=== PATIENT | female | born 1955 | race Caucasian/White ===

== ENCOUNTER 2022-01-23 09:04 | Inpatient (IN) | payer MEDICARE, SELFPAY ==
[2022-01-23] VITALS (8 sets, daily range): BP systolic 148–191; BP diastolic 88–130; PULSE 101–111; RESP 16–20; TEMP 36.7–36.8; O2SAT 92–98; BMI 38.0; BMI 38.1
--- NOTE | 2022-01-23 11:16 | W.ED.GENADLT ---
HPI - General Adult General: Chief complaint: General Medical Stated complaint: Dr. Trivedi sent for SOB Time Seen by Provider: 01/23/22 09:31 History of Present Illness: Ms Ann is a 66-year-old lady without significant past medical history presents to the emergency department due to abnormal lab results and respiratory symptoms. She reports 6 months ago having onset of gradual respiratory symptoms including nonproductive cough and lump sensation in throat. Since that time symptoms have persisted and occur daily. Course has been worsening. Intensity is moderate to severe. She experiences breathlessness with exertion. Denies new environmental exposures or known precipitating factors. Apparently she saw primary care and had laboratory studies done which demonstrated elevated D-dimer. No other specific changes in health, exacerbating, or alleviating factors identified. Onset (ago): month(s) Severity: moderate Relieving factors: none Exacerbating factors: other (exertion) Associated symptoms: Reports cough, dyspnea, malaise and short of breath Review of Systems General: Reports: 10 or more systems reviewed and unremarkable except in HPI and below Const: Reports: malaise Resp: Reports: dyspnea PFSH ED PFSH: Medical History (Updated 01/23/22 @ 14:07 by Piyush Lantigua MD) No significant past medical history Surgical History (Updated 01/23/22 @ 11:24 by Piyush Lantigua MD) History of appendectomy History of cholecystectomy History of hysterectomy Social History (Updated 01/23/22 @ 11:24 by Piyush Lantigua MD) Smoking and tobacco status: never smoked Physical Exam Const: COMMON NORMALS: alert GENERAL APPEARANCE: cooperative and well developed HENMT: COMMON NORMALS: normocephalic and atraumatic HEAD & SCALP: normocephalic and atraumatic Eye: COMMON NORMALS: conjunctivae normal CONJUNCTIVA: Yes conjunctivae normal SCLERA: sclerae normal Neck/C-Spine: COMMON NORMALS: supple GENERAL: Yes trachea midline Resp: EFFORT & INSPECTION: Yes able to speak in complete sentences AUSCULTATION: diminished lung sounds on the right in the lower lung jesus and on the left throughout and bronchial breath sounds OTHER: Frequent coughing Cardio: COMMON NORMALS: regular rhythm RATE: tachycardic RHYTHM: regular rhythm GI: COMMON NORMALS: Soft to palpation PALPATION: Yes Soft to palpation and No Tenderness to palpation present (GI) Extremity: GENERAL: Yes normal exam except as noted and No edema Neuro: COMMON NORMALS: moves all extremities SENSORIUM/ORIENTATION: Yes alert and No Orientation impaired Psych: COMMON NORMALS: mental status grossly normal and Normal thought process present THOUGHT PROCESS: Normal thought process present Course Vital Signs: Vital signs: Vital Signs Temperature 97.5 F L 01/25/22 11:50 Pulse Rate 113 H 01/25/22 11:50 Respiratory Rate 18 01/25/22 11:50 Blood Pressure 119/76 01/25/22 11:50 Pulse Oximetry 95 01/25/22 11:50 Oxygen Delivery Me thod 01/25/22 11:50 MDM - General Adult Medical Decision Making 66-year-old lady presenting with persistent cough and progressively worsening dyspnea. Initial exam notable for mild visible dyspnea at rest and tachycardia with significantly decreased lung sounds. Patient not currently requiring oxygen. Twelve-lead EKG demonstrating sinus tachycardia with nonspecific ST segment abnormalities. No STEMI. Laboratory studies notable for minimal leukocytosis. Electrolytes without significant abnormality. BNP normal and delta troponin at 2 hours negative. Given reported outside elevated D-dimer and progressive symptoms I believe that advanced imaging is appropriate. CT imaging notable for large left pleural effusion essentially collapsing the anterior lung and vasculature with some evidence of mediastinal shift. There are scattered nodules throughout the right lung and questionable liver lesions. I discussed results of ED evaluation with the patient including possibility of cancer. Given severity of progressive symptoms as well as imaging findings I do believe that inpatient management is appropriate. The results of ED evaluation were discussed with the patient including plan for admission due to requirement for level of care not available if discharged to prevent significant worsening/deterioration. Patient agreeable with plan. Discussed with hospitalist service Dr. Buckner who is agreeable to admit the patient. Medical Records I reviewed the patient's medical records. Lab Data I reviewed the patient's lab results. : 01/25/22 02:40 01/25/22 02:40 Radiology Impressions Chest CTA 01/23/22 11:22 IMPRESSION: 1. Large LEFT pleural effusion resulting in compressive atelectasis of the lungs centrally with slight shift of the midline structures to the RIGHT. 2. Numerous subcentimeter RIGHT pulmonary nodules. Differential includes metastatic disease, septic embolic disease and fungal disease. 3. Numerous low-attenuation lesions in the liver suspicious for metastatic disease. 4. No central pulmonary embolism. Neck CT 01/23/22 11:22 IMPRESSION: 1. Central, symmetric narrowing of the airway at the level of the vocal cords. This is probably due to a Valsalva maneuver during the examination. Direct visualization should be performed for further evaluation to exclude neoplasm. 2. No adenopathy. 3. Multiple small subcentimeter nodules at the RIGHT apex and a large LEFT pleural effusion. Abdomen/Pelvis CT 01/23/22 15:50 IMPRESSION: 1. Scattered low-density lesions in the liver have the appearance of cysts, measuring up to 2.2 cm in the right hepatic lobe. 2. Left-sided parapelvic renal cysts. 3. Diverticulosis without diverticulitis. 4. Mid abdominal mesenteric edema may reflect a chronic inflammatory process such as sclerosing mesenteritis. 5. Large left pleural effusion. 6. Coronary artery atherosclerotic calcifications. COMMENTS: Consistent with the [employer]'s Incidental Findings Committee white paper (J Am Sandy Radiol 2018): Any incidental renal lesion less than 1 cm or classified as too small to characterize, or any incidental cystic renal lesion characterized as simple-appearing, is likely benign. No follow-up imaging is recommended for these lesions per consensus recommendations based on imaging criteria. Chest Ultrasound 01/24/22 12:00 IMPRESSION: Large LEFT thoracentesis. Chest X-Ray 01/25/22 05:00 IMPRESSION: 1. Large left-sided pleural effusion with only a small portion of the left upper lobe ventilated. No significant change. Laboratory Results WBC 10.6 10^3/uL (4.0-10.0) H 01/23/22 11:30 RBC 4.63 10^6/uL (4.1-5.3) 01/23/22 11:30 Hgb 13.6 g/dL (11.5-15.3) 01/23/22 11:30 Hct 42.4 % (37.0-47.0) 01/23/22 11:30 MCV 91.6 fl (81-99) 01/23/22 11:30 MCH 29.4 pg (28.0-34.0) 01/23/22 11:30 MCHC 32.1 g/dL (30.0-36.0) 01/23/22 11:30 RDW 13.8 % (12.1-15.1) 01/23/22 11:30 Plt Count 308 10^3/cmm (130-400) 01/23/22 11:30 MPV 10.9 fL (7.4-10.4) H 01/23/22 11:30 Neut % (Auto) 74.7 % 01/23/22 11:30 Lymph % (Auto) 19.0 % 01/23/22 11:30 [place] % (Auto) 4.5 % 01/23/22 11:30 Eos % (Auto) 0.8 % 01/23/22 11:30 Baso % (Auto) 0.5 % 01/23/22 11:30 Neut # (Auto) 7.91 10^3/uL (1.8-7.7) H 01/23/22 11:30 Lymph # (Auto) 2.0 10^3/uL (0.8-4.8) 01/23/22 11:30 [place] # (Auto) 0.5 10^3/uL (0.2-0.9) 01/23/22 11:30 Eos # (Auto) 0.1 10^3/uL (0.0-0.8) 01/23/22 11:30 Baso # (Auto) 0.1 10^3/uL (0.0-0.1) 01/23/22 11:30 Nucleated RBC % (auto) 0 % 01/23/22 11:30 Nucleated RBCs # 0.0 /100WBC 01/23/22 11:30 Sodium 141 mmol/L (136-145) 01/23/22 11:30 Potassium 4.3 mmol/L (3.5-5.1) 01/23/22 11:30 Chloride 105 mmol/L (98-107) 01/23/22 11:30 Carbon Dioxide 26 mmol/L (22-29) 01/23/22 11:30 Anion Gap 14.3 (5-19) 01/23/22 11:30 BUN 15 mg/dL (8-23) 01/23/22 11:30 Creatinine 0.8 mg/dL (0.5-0.9) 01/23/22 11:30 GFR Calculation 71.3 mL/min (90-130) L 01/23/22 11:30 Glucose 102 mg/dL (65-115) 01/23/22 11:30 Calculated Osmolality 293 mOsm/kg (285-295) 01/23/22 11:30 Calcium 9.7 mg/dL (8.5-10.5) 01/23/22 11:30 Troponin T Baseline 13 ng/L (0-10) H 01/23/22 11:30 Troponin T 120 Minute 12.48 ng/L (0-10) H 01/23/22 13:30 Delta Troponin T -0.52 ABS# (0-10) L 01/23/22 13:30 NT-Pro-B Natriuret Pep 87 pg/mL (0-125) 01/23/22 11:30 Discharge Plan Discharge Patient Disposition: Admitted As Inpatient Admit Provider: Rigo Buckner Clinical Impression: Shortness of breath, Pleural effusion Condition: Stable Coding Level of Care Code ED Critical Care Registered Nurse for Chg Fwd Exam Comprehensive
--- NOTE | 2022-01-23 11:22 | CT_ITS ---
WS: [id number] CT NECK WITH CONTRAST HISTORY: cough for 6 months, lump sensation TECHNIQUE: Contiguous 5 mm axial images are performed through the neck with intravenous contrast. Sag ittal and coronal reformats are also submitted. All CT scans at [facility] use at least one o f these dose optimization techniques: automated exposure control; mA and/or kV adjustment per patient size (includes targeted exams where dose is matched to clinical indication); or iterative reconstruc tion. CONTRAST: CONTRAST: Omnipaque 350; 75 mL IV. DLP: 287.92 mGy.cm COMPARISON: None available. Nasopharynx and oropharynx are negative. Narrowing of the airway at the level of the vocal cords. Thi s could be due to a Valsalva maneuver. The very symmetric narrowing. Torus tubarius and fossa of Rosenmuller and parapharyngeal fat are normal. No significant lymphadenopathy is identified. Thyroid gland and salivary glands are normally enhancing with no masses. Degenerative disc disease and spondylosis at C4-5, C5-6 and C6-7. Visualized portions of the skull base demonstrate no abnormalities. Orbits and globes are within norm al limits. No soft tissue masses. Visualized paranasal sinuses and mastoid air cells are normal. Large LEFT pleural effusion is noted at the LEFT lung apex. On the localizer there is extensive opaci fication throughout the LEFT thorax. Small, subcentimeter pulmonary nodules are noted at the RIGHT ap ex. These were described on the recent chest CT. CT/CT neck w con* [id number] IMPRESSION: 1. Central, symmetric narrowing of the airway at the level of the vocal cords. This is probably due to a Valsalva maneuver during the examination. Direct vis ualization should be performed for further evaluation to exclude neoplasm. 2. No adenopathy. 3. Multiple small subcentimeter nodules at the RIGHT apex and a large LEFT ple ural effusion.
--- NOTE | 2022-01-23 11:22 | CT_ITS ---
WS: [id number] CT CHEST ANGIOGRAPHY WITH REFORMATS HISTORY: cough, elevated ddimer TECHNIQUE: Contiguous axial images are obtained through the chest during arterial injection of intrav enous contrast. Images are reconstructed to evaluate the pulmonary arteries. MIP imaging also reviewe d. All CT scans at [facility] use at least one of these dose optimization techniques: automat ed exposure control; mA and/or kV adjustment per patient size (includes targeted exams where dose is matched to clinical indication); or iterative reconstruction. CONTRAST: Omnipaque 350; 65 mL IV. DLP: 474.11 mGy.cm COMPARISON: None available. Very large LEFT pleural effusion with compressive atelectasis of the lung centrally. LEFT pleural spa ce is completely filled with fluid. Fluid is of low attenuation and probably simple fluid. Good distention of the pulmonary artery. Central pulmonary artery is well-opacified. Abrupt terminati on of the distal LEFT main pulmonary artery. The RIGHT pulmonary artery is better opacified. There is significant motion and breathing artifact. No definite pulmonary emboli are identified centrally. Th e heart is being displaced to the RIGHT by the effusion. No RIGHT heart strain. No pericardial effusi on. Innumerable tiny pulmonary nodules are noted throughout the RIGHT lung. Largest nodule measures 7 mm in the RIGHT lower lobe. Abrupt termination of the LEFT distal main bronchus. Centrally obstructing m ass is not excluded. No definite mediastinal or hilar lymph nodes are identified. There are a few lym ph nodes which are less than a centimeter. Visualized thyroid is negative. Multiple scattered low-attenuation lesions in the liver. The largest measures 2.8 x 2.0 cm with sligh tly irregular borders in the RIGHT lobe. Liver appears enlarged. No adrenal mass. Thoracic spondylitic changes. T4 and T5 hemangiomas. CT/CT angio chest PE protcl [id number] IMPRESSION: 1. Large LEFT pleural effusion resulting in compressive atelectasis of the nigel gs centrally with slight shift of the midline structures to the RIGHT. 2. Numerous subcentimeter RIGHT pulmonary nodules. Differential includes metas tatic disease, septic embolic disease and fungal disease. 3. Numerous low-attenuation lesions in the liver suspicious for metastatic dis ease. 4. No central pulmonary embolism.
--- NOTE | 2022-01-23 11:26 | ECG_ITS ---
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 Measurements Intervals [place] Rate: 110 P: 42 [place]: 136 QRS: 11 QRSD: 82 T: 27 QT: 307 QTc: 415 Interpretive Statements SINUS TACHYCARDIA LOW QRS VOLTAGE IN PRECORDIAL LEADS [QRS DEFLECTION < 1.0 mV IN CHEST LEADS] POSSIBLE ANTERIOR MYOCARDIAL INFARCTION , PROBABLY OLD [30 ms Q WAVE IN V3/V4, OR R < 0.2 mV IN V4] ABNORMAL RHYTHM ECG No previous ECG available for comparison Electronically Signed On 01-24-2022 7:06:05 CDT by Ben Becker M.D. [id number]
[2022-01-23 11:39] LABS: Basophils # 0.1 10^3/uL (0.0-0.1); Basophils % 0.5 %; Eosinophils # 0.1 10^3/uL (0.0-0.8); Eosinophils % 0.8 %; Hematocrit 42.4 % (37.0-47.0); Hemoglobin 13.6 g/dL (11.5-15.3); Mean Corpuscular HGB Conc 32.1 g/dL (30.0-36.0); Mean Corpuscular Hemoglobin 29.4 pg (28.0-34.0); Mean Corpuscular Volume 91.6 fl (81-99); Mean Platelet Volume 10.9 fL (7.4-10.4); Monocytes # 0.5 10^3/uL (0.2-0.9); Monocytes % 4.5 %; Neutrophils # 7.91 10^3/uL (1.8-7.7); Neutrophils % 74.7 %; Nucleated Red Blood Cells % 0 %; Platelet Count 308 10^3/cmm (130-400); Red Blood Count 4.63 10^6/uL (4.1-5.3); Red Cell Distribution Width 13.8 % (12.1-15.1); White Blood Count 10.6 10^3/uL (4.0-10.0)
[2022-01-23] MEDS: benzonatate 100 mg Capsule PO (12:01)
[2022-01-23 12:18] LABS: Anion Gap 14.3 (5-19); Blood Urea Nitrogen 15 mg/dL (8-23); Calcium 9.7 mg/dL (8.5-10.5); Carbon Dioxide 26 mmol/L (22-29); Chloride 105 mmol/L (98-107); Glomerular Filtration Rate 71.3 mL/min (90-130); Glucose 102 mg/dL (65-115); NT Pro B Type Natriuretic Pept 87 pg/mL (0-125); Osmolality Calculated 293 mOsm/kg (285-295); Potassium 4.3 mmol/L (3.5-5.1); Sodium 141 mmol/L (136-145)
[2022-01-23 12:19] LABS: Troponin(5th) Baseline 13 ng/L (0-10)
[2022-01-23] MEDS: iohexol 350 mg/mL 100 mL Btl IV ×2 (13:08→13:09)
[2022-01-23 14:02] LABS: Troponin 5 2HR 12.48 ng/L (0-10)
[2022-01-23 14:03] LABS: Troponin 5 2HR Delta -0.52 ABS# (0-10)
--- NOTE | 2022-01-23 15:21 | P.HP_ITS ---
Providers/Chief Complaint Admitting Physician: Rigo Buckner MD Primary Care Provider: Ramana Trivedi MD Chief Complaint: Dr. Trivedi sent for SOB History of Present Illness Magy Ann is a 66 year old female with no significant past medical history came in with chief complaint of worsening shortness of breath predominantly with exertion, patient symptoms started around 6 months back, with nonproductive cough, occasional diaphoresis, and shortness of breath, she also reports uninte ntional loss of 30 pounds weight in 6 months duration, she denied any chest pain, PND, orthopnea, Fever, joint pain joint swelling oral ulcers, rash, sick contact, has denied smoking drug use alcohol use. Has significant family history of malignancy. Upon arrival in the ER she was worked up for above-mentioned complaint: Pertinent imaging studies: CT angio chest PE:?Large LEFT pleural effusion resulting in compressive atelectasis of the lungs centrally with slight shift of the midline structures to the RIGHT.Numerous subcentimeter RIGHT pulmonary nodules. Differential incl udes metastatic disease, septic embolic disease and fungal disease.Numerous low- attenuation lesions in the liver suspicious for metastatic disease. No central pulmonary embolism. CT neck w con: Central, symmetric narrowing of the airway at the level of the vocal cords. This is probably due to a Valsalva maneuver during the examination. Direct visualization should be performed for further evaluation to exclude neoplasm. Pertinent labs: WBC 10.6, H&H: 13/42 , plt : 308 , serum sodium 141, serum potassium 4.3, BUN and serum creatinine 15 and 0.8 Troponin trend:13-12 , proBNP 87 Review of Systems General: Reports: 10 or more systems reviewed and unremarkable except in HPI and below Const: Reports: diaphoresis; Denies: fever(s), chills, body aches or change in appetite Card: Reports: dyspnea on exertion; Denies: palpitations, edema, swelling of feet/ankles or leg pain with exertion Resp: Reports: dyspnea and non-productive cough; Denies: productive cough, wheezing or pain on inspiration GI: Denies: abdominal pain, nausea, vomiting, diarrhea or constipation : Denies: flank pain Musc: Denies: back pain, extremity pain or extremity swelling Neuro: Denies: headache(s), difficulty walking or confusion Medications/Allergies Home Medications Medication Instructions Recorded Confirmed Last Taken Type doxycycline hyclate 100 mg capsule 100 mg PO BID 01/23/22 01/23/22 Unknown History naproxen 250 mg tablet 250 mg PO BID PRN Pain 01/23/22 01/23/22 Unknown History omeprazole 20 mg capsule,delayed 20 mg PO DAILY 01/23/22 01/23/22 Unknown History release Allergies Allergy/AdvReac Type Severity Reaction Status Date / Time buspirone [From BuSpar] Allergy ALGY-Anaphy Verified 01/23/22 12:56 laxis clarithromycin [From Biaxin] Allergy ALGY-Anaphy Verified 01/23/22 12:56 laxis codeine Allergy ADR-Vomitin Verified 01/23/22 12:56 g Macrolide Antibiotics Allergy ADR-Vomitin Verified 01/23/22 12:56 g methylprednisolone Allergy ALGY-Anaphy Verified 01/23/22 12:56 [From Depo-Medrol] laxis Nitrate Analogues Allergy Unknown Verified 01/23/22 12:56 norepinephrine Allergy ALGY-Anaphy Verified 01/23/22 12:56 laxis Penicillins Allergy ALGY-Anaphy Verified 01/23/22 12:56 laxis Quinolones Allergy Unknown Verified 01/23/22 12:56 Sulfa (Sulfonamide Allergy ALGY-Anaphy Verified 01/23/22 12:56 Antibiotics) laxis venlafaxine [From Effexor] Allergy ALGY-Anaphy Verified 01/23/22 12:56 laxis PFSH Acute PFSH: Medical History (Updated 01/23/22 @ 14:07 by Piyush Lantigua MD) No significant past medical history Surgical History (Updated 01/23/22 @ 11:24 by Piyush Lantigua MD) History of appendectomy History of cholecystectomy History of hysterectomy Social History (Updated 01/23/22 @ 11:24 by Piyush Lantigua MD) Smoking and tobacco status: never smoked Vitals/I&O/Wt Last Vital Signs Temp 98.2 F 01/23/22 09:26 Pulse 107 H 01/23/22 13:40 Resp 16 01/23/22 13:40 BP 151/101 01/23/22 13:40 Pulse Ox 92 01/23/22 13:40 O2 Del Method 01/23/22 13:40 Weight last 48 hrs Weight 97.522 kg Physical Exam Const: COMMON NORMALS: patient oriented x3 Resp: COMMON NORMALS: clear to auscultation bilaterally AUSCULTATION: clear to auscultation bilaterally OTHER: Absent lung sounds in left lung field Cardio: COMMON NORMALS: regular rate, regular rhythm, S1 normal heart sound present, S2 normal heart sound present, No gallops present (Cardio), No murmurs present (Cardio), No rub (Cardio) and Peripheral pulses 2+ throughout RATE: regular rate RHYTHM: regular rhythm HEART SOUNDS: S1 normal heart sound present and S2 normal heart sound present PERIPHERAL PULSES: Peripheral pulses 2+ throughout GI: COMMON NORMALS: Normal to inspection, nondistended, normoactive bowel sounds present, Soft to palpation, non-tender, No hepatosplenomegaly present and no masses AUSCULTATION: Yes normoactive bowel sounds PALPATION: Yes Soft to palpation and Yes No hepatosplenomegaly present RECTAL EXAM: deferred Extremity: COMMON NORMALS: no clubbing, cyanosis or edema and no pedal edema Neuro: COMMON NORMALS: patient oriented x3 Data : 01/23/22 11:30 01/23/22 11:30 A&P Assessment and plan (1) Shortness of breath: (2) Pleural effusion: Plan 66 year old female with no significant past medical history came in with chief complaint of worsening shortness of breath predominantly with exertion, patient symptoms started around 6 months back, with nonproductive cough, occasional diaphoresis, and shortness of breath, she also reports unintentional loss of 30 pounds weight in 6 months duration, she denied any chest pain, PND, orthopnea, Fever, joint pain joint swelling oral ulcers, rash, sick contact, has denied smoking drug use alcohol use. Patient has denied any recent travel. Has significant family history of malignancy. Assessment: Symptomatic significant left pleural effusion: Possible malignant pleural effusion: Rule out other causes Numerous subcentimeter RIGHT pulmonary nodules. Numerous low-attenuation lesions in the liver suspicious for metastatic disease. Plan: Follow-up PT/INR Follow ESR CRP Rheumatoid factor, anti CCP Urine histoplasma antigen ANSLEY profile rheumatology QuantiFERON gold DuoNebs Gene Heredia Patient will need left-sided thoracentesis. We will plan for tomorrow morning. CODE STATUS: Full code DVT prophylaxis: On Lovenox Attestations Medical Necessity Statement*: Patient is to be in hospital for management of symptomatic left pleural effusion. Anticipated length of stay greater than 2 midnights. 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
--- NOTE | 2022-01-23 15:50 | CTR_ITS ---
PROCEDURE INFORMATION: Exam: CT Abdomen And Pelvis With Contrast Exam date and time: 01/23/2022 7:54 PM Age: 66 years old Clinical indication: Other: Lesions on liver noted in chest scan today; Additional info: R/O malignancy TECHNIQUE: Imaging protocol: Computed tomography of the abdomen and pelvis with contrast. Radiation optimization: All CT scans at this facility use at least one of these dose optimization techniques: automated exposure control; mA and/or kV adjustment per patient size (includes targeted exams where dose is matched to clinical indication); or iterative reconstruction. Contrast material: OMNIPAQUE 350; Contrast volume: 75 ml; Contrast route: INTRAVENOUS (IV); Other contrast: Oral, 750ml; COMPARISON: CT angio chest PE protcl [id number] 01/23/2022 12:56 PM RADIATION DOSE METRICS: Total DLP (mGy-cm): 1028.61 FINDINGS: Pleural spaces: Large left pleural effusion. Heart: Coronary artery atherosclerotic calcifications. Liver: Scattered low-density lesions in the liver have the appearance of cysts, measuring up to 2.2 cm in the right hepatic lobe. Gallbladder and bile ducts: Normal. No calcified stones. No ductal dilation. Pancreas: Normal. No ductal dilation. Spleen: Normal. No splenomegaly. Adrenal glands: Normal. No mass. Kidneys and ureters: Left-sided parapelvic renal cysts. Stomach and bowel: Diverticulosis without diverticulitis. Appendix: No evidence of appendicitis. Intraperitoneal space: Mid abdominal mesenteric edema may reflect a chronic inflammatory process such as sclerosing mesenteritis. Vasculature: Unremarkable. No abdominal aortic aneurysm. Lymph nodes: Unremarkable. No enlarged lymph nodes. Urinary bladder: Unremarkable as visualized. Reproductive: Unremarkable as visualized. Bones/joints: Unremarkable. No acute fracture. Soft tissues: Unremarkable. CT/CT abdomen pelvis w con* [id number] IMPRESSION: 1. Scattered low-density lesions in the liver have the appearance of cysts, measuring up to 2.2 cm in the right hepatic lobe. 2. Left-sided parapelvic renal cysts. 3. Diverticulosis without diverticulitis. 4. Mid abdominal mesenteric edema may reflect a chronic inflammatory process such as sclerosing mesenteritis. 5. Large left pleural effusion. 6. Coronary artery atherosclerotic calcifications. COMMENTS: Consistent with the [place] [employer]'s Incidental Findings Committee white paper (J Am Sandy Radiol 2018): Any incidental renal lesion less than 1 cm or classified as too small to characterize, or any incidental cystic renal lesion characterized as simple-appearing, is likely benign. No follow-up imaging is recommended for these lesions per consensus recommendations based on imaging criteria.
[2022-01-23] MEDS: enoxaparin 40 mg/0.4 mL Syringe SUBCUT (16:13)
[2022-01-23] MEDS: amlodipine 5 mg Tablet 10 MG PO (16:13)
--- NOTE | 2022-01-23 17:34 | ECG_ITS ---
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 Measurements Intervals [place] Rate: 99 P: 39 ID: [id number] QRS: 13 QRSD: 91 T: 29 QT: 339 QTc: 436 Interpretive Statements SINUS RHYTHM LOW QRS VOLTAGE IN PRECORDIAL LEADS [QRS DEFLECTION < 1.0 mV IN CHEST LEADS] Compared to ECG 01/23/2022 11:26:40 Sinus tachycardia no longer present Myocardial infarct finding no longer present Electronically Signed On 01-24-2022 7:13:21 CDT by Ben Becker M.D. [id number]
[2022-01-23] MEDS: sodium chloride 0.9% 1,000 ML 75 ML IV (18:11)
[2022-01-23] MEDS: benzonatate 100 mg Capsule 200 MG PO (18:11)
[2022-01-23 18:36] LABS: Troponin 5 6HR 14.17 ng/L (0-10)
[2022-01-23 18:37] LABS: Troponin 5 6HR Delta 1.17 ng/L (0-12)
[2022-01-23] MEDS: iohexol 350 mg/mL 100 mL Btl PO (19:27)
[2022-01-24] VITALS (15 sets, daily range): BP systolic 93–157; BP diastolic 62–101; PULSE 76–109; RESP 16–20; TEMP 36.6–37.1; O2SAT 92–98
[2022-01-24] MEDS: sodium chloride 0.9% 1,000 ML 75 ML IV (05:14)
[2022-01-24 05:15] LABS: Basophils % 0.5 %; Eosinophils # 0.2 10^3/uL (0.0-0.8); Eosinophils % 2.1 %; Hematocrit 37.7 % (37.0-47.0); Hemoglobin 11.6 g/dL (11.5-15.3); Lymphocytes # 2.1 10^3/uL (0.8-4.8); Lymphocytes % 24.2 %; Mean Corpuscular HGB Conc 30.8 g/dL (30.0-36.0); Mean Corpuscular Volume 91.1 fl (81-99); Monocytes # 0.5 10^3/uL (0.2-0.9); Monocytes % 6.3 %; Neutrophils # 5.74 10^3/uL (1.8-7.7); Neutrophils % 66.6 %; Nucleated Red Blood Cells % 0 %; Platelet Count 231 10^3/cmm (130-400); Red Blood Count 4.14 10^6/uL (4.1-5.3); White Blood Count 8.6 10^3/uL (4.0-10.0)
[2022-01-24 05:16] LABS: Erythrocyte Sedimentation Rate 26 mm/hr (0-15)
[2022-01-24 05:52] LABS: NT Pro B Type Natriuretic Pept 126 pg/mL (0-125); Procalcitonin 0.02 ng/mL (0-0.5); Thyroid Stimulating Hormone 2.55 uIU/mL (0.27-4.20)
[2022-01-24 06:05] LABS: Alanine Aminotransferase 21 U/L (0-33); Albumin Level 3.5 g/dL (3.5-5.2); Alkaline Phosphatase 80 U/L (35-105); Anion Gap 13.8 (5-19); Aspartate Amino Transferase 17 U/L (0-32); Blood Urea Nitrogen 11 mg/dL (8-23); C Reactive Protein 14.6 mg/L (0.0-4.9); Calcium 8.9 mg/dL (8.5-10.5); Carbon Dioxide 26 mmol/L (22-29); Chloride 100 mmol/L (98-107); Glomerular Filtration Rate 71.3 mL/min (90-130); Glucose 96 mg/dL (65-115); Osmolality Calculated 281 mOsm/kg (285-295); Potassium 3.8 mmol/L (3.5-5.1); Sodium 136 mmol/L (136-145); Total Bilirubin 0.6 mg/dL (0.15-1.2); Total Protein 6.5 g/dL (6.6-8.7)
[2022-01-24] MEDS: ipratropium-albuterol 3 mL Neb INHALATION (08:40)
[2022-01-24] MEDS: pantoprazole DR 40 mg Tablet PO (08:47)
[2022-01-24] MEDS: benzonatate 100 mg Capsule 200 MG PO ×3 (08:47→20:43)
[2022-01-24] MEDS: amlodipine 10 mg Tablet PO (09:28)
--- NOTE | 2022-01-24 10:20 | PC.CHAP ---
Pastoral Care Encounter/Spiritual Assessment Type of Contact [] Declined environmental air specialist visit [] Patient/Family/Request visit [] Outpatient visit [] Follow-up visit [] Physician referral [] Code/Alert [x] Routine visit [] Staff referral [] Actively dying [] Patient sleeping [] Family support [] [] Out of room [] Palliative care [] [x] Receiving care in room [] Pre-surgical visit [] Trauma [] Long length of stay [] ICU visit [] Other: Relational/Emotional Strength [] Patient feels connected with others/family/visitors/staff [x] Distress [] Loneliness/isolation [] Abandonment Spirituality of Patient [x] Person of [place] [] Attends Faith of their [place] [x] Believes in Prayer [] Reads Bible or Judaism materials [] There are Spiritual issues to be addressed Senior Licensing Manager Interventions [x] Prayer [x] Active listening [x] Non-anxious presence [x] Spiritual/emotional support [] Crisis/trauma care [x] Spiritual counseling [] Bereavement support [] Provided bereavement packet [] Provided Bible/devotional materials [] Provided toy/stuffed animal, coloring book to patient or family member [] Provided Communion [] Anointing/[place] [] Salvation [x] Completed spiritual assessment [] Other: Impact on Illness or Injury [] Angry [x] Fearful [] Anxious [] Often cries [] Exhaustion [] Unable to work [] Unable to attend methodist [] Unable to walk/stand [] Unable to read [] Unable to drive [] Unable to eat/drink [] Unable to sleep [] Unable to be with family [] Patient intubated [] Other: Summary daniel had tests waiting on doctors report has other healthy problems negative at this time will go home at some point Time spent with patient 10 mins
--- NOTE | 2022-01-24 11:41 | P.PN_ITS ---
Subjective Subjective: Patient was seen and examined this morning, continues to have significant nonproductive cough. S/p left-sided thoracentesis. Medications: Medication Review Details: Generic Name Dose Route Start Last Admin Trade Name Freq PRN Reason Stop Dose Admin Albuterol/Ipratrop ium 3 ml 01/23/22 15:18 01/24/22 08:40 Ipratropium-Albu terol 3 Ml Neb INHALATION 3 ml Q4H PRN Administration SHORTNESS OF IRLANDA TH Amlodipine Besylat e 10 mg 01/24/22 09:00 01/24/22 09:28 Amlodipine 10 Mg Tablet PO 10 mg DAILY CY Administration Benzonatate 200 mg 01/23/22 18:00 01/24/22 08:47 Benzonatate 100 Mg Capsule PO 200 mg TID CY Administration Enoxaparin Sodium 40 mg 01/23/22 15:15 01/23/22 16:13 Enoxaparin 40 Mg /0.4 Ml Syringe SUBCUT 40 mg Q24H CY Administration Pantoprazole Sodiu m 40 mg 01/24/22 09:00 01/24/22 08:[address] 40 Mg Tablet PO 40 mg DAILY CY Administration Vitals/I&O/Wt Last Vital Signs Temp 97.8 F 01/24/22 11:10 Pulse 106 H 01/24/22 11:10 Resp 18 01/24/22 11:10 BP 149/88 01/24/22 11:10 Pulse Ox 96 01/24/22 11:10 O2 Del Method 01/24/22 11:10 01/23/22 01/24/22 01/24/22 22:59 06:59 14:59 Intake Total 480 / 480 828.75 / 1308.75 240 / 240 Balance 480 / 480 828.75 / 1308.75 240 / 240 Weight last 48 hrs Weight 97.692 kg Weight 97.522 kg Physical Exam Const: COMMON NORMALS: patient oriented x3 Resp: COMMON NORMALS: clear to auscultation bilaterally AUSCULTATION: clear to auscultation bilaterally OTHER: Absent lung sounds in left lung field Cardio: COMMON NORMALS: regular rate, regular rhythm, S1 normal heart sound present, S2 normal heart sound present, No gallops present (Cardio), No murmurs present (Cardio), No rub (Cardio) and Peripheral pulses 2+ throughout RATE: regular rate RHYTHM: regular rhythm HEART SOUNDS: S1 normal heart sound present and S2 normal heart sound present PERIPHERAL PULSES: Peripheral pulses 2+ throughout GI: COMMON NORMALS: Normal to inspection, nondistended, normoactive bowel sounds present, Soft to palpation, non-tender, No hepatosplenomegaly present and no masses AUSCULTATION: Yes normoactive bowel sounds PALPATION: Yes Soft to palpation and Yes No hepatosplenomegaly present RECTAL EXAM: deferred Extremity: COMMON NORMALS: no clubbing, cyanosis or edema and no pedal edema Neuro: COMMON NORMALS: patient oriented x3 Data : 01/24/22 04:37 01/24/22 04:37 A&P Assessment and plan (1) Shortness of breath: (2) Pleural effusion: Plan 66 year old female with no significant past medical history came in with chief complaint of worsening shortness of breath predominantly with exertion, patient symptoms started around 6 months back, with nonproductive cough, occasional diaphoresis, and shortness of breath, she also reports unintentional loss of 30 pounds weight in 6 months duration, she denied any chest pain, PND, orthopnea, Fever, joint pain joint swelling oral ulcers, rash, sick contact, has denied smoking drug use alcohol use. Patient has denied any recent travel. Has significant family history of malignancy. Assessment: Symptomatic significant left pleural effusion: Possible malignant pleural effusion: Rule out other causes Numerous subcentimeter RIGHT pulmonary nodules. Numerous low-attenuation lesions in the liver suspicious for metastatic disease. Plan: CT angio chest PE:?Large LEFT pleural effusion resulting in compressive atelectasis of the lungs centrally with slight shift of the midline structures to the RIGHT.Numerous subcentimeter RIGHT pulmonary nodules. Differential includes metastatic disease, septic embolic disease and fungal disease.Numerous low-attenuation lesions in the liver suspicious for metastatic disease. No central pulmonary embolism. CT neck w con:?Central, symmetric narrowing of the airway at the level of the vocal cords. This is probably due to a Valsalva maneuver during the examination. Direct visualization should be performed for further evaluation to exclude neoplasm. CT abdomen and pelvis: Scattered low-density lesions in the liver have the appearance of cysts, measuring up to 2.2 cm in the right hepatic lobe. Left- sided parapelvic renal cysts. S/p left-sided thoracentesis: With removal of 1300 cc straw-colored fluid. Chest x-ray post thoracentesis: ?No pneumothorax?: Persistent large LEFT pleural effusion remains. Follow pleural fluid analysis: ESR : 26 , CRP : 14 , R/F: 10 , TSH : Urine histoplasma antigen ANSLEY profile rheumatology QuantiFERON gold DuoNejose manuel Gene Heredia Patient will need left-sided thoracentesis. We will plan for tomorrow morning. CODE STATUS: Full code DVT prophylaxis: On Lovenox Attestations Medical Necessity Statement*: Patient is still in hospital for management of large symptomatic left-sided pleural effusion. Time Spent in Patient Care: Greater than 35 minutes (>than 50% of time spent in counselling and/or direct pt care on unit) . 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
--- NOTE | 2022-01-24 12:00 | US_ITS ---
WS: [id number] Ultrasound chest. HISTORY: Evaluate pleural effusion. There is a large LEFT pleural effusion. Fluid is 3.2 cm deep from the skin surface. Thorax is marked for Dr. Buckner to perform a thoracentesis. US/ chest [id number] IMPRESSION: Large LEFT thoracentesis.
[2022-01-24] MEDS: lidocaine 1% INJ 20 mL MDV (mL) 10 ML SUBCUT (12:12)
--- NOTE | 2022-01-24 12:36 | XR_ITS ---
WS: [id number] PORTABLE CHEST HISTORY: thoracentesis completed COMPARISON: CT 01/23/2022 Slightly better aeration of the LEFT upper lobe as compared to the prior CT. There is continued very large LEFT pleural effusion. Small amount of aerated lung towards the apex and centrally. No pneumoth orax. Cardiac size: Normal. Mediastinum/Aorta: Normal mediastinum. No osseous abnormality seen. XR/XR chest 1V portable [id number] IMPRESSION: 1. No pneumothorax status post thoracentesis. 2. Large LEFT pleural effusion remains.
--- NOTE | 2022-01-24 12:37 | PC.NURSE ---
thoracentesis performed at bedside. time out performed. 1300mL clear yellow fluid drained. chest xray ordered. vital signs recorded. Dr. berg at bedside to perform procedure and monitor patient after procedure. tolerated well w some shortness of breath, remained room air throughout procedure and after. Sample sent to lab.
[2022-01-24] MEDS: morphine 4 mg/mL SDV 1 mL 0.5 MG IVP ×2 (12:49→21:38)
[2022-01-24 13:30] LABS: Lactate Dehydrogenase 214 U/L (135-214)
[2022-01-24 13:39] LABS: Cyto Order Verification Order Verified
--- NOTE | 2022-01-24 14:27 | PM.ACPR ---
Procedure/Consent Procedure Narrative: Procedure: Ultrasound guided left-sided thoracentesis Indication: Left pleural effusion Consent: Signed and placed in chart Anesthesia: 10 cc 1% lidocaine without epinephrine Consent for Procedure: Consent obtained from patient Description: Chest X ray reviewed and large left pleural effusion was localized using ultrasound guidance and the appropriate site was marked accordingly. A time out was performed. My hands were washed? immediately prior to the procedure. I wore a surgical cap, mask with? protective eyewear, sterile gown and sterile gloves throughout the? procedure. The patient was placed in appropriate position, area of interest was sterilized with chlorhexidine skin prep and draped in a sterile manner. 1% lidocaine was used to anesthesize the skin, subcutaneous tissue, superior aspect of the rib periosteum and parietal? pleura. A finder needle was then introduced over the superior aspect of? the rib to locate the pleural fluid; 5 cc pfsxo-anexmzo-unesbud fluid was aspirated. A 10-blade scalpel was used to dolly the? skin at the insertion site. The Sbjw-b-Xuwxjnea needle was then? introduced through the skin incision into the pleural space using? negative aspiration pressure and the red colormetric indicator to confirm? appropriate positioning of the needle. The thoracentesis catheter was? then threaded without difficulty.1300 CC straw colored fluid was removed and then patient started complaining of pleuritic pain, stopped further drainage.? Ultrasound examination at that point showed still there is some residual fluid but as patient complained of pleuritic chest pain, the catheter was then removed. No immediate? complications were noted during the procedure. The fluid will be sent for? studies.? Estimated blood loss is 5 - 10 CC. ? Ultrasound guidance used: Yes Complications: None; the fact that patient complained of pleuritic pain-I suspect trapped lung physiology PCXR: A post-procedure chest? x-ray did not show pneumothorax.
[2022-01-24 14:31] LABS: Pleural Fluid Albumin 2.8 g/dL; Pleural Fluid Cholesterol 80 mg/dL
[2022-01-24 14:32] LABS: LDH Pleural Fluid 245 U/L; Pleural Fluid Triglycerides 26 mg/dL; Total Protein Pleural Fluid 4.6 g/dL
--- NOTE | 2022-01-24 15:48 | USCV_ITS ---
Magy Ann Age: 66 Gender: F : 1955 Exam Date: 01/24/2022 15:48 Ordering Phys: Rigo Buckner MD Technologist: Ty Huynh [place] [facility] [place] Indication: Sob, plueral effusion BP: 159 / 91 HR: 100 Rhythm: Sinus Technical Quality: Adequate MEASUREMENTS (Male / Female) Normal Values 2D ECHO LV Diastolic Diameter PLAX 3.8 cm 4.2 - 5.9 / 3.9 - 5.3 cm LV Systolic Diameter PLAX 2.3 cm IVS Diastolic Thickness 1.0 cm 0.6 - 1.0 / 0.6 - 0.9 cm IVS Systolic Thickness 1.4 cm LVPW Diastolic Thickness 1.2 cm 0.6 - 1.0 / 0.6 - 0.9 cm LVPW Systolic Thickness 1.4 cm LVOT Diameter 2.1 cm LV Ejection Fraction 2D Teich 69.8 % LV Ejection Fraction MOD 2C 74.9 % LV Ejection Fraction 2C AL 74.9 % LA Diameter 3.8 cm Aorta at Sinotubular Diameter 2.2 cm M-MODE Aortic Annulus Diameter 3.1 cm LA Ao Ratio MM 1.2 MV E Point Septal Separation 0.7 cm DOPPLER AV Peak Velocity 135.0 cm/s LVOT Peak Velocity 104.0 cm/s AV Area Cont Eq vti 2.4 cm squared AV Area Cont Eq pk 2.6 cm squared MV Area PHT 5.0 cm squared Mitral E to A Ratio 0.8 MV E' Velocity 50.0 cm/s Mitral E to MV E' Ratio 13.8 Mitral E to LV E' Lateral Ratio 12.0 Mitral E to LV E' Septal Ratio 16.4 TR Peak Velocity 118.0 cm/s TR Peak Gradient 5.6 mmHg RV Acceleration Time 0.1 s FINDINGS Left Ventricle Normal left ventricular size, systolic function and wall thickness, with no regional wall motion abnormalities. Left ventricular ejection fraction is estimated at 70 %. Grade I diastolic dysfunction (abnormal relaxation filling pattern), normal to mildly elevated filling pressures. Right Ventricle Normal right ventricular size and systolic function. Right ventricular systolic pressure 8 mmHg. Right Atrium Normal right atrial size. Left Atrium Normal left atrial size. Mitral Valve Structurally normal mitral valve. No mitral valve stenosis. No mitral valve regurgitation. Aortic Valve Aortic valve not well visualized. No aortic valve stenosis. No aortic valve regurgitation. Tricuspid Valve Structurally normal tricuspid valve. Pulmonic Valve Pulmonic valve not well visualized. Pericardium No pericardial effusion. Left pleural effusion. Aorta Normal size aortic root and proximal ascending aorta. IVC Normal IVC dimension with >50% respiratory change of the inferior vena cava. CONCLUSIONS 1. Normal left ventricular size, systolic function and wall thickness, with no regional wall motion abnormalities. Left ventricular ejection fraction is estimated at 70 %. Grade I diastolic dysfunction (abnormal relaxation filling pattern), normal to mildly elevated filling pressures. 2. Left pleural effusion. 3. No prior similar studies to compare. Ashleigh Mandel MD (Electronically Signed) Final Date: 24 January 2022 21:23 S
[2022-01-24] MEDS: guaiFENesin 100 mg/5 mL UDC 10 mL 200 MG PO (21:38)
[2022-01-25 03:08] LABS: Basophils % 0.3 %; Eosinophils # 0.1 10^3/uL (0.0-0.8); Eosinophils % 1.3 %; Hematocrit 37.6 % (37.0-47.0); Lymphocytes # 1.9 10^3/uL (0.8-4.8); Lymphocytes % 20.8 %; Mean Corpuscular HGB Conc 31.9 g/dL (30.0-36.0); Mean Corpuscular Hemoglobin 28.8 pg (28.0-34.0); Mean Corpuscular Volume 90.4 fl (81-99); Monocytes # 0.7 10^3/uL (0.2-0.9); Monocytes % 7.3 %; Neutrophils # 6.35 10^3/uL (1.8-7.7); Neutrophils % 70.1 %; Nucleated Red Blood Cells % 0 %; Platelet Count 238 10^3/cmm (130-400); Red Blood Count 4.16 10^6/uL (4.1-5.3); Red Cell Distribution Width 13.7 % (12.1-15.1); White Blood Count 9.1 10^3/uL (4.0-10.0)
[2022-01-25 03:25] LABS: Alanine Aminotransferase 17 U/L (0-33); Albumin Level 3.2 g/dL (3.5-5.2); Alkaline Phosphatase 74 U/L (35-105); Anion Gap 11.7 (5-19); Aspartate Amino Transferase 15 U/L (0-32); Blood Urea Nitrogen 10 mg/dL (8-23); Calcium 8.7 mg/dL (8.5-10.5); Carbon Dioxide 26 mmol/L (22-29); Chloride 103 mmol/L (98-107); Globulin 2.9 g/dL (1.3-4.6); Glomerular Filtration Rate 71.3 mL/min (90-130); Glucose 108 mg/dL (65-115); Osmolality Calculated 284 mOsm/kg (285-295); Potassium 3.7 mmol/L (3.5-5.1); Sodium 137 mmol/L (136-145); Total Bilirubin 0.7 mg/dL (0.15-1.2); Total Protein 6.1 g/dL (6.6-8.7)
[2022-01-25 04:00] VITALS: BP 111/70; PULSE 97; RESP 16; TEMP 37; O2SAT 96
[2022-01-25] MEDS: guaiFENesin 100 mg/5 mL UDC 10 mL 200 MG PO ×5 (04:51→20:23)
[2022-01-25] MEDS: benzonatate 100 mg Capsule 200 MG PO ×5 (04:51→20:23)
--- NOTE | 2022-01-25 05:00 | XR_ITS ---
WS: [id number] Exam: XR chest 1V portable [id number] Date/Time of Exam: 01/25/2022 5:03 AM Reason For Exam: LT SIDED PLEURAL EFFUSION Comparison 01/24/2022. Large left-sided pleural effusion unchanged. Right lung is clear with some vascular redistribution. N o pneumothorax. The heart is probably not enlarged but the left heart border is obscured. Bony struct ures are intact. XR/XR chest 1V portable [id number] IMPRESSION: 1. Large left-sided pleural effusion with only a small portion of the left uppe r lobe ventilated. No significant change.
[2022-01-25 07:09] VITALS: BP 123/62; PULSE 87; RESP 16; TEMP 37.1; O2SAT 95
[2022-01-25 07:30] VITALS: PULSE 99; RESP 16; O2SAT 95
[2022-01-25] MEDS: pantoprazole DR 40 mg Tablet PO (08:55)
[2022-01-25] MEDS: amlodipine 10 mg Tablet PO (08:55)
[2022-01-25 11:50] VITALS: BP 119/76; PULSE 113; RESP 18; TEMP 36.4; O2SAT 95
--- NOTE | 2022-01-25 12:14 | P.PN_ITS ---
Subjective Subjective: Patient was seen and examined this morning, shortness of breath has improved, though she still has significant coughing, pain at the thoracentesis site has resolved. A.m. chest x-ray done today: Shows persistent left pleural effusion, CTA chest: Suggestive of possible loculated pleural effusion. Possibility of trapped lung cannot be conclusively ruled out. Current plan is to do a repeat bedside ultrasound: To look for possibility of repeat thoracentesis. Medications: Medication Review Details: Generic Name Dose Route Start Last Admin Trade Name Freq PRN Reason Stop Dose Admin Albuterol/Ipratrop ium 3 ml 01/23/22 15:18 01/24/22 08:40 Ipratropium-Albu terol 3 Ml Neb INHALATION 3 ml Q4H PRN Administration SHORTNESS OF IRLANDA TH Amlodipine Besylat e 10 mg 01/24/22 09:00 01/25/22 08:55 Amlodipine 10 Mg Tablet PO 10 mg DAILY CY Administration Benzonatate 200 mg 01/24/22 20:30 01/25/22 08:55 Benzonatate 100 Mg Capsule PO 200 mg Q4H CY Administration Enoxaparin Sodium 40 mg 01/23/22 15:15 01/24/22 13:18 Enoxaparin 40 Mg /0.4 Ml Syringe SUBCUT Not Given Q24H CY Guaifenesin 200 mg 01/24/22 21:00 01/25/22 08:54 Guaifenesin 100 Mg/5 Ml Udc 10 Ml PO 200 mg Q4H CY Administration Pantoprazole Sodiu m 40 mg 01/24/22 09:00 01/25/22 08:[address] 40 Mg Tablet PO 40 mg DAILY CY Administration Vitals/I&O/Wt Last Vital Signs Temp 97.5 F L 01/25/22 11:50 Pulse 113 H 01/25/22 11:50 Resp 18 01/25/22 11:50 BP 119/76 01/25/22 11:50 Pulse Ox 95 01/25/22 11:50 O2 Del Method 01/25/22 11:50 01/24/22 01/25/22 01/25/22 22:59 06:59 14:59 Intake Total 1740 / 2220 120 / 120 Balance 1740 / 2220 120 / 120 Weight last 48 hrs Weight 97.692 kg Physical Exam Const: COMMON NORMALS: patient oriented x3 Resp: COMMON NORMALS: clear to auscultation bilaterally AUSCULTATION: clear to auscultation bilaterally OTHER: Diminished air entry in left lung field Cardio: COMMON NORMALS: regular rate, regular rhythm, S1 normal heart sound present, S2 normal heart sound present, No gallops present (Cardio), No murmurs present (Cardio), No rub (Cardio) and Peripheral pulses 2+ throughout RATE: regular rate RHYTHM: regular rhythm HEART SOUNDS: S1 normal heart sound present and S2 normal heart sound present PERIPHERAL PULSES: Peripheral pulses 2+ throughout GI: COMMON NORMALS: Normal to inspection, nondistended, normoactive bowel sounds present, Soft to palpation, non-tender, No hepatosplenomegaly present and no masses AUSCULTATION: Yes normoactive bowel sounds PALPATION: Yes Soft to palpation and Yes No hepatosplenomegaly present RECTAL EXAM: deferred Extremity: COMMON NORMALS: no clubbing, cyanosis or edema and no pedal edema Neuro: COMMON NORMALS: patient oriented x3 Data : 01/25/22 02:40 01/25/22 02:40 Micro: Microbiology 01/24/22 12:43 Gram Stain - Final Paracentesis Fluid A&P Assessment and plan (1) Shortness of breath: (2) Pleural effusion: Plan 66 year old female with no significant past medical history came in with chief complaint of worsening shortness of breath predominantly with exertion, patient symptoms started around 6 months back, with nonproductive cough, occasional diaphoresis, and shortness of breath, she also reports unintentional loss of 30 pounds weight in 6 months duration, she denied any chest pain, PND, orthopnea, Fever, joint pain joint swelling oral ulcers, rash, sick contact, has denied smoking drug use alcohol use. Patient has denied any recent travel. Has significant family history of malignancy. Assessment: Symptomatic significant left pleural effusion: Possible malignant pleural effusion: Rule out other causes Numerous subcentimeter RIGHT pulmonary nodules. Numerous low-attenuation lesions in the liver suspicious for metastatic disease. Plan: CT angio chest PE:?Large LEFT pleural effusion resulting in compressive atelectasis of the lungs centrally with slight shift of the midline structures to the RIGHT.Numerous subcentimeter RIGHT pulmonary nodules. Differential includes metastatic disease, septic embolic disease and fungal disease.Numerous low-attenuation lesions in the liver suspicious for metastatic disease. No central pulmonary embolism. CT neck w con:?Central, symmetric narrowing of the airway at the level of the vocal cords. This is probably due to a Valsalva maneuver during the examination. Direct visualization should be performed for further evaluation to exclude neoplasm. CT abdomen and pelvis: Scattered low-density lesions in the liver have the appearance of cysts, measuring up to 2.2 cm in the right hepatic lobe. Left- sided parapelvic renal cysts. 2D echo: Normal left ventricular size, systolic function and wall ?thickness, with no regional wall motion abnormalities. Left ?ventricular ejection fraction is estimated at 70 %. Grade I diastolic dysfunction (abnormal relaxation filling pattern), ?normal to mildly elevated filling pressures. S/p left-sided thoracentesis: With removal of 1300 cc straw-colored fluid. Chest x-ray post thoracentesis: ?No pneumothorax?: Persistent large LEFT pleural effusion remains. Follow pleural fluid analysis: Exudative pleural effusion Pleural fluid cytology pending Pleural fluid gram stain moderate white cells no organisms seen: Culture pending ESR : 26 , CRP : 14 , R/F: 10 , TSH : 2.55 Urine histoplasma antigen ANSLEY profile rheumatology QuantiFERON gold DuoNebs Tessalon Perlpadmaja Pulmonary on board: CODE STATUS: Full code DVT prophylaxis: On Lovenox Attestations Medical Necessity Statement*: Needs to be in hospital for management of symptomatic left-sided pleural effusion. Time Spent in Patient Care: Greater than 35 minutes (>than 50% of time spent in counselling and/or direct pt care on unit) . Coding Level of Care Code Acute Project Surveyor for Chg Laineyd Diagnoses Shortness of breath R06.02 Pleural effusion J90
[2022-01-25 12:57] LABS: CENTROMERE B ANTIBODY <1.0 NEG AI (<1.0 NEG); JO-1 ANTIBODY <1.0 NEG AI (<1.0 NEG); RNP ANTIBODY <1.0 NEG AI (<1.0 NEG); SCL-70 ANTIBODY <1.0 NEG AI (<1.0 NEG); SJOGREN'S ANTIBODY (SS-A) >8.0 POS AI (<1.0 NEG); SM ANTIBODY <1.0 NEG AI (<1.0 NEG); SS-B <1.0 NEG AI (<1.0 NEG)
[2022-01-25 13:28] LABS: COMPLEMENT COMPONENT C3C 185 mg/dL (83-193); COMPLEMENT COMPONENT C4C 35 mg/dL (15-57)
[2022-01-25 14:18] LABS: Cyclic Citrullinated Peptide <16 UNITS
--- NOTE | 2022-01-25 14:40 | P.CONIM_ITS ---
Providers/Reason For Consult Consulting Physician/Specialty*: Brayden Zaldivar MD/ Pulmonary Critical Care Reason for Consult*: Left pleural effusion Requesting Physician: Rigo Buckner MD Attending Physician: Rigo Buckner MD Primary Care Provider: Ramana Trivedi MD History of Present Illness History of Present Illness Magy Ann is a 66 year old female with no significant past medical history admitted to hospital on 01/23/2022 with she is complaint of exertional shortness of breath for the last 6 months, gradual in onset and progressively worsening. She reported a primary office D-dimer was elevated and so she was referred to emergency room. She had a CT chest 01/23/2022 did not show any central PE but showed large left pleural effusion resulting in compressive atelectasis of the lung centrally with slight shift to the right. Abrupt termination of left distal main bronchus. Centrally obstructing mass is not excluded. Numerous subcentimeter right pulmonary nodules differential includes metastatic disease, septic emboli disease. Largest nodule measures 7 mm in the right lower lobe. Numerous low- attenuation lesions in the liver suspicious of metastatic disease. She underwent thoracentesis yesterday 01/24/2022 and was drained for 1300 cc straw-colored fluid and the procedure has been stopped as patient was compl aining of pleuritic chest pain and became hypotensive. The fluid was exudative and currently cytology is pending. Pulmonary consult requested for possible trapped lung with residual left pleural effusion. I saw patient at bedside today, she is sitting comfortably and saturating well on room air. She is having dry cough on and off. Reported the symptoms has been ongoing for the last 6 months. 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 She lost unintentionally 15 to 20 pounds over last 6 months but denied any loss of appetite or unusual fatigue. She denied any fever or chills or hemoptysis. She denied any smoking history. I have showed her CT chest and showed her compressed left lung, liver lesions and informed that I will attempt another session of thoracentesis with manual suction as much possible and will repeat CT chest. she agreed for the procedure. Review of Systems General: Reports: 10 or more systems reviewed and unremarkable except in HPI and below Medications/Allergies Home Medications Medication Instructions Recorded Confirmed Last Taken Type doxycycline hyclate 100 mg capsule 100 mg PO BID 01/23/22 01/23/22 Unknown History naproxen 250 mg tablet 250 mg PO BID PRN Pain 01/23/22 01/23/22 Unknown History omeprazole 20 mg capsule,delayed 20 mg PO DAILY 01/23/22 01/23/22 Unknown History release Allergies Allergy/AdvReac Type Severity Reaction Status Date / Time buspirone [From BuSpar] Allergy ALGY-Anaphy Verified 01/23/22 12:56 laxis clarithromycin [From Biaxin] Allergy ALGY-Anaphy Verified 01/23/22 12:56 laxis codeine Allergy ADR-Vomitin Verified 01/23/22 12:56 g Macrolide Antibiotics Allergy ADR-Vomitin Verified 01/23/22 12:56 g methylprednisolone Allergy ALGY-Anaphy Verified 01/23/22 12:56 [From Depo-Medrol] laxis Nitrate Analogues Allergy Unknown Verified 01/23/22 12:56 norepinephrine Allergy ALGY-Anaphy Verified 01/23/22 12:56 laxis Penicillins Allergy ALGY-Anaphy Verified 01/23/22 12:56 laxis Quinolones Allergy Unknown Verified 01/23/22 12:56 Sulfa (Sulfonamide Allergy ALGY-Anaphy Verified 01/23/22 12:56 Antibiotics) laxis venlafaxine [From Effexor] Allergy ALGY-Anaphy Verified 01/23/22 12:56 laxis Current Medications Generic Name Dose Route Start Last Admin Trade Name Freq PRN Reason Stop Dose Admin Albuterol/Ipratropium 3 ml 01/23/22 15:18 01/24/22 08:40 Ipratropium-Albuterol 3 Ml Neb INHALATION 3 ml Q4H PRN Administration SHORTNESS OF BREATH Amlodipine Besylate 10 mg 01/24/22 09:00 01/25/22 08:55 Amlodipine 10 Mg Tablet PO 10 mg DAILY CY Administration Benzonatate 200 mg 01/24/22 20:30 01/25/22 12:53 Benzonatate 100 Mg Capsule PO 200 mg Q4H CY Administration Enoxaparin Sodium 40 mg 01/23/22 15:15 01/24/22 13:18 Enoxaparin 40 Mg/0.4 Ml Syringe SUBCUT Not Given Q24H CY Guaifenesin 200 mg 01/24/22 21:00 01/25/22 12:53 Guaifenesin 100 Mg/5 Ml Udc 10 Ml PO 200 mg Q4H CY Administration Pantoprazole Sodium 40 mg 01/24/22 09:00 01/25/22 08:[address] 40 Mg Tablet PO 40 mg DAILY CY Administration PFSH Acute PFSH: Medical History No significant past medical history Surgical History History of appendectomy History of cholecystectomy History of hysterectomy Social History Smoking and tobacco status: never smoked Vitals/I&O/Wt Last Vital Signs Temp 97.5 F L 01/25/22 11:50 Pulse 113 H 01/25/22 11:50 Resp 18 01/25/22 11:50 BP 119/76 01/25/22 11:50 Pulse Ox 95 01/25/22 11:50 O2 Del Method 01/25/22 11:50 01/24/22 01/25/22 01/25/22 22:59 06:59 14:59 Intake Total 1740 / 2220 360 / 360 Balance 1740 / 2220 360 / 360 Weight last 48 hrs Weight 215 lb 6 oz Physical Exam Narrative: General: alert, NAD HEENT: conj clear, EOMI, PERRL, mmm, Neck: supple, no meningismus Heme: no cervical LAP Pulmonary: Reduced left lung breath sounds Cardiovascular: rrr, nl s1s2, no mrg Abdomen: soft, nt, nd, no r/g, bs+ Extremities: pulses +, no edema, no c/c : no CVA tenderness Skin: intact, no rash MSK: no back or neck pain Neurologic: grossly intact Data : 01/25/22 02:40 01/25/22 02:40 Other Labs: Radiology Impressions Chest CTA 01/23/22 11:22 IMPRESSION: 1. Large LEFT pleural effusion resulting in compressive atelectasis of the lungs centrally with slight shift of the midline structures to the RIGHT. 2. Numerous subcentimeter RIGHT pulmonary nodules. Differential includes metastatic disease, septic embolic disease and fungal disease. 3. Numerous low-attenuation lesions in the liver suspicious for metastatic disease. 4. No central pulmonary embolism. Neck CT 01/23/22 11:22 IMPRESSION: 1. Central, symmetric narrowing of the airway at the level of the vocal cords. This is probably due to a Valsalva maneuver during the examination. Direct visualization should be performed for further evaluation to exclude neoplasm. 2. No adenopathy. 3. Multiple small subcentimeter nodules at the RIGHT apex and a large LEFT pleural effusion. Abdomen/Pelvis CT 01/23/22 15:50 IMPRESSION: 1. Scattered low-density lesions in the liver have the appearance of cysts, measuring up to 2.2 cm in the right hepatic lobe. 2. Left-sided parapelvic renal cysts. 3. Diverticulosis without diverticulitis. 4. Mid abdominal mesenteric edema may reflect a chronic inflammatory process such as sclerosing mesenteritis. 5. Large left pleural effusion. 6. Coronary artery atherosclerotic calcifications. COMMENTS: Consistent with the [employer]'s Incidental Findings Committee white paper (J Am Sandy Radiol 2018): Any incidental renal lesion less than 1 cm or classified as too small to characterize, or any incidental cystic renal lesion characterized as simple-appearing, is likely benign. No follow-up imaging is recommended for these lesions per consensus recommendations based on imaging criteria. Chest Ultrasound 01/24/22 12:00 IMPRESSION: Large LEFT thoracentesis. Chest X-Ray 01/25/22 05:00 IMPRESSION: 1. Large left-sided pleural effusion with only a small portion of the left upper lobe ventilated. No significant change. Laboratory Results WBC 9.1 10^3/uL (4.0-10.0) 01/25/22 02:40 RBC 4.16 10^6/uL (4.1-5.3) 01/25/22 02:40 Hgb 12.0 g/dL (11.5-15.3) 01/25/22 02:40 Hct 37.6 % (37.0-47.0) 01/25/22 02:40 MCV 90.4 fl (81-99) 01/25/22 02:40 MCH 28.8 pg (28.0-34.0) 01/25/22 02:40 MCHC 31.9 g/dL (30.0-36.0) 01/25/22 02:40 RDW 13.7 % (12.1-15.1) 01/25/22 02:40 Plt Count 238 10^3/cmm (130-400) 01/25/22 02:40 MPV 11.0 fL (7.4-10.4) H 01/25/22 02:40 Neut % (Auto) 70.1 % 01/25/22 02:40 Lymph % (Auto) 20.8 % 01/25/22 02:40 Cowley % (Auto) 7.3 % 01/25/22 02:40 Eos % (Auto) 1.3 % 01/25/22 02:40 Baso % (Auto) 0.3 % 01/25/22 02:40 Neut # (Auto) 6.35 10^3/uL (1.8-7.7) 01/25/22 02:40 Lymph # (Auto) 1.9 10^3/uL (0.8-4.8) 01/25/22 02:40 Cowley # (Auto) 0.7 10^3/uL (0.2-0.9) 01/25/22 02:40 Eos # (Auto) 0.1 10^3/uL (0.0-0.8) 01/25/22 02:40 Baso # (Auto) 0.0 10^3/uL (0.0-0.1) 01/25/22 02:40 Nucleated RBC % (auto) 0 % 01/25/22 02:40 Nucleated RBCs # 0.0 /100WBC 01/25/22 02:40 ESR 26 mm/hr (0-15) H 01/24/22 04:37 PT 14.50 SECONDS (12.1-14.9) 01/24/22 04:37 INR 1.10 (0.8-1.2) 01/24/22 04:37 Sodium 137 mmol/L (136-145) 01/25/22 02:40 Potassium 3.7 mmol/L (3.5-5.1) 01/25/22 02:40 Chloride 103 mmol/L (98-107) 01/25/22 02:40 Carbon Dioxide 26 mmol/L (22-29) 01/25/22 02:40 Anion Gap 11.7 (5-19) 01/25/22 02:40 BUN 10 mg/dL (8-23) 01/25/22 02:40 Creatinine 0.8 mg/dL (0.5-0.9) 01/25/22 02:40 GFR Calculation 71.3 mL/min (90-130) L 01/25/22 02:40 Glucose 108 mg/dL (65-115) 01/25/22 02:40 Calculated Osmolality 284 mOsm/kg (285-295) L 01/25/22 02:40 Calcium 8.7 mg/dL (8.5-10.5) 01/25/22 02:40 Total Bilirubin 0.7 mg/dL (0.15-1.2) 01/25/22 02:40 AST 15 U/L (0-32) 01/25/22 02:40 ALT 17 U/L (0-33) 01/25/22 02:40 Alkaline Phosphatase 74 U/L (35-105) 01/25/22 02:40 Lactate Dehydrogenase 214 U/L (135-214) 01/24/22 04:37 Troponin T Baseline 13 ng/L (0-10) H 01/23/22 11:30 Troponin T 120 Minute 12.48 ng/L (0-10) H 01/23/22 13:30 Delta Troponin T -0.52 ABS# (0-10) L 01/23/22 13:30 Troponin T Hi Sens 6Hr 14.17 ng/L (0-10) H 01/23/22 17:39 Troponin T Hi Sens 6Hr Delta 1.17 ng/L (0-12) 01/23/22 17:39 C-Reactive Protein 14.6 mg/L (0.0-4.9) H 01/24/22 04:37 NT-Pro-B Natriuret Pep 126 pg/mL (0-125) H 01/24/22 04:37 Total Protein 6.1 g/dL (6.6-8.7) L 01/25/22 02:40 Albumin 3.2 g/dL (3.5-5.2) L 01/25/22 02:40 Globulin 2.9 g/dL (1.3-4.6) 01/25/22 02:40 Procalcitonin 0.02 ng/mL (0-0.5) 01/24/22 04:37 TSH 2.55 uIU/mL (0.27-4.20) 01/24/22 04:37 Pleural pH 8.00 (6.5-7.5) H 01/24/22 12:43 Pleural Total Protein 4.6 g/dL 01/24/22 12:43 Pleural Albumin 2.8 g/dL 01/24/22 12:43 Pleural LDH 245 U/L 01/24/22 12:43 Pleural Glucose 81.0 mg/dL 01/24/22 12:43 Pleural Cholesterol 80 mg/dL 01/24/22 12:43 Pleural Triglycerides 26 mg/dL 01/24/22 12:43 Rheumatoid Factor 10.0 IU/mL (0-14) 01/24/22 04:37 Cycl Citrul Peptide IgG <16 UNITS 01/24/22 04:37 JEANIE-1 Antibody <1.0 neg AI (<1.0 NEG) 01/24/22 04:37 SS-A Antibody >8.0 pos AI (<1.0 NEG) A 01/24/22 04:37 SS-B Antibody <1.0 neg AI (<1.0 NEG) 01/24/22 04:37 Sm (Roberts) Antibody <1.0 neg AI (<1.0 NEG) 01/24/22 04:37 PAPER REWINDER OPERATOR Antibody <1.0 neg AI (<1.0 NEG) 01/24/22 04:37 Scl-70 Antibody <1.0 neg AI (<1.0 NEG) 01/24/22 04:37 Centromere B Antibody <1.0 neg AI (<1.0 NEG) 01/24/22 04:37 Complement C3c 185 mg/dL (83-193) 01/24/22 04:37 Complement C4c 35 mg/dL (15-57) 01/24/22 04:37 Micro: Microbiology 01/24/22 12:43 Gram Stain - Final Paracentesis Fluid A&P Assessment and plan (1) Pleural effusion: (2) Shortness of breath: (3) Pulmonary nodules: Plan #Large left pleural effusion-can be due to malignancy/trapped lung due to atelectasis #Post thoracentesis CT chest concerning for metastatic malignancy - small cell ca vs mesothelioma vs sarcoma - cytology pending -01/24/2022 s/p thoracentesis 1300 cc straw-colored fluid, total protein 4.6, LDH 245 but procedure terminated as pt complained of pleurtic pain and became tachycardic -Echo 01/24/2022: Reported normal systolic function with LVEF 70% grade 1 diastolic dysfunction. -I checked with bedside ultrasound today again and there is evidence of significant left residual pleural effusion -today 01/25/22 I repeated thoracentesis today was performed and yielded 650 cc straw colored fluid and procedure terminated as pt started to complain pain. I did not send for any cultures or cytology or analysis as they were sent from [facility] and results are still pending. - Post thoracentesis CT Chest showed Residual loculated left pleural fluid collection.? Possible malignant effusion. Multiple lobulated left lung lesions consistent with multiple areas of rounded atelectasis versus extensive pleural and/or parenchymal metastasis; versus infectious process versus other inflammatory process. Multiple noncalcified pulmonary nodules in the right lung measuring up to 8 mm in diameter consistent with pulmonary metastasis versus noncalcified granulomatous disease. Stable calcified bilateral hilar nodes and/or mediastinal nodes and/or lung granulomas consistent with old granulomatous disease. These CT chest findings are definitely concerning for metastatic malignancy - small cell vs mesothelial vs sarcoma being my primary concerns. Patient tolerated procedure well and currently saturating 94-97% on room air; HR 100 bpm and normotensive. While waiting for pleural fluid cytology - I recommended pt to stay atleast one overnight, we will schedule PET/CT as outpt and I will follow up in 7-10 days to discuss cytology as well as PET/CT results. If cytology is negative for malignancy, depending on PET/CT active lesions - I will plan for IR guided hepatic lesions biopsies or bronchoscopic guided left lung biopsies which ever is easily accessible . recommendations conveyed to hospitalist taking care of the patient. ? Consult Attestations Medical Necessity Statement: Defer to hospitalist Time Spent in Patient Care: Greater than 35 minutes (>than 50% of time spent in counselling and/or direct pt care on unit) . Coding Level of Care Code New Pt Acute Nutrition Educator for Chg Fwd Patient Type New History Comprehensive Exam Comprehensive Medical Decision Making Moderate Complexity Diagnoses Pleural effusion J90 Shortness of breath R06.02 Pulmonary nodules R91.8 Time Spent (min) 60
[2022-01-25 14:54] LABS: THYROID PEROXIDASE ANTIBODIES 133 IU/mL (<9)
[2022-01-25 15:23] LABS: COMPLEMENT, TOTAL (CH50) >60 U/mL (31-60)
[2022-01-25 16:00] VITALS: BP 149/81; PULSE 105; RESP 16; TEMP 36.3; O2SAT 94
[2022-01-25] MEDS: lidocaine 1% INJ 20 mL MDV (mL) 10 ML INTRADERMA (16:15)
--- NOTE | 2022-01-25 17:02 | CTR_ITS ---
PROCEDURE INFORMATION: Exam: CT Chest Without Contrast; Diagnostic Exam date and time: 01/25/2022 5:09 PM Age: 66 years old Clinical indication: Shortness of breath; Additional info: Post thoracentesis TECHNIQUE: Imaging protocol: Diagnostic computed tomography of the chest without contrast. Radiation optimization: All CT scans at this facility use at least one of these dose optimization techniques: automated exposure control; mA and/or kV adjustment per patient size (includes targeted exams where dose is matched to clinical indication); or iterative reconstruction. COMPARISON: CT angio chest PE protcl [id number] 01/23/2022 12:56 PM RADIATION DOSE METRICS: Total DLP (mGy-cm): 511.88 FINDINGS: Lungs: Status post thoracentesis with interval re-expansion of portions of the left lung. Multiple noncalcified pulmonary nodules in the right lung measuring up to 8 mm in diameter consistent with pulmonary metastasis versus noncalcified granulomatous disease. Pleural spaces: Moderate residual loculated left pleural fluid collection. Multiple lobulated left lung lesions consistent with multiple areas of rounded atelectasis versus extensive pleural and/or parenchymal metastasis versus infectious process other inflammatory process. Heart: Unremarkable. No cardiomegaly. No pericardial effusion. Lymph nodes: Stable calcified bilateral hilar nodes and/or mediastinal nodes and/or lung granulomas consistent with old granulomatous disease. Vasculature: Unremarkable. No aortic aneurysm. Bones/joints: Severe thoracic spondylosis. Soft tissues: Unremarkable. CT/CT chest [facility] [id number] IMPRESSION: 1. Status post thoracentesis with interval re-expansion of portions of the left lung. 2. Moderate residual loculated left pleural fluid collection. Possible malignant effusion. 3. Multiple lobulated left lung lesions consistent with multiple areas of rounded atelectasis versus extensive pleural and/or parenchymal metastasis versus infectious process versus other inflammatory process. 4. Multiple noncalcified pulmonary nodules in the right lung measuring up to 8 mm in diameter consistent with pulmonary metastasis versus noncalcified granulomatous disease. 5. Stable calcified bilateral hilar nodes and/or mediastinal nodes and/or lung granulomas consistent with old granulomatous disease.
--- NOTE | 2022-01-25 18:21 | P.PCN_ITS ---
Procedure/Consent Time out: Time Out Performed: Yes Consent: Consent for Procedure: Consent obtained from patient Procedure Narrative: Pulmonary & Critical Care Medicine Procedure - Ultrasound guided Left side Thoracentesis Procedure: Ultrasound guided Left side Thoracentesis Indication: Left Pleural effusion Learning And Development Associate(s): Brayden Ridleyr [facility] Consent: Signed and placed in chart Anesthesia: 10 cc 1% lidocaine without epinephrine Description: Chest imaging reviewed showed left Pleural effusion, which was localized using ultrasound guidance and the appropriate site was marked accordingly. A time out was performed. My hands were washed immediately prior to the procedure. I wore a surgical cap, mask with protective eyewear, sterile gown and sterile gloves throughout the procedure. The patient was placed in appropriate position, area of interest was sterilized with chlorhexidine skin prep and draped in a sterile manner. 1% lidocaine was used to anesthesize the skin, subcutaneous tissue, superior aspect of the rib periosteum and parietal pleura. A finder needle was then introduced over the superior aspect of the rib to locate the pleural fluid; 5 cc straw colored fluid was aspirated. A 10-blade scalpel was used to dolly the skin at the insertion site. The Mugo-w-Cnortwss needle was then introduced through the skin incision into the pleural space using negative aspiration pressure and the red colormetric indicator to confirm appropriate positioning of the needle. The thoracentesis catheter was then threaded without difficulty 650.CC straw colored fluid was removed and pt start ed to complain of pleuritic pain, possible trapped lung. The catheter was then removed. No immediate complications were noted during the procedure. Estimated blood loss is 5 - 10 CC. Ultrasound guidance used:Yes EBL: 5-10 cc Complications:Pleuritic pain while pulling fluid - suggestive of trapped lung PCXR: A post-procedure CT Chest did not show pneumothorax but showed residual pleural effusion with pleural masses. Acute Procedures Epistaxis Control: Time out performed: Yes
[2022-01-25 20:00] VITALS: BP 125/73; PULSE 100; PULSE 98; RESP 14; RESP 22; TEMP 36.9; O2SAT 98; O2SAT 99
[2022-01-26] VITALS: BP 125/72; PULSE 98; RESP 17; TEMP 37.1; O2SAT 96
[2022-01-26] MEDS: guaiFENesin 100 mg/5 mL UDC 10 mL 200 MG PO ×2 (01:15→08:29)
[2022-01-26] MEDS: benzonatate 100 mg Capsule 200 MG PO ×2 (01:15→08:29)
[2022-01-26] MEDS: acetaminophen 325 mg Tablet 650 MG PO (01:15)
--- NOTE | 2022-01-26 01:27 | XRR_ITS ---
PROCEDURE INFORMATION: Exam: XR Chest Exam date and time: 01/26/2022 1:42 AM Age: 66 years old Clinical indication: Pain; Chest pressure; Additional info: Chest pain TECHNIQUE: Imaging protocol: Radiologic exam of the chest. Views: 1 view. COMPARISON: CT chest con [id number] 01/25/2022 5:09 PM FINDINGS: Lungs: Stable large left basilar atelectasis and/or infiltrate and/or effusion. Pleural spaces: Unremarkable. No pleural effusion. No pneumothorax. Heart/Mediastinum: Unremarkable. No cardiomegaly. Bones/joints: Unremarkable. Other findings: Patient rotation to the left. XR/XR chest 1V portable [id number] IMPRESSION: Stable large left basilar atelectasis and/or infiltrate and/or effusion.
[2022-01-26] MEDS: HYDROmorphone 1 mg/mL INJ 1 mL 0.5 MG IVP (01:40)
--- NOTE | 2022-01-26 01:43 | ECG_ITS ---
[facility] Test Date: 2022-01-26 Pat Name: Magy Ann Department: Room: 251 Gender: Female Bag Loader: : 1955 Requested By: Héctor Wolf Order Number: [id number] Reading MD: Measurements Intervals [place] Rate: 100 P: 251 MS: 167 QRS: -76 QRSD: 90 T: 269 QT: 324 QTc: 419 Interpretive Statements ECTOPIC ATRIAL TACHYCARDIA LEFT ANTERIOR FASCICULAR BLOCK [QRS AXIS <= -45, QR IN I, RS IN II] ABNORMAL QRS-T ANGLE [QRS-T AXIS DIFFERENCE > 60] INTERPRETATION BASED ON A DEFAULT AGE OF 40 YEARS No previous ECG available for comparison [id number]
[2022-01-26 02:35] LABS: Troponin(5th) Baseline 12 ng/L (0-10)
--- NOTE | 2022-01-26 03:38 | ECG_ITS ---
[facility] Test Date: 2022-01-26 Pat Name: Magy Ann Department: Room: 251 Gender: Female Stockroom Associate: : 1955 Requested By: Héctor Wolf Order Number: [id number] Deysi MD: Ashleigh Mandel M.D. Measurements Intervals [place] Rate: 87 P: 49 SD: 171 QRS: 1 QRSD: 94 T: 42 QT: 368 QTc: 445 Interpretive Statements SINUS RHYTHM POSSIBLE ANTERIOR MYOCARDIAL INFARCTION , PROBABLY OLD [30 ms Q WAVE IN V3/V4, OR R < 0.2 mV IN V4] Compared to ECG 01/26/2022 01:43:37 Myocardial infarct finding now present Left anterior fascicular block no longer present Electronically Signed On 01-26-2022 7:47:35 CDT by Ashleigh Mandel M.D. [email or web address] ([email or web address] va [email or web address] [email or web address] [id number]
[2022-01-26 04:00] VITALS: BP 113/64; PULSE 87; RESP 17; TEMP 36.5; O2SAT 92
[2022-01-26 04:25] LABS: Basophils % 0.4 %; Eosinophils # 0.1 10^3/uL (0.0-0.8); Hematocrit 38.4 % (37.0-47.0); Hemoglobin 12.2 g/dL (11.5-15.3); Lymphocytes # 1.7 10^3/uL (0.8-4.8); Lymphocytes % 17.1 %; Mean Corpuscular HGB Conc 31.8 g/dL (30.0-36.0); Mean Corpuscular Hemoglobin 28.4 pg (28.0-34.0); Mean Corpuscular Volume 89.5 fl (81-99); Mean Platelet Volume 10.9 fL (7.4-10.4); Monocytes # 0.6 10^3/uL (0.2-0.9); Monocytes % 6.2 %; Neutrophils # 7.43 10^3/uL (1.8-7.7); Neutrophils % 74.9 %; Nucleated Red Blood Cells % 0 %; Platelet Count 261 10^3/cmm (130-400); Red Blood Count 4.29 10^6/uL (4.1-5.3); Red Cell Distribution Width 13.4 % (12.1-15.1); White Blood Count 9.9 10^3/uL (4.0-10.0)
[2022-01-26 04:45] LABS: Troponin 5 2HR 12.94 ng/L (0-10)
--- NOTE | 2022-01-26 04:49 | PC.NURSE ---
Pt complained of intense pain in full chest and flank as well as pressure at neck. Stated i feel like my head is about to pop off . Rated pain at a 10. Stated she felt short of breath though was oxygenating well at 96%. BP 152/81 HR 105. Lung sounds left mid to base absent. Phys called and orders obtained. Including chest xray, EKG, Dilaudid, for pain and troponin series. After about an hour patient stated that her pain was better and subsequently she was able to fall asleep.
[2022-01-26 04:52] LABS: Alanine Aminotransferase 17 U/L (0-33); Albumin Level 3.4 g/dL (3.5-5.2); Alkaline Phosphatase 73 U/L (35-105); Anion Gap 14.3 (5-19); Aspartate Amino Transferase 14 U/L (0-32); Blood Urea Nitrogen 14 mg/dL (8-23); Calcium 8.7 mg/dL (8.5-10.5); Carbon Dioxide 24 mmol/L (22-29); Chloride 103 mmol/L (98-107); Globulin 2.5 g/dL (1.3-4.6); Glomerular Filtration Rate 71.3 mL/min (90-130); Glucose 122 mg/dL (65-115); Osmolality Calculated 286 mOsm/kg (285-295); Potassium 4.3 mmol/L (3.5-5.1); Sodium 137 mmol/L (136-145); Total Bilirubin 0.7 mg/dL (0.15-1.2); Total Protein 5.9 g/dL (6.6-8.7)
[2022-01-26 04:56] LABS: Troponin 5 2HR Delta 0.94 ABS# (0-10)
[2022-01-26 07:50] VITALS: PULSE 81; RESP 18; O2SAT 94
[2022-01-26 08:00] VITALS: BP 150/91; PULSE 84; RESP 15; TEMP 37; O2SAT 95
[2022-01-26 08:29] LABS: Troponin 5 6HR 10.23 ng/L (0-10)
[2022-01-26] MEDS: pantoprazole DR 40 mg Tablet PO (08:29)
[2022-01-26] MEDS: amlodipine 10 mg Tablet PO (08:29)
[2022-01-26 08:49] LABS: Troponin 5 6HR Delta -1.77 ng/L (0-12)
[2022-01-26 10:11] VITALS: BP 150/91; PULSE 84; RESP 15; TEMP 37; O2SAT 95
--- NOTE | 2022-01-26 10:11 | PC.NURSE ---
Discharge Note Patient discharged to home via private vehicle accompanied by . Discharge instructions reviewed with patient and/or marketing representative. Mobile pharmacy medications and/or prescriptions provided. Belongings/home medications returned.
--- NOTE | 2022-01-26 11:08 | PM.DCS ---
Discharge Providers Date of Admission: 01/23/22 14:36 Date of Discharge: January 26, 2022 Attending Provider at Admission: Rigo Buckner MD Attending Provider at Discharge: Rigo Buckner MD Primary Care Provider: Ramana Trivedi MD Diagnoses at Discharge Discharge Diagnosis (1) Pleural effusion: Status: Acute (2) Shortness of breath: Status: Acute (3) Pulmonary nodules: Status: Acute Reason for Visit Reason for Visit: Dr. Trivedi sent for SOB Hospital Course Hospital Course Magy Ann is a 66 year old female with no significant past medical history came in with chief complaint of worsening shortness of breath predominantly with exertion, patient symptoms started around 6 months back, with nonproductive cough, occasional diaphoresis, and shortness of breath, she also reports unintentional loss of 30 pounds weight in 6 months duration, she denied any chest pain, PND, orthopnea, Fever, joint pain joint swelling oral ulcers, rash, sick contact, has denied smoking drug use alcohol use. Has significant family history of malignancy, denies any recent travel to endemic area of cocci, histo, low clinical risk for PTB. She was admitted for the management of: Shortness of breath secondary to significant left-sided pleural effusion: Possible malignant pleural effusion. CT angio chest PE:?Large LEFT pleural effusion resulting in compressive atelectasis of the lungs centrally with slight shift of the midline structures to the RIGHT.Numerous subcentimeter RIGHT pulmonary nodules. Differential includes metastatic disease, septic embolic disease and fungal disease.Numerous low-attenuation lesions in the liver suspicious for metastatic disease. No central pulmonary embolism. CT neck w con:?Central, symmetric narrowing of the airway at the level of the vocal cords. This is probably due to a Valsalva maneuver during the examination. Direct visualization should be performed for further evaluation to exclude neoplasm. CT abdomen and pelvis: Scattered low-density lesions in the liver have the appearance of cysts, measuring up to 2.2 cm in the right hepatic lobe. Left-sided parapelvic renal cysts. 2D echo:?Normal left ventricular size, systolic function and wall ?thickness, with no regional wall motion abnormalities. Left ?ventricular ejection fraction is estimated at 70 %. Grade I diastolic dysfunction (abnormal relaxation filling pattern), ?normal to mildly elevated filling pressures. Repeat CT chest without contrast after draining the effusion: Moderate residual loculated left pleural fluid collection.? Possible malignant effusion. Multiple lobulated left lung lesions consistent with multiple areas of rounded atelectasis versus extensive pleural and/or parenchymal metastasis versus infectious process versus other inflammatory process. Multiple noncalcified pulmonary nodules in the right lung measuring up to 8 mm in diameter consistent with pulmonary metastasis versus noncalcified granulomatous disease. Stable calcified bilateral hilar nodes and/or mediastinal nodes and/or lung granulomas consistent with old granulomatous disease. S/p: S/p left-sided thoracentesis times :2 : With removal of 1900 cc straw-colored fluid. Pleural fluid analysis is consistent with exudative pleural effusion: Pending cytology: Pleural fluid gram stain moderate white cells no organisms seen: Culture pending. Pleural fluid ADA pending: ESR : 26 , CRP : 14 , R/F: 10? , TSH : 2.55 Urine histoplasma antigen: ANSLEY profile rheumatology: SSA antibody>8 ,TPO antibody> 133 , CH50>60 QuantiFERON gold: Negative. Given her overall presentation: CA lung cannot be completely ruled out at this point in time. Pulmonary was on board patient will follow up with Dr. Zaldivar as outpatient: For possible PET/CT: IR guided hepatic lesions biopsies or bronchoscopic guided left lung biopsies which ever is easily accessible . If pleural fluid cytology is negative. Patient has continued to complain of pleuritic chest pain, she is being discharged on p.o. Dilaudid, along with antitussives for cough , no antibiotics were initiated during the hospital stay. Overall patient has responded well to above medical management, and is being discharged in stable condition to home. Physical Exam Const: COMMON NORMALS: patient oriented x3 Resp: COMMON NORMALS: clear to auscultation bilaterally AUSCULTATION: clear to auscultation bilaterally OTHER: Diminished air entry in left lung field Cardio: COMMON NORMALS: regular rate, regular rhythm, S1 normal heart sound present, S2 normal heart sound present, No gallops present (Cardio), No murmurs present (Cardio), No rub (Cardio) and Peripheral pulses 2+ throughout RATE: regular rate RHYTHM: regular rhythm HEART SOUNDS: S1 normal heart sound present and S2 normal heart sound present PERIPHERAL PULSES: Peripheral pulses 2+ throughout GI: COMMON NORMALS: Normal to inspection, nondistended, normoactive bowel sounds present, Soft to palpation, non-tender, No hepatosplenomegaly present and no masses AUSCULTATION: Yes normoactive bowel sounds PALPATION: Yes Soft to palpation and Yes No hepatosplenomegaly present RECTAL EXAM: deferred Extremity: COMMON NORMALS: no clubbing, cyanosis or edema and no pedal edema Neuro: COMMON NORMALS: patient oriented x3 Discharge Data Studies Completed and Pending Completed Studies During Hospitalization Category Date Time Status CT abdomen pelvis w con* [id number] Routine Cat Scan 01/23/22 15:[address] chest wo con [id number] Routine Cat Scan 01/25/22 17:[address] neck w con* [id number] Stat Cat Scan 01/23/22 11:22 Completed CTA chest [CT angio chest PE protcl [id number]] Stat Cat Scan 01/23/22 11:22 Completed CXRP [XR chest 1V portable [id number]] Routine Exams 01/26/22 01:27 Completed XR chest 1V portable [id number] Routine Exams 01/24/22 12:36 Completed XR chest 1V portable [id number] Routine Exams 01/25/22 05:00 Completed CV. echo complete* [id number] Routine Ultrasound 01/24/22 15:48 Completed [place] chest [id number] Routine Ultrasound 01/24/22 12:00 Completed Pending at discharge Category Date Time Status ANSLEY Profile Rheumatology AM LABS Lab 01/24/22 04:37 Results Body Fluid Culture & GS Routine Lab 01/24/22 12:43 Results Coccidioides AB Immunodiffusio Routine Lab 01/24/22 04:37 Received Histoplasma Quantitative AG Routine Lab 01/23/22 15:39 Ordered Pleural Fld Adenosine Deami Routine Lab 01/24/22 12:43 Received [id number] Plus Routine Lab 01/24/22 09:23 Received Cytology [PTH] Routine Pth 01/24/22 12:59 Received Radiology Impressions Chest CTA 01/23/22 11:22 IMPRESSION: 1. Large LEFT pleural effusion resulting in compressive atelectasis of the lungs centrally with slight shift of the midline structures to the RIGHT. 2. Numerous subcentimeter RIGHT pulmonary nodules. Differential includes metastatic disease, septic embolic disease and fungal disease. 3. Numerous low-attenuation lesions in the liver suspicious for metastatic disease. 4. No central pulmonary embolism. Neck CT 01/23/22 11:22 IMPRESSION: 1. Central, symmetric narrowing of the airway at the level of the vocal cords. This is probably due to a Valsalva maneuver during the examination. Direct visualization should be performed for further evaluation to exclude neoplasm. 2. No adenopathy. 3. Multiple small subcentimeter nodules at the RIGHT apex and a large LEFT pleural effusion. Abdomen/Pelvis CT 01/23/22 15:50 IMPRESSION: 1. Scattered low-density lesions in the liver have the appearance of cysts, measuring up to 2.2 cm in the right hepatic lobe. 2. Left-sided parapelvic renal cysts. 3. Diverticulosis without diverticulitis. 4. Mid abdominal mesenteric edema may reflect a chronic inflammatory process such as sclerosing mesenteritis. 5. Large left pleural effusion. 6. Coronary artery atherosclerotic calcifications. COMMENTS: Consistent with the [employer]'s Incidental Findings Committee white paper (J Am Sandy Radiol 2018): Any incidental renal lesion less than 1 cm or classified as too small to characterize, or any incidental cystic renal lesion characterized as simple-appearing, is likely benign. No follow-up imaging is recommended for these lesions per consensus recommendations based on imaging criteria. Chest Ultrasound 01/24/22 12:00 IMPRESSION: Large LEFT thoracentesis. Chest CT 01/25/22 17:02 IMPRESSION: 1. Status post thoracentesis with interval re-expansion of portions of the left lung. 2. Moderate residual loculated left pleural fluid collection. Possible malignant effusion. 3. Multiple lobulated left lung lesions consistent with multiple areas of rounded atelectasis versus extensive pleural and/or parenchymal metastasis versus infectious process versus other inflammatory process. 4. Multiple noncalcified pulmonary nodules in the right lung measuring up to 8 mm in diameter consistent with pulmonary metastasis versus noncalcified granulomatous disease. 5. Stable calcified bilateral hilar nodes and/or mediastinal nodes and/or lung granulomas consistent with old granulomatous disease. ADDENDUM: 01/25/22 943 Impression: 6. Multiple hepatic cysts at least one of which measures larger than 1.0 cm in size. Other low-attenuation lesions in the liver are too small to characterize. One or more accessory splenules. Calcified splenic granulomas. ADDENDUM: 01/25/22 563 Impression: 7. Follow-up of multiple noncalcified right pulmonary nodules and multiple left pulmonary masses according to the oncology/infectious disease protocol. Chest X-Ray 01/26/22 01:27 IMPRESSION: Stable large left basilar atelectasis and/or infiltrate and/or effusion. Laboratory Results WBC 9.9 10^3/uL (4.0-10.0) 10/29/22 04:15 RBC 4.29 10^6/uL (4.1-5.3) 01/26/22 04:15 Hgb 12.2 g/dL (11.5-15.3) 01/26/22 04:15 Hct 38.4 % (37.0-47.0) 01/26/22 04:15 MCV 89.5 fl (81-99) 01/26/22 04:15 MCH 28.4 pg (28.0-34.0) 01/26/22 04:15 MCHC 31.8 g/dL (30.0-36.0) 01/26/22 04:15 RDW 13.4 % (12.1-15.1) 01/26/22 04:15 Plt Count 261 10^3/cmm (130-400) 01/26/22 04:15 MPV 10.9 fL (7.4-10.4) H 01/26/22 04:15 Neut % (Auto) 74.9 % 01/26/22 04:15 Lymph % (Auto) 17.1 % 01/26/22 04:15 [place] % (Auto) 6.2 % 01/26/22 04:15 Eos % (Auto) 1.0 % 01/26/22 04:15 Baso % (Auto) 0.4 % 01/26/22 04:15 Neut # (Auto) 7.43 10^3/uL (1.8-7.7) 01/26/22 04:15 Lymph # (Auto) 1.7 10^3/uL (0.8-4.8) 01/26/22 04:15 [place] # (Auto) 0.6 10^3/uL (0.2-0.9) 01/26/22 04:15 Eos # (Auto) 0.1 10^3/uL (0.0-0.8) 01/26/22 04:15 Baso # (Auto) 0.0 10^3/uL (0.0-0.1) 01/26/22 04:15 Nucleated RBC % (auto) 0 % 01/26/22 04:15 Nucleated RBCs # 0.0 /100WBC 01/26/22 04:15 ESR 26 mm/hr (0-15) H 01/24/22 04:37 PT 14.50 SECONDS (12.1-14.9) 01/24/22 04:37 INR 1.10 (0.8-1.2) 01/24/22 04:37 Sodium 137 mmol/L (136-145) 01/26/22 04:15 Potassium 4.3 mmol/L (3.5-5.1) 01/26/22 04:15 Chloride 103 mmol/L (98-107) 01/26/22 04:15 Carbon Dioxide 24 mmol/L (22-29) 01/26/22 04:15 Anion Gap 14.3 (5-19) 01/26/22 04:15 BUN 14 mg/dL (8-23) 01/26/22 04:15 Creatinine 0.8 mg/dL (0.5-0.9) 01/26/22 04:15 GFR Calculation 71.3 mL/min (90-130) L 01/26/22 04:15 Glucose 122 mg/dL (65-115) H 01/26/22 04:15 Calculated Osmolality 286 mOsm/kg (285-295) 01/26/22 04:15 Calcium 8.7 mg/dL (8.5-10.5) 01/26/22 04:15 Total Bilirubin 0.7 mg/dL (0.15-1.2) 01/26/22 04:15 AST 14 U/L (0-32) 01/26/22 04:15 ALT 17 U/L (0-33) 01/26/22 04:15 Alkaline Phosphatase 73 U/L (35-105) 01/26/22 04:15 Lactate Dehydrogenase 214 U/L (135-214) 01/24/22 04:37 Troponin T Baseline 12 ng/L (0-10) H 01/26/22 02:00 Troponin T 120 Minute 12.94 ng/L (0-10) H 01/26/22 04:15 Delta Troponin T 0.94 ABS# (0-10) 01/26/22 04:15 Troponin T Hi Sens 6Hr 10.23 ng/L (0-10) H 01/26/22 08:00 Troponin T Hi Sens 6Hr Delta -1.77 ng/L (0-12) L 01/26/22 08:00 C-Reactive Protein 14.6 mg/L (0.0-4.9) H 01/24/22 04:37 NT-Pro-B Natriuret Pep 126 pg/mL (0-125) H 01/24/22 04:37 Total Protein 5.9 g/dL (6.6-8.7) L 01/26/22 04:15 Albumin 3.4 g/dL (3.5-5.2) L 01/26/22 04:15 Globulin 2.5 g/dL (1.3-4.6) 01/26/22 04:15 Procalcitonin 0.02 ng/mL (0-0.5) 01/24/22 04:37 TSH 2.55 uIU/mL (0.27-4.20) 01/24/22 04:37 Pleural pH 8.00 (6.5-7.5) H 01/24/22 12:43 Pleural Total Protein 4.6 g/dL 01/24/22 12:43 Pleural Albumin 2.8 g/dL 01/24/22 12:43 Pleural LDH 245 U/L 01/24/22 12:43 Pleural Glucose 81.0 mg/dL 01/24/22 12:43 Pleural Cholesterol 80 mg/dL 01/24/22 12:43 Pleural Triglycerides 26 mg/dL 01/24/22 12:43 Rheumatoid Factor 10.0 IU/mL (0-14) 01/24/22 04:37 Cycl Citrul Peptide IgG <16 UNITS 01/24/22 04:37 JEANIE-1 Antibody <1.0 neg AI (<1.0 NEG) 01/24/22 04:37 SS-A Antibody >8.0 pos AI (<1.0 NEG) A 01/24/22 04:37 SS-B Antibody <1.0 neg AI (<1.0 NEG) 01/24/22 04:37 Sm (Roberts) Antibody <1.0 neg AI (<1.0 NEG) 01/24/22 04:37 SQL REPORT ANALYST Antibody <1.0 neg AI (<1.0 NEG) 01/24/22 04:37 Scl-70 Antibody <1.0 neg AI (<1.0 NEG) 01/24/22 04:37 Centromere B Antibody <1.0 neg AI (<1.0 NEG) 01/24/22 04:37 Thyroid Peroxidase Ab 133 IU/mL (<9) H 01/24/22 04:37 Complement C3c 185 mg/dL (83-193) 01/24/22 04:37 Complement C4c 35 mg/dL (15-57) 01/24/22 04:37 CH50 Classical Pathway >60 U/mL (31-60) H 01/24/22 04:37 Vitals Last Vital Signs Temp 98.6 F 01/26/22 10:11 Pulse 84 01/26/22 10:11 Resp 15 01/26/22 10:11 BP 150/91 01/26/22 10:11 Pulse Ox 95 01/26/22 10:11 O2 Del Method 01/26/22 08:00 Discharge Plan Discharge Patient Disposition: Home Condition: Stable Prescriptions: New amlodipine 10 mg Tablet 10 mg PO DAILY 30 Days Qty: 30 3RF benzonatate 100 mg Capsule 200 mg PO Q4H 30 Days Qty: 360 0RF guaifenesin 100 mg/5 mL Liquid 200 mg PO Q4H 30 Days Qty: 1800 0RF acetaminophen 325 mg Tablet 650 mg PO Q6H PRN (Reason: Mild/Mod Pain Or Temp >/= 101) 30 Days Qty: 30 0RF hydromorphone 2 mg tablet 2 mg PO Q8H PRN (Reason: pain) Qty: 14 0RF Continued naproxen 250 mg Tablet 250 mg PO BID PRN (Reason: Pain) omeprazole 20 mg Capsule,Delayed Release(Dr/Ec) 20 mg PO DAILY Discontinued doxycycline hyclate 100 mg capsule 100 mg PO BID Discharge Orders: Discharge Order (Routine); Ordered 01/26/22 Ordered By: Rigo Buckner Referrals: Brayden Zaldivar MD [Physician] - 1 week (Please call Dr. Zaldivar's office Friday morning to schedule a hospital follow up appointment within 1 week. ) Ramnaa Trivedi MD [Primary Care Provider] - (Please call Friday morning to schedule a hospital follow up appointment within 1 week. ) Patient Instructions: Benzonatate (By mouth), Hydromorphone (By mouth), Amlodipine (By mouth), Guaifenesin/Phenylephrine (By mouth), Pleural Effusion (GEN), Opioid Safety Discharge Attestations Time Spent in Discharge Care*: less than 30 min Quality Metrics Clinical Quality Measures [ No reported AMI, CVA or VTE this stay] Coding Level of Care Code Acute Chg FW DC note Diagnoses Pleural effusion J90 Shortness of breath R06.02 Pulmonary nodules R91.8
[2022-01-26 11:12] LABS: Quantiferon Mitogen 5.72 IU/mL; Quantiferon Nil 0.01 IU/mL; Quantiferon TB Gold NEGATIVE (NEGATIVE)
[2022-01-28 11:07] LABS: ANA PATTERN Cytoplasmic; ANA SCREEN, IFA POSITIVE (NEGATIVE); ANA TITER 1:40 titer
[2022-01-29 15:18] LABS: DNA AB (DS) CRITHIDIA,IFA NEGATIVE (NEGATIVE)
[2022-01-29 18:33] LABS: Pleural Fld Adenosine Deami 10.5 U/L (<9.2)
[2022-02-02 17:43] LABS: Coccidioides IgG Antibody NEGATIVE; Coccidioides IgM Antibody NEGATIVE
== END 2022-01-26 10:12 | disposition home or self-care (01) | DRG 187 ==
LOC: ER 14:07 → MEDSURG 14:37
PROVIDERS: Internal Medicine; Admitting Provider Internal Medicine; Emergency Provider Emergency Medicine; PCP Internal Medicine Pulmonary Disease; Visit Provider Internal Medicine
DX: J90 Pleural effusion, not elsewhere classified (principal); J98.11 Atelectasis; K76.9 Liver disease, unspecified; R91.8 Other nonspecific abnormal finding of lung field; Z80.9 Family history of malignant neoplasm, unspecified
CPT/HCPCS: 36415; 70491; 71045; 71250; 71275; 74177; 76604; 80048; 80053; 82042; 82465; 82945; 83615; 83880; 83986; 84145; 84157; 84311; 84443; 84478; 84484; 85025; 85610; 85651; 86140; 86160; 86162; 86200; 86235; 86255; 86376; 86431; 86480; 86635; 87070; 87075; 87205; 88108; 93005; 93306; 94640; 96372; 99285; J1170; J1650; J2270; J7030; Q9967

== ENCOUNTER → 2022-01-31 12:45 | Outpatient (BNVA) | payer MEDICARE, SELFPAY | PROVIDERS: PCP Internal Medicine Pulmonary Disease; Visit Provider Internal Medicine Pulmonary Disease | DX: R06.02 Shortness of breath (principal); R91.8 Other nonspecific abnormal finding of lung field; J90 Pleural effusion, not elsewhere classified; R76.8 Other specified abnormal immunological findings in serum | CPT/HCPCS: 99204 ==

== ENCOUNTER → 2022-04-05 11:51 | Outpatient (BNVA) | payer MEDICARE, SELFPAY | PROVIDERS: PCP Internal Medicine Pulmonary Disease; Visit Provider Internal Medicine Pulmonary Disease | DX: J90 Pleural effusion, not elsewhere classified (principal); R91.8 Other nonspecific abnormal finding of lung field; R06.02 Shortness of breath; R76.8 Other specified abnormal immunological findings in serum; I10 Essential (primary) hypertension; Z97.8 Presence of other specified devices | CPT/HCPCS: 71046; 99214 ==

== ENCOUNTER 2022-05-13 09:28 | Oncology outpatient (recurring) (ONCR) | payer MEDICARE, SELFPAY ==
[2022-05-13 10:23] LABS: Basophils % 0.5 %; Eosinophils # 0.1 10^3/uL (0.0-0.8); Eosinophils % 1.7 %; Hematocrit 42.1 % (37.0-47.0); Hemoglobin 13.5 g/dL (11.5-15.3); Lymphocytes # 1.9 10^3/uL (0.8-4.8); Lymphocytes % 23.2 %; Mean Corpuscular HGB Conc 32.1 g/dL (30.0-36.0); Mean Corpuscular Hemoglobin 28.5 pg (28.0-34.0); Mean Platelet Volume 9.8 fL (7.4-10.4); Monocytes # 0.5 10^3/uL (0.2-0.9); Monocytes % 6.2 %; Neutrophils # 5.64 10^3/uL (1.8-7.7); Neutrophils % 68.2 %; Nucleated Red Blood Cells % 0 %; Platelet Count 339 10^3/cmm (130-400); Red Blood Count 4.73 10^6/uL (4.1-5.3); Red Cell Distribution Width 14.9 % (12.1-15.1); White Blood Count 8.3 10^3/uL (4.0-10.0)
[2022-05-13 10:35] LABS: INR 0.99 (0.8-1.2)
[2022-05-13 10:51] LABS: CA 125 45.1 U/mL (0-35)
[2022-05-15 03:25] LABS: CA 27.29 44 U/mL (<38)
== END 2022-05-28 23:59 | disposition home or self-care (01) ==
PROVIDERS: PCP Family Medicine; Visit Provider Internal Medicine Hematology & Oncology
DX: C79.9 Secondary malignant neoplasm of unspecified site (principal); Z79.01 Long term (current) use of anticoagulants
CPT/HCPCS: 82378; 85025; 85610; 85730; 86300; 86301; 86304; 99204; 99214

== ENCOUNTER → 2022-06-04 07:42 | Outpatient (BNVA) | payer MEDICARE, SELFPAY | PROVIDERS: PCP Family Medicine; Visit Provider Surgery | DX: C79.9 Secondary malignant neoplasm of unspecified site (principal); K92.1 Melena; R10.13 Epigastric pain | CPT/HCPCS: 99203 ==

== ENCOUNTER 2022-06-05 08:40 | Day surgery (SDC) | payer MEDICARE, SELFPAY ==
[2022-06-04 12:13] VITALS: BMI 34.2
[2022-06-05 09:28] VITALS: BP 130/58; PULSE 112; RESP 20; TEMP 36.3; O2SAT 99
[2022-06-05] MEDS: sodium chloride 0.9% 1,000 ML 30 ML IV (09:32)
--- NOTE | 2022-06-05 09:44 | ANES.PREANE2 ---
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 Was told she quit breathing and it was a reaction to the anesthesia. She states that they did do chest compressions on her, but that didn't require any ICU stay afterwards and was completely stable afterwards She states she hasn't had any further problems and has had propofol and versed multiple times before and done well. Last intake: Intake Last Liquid Date 06/04/22 Last Liquid Time 22:00 Last Solid Date 06/03/22 Last Solid Time 19:00 Social No alcohol and No tobacco Exam alert, oriented x 3, clear to auscultation bilaterally and regular rate & rhythm coarse breath sounds Airway Mallampati: Class II Dentition: other (multiple missing and chipped) Pulmonary pleural effusion (L) drained CV/HEM Hypertension GI Gastroesophageal Reflux Disease adenocarcinoma Anesthetic Plan ASA status: 4 Anesthesia: MAC Risk of > 500 ml blood loss (7ml/kg in children): No Medications/Allergies Home Medications Medication Instructions Recorded Confirmed Last Taken Type omeprazole 20 mg capsule,delayed 20 mg PO DAILY 01/23/22 06/04/22 06/04/22 History release acetaminophen 500 mg tablet 500 mg PO Q6H PRN Pain 04/05/22 06/04/22 06/03/22 History amlodipine 10 mg tablet 10 mg PO DAILY 30 days #30 tabs 04/08/22 06/04/22 06/05/22 07:00 Rx diphenhydramine HCl 25 mg capsule 25 mg PO .hs PRN Sleep 05/08/22 06/04/22 06/01/22 History (Benadryl) sennosides 8.6 mg capsule (senna) 8.6 mg PO BID PRN constipation 05/08/22 06/04/22 06/04/22 History trazodone 50 mg tablet 12.5 mg PO DAILY PRN Sleep 06/04/22 06/04/22 06/03/22 History Allergies Allergy/AdvReac Type Severity Reaction Status Date / Time buspirone [From BuSpar] Allergy ALGY-Anaphy Verified 06/04/22 12:08 laxis clarithromycin [From Biaxin] Allergy ALGY-Anaphy Verified 06/04/22 12:08 laxis codeine Allergy ADR-Vomitin Verified 06/04/22 12:08 g Macrolide Antibiotics Allergy ADR-Vomitin Verified 06/04/22 12:08 g methylprednisolone Allergy ALGY-Anaphy Verified 06/04/22 12:08 [From Depo-Medrol] laxis Nitrate Analogues Allergy Unknown Verified 06/04/22 12:08 norepinephrine Allergy ALGY-Anaphy Verified 06/04/22 12:08 laxis Penicillins Allergy ALGY-Anaphy Verified 06/04/22 12:08 laxis Quinolones Allergy Unknown Verified 06/04/22 12:08 Sulfa (Sulfonamide Allergy ALGY-Anaphy Verified 06/04/22 12:08 Antibiotics) laxis venlafaxine [From Effexor] Allergy ALGY-Anaphy Verified 06/04/22 12:08 laxis Current Medications Generic Name Dose Route Start Last Admin Trade Name Freq PRN Reason Stop Dose Admin Sodium Chloride 1,000 mls @ 30 mls/hr 06/05/22 09:00 06/05/22 09:32 Sodium Chloride 0.9% IV 06/06/22 08:59 30 mls/hr .Q24H CY Administration PFSH Anesthesia Medical History No significant past medical history Pleural effusion Pulmonary nodules Shortness of breath Surgical History History of appendectomy History of cholecystectomy History of esophagogastroduodenoscopy (EGD) History of hysterectomy Hx of bladder repair surgery bladder Sling Hx of colonoscopy Family History Father Bleeding disorder Cancer Diabetes Hypertension Mother Cancer Diabetes Hypertension Thyroid disease Denies family history of Chronic kidney disease (CKD) Stroke Social History Smoking and tobacco status: never smoked Data Anesthesia Cardiac Studies: Echocardiogram 01/24/22
--- NOTE | 2022-06-05 11:16 | W.PM.OPSUD ---
Surgery/Procedure H&P Update DATE OF PROCEDURE: June 05, 2022 DATE H&P PERFORMED: 06/04/22 H&P UPDATE INFORMATION: I have reviewed H&P completed within last 30 days, I have examined patient prior to procedure and No changes to prior documentation PLANNED PROCEDURE: Operation Date: 06/05/22 10:30 Proposed Procedures p 46953 EGD 21898 Colonoscopy C79.9,Z12.11(Not Applicable) - DO katerina Ayoub Colonoscopy(Not Applicable) - Nicholas Rao DO
[2022-06-05 11:48] VITALS: BP 108/73; PULSE 93; RESP 16; TEMP 36.9; O2SAT 98
[2022-06-05 12:00] VITALS: BP 115/84; PULSE 96; RESP 16; O2SAT 97
--- NOTE | 2022-06-05 14:30 | ANE.PACU2 ---
Inpatient post-anesthesia follow up: Airway intact: Yes Vital signs: Temperature 98.5 F Pulse Rate 96 Respiratory Rate 16 Blood Pressure 115/84 Pulse Oximetry 97 Oxygen Delivery Me thod Room Air Oxygen Flow Rate 3 Fraction of Inspir ed Oxygen Hydration adequate: Yes Nausea and vomiting: No Pain level: 1 Mental status: Baseline
== END 2022-06-05 12:23 | disposition home or self-care (01) ==
PROVIDERS: PCP Family Medicine; Visit Provider Surgery
PROC: 0DJ08ZZ Inspection of Upper Intestinal Tract, Via Natural or Artificial Opening Endoscopic (ICD-10-PCS; CPT 43235; principal; 2022-06-05 10:30)
PROC: 0DJD8ZZ Inspection of Lower Intestinal Tract, Via Natural or Artificial Opening Endoscopic (ICD-10-PCS; CPT 45378; 2022-06-05 10:30)
DX: D12.5 Benign neoplasm of sigmoid colon (principal); K57.30 Diverticulosis of large intestine without perforation or abscess without bleeding; R10.13 Epigastric pain; K21.9 Gastro-esophageal reflux disease without esophagitis; C79.51 Secondary malignant neoplasm of bone; C78.2 Secondary malignant neoplasm of pleura; I10 Essential (primary) hypertension; Z88.0 Allergy status to penicillin; Z88.2 Allergy status to sulfonamides
CPT/HCPCS: 43235; 45385; 88305; J2704; J7030

== ENCOUNTER 2022-06-20 12:17 | Oncology outpatient (recurring) (ONCR) | payer MEDICARE, SELFPAY ==
[2022-06-20 13:27] LABS: Basophils % 0.5 %; Eosinophils # 0.1 10^3/uL (0.0-0.8); Eosinophils % 1.4 %; Hematocrit 39.8 % (37.0-47.0); Lymphocytes # 2.1 10^3/uL (0.8-4.8); Lymphocytes % 24.4 %; Mean Corpuscular HGB Conc 32.7 g/dL (30.0-36.0); Mean Corpuscular Hemoglobin 28.7 pg (28.0-34.0); Mean Corpuscular Volume 87.9 fl (81-99); Mean Platelet Volume 10.2 fL (7.4-10.4); Monocytes # 0.5 10^3/uL (0.2-0.9); Monocytes % 5.5 %; Neutrophils # 5.96 10^3/uL (1.8-7.7); Neutrophils % 67.9 %; Nucleated Red Blood Cells % 0 %; Platelet Count 337 10^3/cmm (130-400); Red Blood Count 4.53 10^6/uL (4.1-5.3); Red Cell Distribution Width 14.3 % (12.1-15.1); White Blood Count 8.8 10^3/uL (4.0-10.0)
[2022-06-20 13:44] LABS: Alanine Aminotransferase 10 U/L (0-33); Albumin Level 3.8 g/dL (3.5-5.2); Alkaline Phosphatase 93 U/L (35-105); Anion Gap 16.5 (5-19); Aspartate Amino Transferase 17 U/L (0-32); Blood Urea Nitrogen 14 mg/dL (8-23); Calcium 9.1 mg/dL (8.5-10.5); Carbon Dioxide 25 mmol/L (22-29); Chloride 106 mmol/L (98-107); Globulin 3.6 g/dL (1.3-4.6); Glucose 111 mg/dL (65-115); Osmolality Calculated 297 mOsm/kg (285-295); Potassium 4.5 mmol/L (3.5-5.1); Sodium 143 mmol/L (136-145); Total Bilirubin 0.4 mg/dL (0.15-1.2); Total Protein 7.4 g/dL (6.6-8.7)
== END 2022-06-28 23:59 | disposition home or self-care (01) ==
PROVIDERS: PCP Family Medicine; Visit Provider Internal Medicine Hematology & Oncology
DX: C80.1 Malignant (primary) neoplasm, unspecified (principal); C79.51 Secondary malignant neoplasm of bone; C78.02 Secondary malignant neoplasm of left lung; K76.89 Other specified diseases of liver; K63.5 Polyp of colon; C79.89 Secondary malignant neoplasm of other specified sites; R97.1 Elevated cancer antigen 125 [CA 125]; J90 Pleural effusion, not elsewhere classified; Z79.899 Other long term (current) drug therapy; C79.9 Secondary malignant neoplasm of unspecified site; Z79.01 Long term (current) use of anticoagulants
CPT/HCPCS: 36415; 80053; 85025; 99214

== ENCOUNTER → 2022-06-25 10:15 | Outpatient (BNVA) | payer MEDICARE, SELFPAY | PROVIDERS: PCP Family Medicine; Visit Provider Surgery | DX: C79.9 Secondary malignant neoplasm of unspecified site (principal) | CPT/HCPCS: 99203 ==

== ENCOUNTER → 2022-06-26 11:34 | Outpatient (BNVA) | payer MEDICARE, SELFPAY | PROVIDERS: PCP Family Medicine; Visit Provider Family Medicine | DX: R30.0 Dysuria (principal); R31.9 Hematuria, unspecified | CPT/HCPCS: 81000; 87077; 87086; 87184 ==

== ENCOUNTER 2022-07-01 11:48 | Day surgery (SDC) | payer MEDICARE, SELFPAY ==
[2022-06-28 09:50] VITALS: BMI 36.2
[2022-07-01] VITALS (7 sets, daily range): BP systolic 112–135; BP diastolic 51–85; PULSE 100–113; RESP 16–18; TEMP 36.6–37.2; O2SAT 97–100
--- NOTE | 2022-07-01 11:51 | XRR_ITS ---
PROCEDURE INFORMATION: Exam: XR Chest Exam date and time: 07/01/2022 1:47 PM Age: 67 years old Clinical indication: Device placement; Other: Postop mediport placement; Prior surgery; Surgery date: Post-operative (0-2 days) TECHNIQUE: Imaging protocol: Radiologic exam of the chest. Views: 1 view. COMPARISON: CR XR chest 2V* [id number] 04/05/2022 11:58 AM FINDINGS: Lungs: There is multifocal consolidation in the left lung. Pleural spaces: There is increasing opacification of the left hemithorax. No pneumothorax. Heart/Mediastinum: Unremarkable. No cardiomegaly. Bones/joints: Unremarkable. There is a right subclavian catheter whose tip is in the superior vena cava. XR/XR chest 1V portable [id number] IMPRESSION: There is a right subclavian catheter whose tip is in the superior vena cava. There is increasing opacification of the left hemithorax when compared with 04/05/2022.
--- NOTE | 2022-07-01 11:51 | SC_ITS ---
WS: [id number] C-arm [place] for CVA [id number] REASON FOR EXAM: Mediport insertion FINDINGS: Right chemotherapy infusion port with right subclavian catheter with tip (not well seen) at the junct ion of the right subclavian vein and superior vena cava. No pneumothorax identified. SC/C-arm FL for CVA [id number] IMPRESSION: Chemotherapy port and catheter placement as above. The tip of the catheter is not well seen and a follow-up standard radiographs i s recommended as clinically warranted.
--- NOTE | 2022-07-01 12:10 | ANES.PREANE2 ---
Pre-Anesthetic Assessment Height/Weight: Height 1.55 m Weight 87.09 kg Temp Pulse Resp BP Pulse Ox O2 Del Method 98.3 F 108 H 16 135/85 99 07/01/22 11:59 07/01/22 11:59 07/01/22 11:59 07/01/22 11:59 07/01/22 11:59 07/01/22 11:59 Preop Diagnosis: Metastatic adenocarcinoma Operation Date: 07/01/22 13:50 Proposed Procedures p [id number] port placement C79.9(Not Applicable) - Nicholas Rao, Familial anesthetic complications: States her heart stopped twice in the 90s, once from a hysterectomy and once from a gallbladder surgery. Was told she quit breathing and it was a reaction to the anesthesia. She states that they did do chest compressions on her, but that didn't require any ICU stay afterwards and was completely stable afterwards She states she hasn't had any further problems and has had propofol and versed multiple times before and done well. Last intake: Intake Last Liquid Date 07/01/22 Last Liquid Time 08:00 Last Solid Date 06/30/22 Last Solid Time 20:00 Social No alcohol and No tobacco Exam alert, oriented x 3, clear to auscultation bilaterally and regular rate & rhythm L side diminished Airway Mallampati: Class II Dentition: chipped Pulmonary l pleural effusion that was drained CV/HEM Hypertension GI Gastroesophageal Reflux Disease Anesthetic Plan ASA status: 3 Anesthesia: MAC Risk of > 500 ml blood loss (7ml/kg in children): No Medications/Allergies Home Medications Medication Instructions Recorded Confirmed Last Taken Type omeprazole 20 mg capsule,delayed 20 mg PO DAILY 01/23/22 07/01/22 06/30/22 History release acetaminophen 500 mg tablet 500 mg PO Q6H PRN Pain 04/05/22 07/01/22 06/30/22 History amlodipine 10 mg tablet 10 mg PO DAILY 30 days #30 tabs 04/08/22 07/01/22 07/01/22 Rx sennosides 8.6 mg capsule (senna) 8.6 mg PO BID PRN constipation 05/08/22 06/28/22 06/27/22 History alprazolam 0.5 mg tablet (Xanax) 0.5 mg PO BID PRN anxiety or 06/18/22 06/28/22 06/27/22 Rx insomnia 7 days #14 tabs nitrofurantoin 100 mg PO Q12H 7 days #14 caps 06/29/22 07/01/22 Unknown Rx monohydrate/macrocrystals 100 mg capsule (Macrobid) Allergies Allergy/AdvReac Type Severity Reaction Status Date / Time buspirone [From BuSpar] Allergy ALGY-Anaphy Verified 07/01/22 11:55 laxis clarithromycin [From Biaxin] Allergy ALGY-Anaphy Verified 07/01/22 11:55 laxis codeine Allergy ADR-Vomitin Verified 07/01/22 11:55 g Macrolide Antibiotics Allergy ADR-Vomitin Verified 07/01/22 11:55 g methylprednisolone Allergy ALGY-Anaphy Verified 07/01/22 11:55 [From Depo-Medrol] laxis Nitrate Analogues Allergy Unknown Verified 07/01/22 11:55 norepinephrine Allergy ALGY-Anaphy Verified 07/01/22 11:55 laxis Penicillins Allergy ALGY-Anaphy Verified 07/01/22 11:55 laxis Quinolones Allergy Unknown Verified 07/01/22 11:55 Sulfa (Sulfonamide Allergy ALGY-Anaphy Verified 07/01/22 11:55 Antibiotics) laxis venlafaxine [From Effexor] Allergy ALGY-Anaphy Verified 07/01/22 11:55 laxis PFSH Anesthesia Medical History No significant past medical history Pleural effusion Pulmonary nodules Shortness of breath Surgical History (Updated 07/01/22 @ 07:05 by Nicholas Rao DO) History of appendectomy History of cholecystectomy History of esophagogastroduodenoscopy (EGD) History of foot surgery History of hysterectomy Hx of bladder repair surgery bladder Sling Hx of colonoscopy Family History Father Bleeding disorder Cancer Diabetes Hypertension Mother Cancer Diabetes Hypertension Thyroid disease Denies family history of Chronic kidney disease (CKD) Stroke Social History Smoking and tobacco status: never smoked Alcohol intake: never Data Anesthesia Cardiac Studies: Echocardiogram 01/24/22
[2022-07-01] MEDS: sodium chloride 0.9% 1,000 ML 30 ML IV (12:18)
[2022-07-01] MEDS: vancomycin 1,000 MG in sodium chloride 0.9% 250 ML 250 MG IV (12:35)
--- NOTE | 2022-07-01 13:29 | W.PM.OPSUD ---
Surgery/Procedure H&P Update DATE OF PROCEDURE: July 01, 2022 DATE H&P PERFORMED: 06/25/22 H&P UPDATE INFORMATION: I have reviewed H&P completed within last 30 days, I have examined patient prior to procedure and No changes to prior documentation PREOP DIAGNOSIS: Metastatic adenocarcinoma PLANNED PROCEDURE: Operation Date: 07/01/22 13:50 Proposed Procedures p [id number] port placement C79.9(Not Applicable) - Nicholas Rao DO
[2022-07-01] MEDS: lidocaine-epi 2% 20 mL INJ 10 ML INJECTION (14:14)
--- NOTE | 2022-07-01 14:26 | PM.OP ---
Operative Report Date of procedure: July 01, 2022 Pre-op diagnosis: Preop Diagnosis Metastatic adenocarcinoma Post-op diagnosis: same Procedure done: Mediport insertion Implants: PowerPort Specimens removed/disposition: None Surgeon: Dr. Nicholas Rao DO Anesthesia: MAC Estimated blood loss (mL): 5 Complications: None apparent Brief History: This very pleasant 67-year-old female who was diagnosed with metastatic adenocarcinoma to the left lung. Mediport insertion was requested for chemotherapy access. The risk and benefits were explained and documented. Procedure: The patient was taken to the operating room and placed supine on the operating room table. All bony prominences were padded. She was given IV sedation and monitored throughout the case by the anesthesia personnel. SCDs were placed and turned on. The arms were tucked to the side. Patient received Ancef 2 g preoperatively IV. The bilateral chest wall was prepped and draped in usual sterile fashion using chlorhexidine base prep. Sterile drapes were applied. We did procedure pause prior to beginning. An 18 gauge needle was placed in the right subclavian vein. Dark, nonpulsatile blood was aspirated. A guidewire was placed through the needle centrally toward the atrial/vena caval junction. Fluoroscopy visualized good placement. The needle was removed and the guidewire was clipped to the drape with a hemostat. Further local anesthetic was infiltrated in the soft tissues of the right chest wall and a #15 blade was used to make a horizontal skin incision. A subcutaneous Mediport pocket was created using Bovie cautery, dissecting down through the skin and subcutaneous tissues. Meticulous hemostasis was achieved. The Mediport was sutured in position using 3-0 vicryl suture x2 stitches. A #15 blade was used to make a small skin dolly around the guidewire insertion area. The Mediport tubing was tunneled through the subcutaneous tissues up to the needle insertion location. A dilator with a peel-away sheath was placed over the guidewire and placed centrally. After measuring the Mediport tubing was cut to length so that the tip would end at the atrial/vena caval junction. The inner cannula and the guidewire were removed, leaving the dilator sheath in place. The Mediport was flushed. The tip of the catheter was inserted through the peel-away sheath and the peel-away sheath removed in the standard fashion. The Mediport was accessed with a straight Lazaro needle and dark, nonpulsatile blood was aspirated and flushed using heparinized saline to hep-lock the Mediport. Final fluoroscopy visualization showed no kink in the catheter and the tip of the Mediport tubing near the atrial/vena caval junction. Both skin incisions were thoroughly irrigated and suctioned dry. Meticulous hemostasis noted. The dermis was approximated with 3-0 Vicryl in an interrupted fashion. Skin was closed with Dermabond. Patient was awakened from anesthesia and transferred via her cart to the recovery room in stable condition. All needle, sponge, and instrument counts were correct per the operating personnel x2 counts.
[2022-07-01] MEDS: heparin, porcine 1,000 unit/mL INJ 10 mL 10000 UNIT XX (14:29)
--- NOTE | 2022-07-01 15:01 | ANE.PACU2 ---
Inpatient post-anesthesia follow up: Airway intact: Yes Vital signs: Temperature 97.8 F Pulse Rate 100 Respiratory Rate 17 Blood Pressure 118/80 Pulse Oximetry 97 Oxygen Delivery Me thod Room Air Oxygen Flow Rate Fraction of Inspir ed Oxygen Hydration adequate: Yes Nausea and vomiting: No Pain level: 1 Mental status: Baseline
== END 2022-07-01 15:35 | disposition home or self-care (01) ==
PROVIDERS: PCP Family Medicine; Visit Provider Surgery
PROC: (CPT 36561; principal; 2022-07-01 13:40)
DX: C79.9 Secondary malignant neoplasm of unspecified site (principal); I10 Essential (primary) hypertension; K21.9 Gastro-esophageal reflux disease without esophagitis
CPT/HCPCS: 36561; 71045; 76000; 77001; A4216; C1788; J1644; J2704; J3010; J3370; J7030; J7050

== ENCOUNTER → 2022-07-02 07:44 | Outpatient (BNVA) | payer MEDICARE, SELFPAY | PROVIDERS: PCP Family Medicine; Visit Provider Nurse Practitioner Family | DX: C34.82 Malignant neoplasm of overlapping sites of left bronchus and lung (principal) | CPT/HCPCS: 99214 ==

== ENCOUNTER → 2022-07-16 12:37 | Outpatient (BNVA) | payer MEDICARE, SELFPAY | PROVIDERS: PCP Family Medicine; Visit Provider Surgery | DX: Z48.89 Encounter for other specified surgical aftercare (principal); Z95.828 Presence of other vascular implants and grafts | CPT/HCPCS: 99213 ==

== ENCOUNTER 2022-07-25 09:30 | Oncology outpatient (recurring) (ONCR) | payer MEDICARE, SELFPAY ==
[2022-07-02 08:15] VITALS: BMI 36.8
[2022-07-02 08:33] LABS: Basophils # 0.1 10^3/uL (0.0-0.1); Basophils % 0.5 %; Eosinophils # 0.1 10^3/uL (0.0-0.8); Hematocrit 37.1 % (37.0-47.0); Hemoglobin 11.8 g/dL (11.5-15.3); Lymphocytes % 21.4 %; Mean Corpuscular HGB Conc 31.8 g/dL (30.0-36.0); Mean Corpuscular Hemoglobin 27.7 pg (28.0-34.0); Mean Corpuscular Volume 87.1 fl (81-99); Mean Platelet Volume 9.7 fL (7.4-10.4); Monocytes # 0.6 10^3/uL (0.2-0.9); Monocytes % 6.1 %; Neutrophils # 6.43 10^3/uL (1.8-7.7); Neutrophils % 70.7 %; Nucleated Red Blood Cells % 0 %; Platelet Count 353 10^3/cmm (130-400); Red Blood Count 4.26 10^6/uL (4.1-5.3); Red Cell Distribution Width 14.3 % (12.1-15.1); White Blood Count 9.1 10^3/uL (4.0-10.0)
[2022-07-02 09:05] LABS: Alanine Aminotransferase 9 U/L (0-33); Albumin Level 3.6 g/dL (3.5-5.2); Alkaline Phosphatase 89 U/L (35-105); Anion Gap 13.8 (5-19); Aspartate Amino Transferase 11 U/L (0-32); Blood Urea Nitrogen 13 mg/dL (8-23); Calcium 8.6 mg/dL (8.5-10.5); Carbon Dioxide 24 mmol/L (22-29); Chloride 107 mmol/L (98-107); Creatinine Clr Calc Pharmacy 67.1188; Globulin 3.3 g/dL (1.3-4.6); Glomerular Filtration Rate 99.1 mL/min (90-130); Glucose 102 mg/dL (65-115); Osmolality Calculated 292 mOsm/kg (285-295); Potassium 3.8 mmol/L (3.5-5.1); Sodium 141 mmol/L (136-145); Total Bilirubin 0.4 mg/dL (0.15-1.2); Total Protein 6.9 g/dL (6.6-8.7)
[2022-07-15 09:00] VITALS: BP 147/84; PULSE 113; RESP 18; TEMP 36.8; O2SAT 95
[2022-07-15 09:13] LABS: Basophils % 0.4 %; Eosinophils # 0.1 10^3/uL (0.0-0.8); Eosinophils % 1.3 %; Hematocrit 38.2 % (37.0-47.0); Hemoglobin 12.1 g/dL (11.5-15.3); Mean Corpuscular HGB Conc 31.7 g/dL (30.0-36.0); Mean Corpuscular Hemoglobin 27.8 pg (28.0-34.0); Mean Corpuscular Volume 87.6 fl (81-99); Mean Platelet Volume 10.4 fL (7.4-10.4); Monocytes # 0.7 10^3/uL (0.2-0.9); Monocytes % 6.7 %; Neutrophils % 71.3 %; Nucleated Red Blood Cells % 0 %; Platelet Count 325 10^3/cmm (130-400); Red Blood Count 4.36 10^6/uL (4.1-5.3); Red Cell Distribution Width 14.3 % (12.1-15.1); White Blood Count 10.1 10^3/uL (4.0-10.0)
[2022-07-15 09:30] LABS: Alanine Aminotransferase < 5 U/L (0-33); Albumin Level 3.6 g/dL (3.5-5.2); Alkaline Phosphatase 82 U/L (35-105); Anion Gap 15.1 (5-19); Aspartate Amino Transferase 16 U/L (0-32); Blood Urea Nitrogen 16 mg/dL (8-23); Calcium 8.8 mg/dL (8.5-10.5); Carbon Dioxide 24 mmol/L (22-29); Chloride 100 mmol/L (98-107); Creatinine Clr Calc Pharmacy 67.1188; Globulin 3.4 g/dL (1.3-4.6); Glucose 107 mg/dL (65-115); Osmolality Calculated 282 mOsm/kg (285-295); Potassium 4.1 mmol/L (3.5-5.1); Sodium 135 mmol/L (136-145); Total Bilirubin 0.3 mg/dL (0.15-1.2)
[2022-07-15 09:37] LABS: Glucose Urine UA Norm (Normal); Protein Urine Neg (Negative); Urine Appearance Clear (CLEAR); Urine Color Yellow (Yellow); pH Urine 7 (5-7)
[2022-07-15 09:38] LABS: Add Urine Culture? Yes; Add Urine Microscopic? YES; Bacteria Urine 2+ /hpf; Bilirubin Urine Neg (Negative); Blood Urine 3+ (Negative); Ketones Urine Negative (Negative); Leukocyte Esterase Urine 1+ (Negative); Nitrate Urine Positive (Negative); RBC Urine 0-4 /hpf (0-2); Squamous Epithelial Cell Urine 0-4 /hpf (0-5); Urobilinogen Urine Norm (Negative); WBC Urine 15-25 /hpf (0-5)
--- NOTE | 2022-07-15 11:33 | PC.NURSE ---
Patient will not receive treatment today due to UTI. Provider sent prescription for antibiotics to the pharmacy and patient is scheduled to come back on to recheck urine and labs and possible treatment.
[2022-07-18 09:00] VITALS: BP 100/71; PULSE 111; RESP 18; TEMP 36.8; O2SAT 96
[2022-07-18 09:19] LABS: Basophils % 0.4 %; Eosinophils # 0.1 10^3/uL (0.0-0.8); Eosinophils % 1.4 %; Hematocrit 38.6 % (37.0-47.0); Hemoglobin 12.3 g/dL (11.5-15.3); Lymphocytes # 1.6 10^3/uL (0.8-4.8); Lymphocytes % 17.5 %; Mean Corpuscular HGB Conc 31.9 g/dL (30.0-36.0); Mean Corpuscular Hemoglobin 27.6 pg (28.0-34.0); Mean Corpuscular Volume 86.7 fl (81-99); Mean Platelet Volume 9.9 fL (7.4-10.4); Monocytes # 0.6 10^3/uL (0.2-0.9); Monocytes % 6.3 %; Neutrophils # 6.92 10^3/uL (1.8-7.7); Neutrophils % 74.2 %; Nucleated Red Blood Cells % 0 %; Platelet Count 333 10^3/cmm (130-400); Red Blood Count 4.45 10^6/uL (4.1-5.3); Red Cell Distribution Width 14.2 % (12.1-15.1); White Blood Count 9.3 10^3/uL (4.0-10.0)
[2022-07-18 09:27] LABS: Urine Appearance Clear (CLEAR); Urine Color Light yellow (Yellow)
[2022-07-18 09:28] LABS: Add Urine Microscopic? YES; Bilirubin Urine Neg (Negative); Blood Urine 3+ (Negative); Glucose Urine UA Norm (Normal); Ketones Urine Negative (Negative); Leukocyte Esterase Urine Negative (Negative); Nitrate Urine Negative (Negative); Protein Urine Neg (Negative); Urobilinogen Urine Neg (Negative); pH Urine 5 (5-7)
[2022-07-18 09:30] LABS: Add Urine Culture? No; RBC Urine 0-4 /hpf (0-2); Squamous Epithelial Cell Urine 0-4 /hpf (0-5); WBC Urine 0-4 /hpf (0-5)
[2022-07-18 09:40] LABS: Alanine Aminotransferase 9 U/L (0-33); Albumin Level 3.6 g/dL (3.5-5.2); Alkaline Phosphatase 89 U/L (35-105); Aspartate Amino Transferase 15 U/L (0-32); Blood Urea Nitrogen 15 mg/dL (8-23); Calcium 8.6 mg/dL (8.5-10.5); Carbon Dioxide 24 mmol/L (22-29); Chloride 103 mmol/L (98-107); Creatinine Clr Calc Pharmacy 67.1188; Globulin 3.5 g/dL (1.3-4.6); Glucose 103 mg/dL (65-115); Osmolality Calculated 287 mOsm/kg (285-295); Sodium 138 mmol/L (136-145); Total Bilirubin 0.2 mg/dL (0.15-1.2); Total Protein 7.1 g/dL (6.6-8.7)
[2022-07-18] MEDS: sodium chloride 0.9% 250 ML 75 ML IV (10:28)
[2022-07-18] MEDS: famotidine 20 mg/2 mL INJ IVP (10:28)
[2022-07-18] MEDS: palonosetron 0.25 mg/5 mL SDV IVP (10:29)
[2022-07-18] MEDS: paclitaxel protein-bound 230 MG in empty flexible container 1 EACH 92 MG IV (11:08)
[2022-07-18] MEDS: gemcitabine 1,900 MG in sodium chloride 0.9% (100 ml) 100 ML 200 MG IV (12:10)
[2022-07-18 13:00] VITALS: BP 119/71; PULSE 88; RESP 18; TEMP 37.4; O2SAT 96
[2022-07-25 09:10] LABS: Basophils % 0.3 %; Eosinophils # 0.2 10^3/uL (0.0-0.8); Eosinophils % 3.4 %; Hematocrit 36.4 % (37.0-47.0); Hemoglobin 11.6 g/dL (11.5-15.3); Lymphocytes # 1.7 10^3/uL (0.8-4.8); Lymphocytes % 26.9 %; Mean Corpuscular HGB Conc 31.9 g/dL (30.0-36.0); Mean Corpuscular Hemoglobin 27.6 pg (28.0-34.0); Mean Corpuscular Volume 86.5 fl (81-99); Mean Platelet Volume 9.7 fL (7.4-10.4); Monocytes # 0.4 10^3/uL (0.2-0.9); Monocytes % 5.7 %; Neutrophils # 3.87 10^3/uL (1.8-7.7); Neutrophils % 63.2 %; Nucleated Red Blood Cells % 0 %; Platelet Count 255 10^3/cmm (130-400); Red Blood Count 4.21 10^6/uL (4.1-5.3); White Blood Count 6.1 10^3/uL (4.0-10.0)
[2022-07-25 09:13] VITALS: BP 141/83; PULSE 101; RESP 18; TEMP 37.1; O2SAT 97
[2022-07-25 09:31] LABS: Alanine Aminotransferase 34 U/L (0-33); Albumin Level 3.7 g/dL (3.5-5.2); Alkaline Phosphatase 79 U/L (35-105); Anion Gap 12.3 (5-19); Aspartate Amino Transferase 22 U/L (0-32); Blood Urea Nitrogen 13 mg/dL (8-23); Calcium 8.6 mg/dL (8.5-10.5); Carbon Dioxide 26 mmol/L (22-29); Chloride 107 mmol/L (98-107); Globulin 3.1 g/dL (1.3-4.6); Glomerular Filtration Rate 99.1 mL/min (90-130); Glucose 121 mg/dL (65-115); Osmolality Calculated 293 mOsm/kg (285-295); Potassium 4.3 mmol/L (3.5-5.1); Sodium 141 mmol/L (136-145); Total Bilirubin 0.2 mg/dL (0.15-1.2); Total Protein 6.8 g/dL (6.6-8.7)
[2022-07-25] MEDS: palonosetron 0.25 mg/5 mL SDV IVP (12:11)
[2022-07-25] MEDS: famotidine 20 mg/2 mL INJ IVP (12:12)
[2022-07-25] MEDS: sodium chloride 0.9% 500 ML 75 ML IV (12:12)
[2022-07-25] MEDS: paclitaxel protein-bound 230 MG in empty flexible container 1 EACH 92 MG IV (12:52)
[2022-07-25] MEDS: gemcitabine 1,900 MG in sodium chloride 0.9% (100 ml) 100 ML 200 MG IV (13:44)
[2022-07-25 15:00] VITALS: BP 114/74; PULSE 89; RESP 18; TEMP 37.3; O2SAT 98
== END 2022-07-25 23:59 | disposition home or self-care (01) ==
PROVIDERS: Internal Medicine Medical Oncology; Nurse Practitioner Family; PCP Family Medicine; Visit Provider Internal Medicine Hematology & Oncology
DX: Z51.11 Encounter for antineoplastic chemotherapy; C79.9 Secondary malignant neoplasm of unspecified site; Z79.01 Long term (current) use of anticoagulants; C79.51 Secondary malignant neoplasm of bone; J90 Pleural effusion, not elsewhere classified; C80.1 Malignant (primary) neoplasm, unspecified; R82.71 Bacteriuria; C34.82 Malignant neoplasm of overlapping sites of left bronchus and lung; C79.89 Secondary malignant neoplasm of other specified sites; R11.0 Nausea; Z79.2 Long term (current) use of antibiotics; Z79.899 Other long term (current) drug therapy; R53.0 Neoplastic (malignant) related fatigue; Z79.52 Long term (current) use of systemic steroids; Z95.828 Presence of other vascular implants and grafts
CPT/HCPCS: 36415; 80053; 81001; 85025; 87077; 87086; 87186; 96361; 96367; 96375; 96413; 96417; 99214; J1100; J2469; J3490; J7040; J7050; J9201; J9264

== ENCOUNTER 2022-08-02 10:17 | Inpatient (IN) | payer MEDICARE, SELFPAY ==
[2022-08-01 12:40] VITALS: BMI 33.6
[2022-08-02] VITALS (13 sets, daily range): BP systolic 110–185; BP diastolic 69–91; PULSE 82–119; RESP 16–18; TEMP 36.1–36.8; O2SAT 96–100
--- NOTE | 2022-08-02 | XR_ITS ---
WS: [id number] XR chest 1V portable [id number] REASON FOR EXAM: sob FINDINGS: Chemotherapy infusion port in place over the right chest with transvenous right subclavian catheter i nto the superior vena cava. Shift of the mediastinal structures to the left. No change from 07/01/2022. Confluent opacification of the lower left hemithorax. Multiple varying sized masses in the aerated po rtion of left lung. No significant change compared to 07/01/2022. Multiple small nodules throughout the right lung. No significant change compared to 07/01/2022. No new findings. XR/XR chest 1V [id number] IMPRESSION: Stable abnormal chest with multiple smaller metastatic nodules in the right nigel g and larger metastatic lesions in the left lung with significant left lung vol ume loss and mediastinal shift.
--- NOTE | 2022-08-02 08:54 | P.MISC_ITS ---
Miscellaneous Note Purpose of Documentation: Ms. Magy Ann, is a 67-year-old female with history of recurrent left pleural effusion, initially thought to have pneumonia but further imaging including CT scan of the chest done January 25, 2022 showed large left pleural effusion with compressive atelectasis and also some lesions in the liver and some pleural nodules, subsequently underwent CT PET scan on February 02, 2022 which showed significant uptake in the left pleura and a lytic lesion in the posterior left fifth rib, subsequently underwent thoracentesis twice and it was nondiagnostic, eventually she was referred to cardiothoracic surgery at [facility] in [place]. On 02/17/2022 left thoracoscopy with pleural biopsy.showed organizing pleural fibrosis and chronic pleuritis, no features diagnostic for malignancy.Left lower lobe lung biopsy shows benign bronchial wall and elevated lung tissue, no si gnificant inflammation or granuloma, no evidence of malignancy.? Subsequently CT-guided biopsy of left posterior rib was planned which was done on April 12, 2022 and biopsy confirmed metastatic adenocarcinoma with mucinous features and immunohistochemistry shows the tumor cells are positive for keratin 7, CDX2 (weak, patchy) while negative for keratin 20, SATB2, PAX8, ER 0%, GA TA 3, Napsin A and TTF-1.? This histology and immunohistochemistry profile is compatible with upper GI or pancreatobiliary origin.? However other sites of lesion are not excluded. patient underwent repeat left lung biopsy on May 22, 2022 which confirmed invasive adenocarcinoma with mucinous features and tumor cells were positive for CK7 and CDX2 while negative for TTF-1 and pathologist made a comment regarding these findings can be compatible with lung primary mucinous adenocarcinoma but clinical presentation of multiple lung nodules raise the possibility of metastatic carcinoma from other anatomic sites such as upper GI tract or hepatobiliary system.? [employer] GPSi testing confirmed 84% possibility of pancreas adenocarcinoma being primary whereas cholangiocarcinoma around 8% gastroesophageal 5% and lung adenocarcinoma only 3% and molecular studies were negative for K-nicole, BRAF, MSI/MMR, proficient, NTRK, RET and tumor mutational burden was low at 5. As molecular testing confirmed probability of metastatic pancreatic cancer is more than 80%, patient was offered palliative therapy with Abraxane/gemcitabine For recurrent pleural effusion Pleurx catheter was placed and on March 01, 2022 and since then patient has drains about 500 cc on a weekly basis at home. She has a friend who is a nurse and she helps with dressing. She came for her oncology follow-up visit with Dr. Alvarez yesterday 08/01/[address] Alvarez has noticed erythema around the site and has informed me to check her. I have scheduled her to come to GI lab today morning for pleural fluid drainage. We were able to get about 100 cc pleural fluid which was serosanguineous. I have sent pleural fluid for analysis-which showed 75,000 WBC, 42 % neutrophils, 43 % lymphocytes, LDH 4000 328, total protein 2.9. On examination-appears there is a tender, erythematous swelling close to the left Pleurx insertion site. I have consulted general surgery on-call to evaluate for incision and drainage and possible Pleurx catheter removal. As the abscess is too close to the indwelling catheter-I have requested hospitalist to evaluate for direct hospital admission for IV antibiotic therapy. Patient has allergies to several antibiotics including penicillins as well as sulfa drugs. Preferred medications will be IV vancomycin or oral linezolid to cover for MRSA.
--- NOTE | 2022-08-02 09:16 | PC.NURSE ---
Dr. Zaldivar came to observe the site. Erythema, drainage, and swelling noted around the site. Dr. Zaldivar consulted general surgery and hospitalist. Plan is to admit patient for IV antibiotics. Waiting for hospital room.
[2022-08-02 09:21] LABS: Body Fluid WBC 75446 /uL
--- NOTE | 2022-08-02 09:41 | PM.HP ---
Providers/Chief Complaint Admitting Physician: Rodríguez Durand MD Primary Care Provider: Jennie Ramos MD Chief Complaint: Drain History of Present Illness Magy Ann is a 67 year old female who presents today with progressive cellulitis of the chest wall around a previously-placed drainage catheter for left chest wall empyema. She is admitted today for incision and drainage of the chest wall Review of Systems General: Reports: 10 or more systems reviewed and unremarkable except in HPI and below Const: Reports: fever(s) Eyes: Denies: change in vision or blurry vision ENMT: Denies: throat pain or hoarseness Card: Denies: irregular heart rhythm, lightheadedness or syncope Resp: Reports: dyspnea and pain on inspiration (consistent with pleuritic irrritation in the left anterior chest) GI: Denies: abdominal pain, vomiting or hematemesis : Denies: flank pain or dysuria Musc: Denies: neck pain or back pain Neuro: Reports: headache(s) Medications/Allergies Home Medications Medication Instructions Recorded Confirmed Last Taken Type omeprazole 20 mg capsule,delayed 20 mg PO DAILY 01/23/22 08/02/22 08/02/22 History release acetaminophen 500 mg tablet 500 mg PO Q6H PRN Pain 04/05/22 08/02/22 06/30/22 History amlodipine 10 mg tablet 10 mg PO DAILY 30 days #30 tabs 04/08/22 08/02/22 08/02/22 Rx alprazolam 0.5 mg tablet (Xanax) 0.5 mg PO BID PRN anxiety or 06/18/22 08/02/22 06/27/22 Rx insomnia 7 days #14 tabs lidocaine-prilocaine 2.5 %-2.5 % 1 applic topical .COMPLEX #30 grams 07/02/22 08/02/22 08/01/22 Rx topical cream lorazepam 1 mg tablet 0.5 - 1 mg PO Q6H PRN Severe 07/02/22 08/02/22 Unknown Rx Nausea #30 tabs prochlorperazine maleate 10 mg 10 mg PO Q6H PRN Mild Nausea #30 07/02/22 08/02/22 Unknown Rx tablet (Compazine) tabs linezolid 600 mg tablet 600 mg PO BID 14 days #28 tabs 08/02/22 Unknown Rx Allergies Allergy/AdvReac Type Severity Reaction Status Date / Time buspirone [From BuSpar] Allergy ALGY-Anaphy Verified 08/02/22 07:50 laxis clarithromycin [From Biaxin] Allergy ALGY-Anaphy Verified 08/02/22 07:50 laxis codeine Allergy ADR-Vomitin Verified 08/02/22 07:50 g Macrolide Antibiotics Allergy ADR-Vomitin Verified 08/02/22 07:50 g Nitrate Analogues Allergy Unknown Verified 08/02/22 07:50 Penicillins Allergy ALGY-Anaphy Verified 08/02/22 07:50 laxis Quinolones Allergy Unknown Verified 08/02/22 07:50 Sulfa (Sulfonamide Allergy ALGY-Anaphy Verified 08/02/22 07:50 Antibiotics) laxis venlafaxine [From Effexor] Allergy ALGY-Anaphy Verified 08/02/22 07:50 laxis zofran Allergy ALGY-Rash Uncoded 08/02/22 07:50 PFSH Acute PFSH: Medical History No significant past medical history Pleural effusion Port-A-Cath in place Pulmonary nodules Shortness of breath Surgical History History of appendectomy History of cholecystectomy History of esophagogastroduodenoscopy (EGD) History of foot surgery History of hysterectomy Hx of bladder repair surgery bladder Sling Hx of colonoscopy Family History Father Bleeding disorder Cancer Diabetes Hypertension Mother Cancer Diabetes Hypertension Thyroid disease Denies family history of Chronic kidney disease (CKD) Stroke Social History Smoking and tobacco status: never smoked Alcohol intake: never Vitals/I&O/Wt 08/01/22 08/02/22 08/02/22 22:59 06:59 14:59 Output Total 100 / 100 Balance -100 / -100 Weight last 48 hrs Weight 190 lb Physical Exam Narrative: WDWN female in NAD Const: COMMON NORMALS: patient oriented x3 HENMT: COMMON NORMALS: normocephalic and oropharynx normal Eye: COMMON NORMALS: Equal, round and reactive pupils present, EOMs intact bilaterally and no scleral icterus Neck/C-Spine: COMMON NORMALS: supple Lymph: LYMPHATIC: no lymphadenopathy noted Chest: OTHER: Cellulitis surrounding drain tube in left chest at anterior axillary line, about fifth rib. Resp: COMMON NORMALS: normal respiratory effort OTHER: Breath sounds diminished on left. No subcutaneous emphysema noted Cardio: COMMON NORMALS: regular rate and regular rhythm GI: COMMON NORMALS: Soft to palpation and non-tender : COMMON NORMALS: Yes no CVA tenderness Extremity: COMMON NORMALS: full ROM Neuro: COMMON NORMALS: patient oriented x3, CN's II-XII intact bilaterally, no focal motor deficits and no sensory deficits noted Psych: COMMON NORMALS: mental status grossly normal, cooperative, normal affect and speech normal A&P Assessment and plan (1) Abscess after procedure: Cellulitis and abscess around pleural catheter Plan: incision and drainage of abscess, left chest wall (2) Pleural effusion: Plan Left chest wall abscess Plan: incision and drainage of left chest wall Attestations Medical Necessity Statement*: Uncontrolled infection of left chest wall. Coding Level of Care Code Acute Code for Chg Fwd Diagnoses Abscess after procedure T81.49XA Pleural effusion J90
--- NOTE | 2022-08-02 09:55 | PM.HP ---
Providers/Chief Complaint Primary Care Provider: Jennie Ramos MD Chief Complaint: Drain History of Present Illness Magy Ann is a 67 year old female Medications/Allergies Home Medications Medication Instructions Recorded Confirmed Last Taken Type omeprazole 20 mg capsule,delayed 20 mg PO DAILY 01/23/22 08/02/22 08/02/22 History release acetaminophen 500 mg tablet 500 mg PO Q6H PRN Pain 04/05/22 08/02/22 06/30/22 History amlodipine 10 mg tablet 10 mg PO DAILY 30 days #30 tabs 04/08/22 08/02/22 08/02/22 Rx alprazolam 0.5 mg tablet (Xanax) 0.5 mg PO BID PRN anxiety or 06/18/22 08/02/22 06/27/22 Rx insomnia 7 days #14 tabs lidocaine-prilocaine 2.5 %-2.5 % 1 applic topical .COMPLEX #30 grams 07/02/22 08/02/22 08/01/22 Rx topical cream lorazepam 1 mg tablet 0.5 - 1 mg PO Q6H PRN Severe 07/02/22 08/02/22 Unknown Rx Nausea #30 tabs prochlorperazine maleate 10 mg 10 mg PO Q6H PRN Mild Nausea #30 07/02/22 08/02/22 Unknown Rx tablet (Compazine) tabs linezolid 600 mg tablet 600 mg PO BID 14 days #28 tabs 08/02/22 Unknown Rx Allergies Allergy/AdvReac Type Severity Reaction Status Date / Time buspirone [From BuSpar] Allergy ALGY-Anaphy Verified 08/02/22 07:50 laxis clarithromycin [From Biaxin] Allergy ALGY-Anaphy Verified 08/02/22 07:50 laxis codeine Allergy ADR-Vomitin Verified 08/02/22 07:50 g Macrolide Antibiotics Allergy ADR-Vomitin Verified 08/02/22 07:50 g Nitrate Analogues Allergy Unknown Verified 08/02/22 07:50 Penicillins Allergy ALGY-Anaphy Verified 08/02/22 07:50 laxis Quinolones Allergy Unknown Verified 08/02/22 07:50 Sulfa (Sulfonamide Allergy ALGY-Anaphy Verified 08/02/22 07:50 Antibiotics) laxis venlafaxine [From Effexor] Allergy ALGY-Anaphy Verified 08/02/22 07:50 laxis zofran Allergy ALGY-Rash Uncoded 08/02/22 07:50 PFSH Acute PFSH: Medical History No significant past medical history Pleural effusion Port-A-Cath in place Pulmonary nodules Shortness of breath Surgical History History of appendectomy History of cholecystectomy History of esophagogastroduodenoscopy (EGD) History of foot surgery History of hysterectomy Hx of bladder repair surgery bladder Sling Hx of colonoscopy Family History Father Bleeding disorder Cancer Diabetes Hypertension Mother Cancer Diabetes Hypertension Thyroid disease Denies family history of Chronic kidney disease (CKD) Stroke Social History Smoking and tobacco status: never smoked Alcohol intake: never Vitals/I&O/Wt 08/01/22 08/02/22 08/02/22 22:59 06:59 14:59 Output Total 100 / 100 Balance -100 / -100 Weight last 48 hrs Weight 190 lb Attestations Medical Necessity Statement*: Uncontrolled infection of left chest wall Coding Level of Care Code Acute Code for Chg Fwd Diagnoses
[2022-08-02 10:20] LABS: Glucose Body Fluid < 2.0 mg/dL; LDH Body Fluid 4328 U/L; Total Protein Pleural Fluid 2.9 g/dL
--- NOTE | 2022-08-02 10:21 | ANES.PREANE2 ---
Pre-Anesthetic Assessment Height/Weight: Height 1.6 m Weight 86.183 kg Preop Diagnosis: Left chest wall abscess Operation Date: 08/02/22 08:00 Proposed Procedures p PleurX Drain Maintenance [place] Drain Maintenance(Not Applicable) - Brayden Zaldivar MD Operation Date: 08/02/22 10:30 Proposed Procedures p Incision And Drainage left chest wall abscess(Left) - Rodríguez Durand MD Familial anesthetic complications: States her heart stopped twice in the 90s, once from a hysterectomy and once from a gallbladder surgery. Was told she quit breathing and it was a reaction to the anesthesia. She states that they did do chest compressions on her, but that didn't require any ICU stay afterwards and was completely stable afterwards She states she hasn't had any further problems and has had propofol and versed multiple times before and done well. Was Beta Eduard taken within 24 hours: N/A Was Clonidine taken within 24 hours: N/A Last intake: 3 saltine crackers at 0630 Social No alcohol and No tobacco Exam alert, oriented x 3, clear to auscultation bilaterally and regular rate & rhythm Airway Mallampati: Class II Dentition: chipped CV/HEM Hypertension GI Gastroesophageal Reflux Disease Anesthetic Plan ASA status: 3 Anesthesia: Choice Risk of > 500 ml blood loss (7ml/kg in children): No Medications/Allergies Home Medications Medication Instructions Recorded Confirmed Last Taken Type omeprazole 20 mg capsule,delayed 20 mg PO DAILY 01/23/22 08/02/22 08/02/22 History release acetaminophen 500 mg tablet 500 mg PO Q6H PRN Pain 04/05/22 08/02/22 06/30/22 History amlodipine 10 mg tablet 10 mg PO DAILY 30 days #30 tabs 04/08/22 08/02/22 08/02/22 Rx alprazolam 0.5 mg tablet (Xanax) 0.5 mg PO BID PRN anxiety or 06/18/22 08/02/22 06/27/22 Rx insomnia 7 days #14 tabs lidocaine-prilocaine 2.5 %-2.5 % 1 applic topical .COMPLEX #30 grams 07/02/22 08/02/22 08/01/22 Rx topical cream lorazepam 1 mg tablet 0.5 - 1 mg PO Q6H PRN Severe 07/02/22 08/02/22 Unknown Rx Nausea #30 tabs prochlorperazine maleate 10 mg 10 mg PO Q6H PRN Mild Nausea #30 07/02/22 08/02/22 Unknown Rx tablet (Compazine) tabs linezolid 600 mg tablet 600 mg PO BID 14 days #28 tabs 08/02/22 Unknown Rx Allergies Allergy/AdvReac Type Severity Reaction Status Date / Time buspirone [From BuSpar] Allergy ALGY-Anaphy Verified 08/02/22 07:50 laxis clarithromycin [From Biaxin] Allergy ALGY-Anaphy Verified 08/02/22 07:50 laxis codeine Allergy ADR-Vomitin Verified 08/02/22 07:50 g Macrolide Antibiotics Allergy ADR-Vomitin Verified 08/02/22 07:50 g Nitrate Analogues Allergy Unknown Verified 08/02/22 07:50 Penicillins Allergy ALGY-Anaphy Verified 08/02/22 07:50 laxis Quinolones Allergy Unknown Verified 08/02/22 07:50 Sulfa (Sulfonamide Allergy ALGY-Anaphy Verified 08/02/22 07:50 Antibiotics) laxis venlafaxine [From Effexor] Allergy ALGY-Anaphy Verified 08/02/22 07:50 laxis zofran Allergy ALGY-Rash Uncoded 08/02/22 07:50 PFSH Anesthesia Medical History No significant past medical history Pleural effusion Port-A-Cath in place Pulmonary nodules Shortness of breath Surgical History History of appendectomy History of cholecystectomy History of esophagogastroduodenoscopy (EGD) History of foot surgery History of hysterectomy Hx of bladder repair surgery bladder Sling Hx of colonoscopy Family History Father Bleeding disorder Cancer Diabetes Hypertension Mother Cancer Diabetes Hypertension Thyroid disease Denies family history of Chronic kidney disease (CKD) Stroke Social History Smoking and tobacco status: never smoked Alcohol intake: never Data Anesthesia Cardiac Studies: Echocardiogram 01/24/22
[2022-08-02] MEDS: vancomycin 1,000 MG in sodium chloride 0.9% 250 ML 250 MG IV ×2 (10:37→22:21)
[2022-08-02] MEDS: enoxaparin 30 mg/0.3 mL Syringe SUBCUT (10:40)
[2022-08-02] MEDS: sodium chloride 0.9% 1,000 ML 30 ML IV (10:40)
[2022-08-02 11:33] LABS: Apprearance, Body Fluid TURBID; Color, Body Fluid AMBER
[2022-08-02 11:34] LABS: Fluid Laterality LEFT PLEURAL
[2022-08-02] MEDS: doxycycline 100 MG in sodium chloride 0.9% (plus) 100 ML IV (12:27)
--- NOTE | 2022-08-02 13:01 | P.OP_ITS ---
Brief Operative Note Date of procedure: 08/02/22 Pre-op diagnosis: Left chest wall abscess Post-op diagnosis: same Procedure Done: Incision and drainage left chest wall Surgeon: Rodríguez Durand Estimated blood loss (mL): 25 Complications: None Post-op Plan: Admit, resume diet, reassess in a.m. Condition: stable Coding Level of Care Code Acute Code for [facility]
--- NOTE | 2022-08-02 13:03 | PM.OP ---
Operative Report Date of procedure: August 02, 2022 Pre-op diagnosis: Preop Diagnosis Left chest wall abscess Post-op diagnosis: same Post-op findings: Left chest wall inflammation down to costal interface Procedure done: Incision and drainage of left chest wall abscess Specimens removed/disposition: Pleurex tube explanted and sent for C & S Surgeon: Rodríguez Durand Anesthesia: General Estimated blood loss (mL): 25 IV fluids (mL): 260 Complications: None Findings: Inflammation of chest wall down to costal interface Brief History: 67 y.o. 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 Taken to surgery for incision and drainage with explant of pleurex for C & S. Procedure: Assessed prior to induction of anesthesia and felt to be optimized for urgent surgical intervention. Three-phase WHO checklist used for time-out purposes. Prepped and draped in usual fashion in supine position, with left chest elevated modestly. Under satisfactory general anesthesia, incision was initiated on the rostral edge of the pleurex catheter and carried across a total length of 7 cm. Dissection followed the catheter through subcutaneous tissues and muscle layers to the costal wall. Drain could be identified passing over the costal surface of about the sixth rib. No effort was made to chacorta the drain into the pleural cavity. At this point, the drain was free of deep tissues, and could be explanted without incident. There was no change in respirations, and no bubbling or fluid outpouring from the space. Therefore we felt that there was no communication with the lung, and little to no communication with any pleural space (consistent with inflammatory pleurodesis of several months). Hemostasis was verified in the wound base. The pleurex cathether was removed intact, and at the back table the external portion of the catheter was severed from the internal portion, and the internal portion was then sent for culture and sensitivity. A woundVac was then trimmed to appropriate dimensions and inserted into the chest wall and secured with the adhesive film. Appropriate wound retraction was verified with scant drainage noted. Sponge and needle counts were correct x 2, and patient was sent to PACU in stable condition.
--- NOTE | 2022-08-02 13:19 | ANE.PACU2 ---
Inpatient post-anesthesia follow up: Airway intact: Yes Vital signs: Temperature 97 F Pulse Rate 110 Respiratory Rate 16 Blood Pressure 156/84 Pulse Oximetry 99 Oxygen Delivery Me thod Oxygen Flow Rate 6 Fraction of Inspir ed Oxygen Hydration adequate: Yes Nausea and vomiting: No Pain level: 1 Mental status: Baseline
--- NOTE | 2022-08-02 13:39 | PM.HP ---
Providers/Chief Complaint Admitting Physician: María Molina MD Primary Care Provider: Jennie Ramos MD Chief Complaint: Drain History of Present Illness Magy Ann is a 67 year old female with history of recurrent left pleural effusion as well as metastatic adenocarcinoma who was noted to have some erythema around her chest tube, Pleurx catheter site yesterday on August 01. Pulmonary saw her in GI clinic today, drained about 100 cc of pleural fluid which was serosanguineous. On their evaluation it was apparent the patient had a chest wall abscess. Surgery was called and she was taken to surgery for incision and drainage.Reports gradually increasing pain in the left chest. She has noted some drainage. She reports temperature at home as high as 100.4. No vomiting or diarrhea. Shortness of breath is present, but has been stable recently. Most recent chemotherapy was given on July 25, with Abraxane and gemcitabine. Review of Systems General: Reports: 10 or more systems reviewed and unremarkable except in HPI and below Card: Reports: chest pain (Left side along chest tube) Resp: Reports: dyspnea (Reports this is chronic) GI: Denies: abdominal pain, nausea, vomiting, hematochezia or melena Medications/Allergies Home Medications Medication Instructions Recorded Confirmed Last Taken Type omeprazole 20 mg capsule,delayed 20 mg PO DAILY 01/23/22 08/02/22 08/02/22 History release acetaminophen 500 mg tablet 500 mg PO Q6H PRN Pain 04/05/22 08/02/22 06/30/22 History amlodipine 10 mg tablet 10 mg PO DAILY 30 days #30 tabs 04/08/22 08/02/22 08/02/22 Rx alprazolam 0.5 mg tablet (Xanax) 0.5 mg PO BID PRN anxiety or 06/18/22 08/02/22 06/27/22 Rx insomnia 7 days #14 tabs lidocaine-prilocaine 2.5 %-2.5 % 1 applic topical .COMPLEX #30 grams 07/02/22 08/02/22 08/01/22 Rx topical cream lorazepam 1 mg tablet 0.5 - 1 mg PO Q6H PRN Severe 07/02/22 08/02/22 Unknown Rx Nausea #30 tabs prochlorperazine maleate 10 mg 10 mg PO Q6H PRN Mild Nausea #30 07/02/22 08/02/22 Unknown Rx tablet (Compazine) tabs linezolid 600 mg tablet 600 mg PO BID 14 days #28 tabs 08/02/22 Unknown Rx Allergies Allergy/AdvReac Type Severity Reaction Status Date / Time buspirone [From BuSpar] Allergy ALGY-Anaphy Verified 08/02/22 07:50 laxis clarithromycin [From Biaxin] Allergy ALGY-Anaphy Verified 08/02/22 07:50 laxis codeine Allergy ADR-Vomitin Verified 08/02/22 07:50 g Macrolide Antibiotics Allergy ADR-Vomitin Verified 08/02/22 07:50 g Nitrate Analogues Allergy Unknown Verified 08/02/22 07:50 Penicillins Allergy ALGY-Anaphy Verified 08/02/22 07:50 laxis Quinolones Allergy Unknown Verified 08/02/22 07:50 Sulfa (Sulfonamide Allergy ALGY-Anaphy Verified 08/02/22 07:50 Antibiotics) laxis venlafaxine [From Effexor] Allergy ALGY-Anaphy Verified 08/02/22 07:50 laxis zofran Allergy ALGY-Rash Uncoded 08/02/22 07:50 PFSH Acute PFSH: Medical History (Updated 08/02/22 @ 14:09 by Marcus Molina MD) Depression due to physical illness GERD (gastroesophageal reflux disease) Metastatic adenocarcinoma No significant past medical history Pleural effusion Port-A-Cath in place Pulmonary nodules Shortness of breath Surgical History History of appendectomy History of cholecystectomy History of esophagogastroduodenoscopy (EGD) History of foot surgery History of hysterectomy Hx of bladder repair surgery bladder Sling Hx of colonoscopy Family History Father Bleeding disorder Cancer Diabetes Hypertension Mother Cancer Diabetes Hypertension Thyroid disease Denies family history of Chronic kidney disease (CKD) Stroke Social History Smoking and tobacco status: never smoked Alcohol intake: never Physical Exam Narrative: No exam is white female, reporting some chest pain with movement, in no distress currently HEENT: Atraumatic and normocephalic. Oropharynx clear. Neck is supple no lymphadenopathy thyromegaly Cardiovascular regular rate and rhythm without murmur Lungs diminished breath sounds bilaterally but no wheezes or crackles. Left chest wall demonstrated erythema, increased tenderness to palpation when I evaluated her prior to surgery Abdomen is soft nontender positive bowel sounds. No obvious organomegaly exams deferred Extremities no cyanosis clubbing or edema, cap refill brisk Skin see findings above Neuro no obvious focal deficits Data Other Labs: Pleural fluid analysis from today reviewed. Laboratory from yesterday reviewed. Sodium 131, creatinine 0.9, albumin 3.2. CBC demonstrated a white count of 7.2, hemoglobin 11.1, platelet count of 141. Tray which I visualize demonstrates stable chest, multiple nodules, multiple lesions left lung with significant volume loss and shift cannot rule out effusion. Cardiogram in December 2021 demonstrated preserved EF, 1/4 diastolic dysfunction A&P Assessment and plan (1) Cellulitis: Patient with evidence of left chest wall cellulitis and abscess Vancomycin. Dosing per pharmacy. Close follow-up of levels and renal function. CBC and BMP in the morning. Obtain blood cultures Pleural fluid has already been obtained for culture as well as sample from surgery Patient underwent I&D today in the surgical suite prior to admission, and removal of Pleurx catheter Observation initially. Possible discharge tomorrow on oral linezolid (2) Abscess after procedure: Today she underwent I&D of her abscess and removal of Pleurx catheter (3) Metastatic adenocarcinoma: She is currently undergoing chemotherapy, with last treatment July 25. Plan Other medical problems as outlined in past medical history Full code currently Initiate heparin subcutaneous for DVT prophylaxis Attestations Medical Necessity Statement*: Will need less than 2 midnight stay for evaluation and treatment of left chest wall abscess and cellulitis Diagnoses Cellulitis L03.90 Abscess after procedure T81.49XA Metastatic adenocarcinoma C79.9 Time Spent (min) 42
[2022-08-02 15:30] LABS: Basophils # 0.1 10^3/uL (0.0-0.1); Basophils % 1.3 %; Eosinophils % 0.3 %; Hematocrit 32.5 % (37.0-47.0); Hemoglobin 10.7 g/dL (11.5-15.3); Lymphocytes # 0.4 10^3/uL (0.8-4.8); Lymphocytes % 6.3 %; Mean Corpuscular HGB Conc 32.9 g/dL (30.0-36.0); Mean Corpuscular Hemoglobin 28.5 pg (28.0-34.0); Mean Corpuscular Volume 86.4 fl (81-99); Mean Platelet Volume 9.9 fL (7.4-10.4); Monocytes # 0.4 10^3/uL (0.2-0.9); Monocytes % 5.8 %; Neutrophils # 5.49 10^3/uL (1.8-7.7); Neutrophils % 85.8 %; Nucleated Red Blood Cells % 0 %; Platelet Count 126 10^3/cmm (130-400); Red Blood Count 3.76 10^6/uL (4.1-5.3); Red Cell Distribution Width 14.2 % (12.1-15.1); White Blood Count 6.4 10^3/uL (4.0-10.0)
[2022-08-02 16:01] LABS: Alanine Aminotransferase 56 U/L (0-33); Albumin Level 3.1 g/dL (3.5-5.2); Alkaline Phosphatase 95 U/L (35-105); Anion Gap 17.1 (5-19); Aspartate Amino Transferase 43 U/L (0-32); Blood Urea Nitrogen 15 mg/dL (8-23); Calcium 8.6 mg/dL (8.5-10.5); Carbon Dioxide 22 mmol/L (22-29); Chloride 100 mmol/L (98-107); Globulin 3.2 g/dL (1.3-4.6); Glomerular Filtration Rate 71.1 mL/min (90-130); Glucose 125 mg/dL (65-115); Osmolality Calculated 282 mOsm/kg (285-295); Potassium 4.1 mmol/L (3.5-5.1); Sodium 135 mmol/L (136-145); Total Bilirubin 0.6 mg/dL (0.15-1.2); Total Protein 6.3 g/dL (6.6-8.7)
[2022-08-02] MEDS: acetaminophen 325 mg Tablet 650 MG PO (22:28)
[2022-08-03 03:10] VITALS: BP 137/71; PULSE 102; RESP 18; TEMP 36.7; O2SAT 98
[2022-08-03] MEDS: enoxaparin 30 mg/0.3 mL Syringe SUBCUT (06:26)
[2022-08-03 08:00] VITALS: BP 127/75; PULSE 94; RESP 16; TEMP 36.5; O2SAT 97
[2022-08-03] MEDS: pantoprazole DR 40 mg Tablet PO (09:28)
[2022-08-03] MEDS: amlodipine 10 mg Tablet PO (09:28)
[2022-08-03] MEDS: vancomycin 1,000 MG in sodium chloride 0.9% 250 ML 250 MG IV ×2 (09:29→21:55)
[2022-08-03 11:53] VITALS: BP 111/69; PULSE 99; RESP 16; TEMP 36.6; O2SAT 96
[2022-08-03 11:54] LABS: Basophils # 0.1 10^3/uL (0.0-0.1); Basophils % 0.6 %; Hematocrit 31.8 % (37.0-47.0); Lymphocytes # 1.1 10^3/uL (0.8-4.8); Lymphocytes % 13.2 %; Mean Corpuscular HGB Conc 31.4 g/dL (30.0-36.0); Mean Corpuscular Hemoglobin 27.3 pg (28.0-34.0); Mean Corpuscular Volume 86.9 fl (81-99); Mean Platelet Volume 10.2 fL (7.4-10.4); Monocytes # 0.9 10^3/uL (0.2-0.9); Monocytes % 11.1 %; Neutrophils # 6.23 10^3/uL (1.8-7.7); Neutrophils % 74.1 %; Nucleated Red Blood Cells % 0 %; Platelet Count 182 10^3/cmm (130-400); Red Blood Count 3.66 10^6/uL (4.1-5.3); Red Cell Distribution Width 13.9 % (12.1-15.1); White Blood Count 8.4 10^3/uL (4.0-10.0)
[2022-08-03 12:16] LABS: Alanine Aminotransferase 61 U/L (0-33); Albumin Level 2.8 g/dL (3.5-5.2); Alkaline Phosphatase 89 U/L (35-105); Aspartate Amino Transferase 37 U/L (0-32); Blood Urea Nitrogen 16 mg/dL (8-23); Calcium 8.3 mg/dL (8.5-10.5); Carbon Dioxide 20 mmol/L (22-29); Chloride 105 mmol/L (98-107); Globulin 3.2 g/dL (1.3-4.6); Glucose 118 mg/dL (65-115); Osmolality Calculated 282 mOsm/kg (285-295); Sodium 135 mmol/L (136-145); Total Bilirubin 0.2 mg/dL (0.15-1.2)
--- NOTE | 2022-08-03 13:51 | PM.PN ---
Subjective Subjective: Seen at bedside today Pt is POD#1 I&D for abscess at PleurX catheter site. States she is feeling overall improved. Wound vac is in place; however we are unable to set her up with a home system. pt concerned that w/o chest tube she will retain more fluid and require thoracenesis. wound therapy with wound vac. Pain at site. denies SOB, chest pain, palpitations. Vitals/I&O/Wt Last Vital Signs Temp 97.8 F 08/03/22 11:53 Pulse 99 08/03/22 11:53 Resp 16 08/03/22 11:53 BP 111/69 08/03/22 11:53 Pulse Ox 96 08/03/22 11:53 O2 Del Method Room Air 08/03/22 03:10 O2 Flow Rate 6 08/02/22 13:15 08/02/22 08/03/22 08/03/22 22:59 06:59 14:59 Intake Total 840 / 1190 250 / 1440 250 / 250 Balance 840 / 1080 250 / 1330 250 / 250 Physical Exam Narrative: Pt sitting in bed, wound vac in place (40ml of sangenous fluid) HEENT: Atraumatic and normocephalic. Oropharynx clear. Neck is supple no lymphadenopathy thyromegaly Cardiovascular RRR, normal S1 and S2, no M/R/G. no edema. Lungs diminished breath sounds bilaterally but no wheezes or crackles. Left chest wall with wound vac in place with some surrounding erythema and ttp. no purulent drainage. Abdomen is soft nontender positive bowel sounds. No obvious organomegaly Extremities no cyanosis clubbing or edema, cap refill brisk Skin see findings above Neuro no obvious focal deficits Data 08/03/22 11:35 08/03/22 11:35 Micro: Microbiology 08/02/22 14:44 Blood Culture - Preliminary Blood 08/02/22 15:00 Blood Culture - Preliminary Blood SPECIMEN COLLECTED 08/02/22 08:36 Gram Stain - Final Pleural Fluid A&P Assessment and plan (1) Abscess after procedure: POD #1: abscess I&D with removal of Pleurx cath placement of wound vac by Dr. Richards continued on Vanc IV f/u with Dr. Zaldivar next week discharge pending wound vac machine, wound care, and scheduled appointment with Dr. Zaldivar. may be a friday discharge. (2) Cellulitis: Patient with evidence of left chest wall cellulitis and abscess POD #1 Vanc. Pending Bcx, wound Cx, fluid Cx from surgery at time of discharge, transition to PO linezolid pending Cx findings (3) Metastatic adenocarcinoma: She is currently undergoing chemotherapy, with last treatment July 25. Plan Other medical problems as outlined in past medical history Full code currently Initiate heparin subcutaneous for DVT prophylaxis Attestations Medical Necessity Statement*: wound care management Coding Level of Care Code 08570 Diagnoses Abscess after procedure T81.49XA Cellulitis L03.90 Metastatic adenocarcinoma C79.9
--- NOTE | 2022-08-03 16:22 | P.PN_ITS ---
Subjective Subjective: I'm still pretty sore. How will they take care of this vacuum drain? Vitals/I&O/Wt Last Vital Signs Temp 97.8 F 08/03/22 11:53 Pulse 99 08/03/22 11:53 Resp 16 08/03/22 11:53 BP 111/69 08/03/22 11:53 Pulse Ox 96 08/03/22 11:53 O2 Del Method Room Air 08/03/22 03:10 O2 Flow Rate 6 08/02/22 13:15 08/03/22 08/03/22 08/03/22 06:59 14:59 22:59 Intake Total 250 / 1440 450 / 450 Balance 250 / 1330 450 / 450 Physical Exam GI: OTHER: Left chest woundVac in place. Cellulitis may be a bit less since surgery. Data 08/04/22 05:05 08/04/22 05:05 Micro: Microbiology 08/02/22 15:00 Blood Culture - Preliminary Blood NEGATIVE TO DATE 08/02/22 14:44 Blood Culture - Preliminary Blood 08/02/22 08:36 Gram Stain - Final Pleural Fluid A&P Assessment and plan (1) Abscess: (2) Abscess after procedure: (3) Cellulitis: Plan Cellulitis on left chest wall may be a little better. Discussed with case management. Patient will not have access to home health woundVac until 08/05. Attestations Medical Necessity Statement*: Left chest cellulitis consistent with drained abscess. Will require 2 midnights more to resolve her infection. Coding Level of Care Code Acute Code for [facility] Diagnoses Abscess L02.91 Abscess after procedure T81.49XA Cellulitis L03.90
[2022-08-03 19:53] VITALS: BP 125/74; PULSE 100; RESP 18; TEMP 36.4; O2SAT 97
[2022-08-03 21:41] LABS: Vancomycin Trough 13.8 ug/mL (10-15)
--- NOTE | 2022-08-03 21:47 | PC.NURSE ---
Pharmacy notified of Vanc trough dose of 13.8 as they are dosing the medication. Con't same vanc dose.
[2022-08-03 23:33] VITALS: BP 88/58; PULSE 82; RESP 17; TEMP 36.4; O2SAT 97
--- NOTE | 2022-08-04 00:58 | PC.PHAR ---
Pharmacokinetic dosing service Date: 08/04/22 Time: 57 Patient: aMgy Ann Floor: 278-2 Weight: 86.183 Kilograms Vancomycin single level analysis: Current dose being given: 1000 mg Current dosing interval: q 12 hrs Current infusion time (hrs): 1 Single level Trough Data: Trough level obtained: 13.8 mcg/ml Timing of trough - # of hrs before next dose: 1 Hrs Desired peak: 40 mcg/ml Desired trough: 18 mcg/ml Diagnosis: Relevant medical/social history: Cultures and sensitivities: Other labs: Estimated PK Parameters: New rate constant (brett): 0.060 hr-1 Half-life: 11.55 Hours Vd from levels: 77.56 Liters (0.7 L/kg) CLvanco=?? 4.654 L/hr Estimated New Dose and Interval Recommended dose: 1841.1 mg Recommended interval: 14.3 Hrs Patient response: Patient is responding to treatment [yes/no] wbc decreasing, S/SX reduced [yes/no] Renal function is stable/unstable Recommendations: Give Vancomycin 1250 mg q 12 hrs. Infuse over 1 hrs Expected Cpeak: 30.5 mcg/mL Expected Ctrough: 15.8 mcg/mL AUC 0-24 /SUNDAR Data: SUNDAR 0.5 mcg/mL:?? AUC/SUNDAR:? 1074.3 SUNDAR 1.0 mcg/mL:?? AUC/SUNDAR:? 537.2 Recommended labs and intervals: Measure Bun and Scr 3 times/week. Renal dosing of other antibiotics (review renal dosing of other medications and list guidelines here): Thank you for the consult, will continue to follow. Signature:Abril Reynoso [facility]
[2022-08-04 03:48] VITALS: BP 95/55; PULSE 84; RESP 16; TEMP 36.6; O2SAT 98
[2022-08-04 05:32] LABS: Basophils % 0.5 %; Eosinophils % 0.3 %; Hematocrit 27.6 % (37.0-47.0); Hemoglobin 8.8 g/dL (11.5-15.3); Lymphocytes # 1.7 10^3/uL (0.8-4.8); Lymphocytes % 26.3 %; Mean Corpuscular HGB Conc 31.9 g/dL (30.0-36.0); Mean Corpuscular Hemoglobin 27.3 pg (28.0-34.0); Mean Corpuscular Volume 85.7 fl (81-99); Mean Platelet Volume 9.9 fL (7.4-10.4); Monocytes # 0.9 10^3/uL (0.2-0.9); Monocytes % 13.4 %; Neutrophils # 3.69 10^3/uL (1.8-7.7); Neutrophils % 57.9 %; Nucleated Red Blood Cells % 0 %; Platelet Count 206 10^3/cmm (130-400); Red Blood Count 3.22 10^6/uL (4.1-5.3); Red Cell Distribution Width 14.2 % (12.1-15.1); White Blood Count 6.4 10^3/uL (4.0-10.0)
[2022-08-04 05:47] LABS: Alanine Aminotransferase 59 U/L (0-33); Albumin Level 2.6 g/dL (3.5-5.2); Alkaline Phosphatase 74 U/L (35-105); Anion Gap 11.7 (5-19); Aspartate Amino Transferase 33 U/L (0-32); Blood Urea Nitrogen 16 mg/dL (8-23); Calcium 8.3 mg/dL (8.5-10.5); Carbon Dioxide 23 mmol/L (22-29); Chloride 105 mmol/L (98-107); Globulin 2.6 g/dL (1.3-4.6); Glomerular Filtration Rate 62.1 mL/min (90-130); Glucose 98 mg/dL (65-115); Osmolality Calculated 283 mOsm/kg (285-295); Potassium 3.7 mmol/L (3.5-5.1); Sodium 136 mmol/L (136-145); Total Bilirubin 0.2 mg/dL (0.15-1.2); Total Protein 5.2 g/dL (6.6-8.7)
[2022-08-04] MEDS: enoxaparin 30 mg/0.3 mL Syringe SUBCUT (06:00)
[2022-08-04 08:00] VITALS: BP 104/65; PULSE 91; RESP 16; TEMP 36.4; O2SAT 97
[2022-08-04] MEDS: vancomycin 1,250 MG/250 ML PIGGYBACK 250 MG IV ×2 (09:09→21:37)
[2022-08-04] MEDS: pantoprazole DR 40 mg Tablet PO (09:09)
[2022-08-04] MEDS: amlodipine 10 mg Tablet PO (09:09)
--- NOTE | 2022-08-04 10:08 | PM.PN ---
Subjective Subjective: I'm doing fine now Vitals/I&O/Wt Last Vital Signs Temp 97.6 F 08/04/22 08:00 Pulse 91 08/04/22 08:00 Resp 16 08/04/22 08:00 BP 104/65 08/04/22 08:00 Pulse Ox 97 08/04/22 08:00 O2 Del Method Room Air 08/03/22 03:10 O2 Flow Rate 6 08/02/22 13:15 08/03/22 08/04/22 08/04/22 22:59 06:59 14:59 Intake Total 730 / 1180 250 / 1430 380 / 380 Balance 730 / 1180 250 / 1430 380 / 380 Physical Exam Chest: OTHER: Cellulitis resolving nicely now. Data 08/04/22 05:05 08/04/22 05:05 Micro: Microbiology 08/02/22 08:36 Gram Stain - Final Pleural Fluid Anaerobic Culture - Preliminary Body Fluid Culture - Preliminary 08/02/22 12:42 Catheter Tip Culture - Preliminary Other Source Coag positive Staphylococcus 08/02/22 15:00 Blood Culture - Preliminary Blood NEGATIVE TO DATE 08/02/22 14:44 Blood Culture - Preliminary Blood A&P Assessment and plan (1) Abscess after procedure: Plan Cellulitis of left chest wall, with abscess. Now in resolution, but cannot detach from hospital woundVac until tomorrow. Anticipate dismissal to home tomorrow. Attestations Medical Necessity Statement*: Cellulitis of left chest wall. Plan to dismiss in a.m. tomorrow, to home with home health. Coding Level of Care Code Acute Code for Chg Fwd Diagnoses Abscess after procedure T81.49XA
[2022-08-04 12:00] VITALS: BP 117/66; PULSE 108; RESP 18; TEMP 36.6; O2SAT 98
--- NOTE | 2022-08-04 13:20 | PM.PN ---
Subjective Subjective: Patient is endorsing feeling better Patient was, very anxious regarding reaccumulation of pleural effusion, I will repeat x-ray today We will asked Dr. 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 Continue vancomycin for now Vitals/I&O/Wt Last Vital Signs Temp 98 F 08/04/22 12:00 Pulse 108 H 08/04/22 12:00 Resp 18 08/04/22 12:00 BP 117/66 08/04/22 12:00 Pulse Ox 98 08/04/22 12:00 O2 Del Method Room Air 08/03/22 03:10 O2 Flow Rate 6 08/02/22 13:15 08/03/22 08/04/22 08/04/22 22:59 06:59 14:59 Intake Total 730 / 1180 250 / 1430 380 / 380 Balance 730 / 1180 250 / 1430 380 / 380 Physical Exam Narrative: Patient awake and alert Currently on room air GCS 15 Pleasant and cooperative Abdomen soft S1, S2 Nonfocal neuro Data 08/04/22 05:05 08/04/22 05:05 Micro: Microbiology 08/02/22 14:44 Blood Culture - Preliminary Blood Staphylococcus sp coag neg 08/02/22 08:36 Gram Stain - Final Pleural Fluid Anaerobic Culture - Preliminary Body Fluid Culture - Preliminary Coag positive Staphylococcus 08/02/22 12:42 Catheter Tip Culture - Preliminary Other Source Coag positive Staphylococcus 08/02/22 15:00 Blood Culture - Preliminary Blood NEGATIVE TO DATE A&P Assessment and plan (1) Abscess: (2) Cellulitis: (3) Metastatic adenocarcinoma: (4) Abscess after procedure: (5) Port-A-Cath in place: (6) Pleural effusion: (7) HTN (hypertension): Qualifiers: Hypertension type: primary hypertension Qualified Code(s): I10 - Essential (primary) hypertension Plan MRSA from Pleurx catheter tip Currently vancomycin Plan to discharge on p.o. linezolid at discharge Wound VAC in place Continue IV vancomycin, Vanco trough around 13 Recurrent pleural effusion we will ask Dr. Zaldivar to schedule timing for another chest tube placement versus pleurodesis Recent thoracentesis revealed exudative pleural effusion Blood culture showing contamination afebrile hemodynamic stable Cellulitis of chest wall: Improving Hold DVT prophylaxis Repeat chest x-ray Attestations Medical Necessity Statement*: Discharge tomorrow Diagnoses Abscess L02.91 Cellulitis L03.90 Metastatic adenocarcinoma C79.9 Abscess after procedure T81.49XA Port-A-Cath in place Z95.828 Pleural effusion J90 HTN (hypertension) I10 Hypertension type: primary hypertension
--- NOTE | 2022-08-04 13:32 | XRR_ITS ---
PROCEDURE INFORMATION: Exam: XR Chest Exam date and time: 08/04/2022 2:03 PM Age: 67 years old Clinical indication: Pain; Chest pressure and on breathing; Additional info: Pleural effusion chest pain TECHNIQUE: Imaging protocol: Radiologic exam of the chest. Views: 1 view. COMPARISON: CR XR chest 1V [id number] 08/02/2022 12:38 PM FINDINGS: Tubes, catheters and devices: Central venous access catheter or port is seen on the right as noted with prior exam. Lungs: Confluent opacification in the lower left lung and nodular type opacification partially aerated mid to upper left lung, as noted with prior exam. Volume loss in the left with mediastinal shift to the left, as noted with prior exam. Small nodular appearance right lung as noted with prior exam. Unable to evaluate cardiac size due to opacity lower left lung. Pleural spaces: Component of effusion on the left. No effusion on the right. No pneumothorax. Heart/Mediastinum: See Lungs finding. Bones/joints: Visualized osseous structures show no acute abnormality. Other findings: No significant change from exam 2 days ago. XR/XR chest 1V portable [id number] IMPRESSION: No significant change in the appearance of the chest from 08/02/2022. Continued findings of pleural effusion on left with confluent opacification lower left lung as well as nodular type opacity within the partially aerated mid to upper left lung and small nodular appearance within the right lung. Continued findings of volume loss on the left.
[2022-08-04 16:00] VITALS: BP 111/71; PULSE 112; RESP 17; TEMP 36.8; O2SAT 99
[2022-08-04 20:00] VITALS: BP 113/70; PULSE 99; RESP 18; TEMP 36.9; O2SAT 98
[2022-08-05] VITALS (7 sets, daily range): BP systolic 101–121; BP diastolic 62–73; PULSE 88–109; RESP 16–18; TEMP 36.6–36.8; O2SAT 96–97
[2022-08-05] MEDS: enoxaparin 30 mg/0.3 mL Syringe SUBCUT (06:06)
[2022-08-05] MEDS: ondansetron 2 mg/ML SDV 2 mL 4 MG IVP (07:03)
--- NOTE | 2022-08-05 07:38 | P.DS_ITS ---
Discharge Providers Date of Admission: 08/03/22 18:35 Date of Discharge: August 05, 2022 Attending Provider at Admission: María Molina MD Attending Provider at Discharge: Pedro Tavarez MD Primary Care Provider: Jennie Ramos MD Diagnoses at Discharge Discharge Diagnosis (1) Abscess: Details from hospital stay: Left chest wall abscess Status: Acute (2) Cellulitis: Status: Acute (3) Metastatic adenocarcinoma: Status: Acute (4) Abscess after procedure: Status: Acute (5) Port-A-Cath in place: Status: Acute (6) Pleural effusion: Status: Acute (7) HTN (hypertension): Status: Acute Qualifiers: Hypertension type: primary hypertension Qualified Code(s): I10 - Essential (primary) hypertension Reason for Visit Reason for Visit: Drain Brief History: Surgical incision and drainage of left chest wall with woundVAC insertion Hospital Course Hospital Course Patient taken to OR for incision and drainage of left chest wall abscess with explant of pleural drain and application of woundVAC. Maintained on IV vancomycin with about 95% resolution of chest wall cellulitis. Physical Exam Chest: OTHER: Left chest wall woundVAC in place with minimal periwound cellulitis Discharge Data Studies Completed and Pending Completed Studies During Hospitalization Category Date Time Status XR chest 1V [id number] Routine Exams 08/02/22 Completed XR chest 1V portable [id number] Routine Exams 08/04/22 13:32 Completed Pending at discharge Category Date Time Status Anaerobic Culture Routine Lab 08/02/22 08:36 Results Blood Culture Routine Lab 08/02/22 15:00 Results Body Fluid Culture & GS Routine Lab 08/02/22 08:36 Results Catheter Tip Culture Routine Lab 08/02/22 12:42 Results Fungal Culture not HR/SK/BL Routine Lab 08/02/22 08:36 Received Mycobacteria, Culture w/Fluor Routine Lab 08/02/22 08:36 Results Vancomycin Trough Timed Lab 08/05/22 09:00 Ordered Radiology Impressions Chest X-Ray 08/04/22 13:32 IMPRESSION: No significant change in the appearance of the chest from 08/02/2022. Continued findings of pleural effusion on left with confluent opacification lower left lung as well as nodular type opacity within the partially aerated mid to upper left lung and small nodular appearance within the right lung. Continued findings of volume loss on the left. Laboratory Results WBC 6.4 10^3/uL (4.0-10.0) 08/04/22 05:05 RBC 3.22 10^6/uL (4.1-5.3) L 08/04/22 05:05 Hgb 8.8 g/dL (11.5-15.3) L 08/04/22 05:05 Hct 27.6 % (37.0-47.0) L 08/04/22 05:05 MCV 85.7 fl (81-99) 08/04/22 05:05 MCH 27.3 pg (28.0-34.0) L 08/04/22 05:05 MCHC 31.9 g/dL (30.0-36.0) 08/04/22 05:05 RDW 14.2 % (12.1-15.1) 08/04/22 05:05 Plt Count 206 10^3/cmm (130-400) 08/04/22 05:05 MPV 9.9 fL (7.4-10.4) 08/04/22 05:05 Neut % (Auto) 57.9 % 08/04/22 05:05 Lymph % (Auto) 26.3 % 08/04/22 05:05 Mckinley % (Auto) 13.4 % 08/04/22 05:05 Eos % (Auto) 0.3 % 08/04/22 05:05 Baso % (Auto) 0.5 % 08/04/22 05:05 Neut # (Auto) 3.69 10^3/uL (1.8-7.7) 08/04/22 05:05 Lymph # (Auto) 1.7 10^3/uL (0.8-4.8) 08/04/22 05:05 Mckinley # (Auto) 0.9 10^3/uL (0.2-0.9) 08/04/22 05:05 Eos # (Auto) 0.0 10^3/uL (0.0-0.8) 08/04/22 05:05 Baso # (Auto) 0.0 10^3/uL (0.0-0.1) 08/04/22 05:05 Nucleated RBC % (auto) 0 % 08/04/22 05:05 Nucleated RBCs # 0.0 /100WBC 08/04/22 05:05 Sodium 136 mmol/L (136-145) 08/04/22 05:05 Potassium 3.7 mmol/L (3.5-5.1) 08/04/22 05:05 Chloride 105 mmol/L (98-107) 08/04/22 05:05 Carbon Dioxide 23 mmol/L (22-29) 08/04/22 05:05 Anion Gap 11.7 (5-19) 08/04/22 05:05 BUN 16 mg/dL (8-23) 08/04/22 05:05 Creatinine 0.9 mg/dL (0.5-0.9) 08/04/22 05:05 GFR Calculation 62.1 mL/min (90-130) L 08/04/22 05:05 Glucose 98 mg/dL (65-115) 08/04/22 05:05 Calculated Osmolality 283 mOsm/kg (285-295) L 08/04/22 05:05 Calcium 8.3 mg/dL (8.5-10.5) L 08/04/22 05:05 Total Bilirubin 0.2 mg/dL (0.15-1.2) 08/04/22 05:05 AST 33 U/L (0-32) H 08/04/22 05:05 ALT 59 U/L (0-33) H 08/04/22 05:05 Alkaline Phosphatase 74 U/L (35-105) 08/04/22 05:05 Total Protein 5.2 g/dL (6.6-8.7) L 08/04/22 05:05 Albumin 2.6 g/dL (3.5-5.2) L 08/04/22 05:05 Globulin 2.6 g/dL (1.3-4.6) 08/04/22 05:05 Fluid Color Lauren 08/02/22 08:36 Fluid Appearance Turbid 08/02/22 08:36 Fluid pH 8.0 08/02/22 08:36 Fluid WBC 74316 /uL 08/02/22 08:36 Fluid RBC 99.000 10^3/uL 08/02/22 08:36 Fld Polynuclear WBCs # 42.966 08/02/22 08:36 Fld Polynuclear WBCs % 56.900 % 08/02/22 08:36 Fl Mononucl WBCs #(Auto) 32.480 08/02/22 08:36 Fl Mononuclear % Auto 43.100 % 08/02/22 08:36 Fld Crystal Laterality Left pleural 08/02/22 08:36 Fluid Glucose < 2.0 mg/dL 08/02/22 08:36 Fluid LDH 4328 U/L 08/02/22 08:36 Pleural Total Protein 2.9 g/dL 08/02/22 08:36 Vancomycin Trough 13.8 ug/mL (10-15) 08/03/22 21:15 Procedures Performed Incision and drainage of left chest wall abscess with explant of pleural drain and application of woundVAC Vitals Last Vital Signs Temp 97.9 F 08/05/22 04:00 Pulse 88 08/05/22 04:00 Resp 16 08/05/22 04:00 BP 105/63 08/05/22 04:00 Pulse Ox 96 08/05/22 04:00 O2 Del Method Room Air 08/03/22 03:10 O2 Flow Rate 6 08/02/22 13:15 Discharge Plan Discharge Patient Disposition: Home Health Service Condition: Stable Prescriptions: New linezolid 600 mg tablet 600 mg PO BID 14 Days Qty: 28 0RF Continued acetaminophen 500 mg tablet 500 mg PO Q6H PRN (Reason: Pain) Hold Instructions: Resume on 07/04/22. amlodipine 10 mg tablet 10 mg PO DAILY 30 Days Qty: 30 3RF alprazolam [Xanax] 0.5 mg tablet 0.5 mg PO BID PRN (Reason: anxiety or insomnia) 7 Days Qty: 14 0RF prochlorperazine maleate [Compazine] 10 mg tablet 10 mg PO Q6H PRN (Reason: Mild Nausea) Qty: 30 3RF lorazepam 1 mg tablet 0.5 - 1 mg PO Q6H PRN (Reason: Severe Nausea) Qty: 30 3RF lidocaine-prilocaine 2.5-2.5 % cream 1 applic topical .COMPLEX Qty: 30 0RF Rx Instructions: 1 applic topically Apply 30-45 min prior to port access; omeprazole 20 mg Capsule,Delayed Release(Dr/Ec) 20 mg PO DAILY Discharge Orders: Discharge Order (Routine); Ordered 08/05/22 Ordered By: Rodríguez Durand Referrals: Jennie Ramos MD [Primary Care Provider] - Discharge Diet: Advance as tolerated Discharge Activity: Resume usual activity Patient Instructions: Opioid Safety Discharge Attestations Time Spent in Discharge Care*: less than 30 min Quality Metrics Clinical Quality Measures [ No reported AMI, CVA or VTE this stay] Coding Level of Care Code Acute Code for Chg Fwd Diagnoses Abscess L02.91 Cellulitis L03.90 Metastatic adenocarcinoma C79.9 Abscess after procedure T81.49XA Port-A-Cath in place Z95.828 Pleural effusion J90 HTN (hypertension) I10 Hypertension type: primary hypertension
[2022-08-05] MEDS: amlodipine 10 mg Tablet PO (08:10)
[2022-08-05] MEDS: pantoprazole DR 40 mg Tablet PO (08:10)
--- NOTE | 2022-08-05 10:39 | PC.CHAP ---
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 [] Patient/Family/Request visit [] Outpatient visit [] Follow-up visit [] Physician referral [] Code/Alert [x] Routine visit [] Staff referral [] Actively dying [] Patient sleeping [] Family support [] [] Out of room [] Palliative care [] [x] Receiving care in room [] Pre-surgical visit [] Trauma [] Long length of stay [] ICU visit [] Other: Relational/Emotional Strength [] Patient feels connected with others/family/visitors/staff [] Distress [] Loneliness/isolation [] Abandonment Spirituality of Patient [] Person of [place] [] Attends Orthodox of their [place] [] Believes in Prayer [] Reads Bible or Roman Catholic materials [] There are Spiritual issues to be addressed 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 [x] Prayer [] Active listening [] Non-anxious presence [] Spiritual/emotional support [] Crisis/trauma care [] Spiritual counseling [] Bereavement support [] Provided bereavement packet [] Provided Bible/devotional materials [] Provided toy/stuffed animal, coloring book to patient or family member [] Provided Communion [] Anointing/[place] [] Salvation [] Completed spiritual assessment [] Other: Impact on Illness or Injury [] Angry [] Fearful [] Anxious [] Often cries [] Exhaustion [] Unable to work [] Unable to attend advent [] Unable to walk/stand [] Unable to read [] Unable to drive [] Unable to eat/drink [] Unable to sleep [] Unable to be with family [] Patient intubated [] Other: Summary Time spent with patient
[2022-08-05] MEDS: vancomycin 1,250 MG/250 ML PIGGYBACK 250 MG IV (10:42)
--- NOTE | 2022-08-05 10:51 | P.PN_ITS ---
Subjective Subjective: manager managing at home and that we are not able to arrange wound VAC device for today, I will ask Dr. Rao to reevaluate if we still need wound VAC because the output has been pretty minimal and cellulitis has improved significantly Patient is still complaining of mild shortness of breath however doing well on room air If she ends up staying 1 more day we will request thoracentesis before she leaves Spoke with Dr. Zaldivar who is plan to see her at the clinic on Friday, no plan for chest tube placement for today Vitals/I&O/Wt Last Vital Signs Temp 97.9 F 08/05/22 08:00 Pulse 94 08/05/22 08:00 Resp 16 08/05/22 08:00 BP 121/73 08/05/22 08:00 Pulse Ox 96 08/05/22 08:00 O2 Del Method Room Air 08/05/22 08:00 O2 Flow Rate 6 08/02/22 13:15 08/04/22 08/05/22 08/05/22 22:59 06:59 14:59 Intake Total 950 / 1580 240 / 240 Balance 950 / 1580 240 / 240 Physical Exam Narrative: Awake and alert Currently on room air Nonproductive cough Abdomen soft Euvolemic Wound VAC in place Chest wall cellulitis improved significantly S1, S2 Hemodynamic stable Data 08/04/22 05:05 08/04/22 05:05 Micro: Microbiology 08/02/22 08:36 Mycobacterial Smear - Preliminary Body Fluids - Pleura,Lt Lung 08/02/22 08:36 Gram Stain - Final Pleural Fluid Anaerobic Culture - Preliminary Body Fluid Culture - Preliminary Coag positive Staphylococcus 08/02/22 14:44 Blood Culture - Preliminary Blood Staphylococcus sp coag neg 08/02/22 12:42 Catheter Tip Culture - Preliminary Other Source Coag positive Staphylococcus A&P Assessment and plan (1) Abscess: (2) Cellulitis: (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 Degroot recommending not putting another chest tube while she is being treated Cellulitis of chest wall has significantly improved, I am asking Dr. Rao today to see if we can remove wound VAC otherwise she will have to stay 1 more day to get her wound VAC device at home with home health services She will get p.o. linezolid at discharge For now I will continue vancomycin Hold DVT prophylaxis, I may request thoracentesis for tomorrow Attestations Medical Necessity Statement*: Discharge tomorrow Diagnoses Abscess L02.91 Cellulitis L03.90 Depression due to physical illness F06.31 Metastatic adenocarcinoma C79.9 Abscess after procedure T81.49XA Port-A-Cath in place Z95.828 Shortness of breath R06.02 Pleural effusion J90 Pulmonary nodules R91.8 HTN (hypertension) I10 Hypertension type: primary hypertension
[2022-08-05] MEDS: ipratropium-albuterol 3 mL Neb INHALATION (11:39)
--- NOTE | 2022-08-05 12:29 | PC.NURSE ---
EDUCATION Patient educated on wet to dry dressing change. Due to area of wound patient not able to perform appropriate wound care, therefore patients was also educated. Both verbalized understanding. Spoke with Sania Wells, case management about getting the patient home health services to assist.
--- NOTE | 2022-08-05 12:39 | US_ITS ---
WS: [id number] ULTRASOUND-GUIDED THORACENTESIS, LEFT HISTORY: left Pleural effusion Procedure, risks, and complications were explained to the patient. With the patient in an upright pos ition, the skin over the LEFT posterior thorax was cleansed with ChloraPrep and anesthetized with 1% buffered lidocaine. A 5 [place] Yueh needle is inserted into the pleural fluid without complication. A pproximately 200 cc of dark brown pleural fluid is removed. During the initial drainage of fluid patient became diaphoretic and the procedure was terminated as t he patient briefly became unresponsive. Patient recovered quickly with no complications otherwise. Pollo barton's oxygen saturation was near normal. / thoracentesis [id number] IMPRESSION: 1. LEFT thoracentesis yielding 200 cc of fluid. Study terminated early as the patient became unresponsive. Patient had a vasovagal response. Patient did stat e this is not an unusual occurrence during this procedure. 2. Chest radiograph to follow to evaluate for pneumothorax.
--- NOTE | 2022-08-05 12:52 | P.DS_ITS ---
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 (4) Metastatic adenocarcinoma: Status: Acute (5) Abscess after procedure: Status: Acute (6) Port-A-Cath in place: Status: Acute (7) Shortness of breath: Status: Acute (8) Pleural effusion: Status: Acute (9) Pulmonary nodules: Status: Acute (10) HTN (hypertension): Status: Acute Qualifiers: Hypertension type: primary hypertension Qualified Code(s): I10 - Essential (primary) hypertension Reason for Visit Reason for Visit: Drain Hospital Course Hospital Course 67-year-old female with history of recurrent pleural effusion, she was referred to [place] for thorascopic evaluation, she was diagnosed with adenocarcinoma with mets, Pleurx catheter was inserted, her Pleurx catheter site started becoming erythematous with some drainage, when she was seen by Dr. Zaldivar patient was diagnosed with chest wall abscess, general surgery was called Patient taken to OR for incision and drainage of left chest wall abscess with explant of pleural drain and application of woundVAC. Maintained on IV vancomycin with about 95% resolution of chest wall cellulitis. Catheter tip showed coagulase positive staph most likely MRSA, blood culture showing contamination, patient did well on room air, she remained afebrile at the time of discharge she will receive 2 weeks of linezolid, before her discharge we will do ultrasound to see if she would benefit from another thora centesis, spoke with Dr. Zaldivar who will see her in the clinic on Friday at [place]. I have asked patient to touch base with her oncologist to see if her chemotherapy has to stay on hold for this week. Initially there was plan to send her home with home health services for her wound VAC management however there has been minimal drainage over the weekend and I asked Dr. Rao to come take a look at her wound VAC, he has removed the wound VAC, Physical Exam Narrative: Patient is doing well on room air Pleasant and cooperative Euvolemic Abdomen soft Wound VAC has been removed Discharge Data Studies Completed and Pending Completed Studies During Hospitalization Category Date Time Status XR chest 1V 99809 Routine Exams 08/02/22 Completed XR chest 1V portable [id number] Routine Exams 08/04/22 13:32 Completed Pending at discharge Category Date Time Status CT guided thoracentesis [CT guided procedure [id number]] Cat Scan 08/05/22 10:53 Ordered Routine Anaerobic Culture Routine Lab 08/02/22 08:36 Results Blood Culture Routine Lab 08/02/22 15:00 Results Body Fluid Culture & GS Routine Lab 08/02/22 08:36 Results Catheter Tip Culture Routine Lab 08/02/22 12:42 Results Fungal Culture not HR/SK/BL Routine Lab 08/02/22 08:36 Received Mycobacteria, Culture w/Fluor Routine Lab 08/02/22 08:36 Results US thoracentesis [id number] Routine Ultrasound 08/05/22 12:39 Ordered Radiology Impressions Chest X-Ray 08/04/22 13:32 IMPRESSION: No significant change in the appearance of the chest from 08/02/2022. Continued findings of pleural effusion on left with confluent opacification lower left lung as well as nodular type opacity within the partially aerated mid to upper left lung and small nodular appearance within the right lung. Continued findings of volume loss on the left. Laboratory Results WBC 6.4 10^3/uL (4.0-10.0) 08/04/22 05:05 RBC 3.22 10^6/uL (4.1-5.3) L 08/04/22 05:05 Hgb 8.8 g/dL (11.5-15.3) L 08/04/22 05:05 Hct 27.6 % (37.0-47.0) L 08/04/22 05:05 MCV 85.7 fl (81-99) 08/04/22 05:05 MCH 27.3 pg (28.0-34.0) L 08/04/22 05:05 MCHC 31.9 g/dL (30.0-36.0) 08/04/22 05:05 RDW 14.2 % (12.1-15.1) 08/04/22 05:05 Plt Count 206 10^3/cmm (130-400) 08/04/22 05:05 MPV 9.9 fL (7.4-10.4) 08/04/22 05:05 Neut % (Auto) 57.9 % 08/04/22 05:05 Lymph % (Auto) 26.3 % 08/04/22 05:05 Bledsoe % (Auto) 13.4 % 08/04/22 05:05 Eos % (Auto) 0.3 % 08/04/22 05:05 Baso % (Auto) 0.5 % 08/04/22 05:05 Neut # (Auto) 3.69 10^3/uL (1.8-7.7) 08/04/22 05:05 Lymph # (Auto) 1.7 10^3/uL (0.8-4.8) 08/04/22 05:05 Bledsoe # (Auto) 0.9 10^3/uL (0.2-0.9) 08/04/22 05:05 Eos # (Auto) 0.0 10^3/uL (0.0-0.8) 08/04/22 05:05 Baso # (Auto) 0.0 10^3/uL (0.0-0.1) 08/04/22 05:05 Nucleated RBC % (auto) 0 % 08/04/22 05:05 Nucleated RBCs # 0.0 /100WBC 08/04/22 05:05 Sodium 136 mmol/L (136-145) 08/04/22 05:05 Potassium 3.7 mmol/L (3.5-5.1) 08/04/22 05:05 Chloride 105 mmol/L (98-107) 08/04/22 05:05 Carbon Dioxide 23 mmol/L (22-29) 08/04/22 05:05 Anion Gap 11.7 (5-19) 08/04/22 05:05 BUN 16 mg/dL (8-23) 08/04/22 05:05 Creatinine 0.9 mg/dL (0.5-0.9) 08/04/22 05:05 GFR Calculation 62.1 mL/min (90-130) L 08/04/22 05:05 Glucose 98 mg/dL (65-115) 08/04/22 05:05 Calculated Osmolality 283 mOsm/kg (285-295) L 08/04/22 05:05 Calcium 8.3 mg/dL (8.5-10.5) L 08/04/22 05:05 Total Bilirubin 0.2 mg/dL (0.15-1.2) 08/04/22 05:05 AST 33 U/L (0-32) H 08/04/22 05:05 ALT 59 U/L (0-33) H 08/04/22 05:05 Alkaline Phosphatase 74 U/L (35-105) 08/04/22 05:05 Total Protein 5.2 g/dL (6.6-8.7) L 08/04/22 05:05 Albumin 2.6 g/dL (3.5-5.2) L 08/04/22 05:05 Globulin 2.6 g/dL (1.3-4.6) 08/04/22 05:05 Fluid Color Lauren 08/02/22 08:36 Fluid Appearance Turbid 08/02/22 08:36 Fluid pH 8.0 08/02/22 08:36 Fluid WBC 80511 /uL 08/02/22 08:36 Fluid RBC 99.000 10^3/uL 08/02/22 08:36 Fld Polynuclear WBCs # 42.966 08/02/22 08:36 Fld Polynuclear WBCs % 56.900 % 08/02/22 08:36 Fl Mononucl WBCs #(Auto) 32.480 08/02/22 08:36 Fl Mononuclear % Auto 43.100 % 08/02/22 08:36 Fld Crystal Laterality Left pleural 08/02/22 08:36 Fluid Glucose < 2.0 mg/dL 08/02/22 08:36 Fluid LDH 4328 U/L 08/02/22 08:36 Pleural Total Protein 2.9 g/dL 08/02/22 08:36 Vancomycin Trough 17.0 ug/mL (10-15) H 08/05/22 09:57 Vitals Last Vital Signs Temp 97.9 F 08/05/22 08:00 Pulse 97 08/05/22 11:47 Resp 18 08/05/22 11:39 BP 121/73 08/05/22 08:00 Pulse Ox 96 08/05/22 11:39 O2 Del Method Room Air 08/05/22 11:39 O2 Flow Rate 6 08/02/22 13:15 Discharge Plan Discharge Patient Disposition: Home Health Service Condition: Stable Prescriptions: New linezolid 600 mg tablet 600 mg PO BID 14 Days Qty: 28 0RF morphine 10 mg capsule,extend.release pellets 10 mg PO DAILY Qty: 10 0RF Senna-S 8.6-50 mg tablet 1 tab-cap PO DAILY Qty: 10 0RF albuterol sulfate 90 mcg/actuation HFA aerosol inhaler 2 inh inhalation Q8H PRN (Reason: shortness of breath or wheezing) Qty: 8.5 3RF Continued acetaminophen 500 mg tablet 500 mg PO Q6H PRN (Reason: Pain) Hold Instructions: Resume on 07/04/22. amlodipine 10 mg tablet 10 mg PO DAILY 30 Days Qty: 30 3RF alprazolam [Xanax] 0.5 mg tablet 0.5 mg PO BID PRN (Reason: anxiety or insomnia) 7 Days Qty: 14 0RF prochlorperazine maleate [Compazine] 10 mg tablet 10 mg PO Q6H PRN (Reason: Mild Nausea) Qty: 30 3RF lorazepam 1 mg tablet 0.5 - 1 mg PO Q6H PRN (Reason: Severe Nausea) Qty: 30 3RF lidocaine-prilocaine 2.5-2.5 % cream 1 applic topical .COMPLEX Qty: 30 0RF Rx Instructions: 1 applic topically Apply 30-45 min prior to port access; omeprazole 20 mg Capsule,Delayed Release(Dr/Ec) 20 mg PO DAILY Discharge Orders: Discharge Order (Routine); Ordered 08/05/22 Ordered By: Pedro Tavarez Referrals: Datar,Brayden Dykes MD [Physician] - 08/09/22 ([facility] on Friday) Jennie Ramos MD [Primary Care Provider] - 08/07/22 11:00 am () Discharge Diet: Advance as tolerated Discharge Activity: Resume usual activity Patient Instructions: Cellulitis, Linezolid (By mouth) (Zyvox), Acute Wound Care (GEN), Negative Pressure Wound Therapy (GEN), Opioid Safety Discharge Attestations Time Spent in Discharge Care*: greater than 30 min Quality Metrics Clinical Quality Measures [ No reported AMI, CVA or VTE this stay] Coding Level of Care Code Acute Code for [facility] Fwd Diagnoses Abscess L02.91 Cellulitis L03.90 Depression due to physical illness F06.31 Metastatic adenocarcinoma C79.9 Abscess after procedure T81.49XA Port-A-Cath in place Z95.828 Shortness of breath R06.02 Pleural effusion J90 Pulmonary nodules R91.8 HTN (hypertension) I10 Hypertension type: primary hypertension
--- NOTE | 2022-08-05 13:34 | XR_ITS ---
WS: [id number] PORTABLE CHEST HISTORY: Post LEFT thoracentesis. COMPARISON: 08/04/2022 There is continued diffuse opacification throughout the LEFT thorax. Combination of pleural fluid, at electatic lung and pleural thickening. There is volume loss in the LEFT thorax. No pneumothorax. No s ignificant change in the increased density. Small RIGHT pulmonary nodules. Cardiac size: Obscured by the consolidation LEFT thorax. Mediastinum/Aorta: Shifted to the LEFT due to volume loss. No osseous abnormality seen. XR/XR chest 1V portable [id number] IMPRESSION: 1. No pneumothorax status post LEFT thoracentesis. 2. Continued increased density throughout the LEFT thorax. Thoracentesis termi nated early as the patient became unresponsive during the vasovagal reaction.
== END 2022-08-05 16:00 | disposition home health service (06) | DRG 863 ==
LOC: MEDSURG 16:07
PROVIDERS: Family Medicine; Internal Medicine; Internal Medicine Pulmonary Disease; Surgery; Admitting Provider Family Medicine; PCP Family Medicine; Visit Provider Internal Medicine
PROC: 0WP830Z Removal of Drainage Device from Chest Wall, Percutaneous Approach (ICD-10-PCS; principal; 2022-08-02 10:30)
DX: T81.49XA Infection following a procedure, other surgical site, initial encounter (principal); L03.313 Cellulitis of chest wall; J90 Pleural effusion, not elsewhere classified; C25.9 Malignant neoplasm of pancreas, unspecified; C78.02 Secondary malignant neoplasm of left lung; C78.01 Secondary malignant neoplasm of right lung; C79.51 Secondary malignant neoplasm of bone; B95.62 Methicillin resistant Staphylococcus aureus infection as the cause of diseases classified elsewhere; Y81.8 Miscellaneous general- and plastic-surgery devices associated with adverse incidents, not elsewhere classified; T81.41XA Infection following a procedure, superficial incisional surgical site, initial encounter; Z95.828 Presence of other vascular implants and grafts; Z79.899 Other long term (current) drug therapy; F32.A Depression, unspecified; K21.9 Gastro-esophageal reflux disease without esophagitis
CPT/HCPCS: 32555; 36415; 71045; 80053; 80202; 80503; 82945; 83615; 83986; 84145; 84157; 85025; 87015; 87040; 87070; 87075; 87077; 87102; 87116; 87150; 87186; 87205; 87206; 87801; 89050; 94640; 96372; 99214; G0378; J0330; J1100; J1642; J1650; J2405; J2704; J3010; J3370; J3490; J7030; J7050

== ENCOUNTER 2022-08-02 10:17 | Inpatient (IN) | payer MEDICARE, SELFPAY ==
--- NOTE | 2022-08-02 | XR_ITS ---
WS: [id number] XR chest 1V portable [id number] REASON FOR EXAM: sob FINDINGS: Chemotherapy infusion port in place over the right chest with transvenous right subclavian catheter i nto the superior vena cava. Shift of the mediastinal structures to the left. No change from 07/01/2022. Confluent opacification of the lower left hemithorax. Multiple varying sized masses in the aerated po rtion of left lung. No significant change compared to 07/01/2022. Multiple small nodules throughout the right lung. No significant change compared to 07/01/2022. No new findings.
--- NOTE | 2022-08-02 13:39 | PM.HP ---
Providers/Chief Complaint Admitting Physician: María Molina MD Primary Care Provider: Jennie Ramos MD Chief Complaint: Abcess and celulitus History of Present Illness Magy Ann is a 67 year old female with history of recurrent left pleural effusion as well as metastatic adenocarcinoma who was noted to have some erythema around her chest tube, Pleurx catheter site yesterday on August 01. Pulmonary saw her in GI clinic today, drained about 100 cc of pleural fluid which was serosanguineous. On their evaluation it was apparent the patient had a chest wall abscess. Surgery was called and she was taken to surgery for incision and drainage.Reports gradually increasing pain in the left chest. She has noted some drainage. She reports temperature at home as high as 100.4. No vomiting or diarrhea. Shortness of breath is present, but has been stable recently. Most recent chemotherapy was given on July 25, with Abraxane and gemcitabine. Review of Systems General: Reports: 10 or more systems reviewed and unremarkable except in HPI and below Card: Reports: chest pain (Left side along chest tube) Resp: Reports: dyspnea (Reports this is chronic) GI: Denies: abdominal pain, nausea, vomiting, hematochezia or melena Medications/Allergies Home Medications Medication Instructions Recorded Confirmed Last Taken Type omeprazole 20 mg capsule,delayed 20 mg PO DAILY 01/23/22 08/02/22 08/02/22 History release acetaminophen 500 mg tablet 500 mg PO Q6H PRN Pain 04/05/22 08/02/22 06/30/22 History amlodipine 10 mg tablet 10 mg PO DAILY 30 days #30 tabs 04/08/22 08/02/22 08/02/22 Rx alprazolam 0.5 mg tablet (Xanax) 0.5 mg PO BID PRN anxiety or 06/18/22 08/02/22 06/27/22 Rx insomnia 7 days #14 tabs lidocaine-prilocaine 2.5 %-2.5 % 1 applic topical .COMPLEX #30 grams 07/02/22 08/02/22 08/01/22 Rx topical cream lorazepam 1 mg tablet 0.5 - 1 mg PO Q6H PRN Severe 07/02/22 08/02/22 Unknown Rx Nausea #30 tabs prochlorperazine maleate 10 mg 10 mg PO Q6H PRN Mild Nausea #30 07/02/22 08/02/22 Unknown Rx tablet (Compazine) tabs linezolid 600 mg tablet 600 mg PO BID 14 days #28 tabs 08/02/22 Unknown Rx Allergies Allergy/AdvReac Type Severity Reaction Status Date / Time buspirone [From BuSpar] Allergy ALGY-Anaphy Verified 08/02/22 07:50 laxis clarithromycin [From Biaxin] Allergy ALGY-Anaphy Verified 08/02/22 07:50 laxis codeine Allergy ADR-Vomitin Verified 08/02/22 07:50 g Macrolide Antibiotics Allergy ADR-Vomitin Verified 08/02/22 07:50 g Nitrate Analogues Allergy Unknown Verified 08/02/22 07:50 Penicillins Allergy ALGY-Anaphy Verified 08/02/22 07:50 laxis Quinolones Allergy Unknown Verified 08/02/22 07:50 Sulfa (Sulfonamide Allergy ALGY-Anaphy Verified 08/02/22 07:50 Antibiotics) laxis venlafaxine [From Effexor] Allergy ALGY-Anaphy Verified 08/02/22 07:50 laxis zofran Allergy ALGY-Rash Uncoded 08/02/22 07:50 PFSH Acute PFSH: Medical History (Updated 08/02/22 @ 14:09 by Marcus Molina MD) Depression due to physical illness GERD (gastroesophageal reflux disease) Metastatic adenocarcinoma No significant past medical history Pleural effusion Port-A-Cath in place Pulmonary nodules Shortness of breath Surgical History History of appendectomy History of cholecystectomy History of esophagogastroduodenoscopy (EGD) History of foot surgery History of hysterectomy Hx of bladder repair surgery bladder Sling Hx of colonoscopy Family History Father Bleeding disorder Cancer Diabetes Hypertension Mother Cancer Diabetes Hypertension Thyroid disease Denies family history of Chronic kidney disease (CKD) Stroke Social History Smoking and tobacco status: never smoked Alcohol intake: never Physical Exam Narrative: No exam is white female, reporting some chest pain with movement, in no distress currently HEENT: Atraumatic and normocephalic. Oropharynx clear. Neck is supple no lymphadenopathy thyromegaly Cardiovascular regular rate and rhythm without murmur Lungs diminished breath sounds bilaterally but no wheezes or crackles. Left chest wall demonstrated erythema, increased tenderness to palpation when I evaluated her prior to surgery Abdomen is soft nontender positive bowel sounds. No obvious organomegaly exams deferred Extremities no cyanosis clubbing or edema, cap refill brisk Skin see findings above Neuro no obvious focal deficits Data Other Labs: Pleural fluid analysis from today reviewed. Laboratory from yesterday reviewed. Sodium 131, creatinine 0.9, albumin 3.2. CBC demonstrated a white count of 7.2, hemoglobin 11.1, platelet count of 141. Tray which I visualize demonstrates stable chest, multiple nodules, multiple lesions left lung with significant volume loss and shift cannot rule out effusion. Cardiogram in December 2021 demonstrated preserved EF, 1/4 diastolic dysfunction A&P Assessment and plan (1) Cellulitis: Patient with evidence of left chest wall cellulitis and abscess Vancomycin. Dosing per pharmacy. Close follow-up of levels and renal function. CBC and BMP in the morning. Obtain blood cultures Pleural fluid has already been obtained for culture as well as sample from surgery Patient underwent I&D today in the surgical suite prior to admission, and removal of Pleurx catheter Observation initially. Possible discharge tomorrow on oral linezolid (2) Abscess after procedure: Today she underwent I&D of her abscess and removal of Pleurx catheter (3) Metastatic adenocarcinoma: She is currently undergoing chemotherapy, with last treatment July 25. Plan Other medical problems as outlined in past medical history Full code currently Initiate heparin subcutaneous for DVT prophylaxis Attestations Medical Necessity Statement*: Will need less than 2 midnight stay for evaluation and treatment of left chest wall abscess and cellulitis Diagnoses Cellulitis L03.90 Abscess after procedure T81.49XA Metastatic adenocarcinoma C79.9 Time Spent (min) 42
== END 2022-08-02 11:04 | disposition home or self-care (01) | DRG 863 ==
PROVIDERS: Admitting Provider Family Medicine; PCP Family Medicine; Visit Provider Family Medicine
DX: T81.49XA Infection following a procedure, other surgical site, initial encounter (principal); L03.313 Cellulitis of chest wall; Y81.8 Miscellaneous general- and plastic-surgery devices associated with adverse incidents, not elsewhere classified
CPT/HCPCS: 71045; J0330; J1100; J2405; J2704; J3010; J3490

== ENCOUNTER → 2022-08-09 11:35 | Outpatient (BNVA) | payer MEDICARE, SELFPAY | PROVIDERS: PCP Family Medicine; Visit Provider Internal Medicine Pulmonary Disease | DX: J90 Pleural effusion, not elsewhere classified (principal) | CPT/HCPCS: 71046 ==

== ENCOUNTER → 2022-08-13 10:21 | Day surgery (SDC) | payer MEDICARE, SELFPAY ==
[2022-08-12 14:02] VITALS: BMI 33.6
[2022-08-13 08:29] VITALS: BP 146/88; PULSE 116; RESP 18; TEMP 36.2; O2SAT 97
--- NOTE | 2022-08-13 09:26 | XRR_ITS ---
PROCEDURE INFORMATION: Exam: XR Chest Exam date and time: 08/13/2022 9:45 AM Age: 67 years old Clinical indication: Device placement; Other: Post thora TECHNIQUE: Imaging protocol: Radiologic exam of the chest. Views: 1 view. COMPARISON: CR XR chest 2V* [id number] 08/09/2022 11:46 AM FINDINGS: Tubes, catheters and devices: There is a right chest port with the line tip appropriately positioned in the lower SVC near the cavoatrial junction. Lungs: There is increased opacification of the left hemithorax. There is decreased leftward mediastinal shift since 08/09/2022. There is increased opacification of the left upper lung. There is persistent complete opacification of the left mid to lower lung. There is stable reticulonodular opacity throughout the right lung. Pleural spaces: No pneumothorax. Heart/Mediastinum: Cardiomediastinal contours are obscured. Bones/joints: Bones are unremarkable. XR/XR chest 1V portable [id number] IMPRESSION: 1. Decreased volume loss in the left hemithorax. Possible increased volume of pleural fluid. Consider hemothorax. Follow-up chest CT may be of value. 2. Increased opacification of the left upper lung may be due to increasing atelectasis. Infection is not excluded.
--- NOTE | 2022-08-13 09:34 | PM.OUTPTPROC ---
Outpatient Procedures Thoracentesis Consent signed and on chart: Yes Time Out Performed: Yes Procedure: diagnostic thoracentesis Location: Left Local anesthetic used: lidocaine 1% Bedside ultrasound used: yes, real-time guidance Preparation: sterile prep and drape Amount of fluid obtained (mL): 0 Post Procedure Exam: awake, alert, normal BP, normal HR and normal SpO2 Post-procedure chest x-ray ordered: Yes Estimated blood loss (mL): 2 Patient Tolerated Procedure: well Procedure Note: Pulmonary & Critical Care Medicine Procedure - Ultrasound guided Thoracentesis Procedure: CPT code 93922 thoracentesis, needle or catheter, aspiration of the pleural space; with imaging guidance Indication: Worsening left pleural effusion. C56.2 [employer] Supervisor(s): Brayden Zaldivar MD [facility] Clinical history: 67-year-old Ms. Bhatti with recently diagnosed metastatic pancreatic cancer with recurrent left pleural effusion. She had a Pleurx catheter placed 03/01/2022 and drained about 400 200 cc on a weekly basis at home. Recently it got infected and she had subcutaneous abscess-she underwent incision and drainage along with explantation of Pleurx catheter on 08/02/2022 at [facility]. Pleural fluid cultures and catheter tip culture grew MRSA. She was started on linezolid 600 Mg p.o. twice daily and currently taking it to complete 14 days. She had a follow-up visit with me in clinic on 08/09/2022-complained of pain and shortness of breath. Chest x-ray showed unchanged left pleural effusion. Today she is scheduled for ultrasound-guided thoracentesis. I have examined with ultrasound prior to procedure-there was a small to moderate loculated left pleural effusion. She is otherwise unchanged in her shortness of breath and she is saturating 97% on room air. She still has pleuritic chest pain on deep inspiration. After discussing the risks and benefits-I intended to do at least diagnostic thoracentesis from loculated effusion to send for repeat cultures. Technique: The study was performed in an ACR accredited facility. Medication reconciliation form reviewed and any changes related this procedure resolved. Report: The procedure for thoracentesis was explained to the patient including the risks, benefits and possible complications. The patient was given the opportunity to ask questions, wished to proceed, and signed the written informed consent form. Using ultrasound guidance, a safe route of access was identified into the left pleural space. The site was then prepped and draped using maximal sterile barrier technique. The 1% lidocaine was used for local anesthetic. With sonographic guidance, a diagnostic needle was placed into the loculated effusion but unable to aspirate any fluid. I have terminated the procedure. She tolerated procedure well. Postprocedure chest x-ray:?There is increased opacification of the left hemithorax. There is decreased leftward mediastinal shift since 08/09/2022. There is increased opacification of the left upper lung. There is persistent complete opacification of the left mid to lower lung. ICD-10 code-J90 pleural effusion, not elsewhere classified
== END ==
PROVIDERS: PCP Family Medicine; Visit Provider Internal Medicine Pulmonary Disease
DX: J91.8 Pleural effusion in other conditions classified elsewhere (principal)
CPT/HCPCS: 32555; 71045

== ENCOUNTER → 2022-08-20 07:59 | Outpatient (BNVA) | payer MEDICARE, SELFPAY | PROVIDERS: PCP Family Medicine; Visit Provider Family Medicine | DX: K92.1 Melena (principal) | CPT/HCPCS: 82270 ==

== ENCOUNTER 2022-08-21 08:30 | Oncology outpatient (recurring) (ONCR) | payer MEDICARE, SELFPAY ==
[2022-08-01 10:09] VITALS: BP 124/79; PULSE 128; RESP 18; TEMP 37; O2SAT 97
[2022-08-01 10:11] LABS: Basophils % 0.1 %; Eosinophils # 0.1 10^3/uL (0.0-0.8); Eosinophils % 1.7 %; Hematocrit 34.3 % (37.0-47.0); Hemoglobin 11.1 g/dL (11.5-15.3); Lymphocytes # 1.1 10^3/uL (0.8-4.8); Lymphocytes % 14.8 %; Mean Corpuscular HGB Conc 32.4 g/dL (30.0-36.0); Mean Corpuscular Hemoglobin 27.8 pg (28.0-34.0); Mean Platelet Volume 9.5 fL (7.4-10.4); Monocytes # 0.2 10^3/uL (0.2-0.9); Monocytes % 2.9 %; Neutrophils # 5.73 10^3/uL (1.8-7.7); Neutrophils % 79.4 %; Nucleated Red Blood Cells % 0 %; Platelet Count 141 10^3/cmm (130-400); Red Blood Count 3.99 10^6/uL (4.1-5.3); Red Cell Distribution Width 14.4 % (12.1-15.1); White Blood Count 7.2 10^3/uL (4.0-10.0)
[2022-08-01 10:29] LABS: Alanine Aminotransferase 50 U/L (0-33); Albumin Level 3.2 g/dL (3.5-5.2); Alkaline Phosphatase 83 U/L (35-105); Anion Gap 15.9 (5-19); Aspartate Amino Transferase 22 U/L (0-32); Blood Urea Nitrogen 14 mg/dL (8-23); Calcium 8.7 mg/dL (8.5-10.5); Carbon Dioxide 22 mmol/L (22-29); Chloride 97 mmol/L (98-107); Globulin 3.1 g/dL (1.3-4.6); Glomerular Filtration Rate 62.1 mL/min (90-130); Glucose 112 mg/dL (65-115); Osmolality Calculated 273 mOsm/kg (285-295); Potassium 3.9 mmol/L (3.5-5.1); Sodium 131 mmol/L (136-145); Total Protein 6.3 g/dL (6.6-8.7)
[2022-08-01 12:05] VITALS: BP 113/67; PULSE 109; RESP 18; TEMP 37.4; O2SAT 96
[2022-08-01 12:36] LABS: Procalcitonin 0.18 ng/mL (0-0.5)
[2022-08-21 08:20] VITALS: BP 144/84; BP 144/89; PULSE 112; RESP 18; TEMP 35.8; O2SAT 96; BMI 38.0
[2022-08-21 08:37] LABS: Basophils # 0.1 10^3/uL (0.0-0.1); Basophils % 0.7 %; Eosinophils # 0.1 10^3/uL (0.0-0.8); Eosinophils % 1.5 %; Hematocrit 28.2 % (37.0-47.0); Lymphocytes # 1.9 10^3/uL (0.8-4.8); Lymphocytes % 22.9 %; Mean Corpuscular HGB Conc 31.9 g/dL (30.0-36.0); Mean Corpuscular Volume 87.9 fl (81-99); Mean Platelet Volume 8.9 fL (7.4-10.4); Monocytes # 0.6 10^3/uL (0.2-0.9); Monocytes % 7.6 %; Neutrophils # 5.48 10^3/uL (1.8-7.7); Neutrophils % 67.1 %; Nucleated Red Blood Cells % 0 %; Platelet Count 272 10^3/cmm (130-400); Red Blood Count 3.21 10^6/uL (4.1-5.3); Red Cell Distribution Width 15.6 % (12.1-15.1); White Blood Count 8.2 10^3/uL (4.0-10.0)
[2022-08-21 08:40] VITALS: BMI 38.0
[2022-08-21 09:06] LABS: Alanine Aminotransferase 12 U/L (0-33); Albumin Level 3.4 g/dL (3.5-5.2); Alkaline Phosphatase 88 U/L (35-105); Aspartate Amino Transferase 11 U/L (0-32); Blood Urea Nitrogen 13 mg/dL (8-23); Calcium 8.5 mg/dL (8.5-10.5); Cancer Antigen 19 9 1.43 U/mL (0-35); Carbon Dioxide 25 mmol/L (22-29); Chloride 105 mmol/L (98-107); Globulin 2.9 g/dL (1.3-4.6); Glomerular Filtration Rate 99.1 mL/min (90-130); Glucose 103 mg/dL (65-115); Osmolality Calculated 290 mOsm/kg (285-295); Sodium 140 mmol/L (136-145); Total Bilirubin 0.4 mg/dL (0.15-1.2); Total Protein 6.3 g/dL (6.6-8.7)
[2022-08-21] MEDS: palonosetron 0.25 mg/5 mL SDV IVP (11:10)
[2022-08-21] MEDS: famotidine 20 mg/2 mL INJ IVP (11:11)
[2022-08-21] MEDS: sodium chloride 0.9% 250 ML 50 ML IV (11:11)
[2022-08-21] MEDS: paclitaxel protein-bound 230 MG in empty flexible container 1 EACH 92 MG IV (12:28)
[2022-08-21] MEDS: gemcitabine 1,900 MG in sodium chloride 0.9% (100 ml) 100 ML 200 MG IV (13:15)
[2022-08-21 14:40] VITALS: BP 142/80; PULSE 101; RESP 18; TEMP 36.3; O2SAT 96
== END 2022-08-28 23:59 | disposition home or self-care (01) ==
PROVIDERS: Internal Medicine Medical Oncology; PCP Family Medicine; Visit Provider Internal Medicine Hematology & Oncology
DX: Z51.11 Encounter for antineoplastic chemotherapy; C34.82 Malignant neoplasm of overlapping sites of left bronchus and lung; C79.51 Secondary malignant neoplasm of bone; C78.7 Secondary malignant neoplasm of liver and intrahepatic bile duct; C79.89 Secondary malignant neoplasm of other specified sites; Z79.52 Long term (current) use of systemic steroids; Z79.899 Other long term (current) drug therapy; Z95.828 Presence of other vascular implants and grafts
CPT/HCPCS: 36415; 80053; 84145; 85025; 86301; 96375; 96413; 96417; 99214; J1100; J1642; J2469; J3490; J7050; J9201; J9264

== ENCOUNTER 2022-08-21 14:52 | Outpatient (CLI) | payer MEDICARE, SELFPAY ==
--- NOTE | 2022-08-21 15:15 | USCV_ITS ---
Magy Ann Age: 67 Gender: F : 1955 Exam Date: 08/21/2022 15:23 Ordering Phys: Brayden Zaldivar MD Technologist: Rama Kelsey Exam Location: [facility] [place] Indication: RIGHT LEG PAIN AND SWELLING, PANCREATIC CA HISTORY: patient is on chemo for pancreatic CA. C/O pain and swellling of right calf. PROCEDURES: The venous duplex Doppler examination of both lower extremities was performed in the standard fashion. The following venous structures were evaluated: common femoral vein, profunda vein, proximal portion of the greater saphenous vein, superficial femoral vein, and the popliteal vein. FINDINGS: thrombus is seen in right popliteal vein with minimal compression. Color flow is seen howver vessel doesn't compress. the remainder of the RLE compresses normally with normal color and Doppler. NO DVT is seen in the LLE at this time. CONCLUSIONS Called Dr Hazel office with preliminary report. was advised to send patient to ER for treatment since Dr [place]aldivar [place] time. DVT RIGHT popliteal vein. Remainder RLE vessels patent No evidence of left lower extremity DVT. Ankit Koo MD (Electronically Signed) Final Date: 21 Aug 2022 17:09 S
== END 2022-08-21 14:53 | disposition home or self-care (01) ==
LOC: RAD 14:53
PROVIDERS: PCP Family Medicine; Visit Provider Internal Medicine Pulmonary Disease
DX: I82.431 Acute embolism and thrombosis of right popliteal vein (principal); R06.02 Shortness of breath; M79.604 Pain in right leg; M79.89 Other specified soft tissue disorders; C25.9 Malignant neoplasm of pancreas, unspecified; Z79.899 Other long term (current) drug therapy
CPT/HCPCS: 93970

== ENCOUNTER 2022-08-21 16:25 | Emergency (ER) | payer MEDICARE, SELFPAY ==
[2022-08-21 16:50] VITALS: BP 137/78; PULSE 115; RESP 16; TEMP 36.8; O2SAT 99; BMI 33.8
--- NOTE | 2022-08-21 18:07 | ED_ITS ---
HPI - Extremity Problem General: Chief complaint: Extremity Injury, Lower Stated complaint: DVT lower right leg sent by [facility] Time Seen by Provider: 08/21/22 17:56 Source: patient Mode of arrival: ambulatory Limitations: no limitations History of Present Illness: 67-year-old female who states that she has had right leg swelling tenderness over the last week states that she had an ultrasound done today told she had a DVT and told to come to the ER. She does have a popliteal DVT she denies any shortness of breath denies any chest pain denies any redness she denies any worsening proving factors. Associated symptoms: Deny chest pain, fever(s) or rash Review of Systems Const: Denies: fever(s) or chills Eyes: Denies: blurry vision ENMT: Denies: throat pain or dental pain Card: Denies: chest pain Resp: Denies: dyspnea GI: Denies: abdominal pain, nausea, vomiting or diarrhea Musc: Reports: extremity swelling; Denies: neck pain or back pain Skin/Breast: Denies: rash Neuro: Denies: headache(s) Edmundo/Lymph: Denies: easy bruising All/Imm: Denies: urticaria PFSH ED PFSH: Medical History Depression due to physical illness GERD (gastroesophageal reflux disease) Metastatic adenocarcinoma No significant past medical history Pleural effusion Port-A-Cath in place Pulmonary nodules Shortness of breath Surgical History History of appendectomy History of cholecystectomy History of esophagogastroduodenoscopy (EGD) History of foot surgery History of hysterectomy Hx of bladder repair surgery bladder Sling Hx of colonoscopy Family History Father Bleeding disorder Cancer Diabetes Hypertension Mother Cancer Diabetes Hypertension Thyroid disease Denies family history of Chronic kidney disease (CKD) Stroke Social History Smoking and tobacco status: never smoked Alcohol intake: never Physical Exam Const: COMMON NORMALS: no acute distress, patient oriented x3 and healthy appearing HENMT: COMMON NORMALS: normocephalic and atraumatic HEAD & SCALP: normocephalic and atraumatic Eye: COMMON NORMALS: conjunctivae normal CONJUNCTIVA: Yes conjunctivae normal Neck/C-Spine: COMMON NORMALS: supple Chest: COMMONS NORMALS: normal inspection of the chest Resp: COMMON NORMALS: normal respiratory effort, No retractions and clear to auscultation bilaterally AUSCULTATION: clear to auscultation bilaterally Cardio: COMMON NORMALS: regular rate and No murmurs present (Cardio) RATE: regular rate GI: INSPECTION: Yes normal to inspection Extremity: COMMON NORMALS: full ROM NARRATIVE EXTREMITY EXAM: Slight tenderness and swelling to right lower leg distal pulses sensation intact Neuro: COMMON NORMALS: patient oriented x3, moves all extremities and no focal motor deficits Psych: COMMON NORMALS: mental status grossly normal, Normal thought process present and cooperative THOUGHT PROCESS: Normal thought process present Skin: COMMON NORMALS: no rashes or lesions noted and no wounds GENERAL SKIN EXAM: no rashes or lesions noted Course Vital Signs: Vital signs: Vital Signs Temperature 98.3 F 08/21/22 16:50 Pulse Rate 115 H 08/21/22 16:50 Respiratory Rate 16 08/21/22 16:50 Blood Pressure 137/78 08/21/22 16:50 Pulse Oximetry 99 08/21/22 16:50 Oxygen Delivery Me thod Room Air 08/21/22 16:50 MDM - Extremity (Nontraumatic) Medical Decision Making Patient presents here with a DVT seen on ultrasound today. She has no no shortness of breath no signs of PE we will start her on Eliquis she is stable for discharge distal pulses on her extremity intact Medical Records I reviewed the patient's medical records. Lab Data I reviewed the patient's lab results. Discharge Plan Discharge Patient Disposition: Home Clinical Impression: DVT (deep venous thrombosis) Condition: Stable Prescriptions: New Eliquis 5 mg tablet 10 mg PO BID 7 Days Qty: 28 0RF Eliquis 5 mg tablet 5 mg PO BID Qty: 60 0RF Rx Instructions: start after loading dose No Action acetaminophen 500 mg tablet 500 mg PO Q6H PRN (Reason: Pain) Hold Instructions: Resume on 07/04/22. amlodipine 10 mg tablet 10 mg PO DAILY 30 Days Qty: 30 3RF hydrocodone-acetaminophen 5-325 mg tablet 1 tab PO BID PRN (Reason: pain) 7 Days Qty: 14 0RF alprazolam [Xanax] 0.5 mg tablet 0.5 mg PO BID PRN (Reason: anxiety or insomnia) 7 Days Qty: 14 0RF prochlorperazine maleate [Compazine] 10 mg tablet 10 mg PO Q6H PRN (Reason: Mild Nausea) Qty: 30 3RF lorazepam 1 mg tablet 0.5 - 1 mg PO Q6H PRN (Reason: Severe Nausea) Qty: 30 3RF clotrimazole-betamethasone 1-0.05 % cream 1 applic topical DAILY 28 Days Qty: 15 1RF Rx Instructions: apply to blisters on skin lidocaine-prilocaine 2.5-2.5 % cream 1 applic topical .COMPLEX Qty: 30 0RF Rx Instructions: 1 applic topically Apply 30-45 min prior to port access; omeprazole 20 mg Capsule,Delayed Release(Dr/Ec) 20 mg PO DAILY sennosides-docusate sodium [Senna-S] 8.6-50 mg tablet 1 tab-cap PO DAILY Qty: 10 0RF albuterol sulfate 90 mcg/actuation HFA aerosol inhaler 2 inh inhalation Q8H PRN (Reason: shortness of breath or wheezing) Qty: 8.5 3RF Discharge Orders: Discharge ED (Routine); Ordered 08/21/22 Ordered By: Andrea Lyons Referrals: Jennie Ramos MD [Primary Care Provider] - 1-3 days Discharge Diet: Advance as tolerated Discharge Activity: Resume usual activity Patient Instructions: Deep Vein Thrombosis (ED) Coding Level of Care Code ED [employer]ra[employer] 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
== END 2022-08-21 18:36 | disposition home or self-care (01) ==
PROVIDERS: Emergency Provider Emergency Medicine; PCP Family Medicine
DX: I82.431 Acute embolism and thrombosis of right popliteal vein (principal); Z85.9 Personal history of malignant neoplasm, unspecified
CPT/HCPCS: 93970; 99283

== ENCOUNTER 2022-09-16 17:14 | Emergency (ER) | payer MEDICARE, SELFPAY ==
[2022-09-16] VITALS (8 sets, daily range): BP systolic 122–156; BP diastolic 63–98; PULSE 70–122; RESP 14–17; TEMP 36.8; O2SAT 96–99; BMI 33.5
--- NOTE | 2022-09-16 17:55 | W.ED.WOUNDLC ---
HPI - Wound/Laceration General: Chief Complaint: Wound/Laceration Stated Complaint: Lump on left side Time Seen by Provider: 09/16/22 17:55 History of Present Illness: Ms. Ann is a 67-year-old lady with complex past medical history including current pancreatic cancer on chemotherapy presenting to the emergency department for evaluation of suspected abscess. She notes a small red bump on her left lateral chest just superior for a previous chronic wound without known specific provoking event 3 days ago. Since that time it is grown dramatically and becoming sore with some associated anterior numbness. Feels generally unwell however not specifically worse. Intensity is moderate. Course has persisted. No other specific changes in health, exacerbating, or alleviating factors identified. Location: chest Patient tetanus UTD: Yes Associated symptoms: Reports numbness and pain Review of Systems General: Reports: 10 or more systems reviewed and unremarkable except in HPI and below PFSH ED PFSH: Medical History Depression due to physical illness GERD (gastroesophageal reflux disease) Metastatic adenocarcinoma No significant past medical history Pleural effusion Port-A-Cath in place Pulmonary nodules Shortness of breath Surgical History History of appendectomy History of cholecystectomy History of esophagogastroduodenoscopy (EGD) History of foot surgery History of hysterectomy Hx of bladder repair surgery bladder Sling Hx of colonoscopy Family History Father Bleeding disorder Cancer Diabetes Hypertension Mother Cancer Diabetes Hypertension Thyroid disease Denies family history of Chronic kidney disease (CKD) Stroke Social History Smoking and tobacco status: never smoked Alcohol intake: never Physical Exam Const: COMMON NORMALS: alert GENERAL APPEARANCE: cooperative and well developed HENMT: COMMON NORMALS: normocephalic and atraumatic HEAD & SCALP: normocephalic and atraumatic Eye: COMMON NORMALS: conjunctivae normal CONJUNCTIVA: Yes conjunctivae normal SCLERA: sclerae normal Neck/C-Spine: COMMON NORMALS: supple GENERAL: Yes trachea midline Chest: OTHER: Left chest wall edema and erythema with induration and warmth consistent with cellulitic changes. Resp: COMMON NORMALS: normal respiratory effort EFFORT & INSPECTION: Yes able to speak in complete sentences AUSCULTATION: diminished lung sounds on the left Cardio: COMMON NORMALS: regular rhythm RATE: tachycardic RHYTHM: regular rhythm GI: COMMON NORMALS: Soft to palpation PALPATION: Yes Soft to palpation and No Tenderness to palpation present (GI) PERCUSSION: normal to percussion Extremity: GENERAL: Yes normal exam except as noted and No edema Neuro: COMMON NORMALS: moves all extremities SENSORIUM/ORIENTATION: Yes alert and No Orientation impaired Psych: COMMON NORMALS: mental status grossly normal and Normal thought process present THOUGHT PROCESS: Normal thought process present Course Vital Signs: Vital signs: Vital Signs Temperature 98.3 F 09/16/22 17:19 Pulse Rate 88 09/17/22 08:12 Respiratory Rate 14 09/17/22 06:37 Blood Pressure 126/65 09/17/22 08:12 Pulse Oximetry 94 09/17/22 08:12 Oxygen Delivery Me thod Room Air 09/17/22 08:12 MDM - Wound/Laceration Medical Decision Making 67-year-old lady with complex history including pancreatic cancer on palliative chemotherapy coagulation with Eliquis presented to the emergency department for concern over painful chest wall lesion that has rapidly spread over 3 days. Patient reports prior remote removal of infected Pleurx catheter however this area is superior to previous wound that appears to be nearly completely healed and has not had drainage. Patient is mildly ill-appearing though nontoxic. Laboratory studies notable for no leukocytosis, near recent baseline normocytic anemia, normal platelet count. Metabolic panel without significant derangement. Lactate is normal. Blood cultures obtained. Chest CT with numerous findings however most concerning patient has loculated moderate to large left pleural effusion possibly reflecting an empyema or metastatic disease associated with a left extrathoracic lower lateral chest wall 3.8 cm fluid collection which is likely an abscess with connection into the thorax empyema. We do not have cardiothoracic surgery on-call and I discussed the case with pulmonology who recommended transfer for cardiothoracic surgery intervention. Discussed with cardiothoracic surgery and subsequently hospitalist Dr. Hoover at [facility] who accepted the patient as a transfer for further assessment and intervention. Patient treated with vancomycin and cefepime. The results of ED evaluation were discussed with the patient including plan for transfer due to requirement for level of care not available if discharged to prevent significant worsening/deterioration. Patient agreeable with plan. Discussed with Dr. Lyons the overnight ED physician pending outside transfer. Medical Records I reviewed the patient's medical records. Lab Data I reviewed the patient's lab results. 09/16/22 18:29 09/16/22 18: Radiology Impressions Chest CT 09/16/22 19:04 IMPRESSION: 1. Loculated moderate to large left pleural effusion, possibly reflecting an empyema and/or possible metastatic disease. Associated with this in the left lower lateral chest wall is a 3.8 cm collection of fluid is seen in the subcutaneous fat with surrounding edema suggestive of extension of the effusion/empyema outside of the thorax into the subcutaneous soft tissues, reflecting a possible abscess. 2. Cardiomegaly. 3. Negative for coronary artery atherosclerotic calcifications. 4. Multiple hepatic cysts. 5. Several prominent upper abdominal mesenteric subcentimeter lymph nodes in the mesentery with a small amount of edema, may reflect a chronic inflammatory process such as sclerosing mesenteritis. 6. Main pulmonary artery is somewhat dilated, which can be a finding of chronic pulmonary hypertension. 7. Left lung diffuse airspace infiltrate. 8. Multifocal pulmonary nodules, some of which demonstrate a cavitary component measuring up to 8.2 mm, new compared to prior exam, may reflect diffuse metastatic disease and/or an infectious process. Laboratory Results WBC 7.2 10^3/uL (4.0-10.0) 09/16/22 18: RBC 2.95 10^6/uL (4.1-5.3) L 09/16/22 18: Hgb 8.3 g/dL (11.5-15.3) L 09/16/22 Hct 27.5 % (37.0-47.0) L 09/16/22 18: MCV 93.2 fl (81-99) 09/16/22 18: MCH 28.1 pg (28.0-34.0) 09/16/22 18: MCHC 30.2 g/dL (30.0-36.0) 09/16/22 18 RDW 21.3 % (12.1-15.1) H 09/16/22 Plt Count 381 10^3/cmm (130-400) 09/16/22 MPV 10.4 fL (7.4-10.4) 09/16/22 18: Neut % (Auto) 56.6 % 09/16/22 18: Lymph % (Auto) 25.2 % 09/16/22 18: Mcnairy % (Auto) 15.1 % 09/16/22 18: Eos % (Auto) 2.0 % 09/16/22 18: Baso % (Auto) 0.3 % 09/16/22 18: Neut # (Auto) 4.06 10^3/uL (1.8-7.7) 09/16/22 18: Lymph # (Auto) 1.8 10^3/uL (0.8-4.8) 09/16/22 18: Mcnairy # (Auto) 1.1 10^3/uL (0.2-0.9) H 09/16/22 18: Eos # (Auto) 0.1 10^3/uL (0.0-0.8) 09/16/22 18: Baso # (Auto) 0.0 10^3/uL (0.0-0.1) 09/16/22 18: Nucleated RBC % (auto) 0 % 09/16/22 18: Nucleated RBCs # 0.0 /100WBC 09/16/22 18: Sodium 137 mmol/L (136-145) 09/16/22 18: Potassium 3.9 mmol/L (3.5-5.1) 09/16/22 18: Chloride 102 mmol/L (98-107) 09/16/22 18: Carbon Dioxide 24 mmol/L (22-29) 09/16/22 18: Anion Gap 14.9 (5-19) 09/16/22 18: BUN 12 mg/dL (8-23) 09/16/22 18: Creatinine 0.8 mg/dL (0.5-0.9) 09/16/22 18: GFR Calculation 71.1 mL/min (90-130) L 09/16/22 18: Glucose 101 mg/dL (65-115) 09/16/22 18: Calculated Osmolality 284 mOsm/kg (285-295) L 09/16/22 18: Lactic Acid Cancelled 09/16/22 18:29 Lactic Acid (Sepsis) 0.9 mmol/L (0.5-2.2) 09/16/22 20:56 Lactate 1.5 mmol/L (0.5-2.2) 09/16/22 18:29 Calcium 8.6 mg/dL (8.5-10.5) 09/16/22 18:29 Total Bilirubin 0.4 mg/dL (0.15-1.2) 09/16/22 18:29 AST 18 U/L (0-32) 09/16/22 18:29 ALT 24 U/L (0-33) 09/16/22 18:29 Alkaline Phosphatase 86 U/L (35-105) 09/16/22 18:29 Total Protein 6.2 g/dL (6.6-8.7) L 09/16/22 18:29 Albumin 3.3 g/dL (3.5-5.2) L 09/16/22 18:29 Globulin 2.9 g/dL (1.3-4.6) 09/16/22 18:29 Critical Care Time Critical Care Time: Critical Care Time: Yes Total Critical Care Time: 35 Attestation: Due to a high probability of clinically significant, possibly life threatening deterioration, the patient required my highest level of attention and preparedness to intervene emergently and I personally spent this critical care time directly and personally managing the patient. This critical care time included obtaining a history; examining the patient; pulse oximetry; ordering and review of laboratory and imaging studies; arranging urgent treatment with development of a management plan; evaluation of patient's response to treatment; frequent reassessment; and, discussions with other providers as applicable. It was exclusive of separately billable procedures. Primary system involved is pulmonary and infectious disease. Discharge Plan Discharge Patient Disposition: Xfer Short-Term Hosp Clinical Impression: Cellulitis of chest wall, Abscess, Empyema Condition: Stable Referrals: Jennie Ramos MD [Primary Care Provider] - Coding Level of Care Code ED Otolaryngology Physician for Adolfo Olson
[2022-09-16 18:44] LABS: Basophils % 0.3 %; Eosinophils # 0.1 10^3/uL (0.0-0.8); Hematocrit 27.5 % (37.0-47.0); Hemoglobin 8.3 g/dL (11.5-15.3); Lymphocytes # 1.8 10^3/uL (0.8-4.8); Lymphocytes % 25.2 %; Mean Corpuscular HGB Conc 30.2 g/dL (30.0-36.0); Mean Corpuscular Hemoglobin 28.1 pg (28.0-34.0); Mean Corpuscular Volume 93.2 fl (81-99); Mean Platelet Volume 10.4 fL (7.4-10.4); Monocytes # 1.1 10^3/uL (0.2-0.9); Monocytes % 15.1 %; Neutrophils # 4.06 10^3/uL (1.8-7.7); Neutrophils % 56.6 %; Nucleated Red Blood Cells % 0 %; Platelet Count 381 10^3/cmm (130-400); Red Blood Count 2.95 10^6/uL (4.1-5.3); Red Cell Distribution Width 21.3 % (12.1-15.1); White Blood Count 7.2 10^3/uL (4.0-10.0)
--- NOTE | 2022-09-16 19:00 | PC.NURSE ---
Report from HYACINTH Esparza. Pt semi lucas in bed with no complaints. Fluid bolus complete. No further needs at this time.
[2022-09-16 19:02] LABS: Alanine Aminotransferase 24 U/L (0-33); Albumin Level 3.3 g/dL (3.5-5.2); Alkaline Phosphatase 86 U/L (35-105); Aspartate Amino Transferase 18 U/L (0-32); Blood Urea Nitrogen 12 mg/dL (8-23); Calcium 8.6 mg/dL (8.5-10.5); Carbon Dioxide 24 mmol/L (22-29); Chloride 102 mmol/L (98-107); Globulin 2.9 g/dL (1.3-4.6); Glomerular Filtration Rate 71.1 mL/min (90-130); Glucose 101 mg/dL (65-115); Osmolality Calculated 284 mOsm/kg (285-295); Sodium 137 mmol/L (136-145); Total Bilirubin 0.4 mg/dL (0.15-1.2); Total Protein 6.2 g/dL (6.6-8.7)
--- NOTE | 2022-09-16 19:04 | CTR_ITS ---
PROCEDURE INFORMATION: Exam: CT Chest With Contrast; Diagnostic Exam date and time: 09/16/2022 7:33 PM Age: 67 years old Clinical indication: Cough and shortness of breath; Cough with hemorrhage; Chest wall pain; Prior surgery; Surgery date: 1-6 months; Surgery type: Drain that was removed sometime in the past couple months? ; Additional info: L chest wall swelling, pain, redness, eval abscess TECHNIQUE: Imaging protocol: Diagnostic computed tomography of the chest with contrast. Radiation optimization: All CT scans at this facility use at least one of these dose optimization techniques: automated exposure control; mA and/or kV adjustment per patient size (includes targeted exams where dose is matched to clinical indication); or iterative reconstruction. Contrast material: OMNI 350; Contrast volume: 100 ml; Contrast route: INTRAVENOUS (IV); REPORTING DATA: Count of CT and Cardiac NM exams in prior 12 months: This patient has received 5 known CTs and 0 known cardiac nuclear medicine studies in the 12 months prior to the current study. COMPARISON: CT chest wo con [id number] 01/25/2022 5:09 PM RADIATION DOSE METRICS: Total DLP (mGy-cm): 605.77 FINDINGS: Lungs: Left lung diffuse airspace infiltrate. Multifocal pulmonary nodules, some of which demonstrate a cavitary component measuring up to 8.2 mm, new compared to prior exam, may reflect diffuse metastatic disease and/or an infectious process. Pleural spaces: Loculated moderate to large left pleural effusion, possibly reflecting an empyema and/or possible metastatic disease. Associated with this in the left lower lateral chest wall is a 3.8 cm collection of fluid is seen in the subcutaneous fat with surrounding edema suggestive of extension of the effusion/empyema outside of the thorax into the subcutaneous soft tissues, reflecting a possible abscess. Heart: Cardiomegaly. Coronary arteries: Negative for coronary artery atherosclerotic calcifications. Lymph nodes: Several prominent upper abdominal mesenteric subcentimeter lymph nodes in the mesentery with a small amount of edema, may reflect a chronic inflammatory process such as sclerosing mesenteritis. Vasculature: Main pulmonary artery is somewhat dilated, which can be a finding of chronic pulmonary hypertension. Liver: Multiple hepatic cysts. Bones/joints: Unremarkable. No acute fracture. Soft tissues: See Pleural spaces finding. CT/CT chest w con* [id number] IMPRESSION: 1. Loculated moderate to large left pleural effusion, possibly reflecting an empyema and/or possible metastatic disease. Associated with this in the left lower lateral chest wall is a 3.8 cm collection of fluid is seen in the subcutaneous fat with surrounding edema suggestive of extension of the effusion/empyema outside of the thorax into the subcutaneous soft tissues, reflecting a possible abscess. 2. Cardiomegaly. 3. Negative for coronary artery atherosclerotic calcifications. 4. Multiple hepatic cysts. 5. Several prominent upper abdominal mesenteric subcentimeter lymph nodes in the mesentery with a small amount of edema, may reflect a chronic inflammatory process such as sclerosing mesenteritis. 6. Main pulmonary artery is somewhat dilated, which can be a finding of chronic pulmonary hypertension. 7. Left lung diffuse airspace infiltrate. 8. Multifocal pulmonary nodules, some of which demonstrate a cavitary component measuring up to 8.2 mm, new compared to prior exam, may reflect diffuse metastatic disease and/or an infectious process.
[2022-09-16 19:05] LABS: Anion Gap 14.9 (5-19); Potassium 3.9 mmol/L (3.5-5.1)
--- NOTE | 2022-09-16 19:10 | PC.NURSE ---
Report from HYACINTH Esparza. Power port accessed secondary to need for more blood and CT of chest. Pt tolerated well. NO further needs.
[2022-09-16 19:55] LABS: Lactate (Lactic Acid level) 1.5 mmol/L (0.5-2.2)
[2022-09-16 20:49] LABS: Reflex Lactate Order REFLEX LACTIC ORDERD
[2022-09-16 21:18] LABS: Lactic Acid level (Lactate) 0.9 mmol/L (0.5-2.2)
[2022-09-16] MEDS: cefepime 2,000 MG in sodium chloride 0.9% (plus) 50 ML 100 MG IV (22:41)
[2022-09-16] MEDS: vancomycin 2,000 MG/400 ML PIGGYBACK 200 MG IV (23:04)
[2022-09-17] VITALS (8 sets, daily range): BP systolic 112–132; BP diastolic 65–71; PULSE 88–108; RESP 13–18; O2SAT 93–100
[2022-09-17] MEDS: morphine 4 mg/mL SDV 1 mL IVP (02:07)
[2022-09-17] MEDS: metoclopramide 5 mg/mL SDV 2 mL 10 MG IVP (02:07)
--- NOTE | 2022-09-17 02:29 | PC.NURSE ---
Pt assisted to restroom. Hospital bed provided and pt moved to room 7 for comfort.
--- NOTE | 2022-09-17 04:55 | PC.NURSE ---
Pt is sleeping at this time. Right side lying. VSS.
[2022-09-17] MEDS: cefepime 2,000 MG in sodium chloride 0.9% (plus) 50 ML 100 MG IV (06:34)
== END 2022-09-17 09:30 | disposition short-term general hospital (02) ==
PROVIDERS: Emergency Provider Emergency Medicine; PCP Family Medicine
DX: L03.313 Cellulitis of chest wall (principal); L02.213 Cutaneous abscess of chest wall; D64.9 Anemia, unspecified; J86.9 Pyothorax without fistula
CPT/HCPCS: 36415; 71260; 80053; 83605; 85025; 87040; 96365; 96366; 96367; 96375; 99285; J0692; J2270; J2765; J3372; Q9967

== ENCOUNTER 2022-09-26 09:30 | Oncology outpatient (recurring) (ONCR) | payer MEDICARE, SELFPAY ==
[2022-08-29 09:28] VITALS: BP 135/73; PULSE 107; RESP 18; TEMP 36.6; O2SAT 97
[2022-08-29 09:40] LABS: Basophils % 0.3 %; Eosinophils # 0.5 10^3/uL (0.0-0.8); Eosinophils % 4.3 %; Hematocrit 27.7 % (37.0-47.0); Hemoglobin 8.9 g/dL (11.5-15.3); Lymphocytes # 2.1 10^3/uL (0.8-4.8); Lymphocytes % 19.1 %; Mean Corpuscular HGB Conc 32.1 g/dL (30.0-36.0); Mean Corpuscular Hemoglobin 28.1 pg (28.0-34.0); Mean Corpuscular Volume 87.4 fl (81-99); Mean Platelet Volume 9.5 fL (7.4-10.4); Monocytes % 9.4 %; Neutrophils # 7.22 10^3/uL (1.8-7.7); Neutrophils % 66.1 %; Nucleated Red Blood Cells % 0 %; Platelet Count 255 10^3/cmm (130-400); Red Blood Count 3.17 10^6/uL (4.1-5.3); Red Cell Distribution Width 17.2 % (12.1-15.1); White Blood Count 10.9 10^3/uL (4.0-10.0)
[2022-08-29 10:01] LABS: Alanine Aminotransferase 20 U/L (0-33); Albumin Level 3.6 g/dL (3.5-5.2); Alkaline Phosphatase 94 U/L (35-105); Anion Gap 14.2 (5-19); Aspartate Amino Transferase 13 U/L (0-32); Blood Urea Nitrogen 13 mg/dL (8-23); Calcium 8.4 mg/dL (8.5-10.5); Carbon Dioxide 24 mmol/L (22-29); Chloride 105 mmol/L (98-107); Globulin 2.8 g/dL (1.3-4.6); Glucose 109 mg/dL (65-115); Osmolality Calculated 289 mOsm/kg (285-295); Potassium 4.2 mmol/L (3.5-5.1); Sodium 139 mmol/L (136-145); Total Bilirubin 0.3 mg/dL (0.15-1.2); Total Protein 6.4 g/dL (6.6-8.7)
[2022-08-29] MEDS: sodium chloride 0.9% 250 ML 75 ML IV (11:49)
[2022-08-29] MEDS: famotidine 20 mg/2 mL INJ IVP (11:52)
[2022-08-29] MEDS: palonosetron 0.25 mg/5 mL SDV IV (12:22)
[2022-08-29] MEDS: paclitaxel protein-bound 230 MG in empty flexible container 1 EACH 92 MG IV (13:05)
[2022-08-29] MEDS: gemcitabine 1,900 MG in sodium chloride 0.9% (100 ml) 100 ML 200 MG IV (14:00)
[2022-08-29 14:56] VITALS: BP 129/73; PULSE 103; RESP 18; TEMP 35.9; O2SAT 98
[2022-09-05 08:55] VITALS: BP 134/82; PULSE 110; RESP 16; TEMP 36.2; O2SAT 98; BMI 33.5
[2022-09-05 09:10] LABS: Basophils % 0.4 %; Eosinophils # 0.2 10^3/uL (0.0-0.8); Eosinophils % 3.8 %; Lymphocytes # 1.8 10^3/uL (0.8-4.8); Lymphocytes % 36.3 %; Mean Corpuscular Hemoglobin 27.4 pg (28.0-34.0); Mean Corpuscular Volume 88.4 fl (81-99); Mean Platelet Volume 9.3 fL (7.4-10.4); Monocytes # 0.3 10^3/uL (0.2-0.9); Monocytes % 6.7 %; Neutrophils # 2.59 10^3/uL (1.8-7.7); Neutrophils % 51.4 %; Nucleated Red Blood Cells % 0 %; Platelet Count 246 10^3/cmm (130-400); Red Blood Count 3.28 10^6/uL (4.1-5.3); Red Cell Distribution Width 18.6 % (12.1-15.1)
[2022-09-05 09:26] LABS: Alanine Aminotransferase 86 U/L (0-33); Albumin Level 3.6 g/dL (3.5-5.2); Alkaline Phosphatase 99 U/L (35-105); Anion Gap 14.2 (5-19); Aspartate Amino Transferase 35 U/L (0-32); Blood Urea Nitrogen 11 mg/dL (8-23); Calcium 9.1 mg/dL (8.5-10.5); Carbon Dioxide 24 mmol/L (22-29); Chloride 104 mmol/L (98-107); Globulin 2.8 g/dL (1.3-4.6); Glucose 98 mg/dL (65-115); Osmolality Calculated 285 mOsm/kg (285-295); Potassium 4.2 mmol/L (3.5-5.1); Sodium 138 mmol/L (136-145); Total Bilirubin 0.3 mg/dL (0.15-1.2); Total Protein 6.4 g/dL (6.6-8.7)
[2022-09-05] MEDS: sodium chloride 0.9% 250 ML 75 ML IV (11:19)
[2022-09-05] MEDS: famotidine 20 mg/2 mL INJ IVP (11:20)
[2022-09-05] MEDS: palonosetron 0.25 mg/5 mL SDV IVP (11:22)
[2022-09-05] MEDS: PACLITAXEL PROTEIN BOUND IV (12:03)
[2022-09-05] MEDS: FLEXIBLE CONTAINER IV (12:03)
[2022-09-05] MEDS: gemcitabine 1,900 MG in sodium chloride 0.9% (100 ml) 100 ML 200 MG IV (12:50)
[2022-09-05 13:52] LABS: Ferritin 418 ng/mL (15-150); Iron 21 ug/dL (37-145); Percent Saturation 9.5 % (20-50); Total Iron Binding Capacity 221 mcg/dl; Unsaturated Iron Binding 200 ug/dL (112-347)
[2022-09-05 14:08] LABS: Vitamin B12 653 pg/mL (232-1245)
[2022-09-05 15:54] VITALS: BP 120/76; PULSE 98; TEMP 36.8; O2SAT 97
== END 2022-09-27 23:59 | disposition home or self-care (01) ==
PROVIDERS: Nurse Practitioner Family; PCP Family Medicine; Visit Provider Internal Medicine Hematology & Oncology
DX: Z53.9 Procedure and treatment not carried out, unspecified reason
CPT/HCPCS: 80053; 82607; 82728; 83540; 83550; 85025; 96367; 96375; 96413; 96417; 99214; J1100; J1642; J2469; J3490; J7050; J9201; J9264

== ENCOUNTER 2022-11-25 12:55 | Outpatient (CLI) | payer MEDICARE, SELFPAY ==
[2022-11-25] MEDS: iohexol 350 mg/mL 500 mL Btl (per mL) PO (14:50)
[2022-11-25] MEDS: iohexol 350 mg/mL 500 mL Btl (per mL) IV (15:05)
--- NOTE | 2022-11-25 16:30 | CT_ITS ---
WS: [id number] CT CHEST, ABDOMEN AND PELVIS WITH CONTRAST HISTORY: pancreatic cancer TECHNIQUE: Contiguous 5 mm axial imaging performed through the chest, abdomen and pelvis with IV cont rast, oral contrast has been provided. Coronal and sagittal reformats chest. Coronal and sagittal ref ormats through the abdomen and pelvis. All CT scans at [facility] use at least one of these d ose optimization techniques: automated exposure control; mA and/or kV adjustment per patient size (in cludes targeted exams where dose is matched to clinical indication); or iterative reconstruction. CONTRAST: Omnipaque 350; 100 mL IV. DLP: 1005.13 mGy.cm COMPARISON: 09/16/[address]: Volume loss with atelectatic lung LEFT thorax. Pleural nodularity and loculated LEFT pleura l effusion. Variable enhancement of soft tissue in the central LEFT lung highly suspicious for tumor. Pleural nodularity suspicious for metastatic pleural involvement. There are in numerable pulmonary n odules noted bilaterally. Some of these are solid nodules and others are rim-enhancing. The number of metastatic nodules does appear to have increased since 09/16/2022. RIGHT Mediport. No definite medias tinal or hilar lymph nodes. Track from the prior LEFT chest tube continues to improve. Normal size he art. Abdomen CT: Multiple hepatic cysts are scattered throughout the liver. No bile duct dilatation. No me tastatic lesions. Prior cholecystectomy. Splenic granulomata. No adrenal mass. No pancreatic abnormal ity identified. Atherosclerosis aorta. No aneurysm. No ascites. No mesenteric or augmentable implants . Nondistended stomach. No small bowel obstruction. Severe sigmoid: Diverticulosis without acute divert iculitis. Pelvic CT: Normal urinary bladder. No free fluid or adenopathy. Sclerotic lesion in the mid sternum with pathological fracture. T4 and T5 hemangiomas. IMPRESSION: 1. Significant volume loss with loculated fluid and pleural nodules within the LEFT thorax. Additiona l necrotic appearing mass centrally and numerous bilateral pulmonary nodules. Findings are consistent with metastatic disease. The number of pulmonary metastatic nodules appears to has increased. Also i ncrease in size of the pleural nodules and metastatic implants since 09/16/2022. 2. Hepatic cysts. 3. No adenopathy in the abdomen or pelvis. 4. No metastatic disease to the liver. 5. Extensive diverticular disease without acute diverticulitis. 6. Sclerotic lesion in the mid sternum. Suspicious for pathological fracture. New.
== END 2022-11-25 12:56 | disposition home or self-care (01) ==
LOC: RAD 12:57
PROVIDERS: PCP Family Medicine; Visit Provider Internal Medicine Medical Oncology
DX: C25.9 Malignant neoplasm of pancreas, unspecified (principal); C78.01 Secondary malignant neoplasm of right lung; C78.02 Secondary malignant neoplasm of left lung; C79.9 Secondary malignant neoplasm of unspecified site; R91.8 Other nonspecific abnormal finding of lung field; K76.89 Other specified diseases of liver; K57.90 Diverticulosis of intestine, part unspecified, without perforation or abscess without bleeding; M89.9 Disorder of bone, unspecified
CPT/HCPCS: 71260; 74177; Q9967

== ENCOUNTER 2022-11-27 13:33 | Oncology outpatient (recurring) (ONCR) | payer MEDICARE, SELFPAY ==
[2022-11-13 08:13] VITALS: BMI 31.1
[2022-11-13 08:15] VITALS: BP 129/83; PULSE 97; RESP 17; TEMP 36.2; O2SAT 97
[2022-11-13 08:26] LABS: Basophils # 0.1 10^3/uL (0.0-0.1); Basophils % 0.5 %; Eosinophils % 0.3 %; Hematocrit 43.4 % (37.0-47.0); Hemoglobin 13.5 g/dL (11.5-15.3); Lymphocytes # 3.2 10^3/uL (0.8-4.8); Lymphocytes % 27.1 %; Mean Corpuscular HGB Conc 31.1 g/dL (30.0-36.0); Mean Corpuscular Hemoglobin 29.5 pg (28.0-34.0); Mean Platelet Volume 10.5 fL (7.4-10.4); Monocytes # 0.9 10^3/uL (0.2-0.9); Monocytes % 7.7 %; Neutrophils # 7.62 10^3/uL (1.8-7.7); Nucleated Red Blood Cells % 0 %; Platelet Count 277 10^3/cmm (130-400); Red Blood Count 4.57 10^6/uL (4.1-5.3); Red Cell Distribution Width 15.7 % (12.1-15.1); White Blood Count 11.9 10^3/uL (4.0-10.0)
[2022-11-13 09:03] LABS: Alanine Aminotransferase 37 U/L (0-33); Albumin Level 3.7 g/dL (3.5-5.2); Alkaline Phosphatase 77 U/L (35-105); Aspartate Amino Transferase 20 U/L (0-32); Blood Urea Nitrogen 17 mg/dL (8-23); Carbon Dioxide 27 mmol/L (22-29); Chloride 105 mmol/L (98-107); Globulin 2.7 g/dL (1.3-4.6); Glomerular Filtration Rate 99.1 mL/min (90-130); Glucose 90 mg/dL (65-115); Osmolality Calculated 293 mOsm/kg (285-295); Sodium 141 mmol/L (136-145); Total Bilirubin 0.2 mg/dL (0.15-1.2); Total Protein 6.4 g/dL (6.6-8.7)
== END 2022-11-28 23:59 | disposition home or self-care (01) ==
PROVIDERS: Internal Medicine Medical Oncology; PCP Family Medicine; Visit Provider Internal Medicine Medical Oncology
DX: C79.9 Secondary malignant neoplasm of unspecified site (principal); Z79.01 Long term (current) use of anticoagulants; C79.51 Secondary malignant neoplasm of bone; J90 Pleural effusion, not elsewhere classified; C80.1 Malignant (primary) neoplasm, unspecified; R82.71 Bacteriuria; C34.82 Malignant neoplasm of overlapping sites of left bronchus and lung
CPT/HCPCS: 36591; 80053; 85025; 86301; 99214; J1642

== ENCOUNTER 2022-12-17 10:00 | Oncology outpatient (recurring) (ONCR) | payer MEDICARE, SELFPAY ==
[2022-12-11 12:43] VITALS: BP 124/81; PULSE 102; RESP 16; TEMP 36.3; O2SAT 94
[2022-12-11 13:12] LABS: Basophils # 0.1 10^3/uL (0.0-0.1); Basophils % 0.6 %; Eosinophils # 0.1 10^3/uL (0.0-0.8); Eosinophils % 1.3 %; Hematocrit 40.6 % (36-47); Lymphocytes % 22.3 %; Mean Corpuscular Hemoglobin 28.7 pg (27-33); Mean Corpuscular Volume 89.6 fl (85-98); Monocytes # 0.6 10^3/uL (0.2-0.9); Monocytes % 6.4 %; Neutrophils # 6.09 10^3/uL (1.8-7.7); Neutrophils % 69.2 %; Nucleated Red Blood Cells % 0 %; Platelet Count 353 10^3/cmm (157-399); Red Blood Count 4.53 10^6/uL (3.85-5.65); Red Cell Distribution Width 13.6 % (12.1-15.1); White Blood Count 8.79 10^3/uL (3.29-11.43)
[2022-12-11 13:36] LABS: Alanine Aminotransferase 19 U/L (0-33); Albumin Level 3.4 g/dL (3.5-5.2); Alkaline Phosphatase 96 U/L (35-105); Aspartate Amino Transferase 22 U/L (0-32); Blood Urea Nitrogen 14 mg/dL (8-23); Calcium 9.2 mg/dL (8.5-10.5); Carbon Dioxide 27 mmol/L (22-29); Chloride 105 mmol/L (98-107); Creatinine Clr Calc Pharmacy 67.1591; Globulin 3.5 g/dL (1.3-4.6); Glomerular Filtration Rate 99.1 mL/min (90-130); Glucose 99 mg/dL (65-115); Iron 27 ug/dL (37-145); Osmolality Calculated 291 mOsm/kg (285-295); Percent Saturation 14.1 % (20-50); Sodium 140 mmol/L (136-145); Total Bilirubin 0.2 mg/dL (0.15-1.2); Total Iron Binding Capacity 191 mcg/dl; Total Protein 6.9 g/dL (6.6-8.7); Unsaturated Iron Binding 164 ug/dL (112-347)
[2022-12-11 14:01] LABS: Carcinoembryonic Antigen 7.5 ng/mL (0.0-4.7)
[2022-12-17 10:09] VITALS: BP 112/76; PULSE 99; RESP 16; TEMP 36.7; O2SAT 97
[2022-12-17 10:21] LABS: Basophils # 0.1 10^3/uL (0.0-0.1); Basophils % 0.6 %; Eosinophils # 0.1 10^3/uL (0.0-0.8); Eosinophils % 1.2 %; Hematocrit 39.8 % (36-47); Lymphocytes % 19.8 %; Mean Corpuscular HGB Conc 31.9 g/dL (30-55); Mean Corpuscular Hemoglobin 28.3 pg (27-33); Mean Corpuscular Volume 88.8 fl (85-98); Mean Platelet Volume 9.9 fL (7.4-10.4); Monocytes # 0.6 10^3/uL (0.2-0.9); Monocytes % 6.2 %; Neutrophils # 7.34 10^3/uL (1.8-7.7); Neutrophils % 71.9 %; Nucleated Red Blood Cells % 0 %; Platelet Count 334 10^3/cmm (157-399); Red Blood Count 4.48 10^6/uL (3.85-5.65); Red Cell Distribution Width 13.6 % (12.1-15.1)
[2022-12-17 10:38] LABS: Alanine Aminotransferase 17 U/L (0-33); Albumin Level 3.7 g/dL (3.5-5.2); Alkaline Phosphatase 104 U/L (35-105); Anion Gap 12.2 (5-19); Aspartate Amino Transferase 15 U/L (0-32); Blood Urea Nitrogen 17 mg/dL (8-23); Calcium 9.3 mg/dL (8.5-10.5); Carbon Dioxide 26 mmol/L (22-29); Chloride 104 mmol/L (98-107); Creatinine Clr Calc Pharmacy 67.1591; Globulin 3.3 g/dL (1.3-4.6); Glucose 101 mg/dL (65-115); Osmolality Calculated 288 mOsm/kg (285-295); Potassium 4.2 mmol/L (3.5-5.1); Sodium 138 mmol/L (136-145); Total Bilirubin 0.2 mg/dL (0.15-1.2)
[2022-12-17] MEDS: sodium chloride 0.9% 250 ML 75 ML IV (12:16)
[2022-12-17] MEDS: palonosetron 0.25 mg/5 mL SDV IVP (12:20)
[2022-12-17] MEDS: atropine 1 mg/mL SDV 1 mL 0.4 MG IV (13:44)
[2022-12-17] MEDS: leucovorin 740 MG in dextrose 5% 250 ML 500 MG IV (15:27)
[2022-12-17 16:40] VITALS: BP 156/89; PULSE 84; RESP 16; TEMP 36.8; O2SAT 97
== END 2022-12-17 23:59 | disposition home or self-care (01) ==
PROVIDERS: PCP Family Medicine; Visit Provider Internal Medicine Medical Oncology
DX: C79.9 Secondary malignant neoplasm of unspecified site (principal); Z51.11 Encounter for antineoplastic chemotherapy; C78.02 Secondary malignant neoplasm of left lung
CPT/HCPCS: 36591; 80053; 82378; 83540; 83550; 85025; 86301; 96367; 96375; 96413; 96415; 96416; 96417; 99215; J0461; J0640; J1100; J1642; J2469; J7040; J7050; J7060; J9190; J9205

== ENCOUNTER 2022-12-19 14:00 | Oncology outpatient (recurring) (ONCR) | payer MEDICARE, SELFPAY ==
[2022-12-19 13:35] VITALS: BP 133/72; PULSE 95; RESP 18; TEMP 36.2; O2SAT 97
== END 2022-12-28 23:59 | disposition home or self-care (01) ==
PROVIDERS: PCP Family Medicine; Visit Provider Internal Medicine Medical Oncology
DX: Z45.1 Encounter for adjustment and management of infusion pump
CPT/HCPCS: 96523

== ENCOUNTER 2022-12-19 14:02 | Emergency (ER) | payer MEDICARE, SELFPAY ==
[2022-12-19 14:07] VITALS: BP 107/61; PULSE 100; RESP 17; TEMP 36.6; O2SAT 98
--- NOTE | 2022-12-19 14:29 | W.ED.ABDPA2 ---
HPI - Abdominal Pain General: Chief Complaint: Abdominal Pain Stated Complaint: sent by ellen/trav pressure Time Seen by Provider: 12/19/22 14:23 Source: patient Mode of arrival: ambulatory Limitations: no limitations History of Present Illness: This 67-year-old female with a history of pancreatic and lung cancer was sent to the ER by Dr. Carvalho's office for evaluation of left-sided abdominal pain that started last night. Patient reports vomiting in the early hours of the morning. There is no reported fever. Patient notes that abdominal pain has been constant since onset. Patient recently started chemotherapy on Friday (2 days ago). She appears clinically stable. Associated Symptoms: Reports nausea and vomiting; Denies chills and dysuria Review of Systems Const: Denies: chills, body aches or change in appetite Eyes: Denies: change in vision or eye discharge ENMT: Denies: throat pain, dental pain or nasal discharge Card: Denies: chest pain or lightheadedness GI: Reports: abdominal pain (LLQ), nausea and vomiting : Denies: dysuria Musc: Denies: neck pain or back pain Neuro: Denies: headache(s) or weakness in extremities Psych: Denies: depression Edmundo/Lymph: Denies: easy bruising All/Imm: Denies: urticaria, tongue swelling or facial swelling PFSH ED PFSH: Medical History Anxiety and depression DVT (deep venous thrombosis) Empyema of left pleural space Encephalopathy 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) GERD (gastroesophageal reflux disease) History of cardiac arrest History of seizures Hypertension Left hemiparesis 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 Metastatic adenocarcinoma Pleural effusion Surgical History History of appendectomy History of cholecystectomy History of esophagogastroduodenoscopy (EGD) History of foot surgery History of hysterectomy Hx of bladder repair surgery bladder Sling Hx of colonoscopy Port-A-Cath in place Family History Father Bleeding disorder Cancer Diabetes Hypertension Mother Cancer Diabetes Hypertension Thyroid disease Denies family history of Chronic kidney disease (CKD) Stroke Social History (Reviewed 12/11/22 @ 11:21 by Israel Byers Smoking and tobacco status: never smoked Alcohol intake: never Physical Exam Const: COMMON NORMALS: no acute distress, patient oriented x3, no limitations and alert HENMT: COMMON NORMALS: normocephalic HEAD & SCALP: normocephalic Eye: COMMON NORMALS: EOMs intact bilaterally Neck/C-Spine: COMMON NORMALS: full ROM and supple Chest: COMMONS NORMALS: normal inspection of the chest Resp: COMMON NORMALS: normal respiratory effort, No retractions, No use of accessory muscles and clear to auscultation bilaterally AUSCULTATION: clear to auscultation bilaterally Cardio: COMMON NORMALS: regular rate, regular rhythm and No murmurs present (Cardio) RATE: regular rate RHYTHM: regular rhythm GI: COMMON NORMALS: Normal to inspection, nondistended, normoactive bowel sounds present and Soft to palpation PALPATION: Yes Soft to palpation and Yes Tenderness to palpation present (GI) Details: LLQ and LUQ : COMMON NORMALS: Yes no CVA tenderness BLADDER/KIDNEY EXAM: Yes no CVA tenderness Back/Pelvis: COMMON NORMALS: no CVA tenderness and no thoracic nor lumbar tenderness Extremity: GENERAL: Yes normal exam except as noted Neuro: COMMON NORMALS: patient oriented x3 and no focal motor deficits SENSORIUM/ORIENTATION: Yes alert Psych: COMMON NORMALS: mental status grossly normal and cooperative Course Vital Signs: Vital signs: Vital Signs Temperature 97.9 F 12/19/22 14:07 Pulse Rate 95 12/19/22 16:35 Respiratory Rate 16 12/19/22 16:35 Blood Pressure 121/65 12/19/22 16:35 Pulse Oximetry 99 12/19/22 16:35 Oxygen Delivery Me thod Room Air 12/19/22 16:35 MDM - Abdominal Pain Medical Decision Making Medical decision making: History as above. Patient's abdomen is nonsurgical in nature, though she mostly has pain on the left side of the abdomen. There is no distention or rigidity. CT abdomen/pelvis is indicative of acute diverticulitis and shows lesions in the liver and lung which is consistent with patient's known disease process. White count is normal with no left shift. Patient's vital signs are normal. Given that she is able to tolerate orally and is clinically stable, we can try outpatient treatment. If this fails, she will be admitted for IV antibiotics. I discussed this extensively with patient who verbalized understanding and agrees with the plan. Lab Data 12/19/22 14:50 12/19/22 14:50 Labs/Radiology: Laboratory Results WBC 11.30 10^3/uL (3.29-11.43) 12/19/22 14:50 RBC 4.29 10^6/uL (3.85-5.65) 12/19/22 14:50 Hgb 12.10 g/dL (11.27-16.99) 12/19/22 14:50 Hct 38.4 % (36-47) 12/19/22 14:50 MCV 89.5 fl (85-98) 12/19/22 14:50 MCH 28.2 pg (27-33) 12/19/22 14:50 MCHC 31.5 g/dL (30-55) 12/19/22 14:50 RDW 13.8 % (12.1-15.1) 12/19/22 14:50 Plt Count 355 10^3/cmm (157-399) 12/19/22 14:50 MPV 9.8 fL (7.4-10.4) 12/19/22 14:50 Neut % (Auto) 67.5 % 12/19/22 14:50 Lymph % (Auto) 28.2 % 12/19/22 14:50 Forrest % (Auto) 3.2 % 12/19/22 14:50 Eos % (Auto) 0.4 % 12/19/22 14:50 Baso % (Auto) 0.4 % 12/19/22 14:50 Neut # (Auto) 7.63 10^3/uL (1.8-7.7) 12/19/22 14:50 Lymph # (Auto) 3.2 10^3/uL (0.8-4.8) 12/19/22 14:50 Forrest # (Auto) 0.4 10^3/uL (0.2-0.9) 12/19/22 14:50 Eos # (Auto) 0.0 10^3/uL (0.0-0.8) 12/19/22 14:50 Baso # (Auto) 0.1 10^3/uL (0.0-0.1) 12/19/22 14:50 Nucleated RBC % (auto) 0 % 12/19/22 14:50 Nucleated RBCs # 0.0 /100WBC 12/19/22 14:50 Sodium 141 mmol/L (136-145) 12/19/22 14:50 Potassium 4.1 mmol/L (3.5-5.1) 12/19/22 14:50 Chloride 105 mmol/L (98-107) 12/19/22 14:50 Carbon Dioxide 26 mmol/L (22-29) 12/19/22 14:50 Anion Gap 14.1 (5-19) 12/19/22 14:50 BUN 18 mg/dL (8-23) 12/19/22 14:50 Creatinine 0.8 mg/dL (0.5-0.9) 12/19/22 14:50 GFR Calculation 71.1 mL/min (90-130) L 12/19/22 14:50 Glucose 92 mg/dL (65-115) 12/19/22 14:50 Calculated Osmolality 294 mOsm/kg (285-295) 12/19/22 14:50 Calcium 9.2 mg/dL (8.5-10.5) 12/19/22 14:50 Total Bilirubin 0.2 mg/dL (0.15-1.2) 12/19/22 14:50 AST 17 U/L (0-32) 12/19/22 14:50 ALT 18 U/L (0-33) 12/19/22 14:50 Alkaline Phosphatase 97 U/L (35-105) 12/19/22 14:50 Total Protein 6.6 g/dL (6.6-8.7) 12/19/22 14:50 Albumin 3.6 g/dL (3.5-5.2) 12/19/22 14:50 Globulin 3.0 g/dL (1.3-4.6) 12/19/22 14:50 Lipase 20 U/L (13-60) 12/19/22 14:50 Urine Color Yellow (Yellow) 12/19/22 16:01 Urine Appearance Clear (CLEAR) 12/19/22 16:01 Urine pH 5 (5-7) 12/19/22 16:01 Ur Specific [place] 1.015 (1.005-1.030) 12/19/22 16:01 Urine Protein Neg (Negative) 12/19/22 16:01 Urine Glucose (UA) Norm (Normal) 12/19/22 16:01 Urine Ketones Negative (Negative) 12/19/22 16:01 Urine Blood Trace (Negative) H 12/19/22 16:01 Urine Nitrate Negative (Negative) 12/19/22 16:01 Urine Bilirubin Neg (Negative) 12/19/22 16:01 Urine Urobilinogen Norm mg/dL (Negative) 12/19/22 16:01 Ur Leukocyte Esterase Trace (Negative) H 12/19/22 16:01 Urine RBC 0-4 /hpf (0-2) H 12/19/22 16:01 Urine WBC 0-4 /hpf (0-5) H 12/19/22 16:01 Ur Squamous Epith Cells 0-4 /hpf (0-5) H 12/19/22 16:01 Amorphous Sediment Not Reportable 12/19/22 16:01 Urine Bacteria Trace /hpf (NONE) 12/19/22 16:01 All radiology interpretation(s) finalized by discharge Discharge Plan Discharge Patient Disposition: Home Clinical Impression: Metastatic adenocarcinoma, Diverticulitis Condition: Stable Prescriptions: New Cipro 500 mg tablet 500 mg PO BID Qty: 20 0RF metronidazole 500 mg tablet 500 mg PO TID 10 Days Qty: 30 0RF No Action amlodipine 10 mg tablet 10 mg PO DAILY 30 Days Qty: 30 3RF omeprazole 20 mg capsule,delayed release(DR/EC) 20 mg PO DAILY 30 Days Qty: 30 2RF Complete Multivitamin-Mineral 18-400 mg-mcg tablet 1 tab PO DAILY hydrocodone-acetaminophen 2.5-325 mg tablet 1 tab PO BID PRN (Reason: Pain) levetiracetam 750 mg tablet 1,500 mg PO BID Qty: 120 3RF alprazolam [Xanax] 0.5 mg tablet 0.5 mg PO BID PRN (Reason: anxiety or insomnia) 30 Days Qty: 60 3RF Xarelto 20 mg tablet 20 mg PO DAILY 30 Days Qty: 30 2RF Rx Instructions: must administer with evening meal albuterol sulfate 90 mcg/actuation HFA aerosol inhaler 2 inh inhalation Q8H PRN (Reason: shortness of breath or wheezing) Qty: 8.5 3RF diphenoxylate-atropine [Lomotil] 2.5-0.025 mg tablet 2 tab PO QID PRN (Reason: Diarrhea) Qty: 60 3RF Rx Instructions: 2 tablets orally 4 times daily until control of diarrhea has been achieved. prochlorperazine maleate [Compazine] 10 mg tablet 10 mg PO Q4H PRN (Reason: Mild Nausea) Qty: 30 3RF lorazepam 1 mg tablet 0.5 - 1 mg PO Q6H PRN (Reason: Severe Nausea) Qty: 30 3RF Senna Laxative 25 mg Tablet 25 mg PO DAILY PRN (Reason: Constipation) Discharge Orders: Discharge ED (Routine); Ordered 12/19/22 Ordered By: Alexandra Ayon Referrals: Jennie Ramos MD [Primary Care Provider] - Discharge Diet: Usual diet Discharge Activity: Resume usual activity Patient Instructions: Opioid Safety, Pain Management Activity Restrictions/Additional Instructions: Take ciprofloxacin and Flagyl as prescribed. Maintain adequate fluid intake. Follow-up with your primary care physician in 2 to 3 days for reevaluation. Return if you develop any new or worsening symptoms. Coding Level of Care Code ED [employer]ner for Adolfo Olson
--- NOTE | 2022-12-19 14:40 | CT_ITS ---
WS: [id number] CT ABDOMEN PELVIS TECHNIQUE: Contrast-enhanced CT of the abdomen and pelvis with coronal and sagittal reformatted image s. CLINICAL INFORMATION: Left-sided abdominal pain COMPARISON: CT 11/25/2022 DLP: 853.[address] scans at [facility] use at least one of these dose optimization techniques: automated e xposure control; mA and/or kV adjustment per patient size (includes targeted exams where dose is matc hed to clinical indication); or iterative reconstruction. FINDINGS: Extensive sigmoid diverticulosis. Tiny amount of fluid and edema about the sigmoid colon in the LEFT lower quadrant suspicious for mild or early acute diverticulitis new from previous. Enhancing distal small bowel loops in the RIGHT lower quadrant with a small amount of surrounding flu id. Enhancement extends into the cecum suspicious for ileocolitis. No evidence of high-grade obstruct ion. No abdominal or pelvic lymphadenopathy. Diffuse thickening and enhancement involving the duodenum can be seen with duodenitis. Low-attenuatio n enhancing lesion in the wall of the duodenum measuring 11 mm is indeterminate. Considerations inclu de duodenal polyp versus metastasis. This could further evaluated with endoscopy. No evidence of obst ruction. Prior cholecystectomy. Prior hysterectomy. Innumerable metastatic lesions visualized in the RIGHT low er lobe. Loculated pleural fluid in the LEFT lower lobe with peripheral pleural enhancement suspiciou s for empyema appears stable. Necrotic metastasis in the LEFT lower lobe. Incidental hepatic cysts. Normal spleen. Normal GE junction. Adrenal glands are normal. No hydronephr osis. Normal renal parenchymal enhancement. Dilatation of the common bile duct similar to previous. M isty mesentery in the mid abdomen similar to 11/25/2022. Normal caliber abdominal aorta. Portal vein and splenic vein are patent. IMPRESSION: 1. Extensive sigmoid diverticulosis. Tiny amount of fluid and edema about the sigmoid colon in the L EFT lower quadrant suspicious for mild or early acute diverticulitis new from previous. 2. Small amount of fluid in the RIGHT lower quadrant with enhancing distal ileal bowel loops extendi ng into the cecum suspicious for ileocolitis. 3. LEFT pleural empyema is similar to previous with peripheral pleural enhancement. Necrotic metasta tic nodules in the LEFT lower lobe. 4. Innumerable metastatic nodules in the partially visualized RIGHT lung. 5. Indeterminate low-attenuation 11 mm lesion in the duodenum nonspecific but may represent duodenal polyp versus metastasis. This can be followed up with endoscopy. No evidence of obstruction. 6. Incidental hepatic cysts. 7. Stable maddy mesentery as previously described.
[2022-12-19 14:52] VITALS: BP 124/72; PULSE 93; RESP 16; O2SAT 98
[2022-12-19 14:55] LABS: Basophils # 0.1 10^3/uL (0.0-0.1); Basophils % 0.4 %; Eosinophils % 0.4 %; Hematocrit 38.4 % (36-47); Lymphocytes # 3.2 10^3/uL (0.8-4.8); Lymphocytes % 28.2 %; Mean Corpuscular HGB Conc 31.5 g/dL (30-55); Mean Corpuscular Hemoglobin 28.2 pg (27-33); Mean Corpuscular Volume 89.5 fl (85-98); Mean Platelet Volume 9.8 fL (7.4-10.4); Monocytes # 0.4 10^3/uL (0.2-0.9); Monocytes % 3.2 %; Neutrophils # 7.63 10^3/uL (1.8-7.7); Neutrophils % 67.5 %; Nucleated Red Blood Cells % 0 %; Platelet Count 355 10^3/cmm (157-399); Red Blood Count 4.29 10^6/uL (3.85-5.65); Red Cell Distribution Width 13.8 % (12.1-15.1)
[2022-12-19 15:17] LABS: Alanine Aminotransferase 18 U/L (0-33); Albumin Level 3.6 g/dL (3.5-5.2); Alkaline Phosphatase 97 U/L (35-105); Anion Gap 14.1 (5-19); Aspartate Amino Transferase 17 U/L (0-32); Blood Urea Nitrogen 18 mg/dL (8-23); Calcium 9.2 mg/dL (8.5-10.5); Carbon Dioxide 26 mmol/L (22-29); Chloride 105 mmol/L (98-107); Creatinine Clr Calc Pharmacy 66.5887; Glomerular Filtration Rate 71.1 mL/min (90-130); Glucose 92 mg/dL (65-115); Lipase 20 U/L (13-60); Osmolality Calculated 294 mOsm/kg (285-295); Potassium 4.1 mmol/L (3.5-5.1); Sodium 141 mmol/L (136-145); Total Bilirubin 0.2 mg/dL (0.15-1.2); Total Protein 6.6 g/dL (6.6-8.7)
[2022-12-19] MEDS: iohexol 350 mg/mL 500 mL Btl (per mL) IV (15:35)
[2022-12-19 16:34] LABS: Add Urine Culture? No; Add Urine Microscopic? YES; Bacteria Urine TRACE /hpf; Bilirubin Urine Neg (Negative); Blood Urine Trace (Negative); Glucose Urine UA Norm (Normal); Ketones Urine Negative (Negative); Leukocyte Esterase Urine Trace (Negative); Nitrate Urine Negative (Negative); Protein Urine Neg (Negative); RBC Urine 0-4 /hpf (0-2); Specific Gravity, Urine 1.015 (1.005-1.030); Squamous Epithelial Cell Urine 0-4 /hpf (0-5); Urine Appearance Clear (CLEAR); Urine Color Yellow (Yellow); Urobilinogen Urine Norm (Negative); WBC Urine 0-4 /hpf (0-5); pH Urine 5 (5-7)
[2022-12-19 16:35] VITALS: BP 121/65; PULSE 95; RESP 16; O2SAT 99
[2022-12-19] MEDS: metroNIDAZOLE 500 MG Tablet PO (17:15)
[2022-12-19] MEDS: ciprofloxacin 500 mg Tablet PO (17:15)
== END 2022-12-19 17:28 | disposition home or self-care (01) ==
PROVIDERS: Emergency Provider Family Medicine; PCP Family Medicine
DX: K57.92 Diverticulitis of intestine, part unspecified, without perforation or abscess without bleeding (principal); C79.9 Secondary malignant neoplasm of unspecified site; Z85.07 Personal history of malignant neoplasm of pancreas; Z85.118 Personal history of other malignant neoplasm of bronchus and lung; Z79.60 Long term (current) use of unspecified immunomodulators and immunosuppressants; I10 Essential (primary) hypertension
CPT/HCPCS: 74177; 80053; 81001; 83690; 85025; 96374; 99285; J1642; Q9967

== ENCOUNTER 2023-01-15 03:18 | Inpatient (IN) | payer MEDICARE, SELFPAY ==
[2023-01-15] VITALS (13 sets, daily range): BP systolic 105–130; BP diastolic 66–81; PULSE 93–111; RESP 16–18; TEMP 36.4–36.9; O2SAT 95–100; BMI 30.1
--- NOTE | 2023-01-15 03:23 | CTR_ITS ---
PROCEDURE INFORMATION: Exam: CT Abdomen And Pelvis With Contrast Exam date and time: 01/15/2023 4:56 AM Age: 67 years old Clinical indication: Abdominal pain; Localized; Left lower quadrant (llq); Additional info: Llq pain TECHNIQUE: Imaging protocol: Computed tomography of the abdomen and pelvis with contrast. Radiation optimization: All CT scans at this facility use at least one of these dose optimization techniques: automated exposure control; mA and/or kV adjustment per patient size (includes targeted exams where dose is matched to clinical indication); or iterative reconstruction. Contrast material: OMNI 350; Contrast volume: 100 ml; Contrast route: INTRAVENOUS (IV); REPORTING DATA: Count of CT and Cardiac NM exams in prior 12 months: This patient has received 8 known CTs and 0 known cardiac nuclear medicine studies in the 12 months prior to the current study. COMPARISON: CT abdomen pelvis w con* [id number] 12/19/2022 3:34 PM RADIATION DOSE METRICS: Total DLP (mGy-cm): 912.09 FINDINGS: Pleural spaces: Partially visualized empyema and necrotic mass in the left lung base.. Multiple metastatic lesions in the right lung base. Liver: Multiple metastatic lesions in the liver. Gallbladder and bile ducts: Gallbladder is surgically removed. There is dilatation of the common bile duct. Pancreas: 18 mm lesion in the pancreatic tail. Spleen: Normal. No splenomegaly. Adrenal glands: Normal. No mass. Kidneys and ureters: Normal. No hydronephrosis. Stomach and bowel: There is abnormal wall thickening/mucosal edema involving a loop of small bowel in the right lower quadrant. Severe sigmoid colon diverticulosis Appendix: No evidence of appendicitis. Intraperitoneal space: Unremarkable. No free air. No significant fluid collection. Vasculature: Unremarkable. No abdominal aortic aneurysm. Lymph nodes: Unremarkable. No enlarged lymph nodes. Urinary bladder: Unremarkable as visualized. Reproductive: Unremarkable as visualized. Bones/joints: Unremarkable. No acute fracture. Soft tissues: Unremarkable. CT/CT abdomen pelvis w con* [id number] IMPRESSION: 1. There is a distal small bowel loop that demonstrates abnormal wall thickening/mucosal edema. Findings are suspicious for enteritis. 2. Stable empyema and metastatic lesions in the visualized lung bases. 3. Stable metastatic lesions within the liver. 4. 18 mm lesion in the pancreatic tail. 5. Severe sigmoid colon diverticulosis without evidence of diverticulitis
--- NOTE | 2023-01-15 03:25 | W.ED.NAVMDI ---
Documented by User: Andrea Lyons MD 01/15/23 03:28 HPI - Nausea/Vomiting/Diarrhea General: Chief complaint: Nausea/Vomiting/Diarrhea Stated complaint: N/V/D Time Seen by Provider: 01/15/23 03:18 Source: patient and EMS Mode of arrival: EMS Limitations: no limitations History of Present Illness: 67-year-old female states that she been having increasing left lower quadrant pain throughout the night she is also had multiple episodes of nausea and vomiting. She has a history of pancreatic adenocarcinoma she did have chemoradiation earlier this year she is not on it currently. She had recently been diagnosed with diverticulitis last month she been feeling improved until tonight. 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) GERD (gastroesophageal reflux disease) History of cardiac arrest History of diverticulitis History of seizures Hypertension Left hemiparesis 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 Metastatic adenocarcinoma Pleural effusion Surgical History History of appendectomy History of cholecystectomy History of esophagogastroduodenoscopy (EGD) History of foot surgery History of hysterectomy Hx of bladder repair surgery bladder Sling Hx of colonoscopy Port-A-Cath in place Family History Father Bleeding disorder Cancer Diabetes Hypertension Mother Cancer Diabetes Hypertension Thyroid disease Denies family history of Chronic kidney disease (CKD) Stroke Social History Smoking and tobacco/nicotine status: never used tobacco/nicotine Alcohol intake: never Physical Exam Const: COMMON NORMALS: patient oriented x3 HENMT: COMMON NORMALS: normocephalic and atraumatic HEAD & SCALP: normocephalic and atraumatic Eye: COMMON NORMALS: Equal, round and reactive pupils present and EOMs intact bilaterally PUPIL: Yes Equal, round and reactive pupils present Neck/C-Spine: COMMON NORMALS: full ROM and supple Chest: COMMONS NORMALS: normal inspection of the chest and normal palpation of entire chest wall Resp: COMMON NORMALS: normal respiratory effort, No retractions, No use of accessory muscles and clear to auscultation bilaterally AUSCULTATION: clear to auscultation bilaterally Cardio: COMMON NORMALS: regular rate, regular rhythm and No murmurs present (Cardio) RATE: regular rate RHYTHM: regular rhythm GI: COMMON NORMALS: Normal to inspection, nondistended, normoactive bowel sounds present, Soft to palpation and no masses PALPATION: Yes Soft to palpation and Yes Tenderness to palpation present (GI) Details: LLQ Extremity: COMMON NORMALS: normal to inspection and full ROM Neuro: COMMON NORMALS: patient oriented x3, moves all extremities and no focal motor deficits Psych: COMMON NORMALS: mental status grossly normal, Normal thought process present and cooperative THOUGHT PROCESS: Normal thought process present Skin: COMMON NORMALS: no rashes or lesions noted and no wounds GENERAL SKIN EXAM: no rashes or lesions noted Course Vital Signs: Vital signs: Vital Signs Temperature 97.5 F L 01/15/23 03:19 Pulse Rate 105 H 01/15/23 07:00 Respiratory Rate 16 01/15/23 07:00 Blood Pressure 128/74 01/15/23 07:00 Pulse Oximetry 99 01/15/23 07:00 Oxygen Delivery Me thod Room Air 01/15/23 03:19 MDM - Nausea/Vomiting/Diarrhea Lab Data 01/15/23 03:54 01/15/23 03:54 Radiology Impressions Abdomen/Pelvis CT 01/15/23 03:23 IMPRESSION: 1. There is a distal small bowel loop that demonstrates abnormal wall thickening/mucosal edema. Findings are suspicious for enteritis. 2. Stable empyema and metastatic lesions in the visualized lung bases. 3. Stable metastatic lesions within the liver. 4. 18 mm lesion in the pancreatic tail. 5. Severe sigmoid colon diverticulosis without evidence of diverticulitis Laboratory Results WBC 11.97 10^3/uL (3.29-11.43) H 01/15/23 03:54 RBC 4.54 10^6/uL (3.85-5.65) 01/15/23 03:54 Hgb 13.00 g/dL (11.27-16.99) 01/15/23 03:54 Hct 40.1 % (36-47) 01/15/23 03:54 MCV 88.3 fl (85-98) 01/15/23 03:54 MCH 28.6 pg (27-33) 01/15/23 03:54 MCHC 32.4 g/dL (30-55) 01/15/23 03:54 RDW 15.4 % (12.1-15.1) H 01/15/23 03:54 Plt Count 325 10^3/cmm (157-399) 01/15/23 03:54 MPV 10.1 fL (7.4-10.4) 01/15/23 03:54 Neut % (Auto) 79.1 % 01/15/23 03:54 Lymph % (Auto) 10.8 % 01/15/23 03:54 [place] % (Auto) 9.1 % 01/15/23 03:54 Eos % (Auto) 0.1 % 01/15/23 03:54 Baso % (Auto) 0.5 % 01/15/23 03:54 Neut # (Auto) 9.47 10^3/uL (1.8-7.7) H 01/15/23 03:54 Lymph # (Auto) 1.3 10^3/uL (0.8-4.8) 01/15/23 03:54 [place] # (Auto) 1.1 10^3/uL (0.2-0.9) H 01/15/23 03:54 Eos # (Auto) 0.0 10^3/uL (0.0-0.8) 01/15/23 03:54 Baso # (Auto) 0.1 10^3/uL (0.0-0.1) 01/15/23 03:54 Nucleated RBC % (auto) 0 % 01/15/23 03:54 Nucleated RBCs # 0.0 /100WBC 01/15/23 03:54 Sodium 135 mmol/L (136-145) L 01/15/23 03:54 Potassium 3.3 mmol/L (3.5-5.1) L 01/15/23 03:54 Chloride 104 mmol/L (98-107) 01/15/23 03:54 Carbon Dioxide 20 mmol/L (22-29) L 01/15/23 03:54 Anion Gap 14.3 (5-19) 01/15/23 03:54 BUN 29 mg/dL (8-23) H 01/15/23 03:54 Creatinine 0.9 mg/dL (0.5-0.9) 01/15/23 03:54 GFR Calculation 62.1 mL/min (90-130) L 01/15/23 03:54 Glucose 140 mg/dL (65-115) H 01/15/23 03:54 Calculated Osmolality 288 mOsm/kg (285-295) 01/15/23 03:54 Calcium 8.4 mg/dL (8.5-10.5) L 01/15/23 03:54 Total Bilirubin 0.4 mg/dL (0.15-1.2) 01/15/23 03:54 AST 14 U/L (0-32) 01/15/23 03:54 ALT 15 U/L (0-33) 01/15/23 03:54 Alkaline Phosphatase 64 U/L (35-105) 01/15/23 03:54 Total Protein 5.3 g/dL (6.6-8.7) L 01/15/23 03:54 Albumin 3.1 g/dL (3.5-5.2) L 01/15/23 03:54 Globulin 2.2 g/dL (1.3-4.6) 01/15/23 03:54 Lipase 23 U/L (13-60) 01/15/23 03:54 Urine Color Yellow (Yellow) 01/15/23 03:54 Urine Appearance Sl hazy (CLEAR) A 01/15/23 03:54 Urine pH 5 (5-7) 01/15/23 03:54 Ur Specific [place] 1.025 (1.005-1.030) 01/15/23 03:54 Urine Protein 1+ (Negative) H 01/15/23 03:54 Urine Glucose (UA) Norm (Normal) 01/15/23 03:54 Urine Ketones 1+ (Negative) H 01/15/23 03:54 Urine Blood 3+ (Negative) H 01/15/23 03:54 Urine Nitrate Negative (Negative) 01/15/23 03:54 Urine Bilirubin 1+ (Negative) H 01/15/23 03:54 Urine Urobilinogen Neg mg/dL (Negative) 01/15/23 03:54 Ur Leukocyte Esterase Negative (Negative) 01/15/23 03:54 Urine RBC 5-10 /hpf (0-2) H 01/15/23 03:54 Urine WBC None /hpf (0-5) 01/15/23 03:54 Ur Squamous Epith Cells 0-4 /hpf (0-5) H 01/15/23 03:54 Calcium Oxalate Crystal 10-15 /hpf H 01/15/23 03:54 Amorphous Sediment Not Reportable 01/15/23 03:54 Urine Bacteria Trace /hpf (NONE) 01/15/23 03:54 Urine Mucus 2+ /hpf 01/15/23 03:54 Discharge Plan Discharge Patient Disposition: Admitted As Inpatient Clinical Impression: Metastatic adenocarcinoma, History of chemotherapy, Pleural effusion, Enterocolitis Condition: Stable Coding Level of Care Code ED Location Manager for Chg Fwd Documented by User: Matteo Esteban DO 01/15/23 07:29 HPI - Nausea/Vomiting/Diarrhea General: Chief complaint: Nausea/Vomiting/Diarrhea Stated complaint: N/V/D Time Seen by Provider: 01/15/23 03:18 PFSH ED PFSH: Medical History Anxiety and depression DVT (deep venous thrombosis) Empyema of left pleural space Encephalopathy 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) GERD (gastroesophageal reflux disease) History of cardiac arrest History of diverticulitis History of seizures Hypertension Left hemiparesis 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 Metastatic adenocarcinoma Pleural effusion Surgical History History of appendectomy History of cholecystectomy History of esophagogastroduodenoscopy (EGD) History of foot surgery History of hysterectomy Hx of bladder repair surgery bladder Sling Hx of colonoscopy Port-A-Cath in place Family History Father Bleeding disorder Cancer Diabetes Hypertension Mother Cancer Diabetes Hypertension Thyroid disease Denies family history of Chronic kidney disease (CKD) Stroke Social History Smoking and tobacco/nicotine status: never used tobacco/nicotine Alcohol intake: never Course Vital Signs: Vital signs: Vital Signs Temperature 97.5 F L 01/15/23 03:19 Pulse Rate 105 H 01/15/23 07:00 Respiratory Rate 16 01/15/23 07:00 Blood Pressure 128/74 01/15/23 07:00 Pulse Oximetry 99 01/15/23 07:00 Oxygen Delivery Me thod Room Air 01/15/23 03:19 MDM - Nausea/Vomiting/Diarrhea Medical Decision Making Care assumed at change of shift chart reviewed, past medical history reviewed and previous notes. Labs and imaging from today's visit reviewed. Patient has metastatic lesion to the ribs and sternum with pathologic fracture of the sternum. She is on a second line chemotherapy. I discussed this with Dr. Carvalho. He said this is a typical side effect of the chemotherapeutic agent she is currently on it causes changes that will appear as colitis on the CT. He does recommend continuing antibiotics. He agrees with observation for fluids pain control and symptomatic management. Patient was in cancer center yesterday receiving fluids despite that she still had persistent symptoms overnight. Discussed Dr. Molina orders written for admission. Dr. Marquez recommends meropenem for the enterocolitis took his C. difficile blood cultures as well. Medical Records I reviewed the patient's medical records. Lab Data I reviewed the patient's lab results. 01/15/23 03:54 01/15/23 03:54 Radiology Impressions Abdomen/Pelvis CT 01/15/23 03:23 IMPRESSION: 1. There is a distal small bowel loop that demonstrates abnormal wall thickening/mucosal edema. Findings are suspicious for enteritis. 2. Stable empyema and metastatic lesions in the visualized lung bases. 3. Stable metastatic lesions within the liver. 4. 18 mm lesion in the pancreatic tail. 5. Severe sigmoid colon diverticulosis without evidence of diverticulitis Laboratory Results WBC 11.97 10^3/uL (3.29-11.43) H 01/15/23 03:54 RBC 4.54 10^6/uL (3.85-5.65) 01/15/23 03:54 Hgb 13.00 g/dL (11.27-16.99) 01/15/23 03:54 Hct 40.1 % (36-47) 01/15/23 03:54 MCV 88.3 fl (85-98) 01/15/23 03:54 MCH 28.6 pg (27-33) 01/15/23 03:54 MCHC 32.4 g/dL (30-55) 01/15/23 03:54 RDW 15.4 % (12.1-15.1) H 01/15/23 03:54 Plt Count 325 10^3/cmm (157-399) 01/15/23 03:54 MPV 10.1 fL (7.4-10.4) 01/15/23 03:54 Neut % (Auto) 79.1 % 01/15/23 03:54 Lymph % (Auto) 10.8 % 01/15/23 03:54 [place] % (Auto) 9.1 % 01/15/23 03:54 Eos % (Auto) 0.1 % 01/15/23 03:54 Baso % (Auto) 0.5 % 01/15/23 03:54 Neut # (Auto) 9.47 10^3/uL (1.8-7.7) H 01/15/23 03:54 Lymph # (Auto) 1.3 10^3/uL (0.8-4.8) 01/15/23 03:54 [place] # (Auto) 1.1 10^3/uL (0.2-0.9) H 01/15/23 03:54 Eos # (Auto) 0.0 10^3/uL (0.0-0.8) 01/15/23 03:54 Baso # (Auto) 0.1 10^3/uL (0.0-0.1) 01/15/23 03:54 Nucleated RBC % (auto) 0 % 01/15/23 03:54 Nucleated RBCs # 0.0 /100WBC 01/15/23 03:54 Sodium 135 mmol/L (136-145) L 01/15/23 03:54 Potassium 3.3 mmol/L (3.5-5.1) L 01/15/23 03:54 Chloride 104 mmol/L (98-107) 01/15/23 03:54 Carbon Dioxide 20 mmol/L (22-29) L 01/15/23 03:54 Anion Gap 14.3 (5-19) 01/15/23 03:54 BUN 29 mg/dL (8-23) H 01/15/23 03:54 Creatinine 0.9 mg/dL (0.5-0.9) 01/15/23 03:54 GFR Calculation 62.1 mL/min (90-130) L 01/15/23 03:54 Glucose 140 mg/dL (65-115) H 01/15/23 03:54 Calculated Osmolality 288 mOsm/kg (285-295) 01/15/23 03:54 Calcium 8.4 mg/dL (8.5-10.5) L 01/15/23 03:54 Total Bilirubin 0.4 mg/dL (0.15-1.2) 01/15/23 03:54 AST 14 U/L (0-32) 01/15/23 03:54 ALT 15 U/L (0-33) 01/15/23 03:54 Alkaline Phosphatase 64 U/L (35-105) 01/15/23 03:54 Total Protein 5.3 g/dL (6.6-8.7) L 01/15/23 03:54 Albumin 3.1 g/dL (3.5-5.2) L 01/15/23 03:54 Globulin 2.2 g/dL (1.3-4.6) 01/15/23 03:54 Lipase 23 U/L (13-60) 01/15/23 03:54 Urine Color Yellow (Yellow) 01/15/23 03:54 Urine Appearance Sl hazy (CLEAR) A 01/15/23 03:54 Urine pH 5 (5-7) 01/15/23 03:54 Ur Specific [place] 1.025 (1.005-1.030) 01/15/23 03:54 Urine Protein 1+ (Negative) H 01/15/23 03:54 Urine Glucose (UA) Norm (Normal) 01/15/23 03:54 Urine Ketones 1+ (Negative) H 01/15/23 03:54 Urine Blood 3+ (Negative) H 01/15/23 03:54 Urine Nitrate Negative (Negative) 01/15/23 03:54 Urine Bilirubin 1+ (Negative) H 01/15/23 03:54 Urine Urobilinogen Neg mg/dL (Negative) 01/15/23 03:54 Ur Leukocyte Esterase Negative (Negative) 01/15/23 03:54 Urine RBC 5-10 /hpf (0-2) H 01/15/23 03:54 Urine WBC None /hpf (0-5) 01/15/23 03:54 Ur Squamous Epith Cells 0-4 /hpf (0-5) H 01/15/23 03:54 Calcium Oxalate Crystal 10-15 /hpf H 01/15/23 03:54 Amorphous Sediment Not Reportable 01/15/23 03:54 Urine Bacteria Trace /hpf (NONE) 01/15/23 03:54 Urine Mucus 2+ /hpf 01/15/23 03:54 All radiology interpretation(s) finalized by discharge Discharge Plan Discharge Patient Disposition: Admitted As Inpatient Clinical Impression: Metastatic adenocarcinoma, History of chemotherapy, Pleural effusion, Enterocolitis Condition: Stable Coding Level of Care Code ED Location Manager for Adolfo Olson
[2023-01-15] MEDS: ondansetron 2 mg/ML SDV 2 mL 4 MG IVP ×2 (03:32→22:28)
[2023-01-15] MEDS: HYDROmorphone 1 mg/mL INJ 1 mL IVP (03:34)
[2023-01-15 03:59] LABS: Basophils # 0.1 10^3/uL (0.0-0.1); Basophils % 0.5 %; Eosinophils % 0.1 %; Hematocrit 40.1 % (36-47); Lymphocytes # 1.3 10^3/uL (0.8-4.8); Lymphocytes % 10.8 %; Mean Corpuscular HGB Conc 32.4 g/dL (30-55); Mean Corpuscular Hemoglobin 28.6 pg (27-33); Mean Corpuscular Volume 88.3 fl (85-98); Mean Platelet Volume 10.1 fL (7.4-10.4); Monocytes # 1.1 10^3/uL (0.2-0.9); Monocytes % 9.1 %; Neutrophils # 9.47 10^3/uL (1.8-7.7); Neutrophils % 79.1 %; Nucleated Red Blood Cells % 0 %; Platelet Count 325 10^3/cmm (157-399); Red Blood Count 4.54 10^6/uL (3.85-5.65); Red Cell Distribution Width 15.4 % (12.1-15.1); White Blood Count 11.97 10^3/uL (3.29-11.43)
[2023-01-15 04:15] LABS: Add Urine Microscopic? YES; Bilirubin Urine 1+ (Negative); Blood Urine 3+ (Negative); Glucose Urine UA Norm (Normal); Ketones Urine 1+ (Negative); Leukocyte Esterase Urine Negative (Negative); Nitrate Urine Negative (Negative); Protein Urine 1+ (Negative); Specific Gravity, Urine 1.025 (1.005-1.030); Urine Appearance SL Hazy (CLEAR); Urine Color Yellow (Yellow); Urobilinogen Urine Neg (Negative); pH Urine 5 (5-7)
[2023-01-15 04:16] LABS: Add Urine Culture? No; Bacteria Urine TRACE /hpf; Mucus Urine 2+ /hpf; Squamous Epithelial Cell Urine 0-4 /hpf (0-5)
[2023-01-15 04:17] LABS: Alanine Aminotransferase 15 U/L (0-33); Albumin Level 3.1 g/dL (3.5-5.2); Alkaline Phosphatase 64 U/L (35-105); Anion Gap 14.3 (5-19); Aspartate Amino Transferase 14 U/L (0-32); Blood Urea Nitrogen 29 mg/dL (8-23); Calcium 8.4 mg/dL (8.5-10.5); Carbon Dioxide 20 mmol/L (22-29); Chloride 104 mmol/L (98-107); Creatinine Clr Calc Pharmacy 58.0072; Globulin 2.2 g/dL (1.3-4.6); Glomerular Filtration Rate 62.1 mL/min (90-130); Glucose 140 mg/dL (65-115); Lipase 23 U/L (13-60); Osmolality Calculated 288 mOsm/kg (285-295); Potassium 3.3 mmol/L (3.5-5.1); Sodium 135 mmol/L (136-145); Total Bilirubin 0.4 mg/dL (0.15-1.2); Total Protein 5.3 g/dL (6.6-8.7)
[2023-01-15] MEDS: sodium chloride 0.9% 1,000 ML 999 ML IV ×2 (04:26→07:21)
[2023-01-15] MEDS: iohexol 350 mg/mL 500 mL Btl (per mL) IV (05:06)
[2023-01-15] MEDS: promethazine 25 mg/mL SDV 1 mL IM (07:24)
[2023-01-15] MEDS: HYDROmorphone 1 mg/mL INJ 1 mL 0.5 MG IVP (07:27)
--- NOTE | 2023-01-15 08:54 | P.HP_ITS ---
Documented by User: Alicia Diego 01/15/23 10:00 Providers/Chief Complaint Admitting Physician: Marcus Molina MD Primary Care Provider: Jennie Ramos MD Chief Complaint: N/V/D History of Present Illness Magy Ann is a 67 year old female who presented to the ED early this morning due several weeks of ongoing nausea, vomiting, and abdominal pain. She states she was walking to the bathroom last night when she fell. She does not remember the event occurring but states a friend had to clean her because she had vomited and had a bowel movement, and she had cut her arm during the fall. Her history is significant for probable pancreatic adenocarcinoma and has been receiving chemo treatment for this. Her most recent session was on 01/06/23. In November, she presented to the ED with a similar episode, and they suspected diverticulitis based on CT results and was started on antibiotics. The pt states she has not improved since the antibiotics were given. She denies anything making it better or worse, and she struggles to keep food or fluids down after ingestion without immediately vomiting or having a bout of diarrhea. She describ es her vomit as being foamy, mayorga and recently turned green , but she denies any blood in emesis. Her bowel movements are consistent with diarrhea, and she reports having blood in her stool at times. Pt also endorses pain with urination, shortness of breath, and headaches. She also estimates she has lost 8-10 pounds in the past 1-2 weeks. She denies any chest pain. Review of Systems General: Reports: 10 or more systems reviewed and unremarkable except in HPI and below Const: Reports: change in weight; Denies: fever(s) Eyes: Denies: change in vision Card: Reports: palpitations; Denies: chest pain or swelling of feet/ankles Resp: Reports: dyspnea GI: Reports: abdominal pain, nausea, vomiting, diarrhea and hematochezia; Denies: hematemesis : Reports: dysuria Musc: Reports: neck pain Medications/Allergies Home Medications Medication Instructions Recorded Confirmed Last Taken Type albuterol sulfate 90 mcg/actuation 2 inh inhalation Q8H PRN shortness 08/05/22 01/15/23 08/12/22 Rx aerosol inhaler of breath or wheezing #8.5 grams amlodipine 10 mg tablet 10 mg PO DAILY 30 days #30 tabs 11/04/22 01/15/23 12/19/22 Rx omeprazole 20 mg capsule,delayed 20 mg PO DAILY 30 days #30 caps 11/04/22 01/15/23 12/19/22 Rx release alprazolam 0.5 mg tablet (Xanax) 0.5 mg PO BID PRN anxiety or 11/13/22 01/15/23 12/19/22 Rx insomnia 30 days #60 tabs levetiracetam 750 mg tablet 1,500 mg PO BID #120 tabs 11/13/22 01/15/23 12/19/22 Rx multivitamin-ferrous 1 tab PO DAILY 11/13/22 01/15/23 12/19/22 History fumarate-folic acid 18 mg-400 mcg tablet (Complete Multivitamin-Multimineral) rivaroxaban 20 mg tablet (Xarelto) 20 mg PO DAILY 30 days #30 tabs 11/13/22 01/15/23 12/19/22 Rx loperamide 2 mg capsule (Imodium 2 mg PO Q4H PRN Diarrhea 01/06/23 01/15/23 Unknown History A-D) neomycin 1.75 mg-polymyxin 10,000 1 drp ophthalmic (eye) Q6H 01/10/23 01/15/23 Unknown Rx unit-gramicidin 0.025mg/mL eye conjunctivitis 5 days #10 mL drops Allergies Allergy/AdvReac Type Severity Reaction Status Date / Time buspirone [From BuSpar] Allergy ALGY-Anaphy Verified 01/15/23 03:25 laxis clarithromycin [From Biaxin] Allergy ALGY-Anaphy Verified 01/15/23 03:25 laxis codeine Allergy ADR-Vomitin Verified 01/15/23 03:25 g Macrolide Antibiotics Allergy ADR-Vomitin Verified 01/15/23 03:25 g Nitrate Analogues Allergy Unknown Verified 01/15/23 03:25 Penicillins Allergy ALGY-Anaphy Verified 01/15/23 03:25 laxis Quinolones Allergy Unknown Verified 01/15/23 03:25 Sulfa (Sulfonamide Allergy ALGY-Anaphy Verified 01/15/23 03:25 Antibiotics) laxis venlafaxine [From Effexor] Allergy ALGY-Anaphy Verified 01/15/23 03:25 laxis Altaplase Allergy Severe Anaphylaxis Uncoded 01/15/23 03:25 Dornase Allergy Severe Anaphylaxis Uncoded 01/15/23 03:25 zofran Allergy ALGY-Rash Uncoded 01/15/23 03:25 PFSH Acute PFSH: Medical History Anxiety and depression DVT (deep venous thrombosis) Empyema of left pleural space Encephalopathy 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) GERD (gastroesophageal reflux disease) History of cardiac arrest History of diverticulitis History of seizures Hypertension Left hemiparesis 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 Metastatic adenocarcinoma Pleural effusion Surgical History History of appendectomy History of cholecystectomy History of esophagogastroduodenoscopy (EGD) History of foot surgery History of hysterectomy Hx of bladder repair surgery bladder Sling Hx of colonoscopy Port-A-Cath in place Family History Father Bleeding disorder Cancer Diabetes Hypertension Mother Cancer Diabetes Hypertension Thyroid disease Denies family history of Chronic kidney disease (CKD) Stroke Social History Smoking and tobacco/nicotine status: never used tobacco/nicotine Alcohol intake: never Vitals/I&O/Wt Last Vital Signs Temp 97.5 F L 01/15/23 03:19 Pulse 105 H 01/15/23 07:32 Resp 16 01/15/23 07:00 BP 107/67 01/15/23 07:32 Pulse Ox 98 01/15/23 07:32 O2 Del Method Room Air 01/15/23 07:32 01/14/23 01/15/23 01/15/23 22:59 06:59 14:59 Intake Total 1000 / 1000 Balance 1000 / 1000 Weight last 48 hrs Weight 77.111 kg Physical Exam Narrative: General: alert, cooperative female. She is emotional, tearful, and tremulous throughout exam. HEENT: normocephalic, atraumatic. Neck: supple, no lymphadenopathy, no thyromegaly. Cardiac: tachycardic, regular rhythm. No murmurs appreciated. Lungs: clear to auscultation bilaterally. Abdomen: hyperactive bowel sounds in all 4 quadrants. Severe LLQ and epigastric pain, tender to palpation. No organomegaly. : deferred. Skin: minor bruising, in upper extremities. Right arm bandaged. No cyanosis, edema. Extremities: 2+ pulses in upper and lower extremities. Capillary refill 3 seconds. Data 01/15/23 03:54 01/15/23 03:54 Other Labs: Low protein (5.3), albumin (3.1) LFTs normal Lipase normal UA: 1+ protein, 1+ ketones, 3+ blood, 5-10 reds, 0-4 epithelial cells, 10-15 calcium oxalate crystals. Micro: Microbiology 01/15/23 07:52 Blood Culture - Preliminary Blood SPECIMEN COLLECTED 01/15/23 07:43 Blood Culture - Preliminary Blood SPECIMEN COLLECTED A&P Assessment and plan (1) Abdominal pain: CT scan suspicous for enteritis. Meropenem started empirically for treatment. C. difficile cultures ordered as pt has recent antibiotic use and symptoms including diarrhea. Could be chemotherapy regimen related. Will treat symptomatically with fluids, pain medication as needed. Consider Zofran for antinausea. CXR ordered due to history of empyema, metastatic disease, and abnormal CT abdomen/pelvis results. (2) Enterocolitis: Meropenem started empirically. C. diff cultures ordered. Manage symptoms with fluids, Zofran for nausesa. (3) Dehydration: Pt given 2 fluid boluses in ED. Will start on 100 cc of fluids for dehydration. Pt likely dehydrated secondary to prolonged vomiting/diarrhea. Monitor blood pressure for signs of improved fluid status. Check CBC, BMP daily. (4) Hypokalemia: Pt has had vomiting, diarrhea, and is likely dehydrated. IVFs started with supplementation of 20 KCl. BMP daily. (5) Metastatic adenocarcinoma: Pt has been receiving chemotherapy treatment. Differential diagnosis includes adenocarcinoma producing pt symptoms vs. adverse effects of chemo treatment producing GI effects. Will manage pt pain associated with malignancy. Ensure adequate hydration. (6) DVT (deep venous thrombosis): Continue pt Xarelto for history of DVT, hypercoagulability likely secondary to malignancy. Can also be used for DVT prophylaxis. Qualifiers: Affected thrombotic vein of extremity: unspecified vein of extremity Chronicity: acute DVT location: lower extremity Laterality: right Qualified Code(s): I82.401 - Acute embolism and thrombosis of unspecified deep veins of right lower extremity (7) Chronic pain: Provide pt with pain medication as needed due to metastatic disease associated pain. (8) HTN (hypertension): Hold antihypertensives due to hypotension likely secondary to dehydration. Will continue to reassess for future need to reactivate these medications. Qualifiers: Hypertension type: primary hypertension Qualified Code(s): I10 - Essential (primary) hypertension Coding Level of Care Code 47972 Diagnoses Abdominal pain R10.9 Enterocolitis K52.9 Dehydration E86.0 Hypokalemia E87.6 Metastatic adenocarcinoma C79.9 DVT (deep venous thrombosis) I82.401 Affected thrombotic vein of extremity: unspecified vein of extremity Chronicity: acute DVT location: lower extremity Laterality: right Chronic pain G89.29 HTN (hypertension) I10 Hypertension type: primary hypertension Time Spent (min) 45 Documented by User: Marcus Molina MD 01/15/23 10:05 Providers/Chief Complaint Chief Complaint: N/V/D History of Present Illness Magy Ann is a 67 year old female who presented to the ED early this morning due several weeks of ongoing nausea, vomiting, and abdominal pain. She states she was walking to the bathroom last night when she fell. She does not remember the event occurring but states a friend had to clean her because she had vomited and had a bowel movement, and she had cut her arm during the fall. Her history is significant for probable pancreatic adenocarcinoma and has been receiving chemo treatment for this. Her most recent session was on 01/06/23. In [facility], she presented to the ED with a similar episode, and they suspected diverticulitis based on CT results and was started on antibiotics. The pt states she has not improved since the antibiotics were given. She denies anything making it better or worse, and she struggles to keep food or fluids down after ingestion without immediately vomiting or having a bout of diarrhea. She describes her vomit as being foamy, mayorga and recently turned green , but she denies any blood in emesis. Her bowel movements are consistent with diarrhea, and she reports having blood in her stool at times. Pt also endorses pain with urination, shortness of breath, and headaches. She also estimates she has lost 8-10 pounds in the past 1-2 weeks. She denies any chest pain. She denies any fevers but has not taken her temperature at home. At times she is cold. The patient was seen in tandem with the medical student, and I agree with what is documented in his note which I am in the co-author. Her most re cent chemotherapy was liposomal irinotecan/5-FU. Her treatment with chemotherapy appears palliative secondary to the metastatic nature of the malignancy which is presumed to be a pancreatic origin. Medications/Allergies Home Medications Medication Instructions Recorded Confirmed Last Taken Type albuterol sulfate 90 mcg/actuation 2 inh inhalation Q8H PRN shortness 08/05/22 01/15/23 08/12/22 Rx aerosol inhaler of breath or wheezing #8.5 grams amlodipine 10 mg tablet 10 mg PO DAILY 30 days #30 tabs 11/04/22 01/15/23 12/19/22 Rx omeprazole 20 mg capsule,delayed 20 mg PO DAILY 30 days #30 caps 11/04/22 01/15/23 12/19/22 Rx release alprazolam 0.5 mg tablet (Xanax) 0.5 mg PO BID PRN anxiety or 11/13/22 01/15/23 12/19/22 Rx insomnia 30 days #60 tabs levetiracetam 750 mg tablet 1,500 mg PO BID #120 tabs 11/13/22 01/15/23 12/19/22 Rx multivitamin-ferrous 1 tab PO DAILY 11/13/22 01/15/23 12/19/22 History fumarate-folic acid 18 mg-400 mcg tablet (Complete Multivitamin-Multimineral) rivaroxaban 20 mg tablet (Xarelto) 20 mg PO DAILY 30 days #30 tabs 11/13/22 01/15/23 12/19/22 Rx loperamide 2 mg capsule (Imodium 2 mg PO Q4H PRN Diarrhea 01/06/23 01/15/23 Unknown History A-D) neomycin 1.75 mg-polymyxin 10,000 1 drp ophthalmic (eye) Q6H 01/10/23 01/15/23 Unknown Rx unit-gramicidin 0.025mg/mL eye conjunctivitis 5 days #10 mL drops Allergies Allergy/AdvReac Type Severity Reaction Status Date / Time buspirone [From BuSpar] Allergy ALGY-Anaphy Verified 01/15/23 03:25 laxis clarithromycin [From Biaxin] Allergy ALGY-Anaphy Verified 01/15/23 03:25 laxis codeine Allergy ADR-Vomitin Verified 01/15/23 03:25 g Macrolide Antibiotics Allergy ADR-Vomitin Verified 01/15/23 03:25 g Nitrate Analogues Allergy Unknown Verified 01/15/23 03:25 Penicillins Allergy ALGY-Anaphy Verified 01/15/23 03:25 laxis Quinolones Allergy Unknown Verified 01/15/23 03:25 Sulfa (Sulfonamide Allergy ALGY-Anaphy Verified 01/15/23 03:25 Antibiotics) laxis venlafaxine [From Effexor] Allergy ALGY-Anaphy Verified 01/15/23 03:25 laxis Altaplase Allergy Severe Anaphylaxis Uncoded 01/15/23 03:25 Dornase Allergy Severe Anaphylaxis Uncoded 01/15/23 03:25 zofran Allergy ALGY-Rash Uncoded 01/15/23 03:25 PFSH Acute PFSH: Medical History Anxiety and depression DVT (deep venous thrombosis) Empyema of left pleural space Encephalopathy 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 injury versus posterior reversible encephalopat hy syndrome (PRES) GERD (gastroesophageal reflux disease) History of cardiac arrest History of diverticulitis History of seizures Hypertension Left hemiparesis 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 Metastatic adenocarcinoma Pleural effusion Surgical History History of appendectomy History of cholecystectomy History of esophagogastroduodenoscopy (EGD) History of foot surgery History of hysterectomy Hx of bladder repair surgery bladder Sling Hx of colonoscopy Port-A-Cath in place Family History Father Bleeding disorder Cancer Diabetes Hypertension Mother Cancer Diabetes Hypertension Thyroid disease Denies family history of Chronic kidney disease (CKD) Stroke Social History Smoking and tobacco/nicotine status: never used tobacco/nicotine Alcohol intake: never Physical Exam Narrative: General: alert, cooperative female. She is emotional, tearful, and tremulous throughout exam. HEENT: normocephalic, atraumatic. Neck: supple, no lymphadenopathy, no thyromegaly. Cardiac: tachycardic, regular rhythm. No murmurs appreciated. Lungs: clear to auscultation bilaterally. Abdomen: hyperactive bowel sounds in all 4 quadrants. LLQ and epigastric pain, tender to palpation. No organomegaly. : deferred. Skin: minor bruising, in upper extremities. Right arm bandaged. No cyanosis, edema. Extremities: 2+ pulses in upper and lower extremities. Capillary refill less than 2 seconds Data 01/15/23 03:54 01/15/23 03:54 Other Labs: Low protein (5.3), albumin (3.1) LFTs normal Lipase normal UA: 1+ protein, 1+ ketones, 3+ blood, 5-10 reds, 0-4 epithelial cells, 10-[address] abdomen pelvis demonstrates a distal small bowel loop, demonstrating some thickening and mucosal edema suspicious for enteritis. Multiple metastatic lesions are noted in the lung base, liver, a lesion in the pancreatic tail. Severe colon diverticulosis without evidence of diverticulitis. Necrotic mass noted left lung base. I reviewed the study personally. I have ordered a chest x-ray. A&P Assessment and plan (1) Abdominal pain: CT scan suspicous for enteritis. Meropenem started empirically for treatment. Blood cultures obtained prior to antibiotics. C. difficile cultures ordered as pt has recent antibiotic use and symptoms including diarrhea. Could be chemotherapy regimen related. Will treat symptomatically with fluids, pain medication as needed. Consider Zofran for antinausea. CXR ordered due to history of empyema, metastatic disease, and abnormal CT abdomen/pelvis results. (2) Enterocolitis: (3) Dehydration: (4) Hypokalemia: Pt has had vomiting, diarrhea, and is likely dehydrated. IVFs started with supplementation of 20 KCl. BMP daily. Check magnesium level in the morning as well. (5) Metastatic adenocarcinoma: Pt has been receiving chemotherapy treatment. Differential diagnosis includes adenocarcinoma producing pt symptoms vs. adverse effects of chemo treatment producing GI effects. Will manage pt pain associated with malignancy. Ensure adequate hydration. Dilaudid as needed for breakthrough pain. Been taking p.o. well oxycodone can be used. (6) DVT (deep venous thrombosis): Qualifiers: Affected thrombotic vein of extremity: unspecified vein of extremity Chronicity: acute DVT location: lower extremity Laterality: right Qualified Code(s): I82.401 - Acute embolism and thrombosis of unspecified deep veins of right lower extremity (7) Chronic pain: Provide pt with pain medication as needed due to metastatic disease associated pain. See notations under metastatic adenocarcinoma (8) HTN (hypertension): Qualifiers: Hypertension type: primary hypertension Qualified Code(s): I10 - Essential (primary) hypertension Plan Other medical problems as outlined in past medical history Full code currently. I discussed with her extensively her CODE STATUS. We will continue her Xarelto which will suffice for DVT prophylaxis. Attestations Medical Necessity Statement*: Will require greater than 2 midnight stay for evaluation and treatment of enteritis, dehydration Diagnoses Abdominal pain R10.9 Enterocolitis K52.9 Dehydration E86.0 Hypokalemia E87.6 Metastatic adenocarcinoma C79.9 DVT (deep venous thrombosis) I82.401 Affected thrombotic vein of extremity: unspecified vein of extremity Chronicity: acute DVT location: lower extremity Laterality: right Chronic pain G89.29 HTN (hypertension) I10 Hypertension type: primary hypertension Time Spent (min) 45
--- NOTE | 2023-01-15 09:36 | XRR_ITS ---
PROCEDURE INFORMATION: Exam: XR Chest Exam date and time: 01/15/2023 9:43 AM Age: 67 years old Clinical indication: Other: Vomiting, pain, immunosuppressed; Patient HX: HX of pancreatic cancer TECHNIQUE: Imaging protocol: Radiologic exam of the chest. Views: 1 view. COMPARISON: CT chest abdpel w/*[id number] 11/25/2022 3:00 PM FINDINGS: Tubes, catheters and devices: Right Infusaport catheter in place. Lungs: Near complete opacification left hemithorax. Diffuse nodular densities throughout the right hemithorax. Pleural spaces: Unremarkable. Loculated left pleural effusion. No pneumothorax. Heart/Mediastinum: Unremarkable. No cardiomegaly. Bones/joints: Unremarkable. XR/XR chest 1V portable [id number] IMPRESSION: Near complete opacification of the left hemithorax with pleural and parenchymal opacities. Diffuse nodular densities throughout the right hemithorax.
[2023-01-15] MEDS: meropenem 1,000 MG in sodium chloride 0.9% (plus) 50 ML 100 MG IV ×2 (13:40→17:47)
[2023-01-15] MEDS: sodium chlor 0.9% + KCl 20 mEq 20 MEQ/1,000 ML BAG 100 MEQ IV ×2 (13:41→22:30)
[2023-01-15] MEDS: pantoprazole 40 mg SDV IVP ×2 (13:41→22:28)
[2023-01-15] MEDS: levETIRAcetam 500 mg Tablet 1500 MG PO (17:46)
[2023-01-16] VITALS (9 sets, daily range): BP systolic 98–126; BP diastolic 62–72; PULSE 98–115; RESP 16–18; TEMP 36.3–37.2; O2SAT 96–100
[2023-01-16] MEDS: meropenem 1,000 MG in sodium chloride 0.9% (plus) 50 ML 100 MG IV ×3 (02:25→17:39)
[2023-01-16 03:10] LABS: Bacillus cereus group Not Detected (NOT DETECT); Bacillus subtillis group Not Detected (NOT DETECT); Corynebacterium Not Detected (NOT DETECT); Cutibacterium acnes (P.acnes) Not Detected (NOT DETECT); Enterococcus Not Detected (NOT DETECT); Enterococcus faecalis Not Detected (NOT DETECT); Enterococcus faecium Not Detected (NOT DETECT); Lactobacillus species Not Detected (NOT DETECT); Listeria Not Detected (NOT DETECT); Listeria monocytogenes Not Detected (NOT DETECT); Micrococcus Not Detected (NOT DETECT); Pan Candida Not Detected (NOT DETECT); Pan Gram-Negative Not Detected (NOT DETECT); Staphylococcus epidermidis Detected (NOT DETECT); Staphylococcus lugdunensis Not Detected (NOT DETECT); Staphylococcus species Detected (NOT DETECT); Streptococcus agalactiae Not Detected (NOT DETECT); Streptococcus anginosus group Not Detected (NOT DETECT); Streptococcus pneumoniae Not Detected (NOT DETECT); Streptococcus pyogenes Not Detected (NOT DETECT); Streptococcus species Not Detected (NOT DETECT); mecA Detected (NOT DETECT); mecC Not Detected (NOT DETECT)
[2023-01-16 05:14] LABS: Basophils # 0.1 10^3/uL (0.0-0.1); Basophils % 0.9 %; Eosinophils # 0.1 10^3/uL (0.0-0.8); Eosinophils % 1.7 %; Hematocrit 34.9 % (36-47); Lymphocytes # 1.8 10^3/uL (0.8-4.8); Lymphocytes % 21.8 %; Mean Corpuscular HGB Conc 32.4 g/dL (30-55); Mean Corpuscular Hemoglobin 28.8 pg (27-33); Mean Platelet Volume 10.2 fL (7.4-10.4); Monocytes # 0.6 10^3/uL (0.2-0.9); Neutrophils # 5.45 10^3/uL (1.8-7.7); Nucleated Red Blood Cells % 0 %; Platelet Count 260 10^3/cmm (157-399); Red Blood Count 3.92 10^6/uL (3.85-5.65); White Blood Count 8.02 10^3/uL (3.29-11.43)
[2023-01-16 05:36] LABS: Alanine Aminotransferase 13 U/L (0-33); Albumin Level 2.5 g/dL (3.5-5.2); Alkaline Phosphatase 53 U/L (35-105); Anion Gap 11.2 (5-19); Aspartate Amino Transferase 22 U/L (0-32); Blood Urea Nitrogen 18 mg/dL (8-23); Calcium 7.8 mg/dL (8.5-10.5); Carbon Dioxide 20 mmol/L (22-29); Chloride 114 mmol/L (98-107); Globulin 1.8 g/dL (1.3-4.6); Glucose 111 mg/dL (65-115); Magnesium 1.7 mg/dL (1.7-2.3); Osmolality Calculated 297 mOsm/kg (285-295); Potassium 3.2 mmol/L (3.5-5.1); Sodium 142 mmol/L (136-145); Total Bilirubin 0.4 mg/dL (0.15-1.2); Total Protein 4.3 g/dL (6.6-8.7)
--- NOTE | 2023-01-16 09:19 | P.PN_ITS ---
Documented by User: Alicia Diego 01/16/23 09:41 Subjective Subjective: Overnight, pt states she tried taking clear liquids and did not have vomiting with this, although she reports dry heaving. She also estimates having 6-7 bouts of voluminous diarrhea. Since yesterday, she has also developed productive cough with clear sputum and shortness of breath. She states her abdominal pain overall has improved. She denies any chest pain, headaches, or palpitations. All other ROS is negative. Vitals/I&O/Wt Last Vital Signs Temp 97.9 F 01/16/23 07:43 Pulse 100 01/16/23 07:43 Resp 16 01/16/23 07:43 BP 109/71 01/16/23 07:43 Pulse Ox 96 01/16/23 07:43 O2 Del Method Room Air 01/16/23 07:43 01/15/23 01/16/23 01/16/23 22:59 06:59 14:59 Intake Total 1980.667 / 3461.667 50 / 3511.667 Balance 1980. / 3461.667 50 / 3511.667 Weight last 48 hrs Weight 77.111 kg Physical Exam Narrative: General: pt is alert, cooperative, and conversant. She was receiving IV fluids during encounter. Neck: supple, no thyromegaly. Cardiac: tachycardic, normal rhythm. No murmurs appreciated. Respiratory: crackles present bilaterally. Pt had difficulty with deep inspiration without coughing. Abdomen: normoactive bowel sounds in all 4 quadrants. Improved tenderness to palpation from yesterday. Extremities: 2+ pulses in upper and lower extremities. Brisk capillary refill. Data 01/16/23 04:59 01/16/23 04:59 Other Labs: Protein 4.3, albumin 2.5 Magnesium normal. C diff PCR pending Blood cultures from yesterday show gram positive cocci in clusters in 1 of 4 bottles after one day. Awaiting further results. Another blood culture obtained today. Awaiting results. Micro: Microbiology 01/16/23 08:40 Blood Culture - Preliminary Blood SPECIMEN COLLECTED 01/16/23 09:05 Blood Culture - Preliminary Blood SPECIMEN COLLECTED 01/15/23 07:43 Blood Culture - Preliminary Blood NEGATIVE TO DATE 01/15/23 07:52 Blood Culture - Preliminary Blood A&P Assessment and plan (1) Abdominal pain: CT scan suspicous for enteritis. Meropenem started empirically yesterday for treatment. Blood cultures obtained prior to antibiotics. After one day, prelim results show gram positive cocci in clusters in 1 of 4 bottles. Will follow for further results. Concern for infection, possibly of port. Will start vancomycin empirically for treatment. New blood cultures obtained prior to new antibiotics. C. difficile cultures ordered as pt has recent antibiotic use and symptoms including diarrhea. Awaiting results. Could be chemotherapy regimen related. Will treat symptomatically with fluids, pain medication as needed. Zofran for antinausea. CXR ordered yesterday due to history of empyema, metastatic disease, and abnormal CT abdomen/pelvis results. CXR remains unchanged from previous imaging showing left hemithorax with pleural and parenchymal opacities and nodular densities in right hemithorax. (2) Enterocolitis: Meropenem started empirically. C. diff cultures ordered. Results pending. Manage symptoms with fluids, Zofran for nausesa. (3) Dehydration: Continue IVFs for dehydration. Pt likely dehydrated secondary to prolonged vomiting/diarrhea. Monitor blood pressure for signs of improved fluid status. Check CBC, BMP daily. (4) Hypokalemia: Pt has had vomiting, diarrhea, and is likely dehydrated. Will continue IVFs with 20 KCl plus 100 mL of KCl via IV once to supplement. Magnesium normal. BMP daily. (5) Metastatic adenocarcinoma: Pt has been receiving chemotherapy treatment. Differential diagnosis includes adenocarcinoma producing pt symptoms vs. adverse effects of chemo treatment producing GI effects. Will manage pt pain associated with malignancy. Ensure adequate hydration. Dilaudid as needed for breakthrough pain. Been taking p.o. well oxycodone can be used. (6) DVT (deep venous thrombosis): Continue pt Xarelto for history of DVT, hypercoagulability likely secondary to malignancy. Can also be used for DVT prophylaxis. Qualifiers: Affected thrombotic vein of extremity: unspecified vein of extremity Chronicity: acute DVT location: lower extremity Laterality: right Qualified Code(s): I82.401 - Acute embolism and thrombosis of unspecified deep veins of right lower extremity (7) Chronic pain: Provide pt with pain medication as needed due to metastatic disease associated pain. See notations under metastatic adenocarcinoma (8) HTN (hypertension): Hold antihypertensives due to hypotension likely secondary to dehydration. Will continue to reassess for future need to reactivate these medications. Qualifiers: Hypertension type: primary hypertension Qualified Code(s): I10 - Essential (primary) hypertension Plan Other medical problems as outlined in past medical history Full code currently. I discussed with her extensively her CODE STATUS. We will continue her Xarelto which will suffice for DVT prophylaxis. Coding Level of Care Code 80131 Diagnoses Abdominal pain R10.9 Enterocolitis K52.9 Dehydration E86.0 Hypokalemia E87.6 Metastatic adenocarcinoma C79.9 DVT (deep venous thrombosis) I82.401 Affected thrombotic vein of extremity: unspecified vein of extremity Chronicity: acute DVT location: lower extremity Laterality: right Chronic pain G89.29 HTN (hypertension) I10 Hypertension type: primary hypertension Time Spent (min) 20 Documented by User: Marcus Molina MD 01/16/23 09:51 Subjective Subjective: Overnight, pt states she tried taking clear liquids and did not have vomiting with this, although she reports dry heaving. She also estimates having 6-7 bouts of voluminous diarrhea. Since yesterday, she has also developed productive cough with clear sputum and shortness of breath. She states her abdominal pain overall has improved. She denies any chest pain, headaches, or palpitations. All other ROS is negative. Reports nontender with medical student, and I co-crafted this note Medications: Reviewed: Yes Data 01/16/23 04:59 01/16/23 04:59 A&P Assessment and plan (1) Abdominal pain: CT scan suspicous for enteritis. Meropenem started empirically yesterday for treatment. Blood cultures obtained prior to antibiotics. After one day, prelim results show gram positive cocci in clusters in 1 of 4 bottles. Will follow for further results. Concern for infection, possibly of port. Will start vancomycin empirically for treatment. Repeat blood cultures obtained prior to new a ntibiotics. C. difficile cultures ordered as pt has recent antibiotic use and symptoms including diarrhea. Awaiting results. Could be chemotherapy regimen related. Will treat symptomatically with fluids, pain medication as needed. Zofran for antinausea. CXR ordered yesterday due to history of empyema, metastatic disease, and abnormal CT abdomen/pelvis results. CXR remains unchanged from previous imaging showing left hemithorax with pleural and parenchymal opacities and nodular densities in right hemithorax. Lomotil times one secondary to diarrhea until CDiff known. (2) Enterocolitis: Meropenem started empirically. C. diff cultures ordered. Results pending. Manage symptoms with fluids, Zofran for nausesa. As slightly better reduce fluids slightly. (3) Dehydration: (4) Hypokalemia: Pt has had vomiting, diarrhea, and is likely dehydrated. Will continue IVFs with 20 KCl plus 100 mL of KCl via IV once to supplement. 40 mill covers potassium p.o., and IV in addition Magnesium normal. BMP daily. (5) Metastatic adenocarcinoma: (6) DVT (deep venous thrombosis): Continue pt Xarelto for history of DVT, hypercoagulability likely secondary to malignancy. Will also be used for DVT prophylaxis. Qualifiers: Affected thrombotic vein of extremity: unspecified vein of extremity Chronicity: acute DVT location: lower extremity Laterality: right Qualified Code(s): I82.401 - Acute embolism and thrombosis of unspecified deep veins of right lower extremity (7) Chronic pain: (8) HTN (hypertension): Qualifiers: Hypertension type: primary hypertension Qualified Code(s): I10 - Essential (primary) hypertension Attestations Medical Necessity Statement*: Needs continued hospital stay secondary to continued pain, need for continued IV antibiotics for treatment of enteritis, now with positive blood culture with possible bacteremia. Diagnoses Abdominal pain R10.9 Enterocolitis K52.9 Dehydration E86.0 Hypokalemia E87.6 Metastatic adenocarcinoma C79.9 DVT (deep venous thrombosis) I82.401 Affected thrombotic vein of extremity: unspecified vein of extremity Chronicity: acute DVT location: lower extremity Laterality: right Chronic pain G89.29 HTN (hypertension) I10 Hypertension type: primary hypertension Time Spent (min) 20
[2023-01-16] MEDS: levETIRAcetam 500 mg Tablet 1500 MG PO ×2 (10:01→17:39)
[2023-01-16] MEDS: rivaroxaban 10 mg Tablet 20 MG PO (10:01)
[2023-01-16] MEDS: sodium chlor 0.9% + KCl 20 mEq 20 MEQ/1,000 ML BAG 100 MEQ IV (10:02)
[2023-01-16] MEDS: pantoprazole 40 mg SDV IVP ×2 (10:02→21:55)
[2023-01-16] MEDS: vancomycin 1,000 MG in sodium chloride 0.9% 250 ML 250 MG IV ×2 (12:03→20:37)
[2023-01-16] MEDS: diphenoxylate/atropine Tablet 1 TAB PO (12:04)
[2023-01-16] MEDS: potassium chloride ER 20 mEq Tablet 40 MEQ PO (12:04)
[2023-01-16] MEDS: potassium chloride premix 100 ML 25 MEQ IV (12:15)
[2023-01-17] VITALS (14 sets, daily range): BP systolic 96–117; BP diastolic 59–74; PULSE 80–105; RESP 15–22; TEMP 36.5–37.3; O2SAT 93–99
[2023-01-17] MEDS: meropenem 1,000 MG in sodium chloride 0.9% (plus) 50 ML 100 MG IV ×3 (02:15→18:01)
[2023-01-17] MEDS: sodium chlor 0.9% + KCl 20 mEq 20 MEQ/1,000 ML BAG 100 MEQ IV (04:02)
[2023-01-17 05:41] LABS: Basophils % 0.3 %; Eosinophils # 0.1 10^3/uL (0.0-0.8); Hematocrit 33.4 % (36-47); Lymphocytes % 15.5 %; Mean Corpuscular HGB Conc 32.3 g/dL (30-55); Mean Corpuscular Hemoglobin 28.8 pg (27-33); Mean Corpuscular Volume 89.1 fl (85-98); Mean Platelet Volume 10.3 fL (7.4-10.4); Monocytes # 0.5 10^3/uL (0.2-0.9); Monocytes % 7.6 %; Neutrophils # 5.03 10^3/uL (1.8-7.7); Neutrophils % 74.9 %; Nucleated Red Blood Cells % 0 %; Platelet Count 229 10^3/cmm (157-399); Red Blood Count 3.75 10^6/uL (3.85-5.65); Red Cell Distribution Width 16.3 % (12.1-15.1); White Blood Count 6.72 10^3/uL (3.29-11.43)
[2023-01-17 06:16] LABS: Alanine Aminotransferase 12 U/L (0-33); Albumin Level 2.3 g/dL (3.5-5.2); Alkaline Phosphatase 48 U/L (35-105); Anion Gap 11.1 (5-19); Aspartate Amino Transferase 11 U/L (0-32); Blood Urea Nitrogen 8 mg/dL (8-23); Calcium 7.7 mg/dL (8.5-10.5); Carbon Dioxide 20 mmol/L (22-29); Chloride 113 mmol/L (98-107); Globulin 1.7 g/dL (1.3-4.6); Glucose 94 mg/dL (65-115); Magnesium 1.6 mg/dL (1.7-2.3); Osmolality Calculated 290 mOsm/kg (285-295); Potassium 3.1 mmol/L (3.5-5.1); Sodium 141 mmol/L (136-145); Total Bilirubin 0.2 mg/dL (0.15-1.2)
--- NOTE | 2023-01-17 08:44 | PM.PN ---
Documented by User: Alicia Diego 01/17/23 09:07 Subjective Subjective: Today, pt reports continued diarrhea with approximately 6-8 stools last night. She continues to be short of breath with productive cough, worse at night, and had an episode of coughing last night that resulted in an accompanying bout of diarrhea. Yesterday, she tolerated clear liquids without vomiting, so she felt well enough to try a soft foods diet. However, she did not like the dinner options, so she did not eat last night, but she remains without vomiting or nausea. She denies chest pain or palpitations. All other ROS are negative except that mentioned above. Vitals/I&O/Wt Last Vital Signs Temp 98.0 F 01/17/23 07:43 Pulse 105 H 01/17/23 07:43 Resp 17 01/17/23 07:43 BP 105/68 01/17/23 07:43 Pulse Ox 99 01/17/23 07:43 O2 Del Method Room Air 01/17/23 07:43 01/16/23 01/17/23 01/17/23 22:59 06:59 14:59 Intake Total 1650 / 2700 50 / 2750 Balance 1650 / 2700 50 / 2750 Physical Exam Narrative: General: alert, cooperative, conversant female on room air. Neck: supple, no thyromegaly, lymphadenopathy. Cardiac: tachycardiac, normal rhythm. No murmurs. Respiratory: wheezes, crackles present bilaterally. Abdomen: hyperactive bowel sounds in all four quadrants. Improved tenderness to palpations. No obvious organomegaly. Extremities: 2+ pulses in upper and lower extremities, no edema. Data 01/17/23 04:25 01/17/23 04:25 Other Labs: Magnesium low at 1.6 Protein 4.0, albumin 2.3 C diff pending Blood cultures from 01/15 show 1 of 4 bottles with gram positive cocci growth and another culture with negative growth. Repeat cultures from 01/16 are pending. MRSA and COVID ordered Vancomycin trough pending Micro: Microbiology 01/16/23 08:40 Blood Culture - Preliminary Blood SPECIMEN COLLECTED 01/16/23 09:05 Blood Culture - Preliminary Blood SPECIMEN COLLECTED 01/15/23 07:43 Blood Culture - Preliminary Blood NEGATIVE TO DATE A&P Assessment and plan (1) Abdominal pain: CT scan suspicous for enteritis. Meropenem started empirically for treatment and continues today. Blood cultures obtained prior to antibiotics. After one day, prelim results show gram positive cocci in clusters in 1 of 4 bottles. Will follow for further results. Concern for infection, possibly of port. vancomycin was started empirically yesterday for treatment. Repeat blood cultures obtained prior to new antibiotics. Repeat cultures still pending. C. difficile cultures ordered as pt has recent antibiotic use and symptoms including diarrhea. Awaiting results. Could be chemotherapy regimen related. Will treat symptomatically with fluids, pain medication as needed. Zofran for antinausea. Added another Lomotil times one today secondary to diarrhea until CDiff known. Pt has normal white count. (2) Enterocolitis: Meropenem started empirically. C. diff cultures ordered. Results pending. Manage symptoms with fluids, Zofran for nausesa. Continue fluid hydration. (3) Dehydration: Continue IVFs for dehydration. Pt likely dehydrated secondary to prolonged vomiting/diarrhea. Blood pressure remains hypotensive. Monitor blood pressure for signs of improved fluid status with further hydration. Check CBC, BMP daily. (4) Hypokalemia: Pt continues to have diarrhea and is likely dehydrated. Will continue IVFs with 20 KCl. Another 40 mill covers potassium p.o., and IV in addition Magnesium low, will supplement magnesium to also help with hypokalemia. BMP daily. (5) Metastatic adenocarcinoma: Pt has been receiving chemotherapy treatment. Differential diagnosis includes adenocarcinoma producing pt symptoms vs. adverse effects of chemo treatment producing GI effects. Will manage pt pain associated with malignancy. Ensure adequate hydration. Dilaudid as needed for breakthrough pain. Been taking p.o. well oxycodone can be used. (6) DVT (deep venous thrombosis): Continue pt Xarelto for history of DVT, hypercoagulability likely secondary to malignancy. Will also be used for DVT prophylaxis. Qualifiers: Affected thrombotic vein of extremity: unspecified vein of extremity Chronicity: acute DVT location: lower extremity Laterality: right Qualified Code(s): I82.401 - Acute embolism and thrombosis of unspecified deep veins of right lower extremity (7) Chronic pain: Provide pt with pain medication as needed due to metastatic disease associated pain. See notations under metastatic adenocarcinoma (8) HTN (hypertension): Hold antihypertensives due to hypotension likely secondary to dehydration. Will continue to reassess for future need to reactivate these medications. Qualifiers: Hypertension type: primary hypertension Qualified Code(s): I10 - Essential (primary) hypertension Plan Pt with shortness of breath cough, and new sore throat. Will order MRSA and COVID to assess for possibly coexisting respiratory infection. Pt currently being treated with empiric vancomycin based on blood culture results. Other medical problems as outlined in past medical history Full code currently. I discussed with her extensively her CODE STATUS. We will continue her Xarelto which will suffice for DVT prophylaxis. Coding Level of Care Code 02861 Diagnoses Abdominal pain R10.9 Enterocolitis K52.9 Dehydration E86.0 Hypokalemia E87.6 Metastatic adenocarcinoma C79.9 DVT (deep venous thrombosis) I82.401 Affected thrombotic vein of extremity: unspecified vein of extremity Chronicity: acute DVT location: lower extremity Laterality: right Chronic pain G89.29 HTN (hypertension) I10 Hypertension type: primary hypertension Time Spent (min) 21 Documented by User: Marcus Molina MD 01/17/23 09:14 Data 01/17/23 04:25 01/17/23 04:25 A&P Assessment and plan (1) Abdominal pain: (2) Enterocolitis: (3) Dehydration: (4) Hypokalemia: (5) Metastatic adenocarcinoma: (6) DVT (deep venous thrombosis): Qualifiers: Affected thrombotic vein of extremity: unspecified vein of extremity Chronicity: acute DVT location: lower extremity Laterality: right Qualified Code(s): I82.401 - Acute embolism and thrombosis of unspecified deep veins of right lower extremity (7) Chronic pain: (8) HTN (hypertension): Qualifiers: Hypertension type: primary hypertension Qualified Code(s): I10 - Essential (primary) hypertension Plan Pt with shortness of breath cough, and new sore throat. Will order MRSA and COVID to assess for possibly coexisting respiratory infection. Pt currently being treated with empiric vancomycin based on blood culture results. At this point I do not believe repeating thoracentesis or arranging for drainage of left chest is indicated. She has been through this at several hospitals in the past and the pleural effusion has been determined to be related to her malignancy. Other medical problems as outlined in past medical history Full code currently. I discussed with her extensively her CODE STATUS. We will continue her Xarelto which will suffice for DVT prophylaxis. I saw the patient in tandem with medical student, Co-created this note. Attestations Medical Necessity Statement*: Needs continued hospital stay for IV antibiotics related to pneumonia, and clarification of abnormal blood culture with 1/4 bottles positive. Diagnoses Abdominal pain R10.9 Enterocolitis K52.9 Dehydration E86.0 Hypokalemia E87.6 Metastatic adenocarcinoma C79.9 DVT (deep venous thrombosis) I82.401 Affected thrombotic vein of extremity: unspecified vein of extremity Chronicity: acute DVT location: lower extremity Laterality: right Chronic pain G89.29 HTN (hypertension) I10 Hypertension type: primary hypertension Time Spent (min) 21
[2023-01-17] MEDS: rivaroxaban 10 mg Tablet 20 MG PO (09:59)
[2023-01-17] MEDS: levETIRAcetam 500 mg Tablet 1500 MG PO ×2 (10:00→18:02)
[2023-01-17] MEDS: potassium chloride ER 20 mEq Tablet 40 MEQ PO ×2 (10:00→13:52)
[2023-01-17] MEDS: vancomycin 1,000 MG in sodium chloride 0.9% 250 ML 250 MG IV ×2 (10:01→21:06)
[2023-01-17] MEDS: potassium chloride premix 100 ML 25 MEQ IV (10:05)
[2023-01-17] MEDS: magnesium sulfate premix 2 GM/50 ML PIGGYBACK IV (10:05)
[2023-01-17] MEDS: pantoprazole 40 mg SDV IVP ×2 (10:33→20:42)
[2023-01-17] MEDS: acetaminophen 325 mg Tablet 650 MG PO (11:16)
--- NOTE | 2023-01-17 13:05 | PC.SOCIAL ---
Pg 2 IMM Explained to pt Pg 2 IMM. No questions voiced. Provided pt a copy. Initialed, dated, & timed a copy & placed in chart.
[2023-01-17 13:10] LABS: Adenovirus Not Detected (NOT DETECT); Chlamydia Pneumoniae Not Detected (NOT DETECT); Coronavirus 229E,HKU1,NL63,OC4 Not Detected (NOT DETECT); Human Metapneumovirus Not Detected (NOT DETECT); Human Rhinovirus/Enterovirus Not Detected (NOT DETECT); Influenza A Not Detected (NOT DETECT); Influenza A H1 Not Detected (NOT DETECT); Influenza A H1-2009 Not Detected (NOT DETECT); Influenza A H3 Not Detected (NOT DETECT); Influenza B Not Detected (NOT DETECT); Mycoplasma Pneumoniae Not Detected (NOT DETECT); Parainfluenza Virus Type 1 Not Detected (NOT DETECT); Parainfluenza Virus Type 2 Not Detected (NOT DETECT); Parainfluenza Virus Type 3 Not Detected (NOT DETECT); Parainfluenza Virus Type 4 Not Detected (NOT DETECT); Respiratory Syncytial Virus A Not Detected (NOT DETECT); Respiratory Syncytial Virus B Not Detected (NOT DETECT)
[2023-01-17 13:15] LABS: SARS-COV-2 Detected (NOT DETECT)
[2023-01-17] MEDS: dexamethasone 10 mg/mL INJ 6 MG IVP (13:53)
[2023-01-17] MEDS: ipratropium-albuterol 3 mL Neb INHALATION ×2 (14:05→20:40)
[2023-01-17] MEDS: remdesivir 200 MG in sodium chloride 0.9% (100 ml) 60 ML 100 MG IV (14:43)
[2023-01-17 15:04] LABS: Clostridium Difficile PCR NOT DETECTED (NOT DETECTED)
[2023-01-17] MEDS: sodium chlor 0.9% + KCl 20 mEq 20 MEQ/1,000 ML BAG 75 MEQ IV (20:42)
--- NOTE | 2023-01-17 20:46 | PC.NURSE ---
Addendum entered by Brittany Estevez RN 01/18/23 07:13: Dietary notified. Original Note: Patient requesting for breakfast: oatmeal with brown sugar, apple juice, and peaches.
[2023-01-17 20:54] LABS: Vancomycin Trough 13.4 ug/mL (10-15)
[2023-01-18] VITALS (14 sets, daily range): BP systolic 100–118; BP diastolic 64–74; PULSE 82–104; RESP 15–18; TEMP 36.6–36.8; O2SAT 96–100
[2023-01-18] MEDS: meropenem 1,000 MG in sodium chloride 0.9% (plus) 50 ML 100 MG IV ×3 (01:55→18:29)
[2023-01-18] MEDS: ipratropium-albuterol 3 mL Neb INHALATION ×3 (02:10→20:06)
[2023-01-18 05:22] LABS: C Reactive Protein 49.7 mg/L (0.0-4.9)
[2023-01-18] MEDS: levETIRAcetam 500 mg Tablet 1500 MG PO ×2 (09:13→18:29)
[2023-01-18] MEDS: rivaroxaban 10 mg Tablet 20 MG PO (09:13)
[2023-01-18] MEDS: vancomycin 1,000 MG in sodium chloride 0.9% 250 ML 250 MG IV ×2 (09:14→21:29)
[2023-01-18] MEDS: pantoprazole 40 mg SDV IVP ×2 (11:15→22:48)
--- NOTE | 2023-01-18 11:27 | P.PN_ITS ---
Subjective Subjective: This morning patient is on room air She is endorsing that today she felt like being, she enjoyed her breakfast She is still endorsing diarrhea No fever No significant leukocytosis She asked me today like how long does she have we talked about what Dr. Carvalho was offering and what palliative care is if she decides to opt for it however at this point I do not see any signs of deterioration Vitals/I&O/Wt Last Vital Signs Temp 98.1 F 01/18/23 11:25 Pulse 101 H 01/18/23 11:25 Resp 16 01/18/23 11:25 BP 118/74 01/18/23 11:25 Pulse Ox 100 01/18/23 11:25 O2 Del Method Room Air 01/18/23 11:25 01/17/23 01/18/23 01/18/23 22:59 06:59 14:59 Intake Total 787.5 / 1957.5 446.25 / 2403.75 370 / 370 Balance 787.5 / 1957.5 446.25 / 2403.75 370 / 370 Physical Exam Narrative: Patient is awake and alert Currently on room air Abdomen distended, tender left upper quadrant Lower; with SCDs Pleasant and cooperative Nonfocal neuro exam S1, S2 Data 01/17/23 04:25 01/17/23 04:25 Micro: Microbiology 01/16/23 09:05 Blood Culture - Preliminary Blood NEGATIVE TO DATE 01/16/23 08:40 Blood Culture - Preliminary Blood NEGATIVE TO DATE A&P Assessment and plan (1) Chronic pain: (2) Hypokalemia: (3) Dehydration: (4) Enterocolitis: (5) Abdominal pain: (6) History of chemotherapy: (7) DVT (deep venous thrombosis): Qualifiers: Affected thrombotic vein of extremity: unspecified vein of extremity Chronicity: acute DVT location: lower extremity Laterality: right Qualified Code(s): I82.401 - Acute embolism and thrombosis of unspecified deep veins of right lower extremity (8) GERD (gastroesophageal reflux disease): (9) HTN (hypertension): Qualifiers: Hypertension type: primary hypertension Qualified Code(s): I10 - Essential (primary) hypertension (10) Metastatic adenocarcinoma: (11) Port-A-Cath in place: (12) Recurrent pleural effusion on left: (13) COVID-19 determined by clinical diagnostic criteria: Plan COVID-19 New diagnosis Currently afebrile On room air No acute worsening Chronic left-sided pleural effusion No plan for thoracentesis because patient is not requiring oxygen and her left- sided pain is chronic Signs of dehydration improving continue gentle fluid hydration and may discontinue once diarrhea improves Enterocolitis Continue empirical antibiotic regimen We will change antibiotics once we get C. difficile result Avoid Imodium Metastatic adenocarcinoma Patient is full code Follows up with Dr. Carvalho Chronic pain continue opioids Hypertension: Holding off on antihypertensive regimen related to dehydration and low blood pressure Hypercoagulable state continue Xarelto with history of DVT Plan need to keep her here until Friday and then probable discharge her home if she keeps improving Today her appetite improved Attestations Medical Necessity Statement*: Continue medical management Diagnoses Chronic pain G89.29 Hypokalemia E87.6 Dehydration E86.0 Enterocolitis K52.9 Abdominal pain R10.9 History of chemotherapy Z92.21 DVT (deep venous thrombosis) I82.401 Affected thrombotic vein of extremity: unspecified vein of extremity Chronicity: acute DVT location: lower extremity Laterality: right GERD (gastroesophageal reflux disease) K21.9 HTN (hypertension) I10 Hypertension type: primary hypertension Metastatic adenocarcinoma C79.9 Port-A-Cath in place Z95.828 Recurrent pleural effusion on left J90 COVID-19 determined by clinical diagnostic criteria U07.1
[2023-01-18] MEDS: acetaminophen 325 mg Tablet 650 MG PO ×2 (13:43→21:22)
[2023-01-18] MEDS: ondansetron 2 mg/ML SDV 2 mL 4 MG IVP (13:44)
[2023-01-18] MEDS: ALPRAZolam 0.5 mg Tablet PO (13:45)
[2023-01-18] MEDS: dexamethasone 10 mg/mL INJ 6 MG IVP (13:45)
[2023-01-18] MEDS: remdesivir 100 MG in sodium chloride 0.9% (100 ml) 80 ML IV (14:27)
[2023-01-18] MEDS: sodium chlor 0.9% + KCl 20 mEq 20 MEQ/1,000 ML BAG 75 MEQ IV (15:30)
[2023-01-18] MEDS: magnesium oxide 400 mg tablet PO (18:29)
[2023-01-18] MEDS: diphenoxylate/atropine Tablet 1 TAB PO (21:22)
[2023-01-19] VITALS (10 sets, daily range): BP systolic 105–116; BP diastolic 66–90; PULSE 76–94; RESP 16–18; TEMP 36.3–36.7; O2SAT 91–100
[2023-01-19] MEDS: meropenem 1,000 MG in sodium chloride 0.9% (plus) 50 ML 100 MG IV ×3 (02:41→17:56)
[2023-01-19] MEDS: ALPRAZolam 0.5 mg Tablet PO (02:41)
[2023-01-19] MEDS: sodium chlor 0.9% + KCl 20 mEq 20 MEQ/1,000 ML BAG 75 MEQ IV ×2 (06:40→20:34)
[2023-01-19 06:44] LABS: Basophils % 0.2 %; Eosinophils % 0.2 %; Hematocrit 32.8 % (36-47); Lymphocytes # 1.4 10^3/uL (0.8-4.8); Lymphocytes % 27.8 %; Mean Corpuscular HGB Conc 31.7 g/dL (30-55); Mean Corpuscular Hemoglobin 28.3 pg (27-33); Mean Corpuscular Volume 89.4 fl (85-98); Mean Platelet Volume 9.7 fL (7.4-10.4); Monocytes # 0.5 10^3/uL (0.2-0.9); Neutrophils # 3.17 10^3/uL (1.8-7.7); Neutrophils % 61.2 %; Nucleated Red Blood Cells % 0 %; Platelet Count 264 10^3/cmm (157-399); Red Blood Count 3.67 10^6/uL (3.85-5.65); White Blood Count 5.18 10^3/uL (3.29-11.43)
[2023-01-19 07:09] LABS: Anion Gap 7.9 (5-19); Blood Urea Nitrogen 6 mg/dL (8-23); Calcium 7.7 mg/dL (8.5-10.5); Carbon Dioxide 21 mmol/L (22-29); Chloride 113 mmol/L (98-107); Glomerular Filtration Rate 122.3 mL/min (90-130); Glucose 97 mg/dL (65-115); Osmolality Calculated 284 mOsm/kg (285-295); Potassium 3.9 mmol/L (3.5-5.1); Sodium 138 mmol/L (136-145)
[2023-01-19 07:10] LABS: Magnesium 1.9 mg/dL (1.7-2.3)
[2023-01-19] MEDS: ipratropium-albuterol 3 mL Neb INHALATION ×2 (08:35→20:46)
[2023-01-19] MEDS: vancomycin 1,000 MG in sodium chloride 0.9% 250 ML 250 MG IV ×2 (09:25→21:55)
[2023-01-19] MEDS: rivaroxaban 10 mg Tablet 20 MG PO (09:25)
[2023-01-19] MEDS: levETIRAcetam 500 mg Tablet 1500 MG PO ×2 (09:25→17:56)
[2023-01-19] MEDS: magnesium oxide 400 mg tablet PO ×2 (09:25→17:56)
[2023-01-19] MEDS: pantoprazole 40 mg SDV IVP ×2 (11:47→21:48)
[2023-01-19] MEDS: dexamethasone 10 mg/mL INJ 6 MG IVP (14:42)
--- NOTE | 2023-01-19 14:50 | PM.PN ---
Subjective Subjective: Reports that she still having some diarrhea. She has not having as much nausea and vomiting. Denies other pain at this time. Medications: Reviewed: Yes Vitals/I&O/Wt Last Vital Signs Temp 97.3 F L 01/19/23 12:57 Pulse 94 01/19/23 12:57 Resp 18 01/19/23 12:57 BP 116/73 01/19/23 12:57 Pulse Ox 100 01/19/23 12:57 O2 Del Method Room Air 01/19/23 14:25 01/18/23 01/19/23 01/19/23 22:59 06:59 14:59 Intake Total 850 / 2113.75 495 / 2608.75 1460 / 1460 Balance 850 / 2113.75 495 / 2608.75 1460 / 1460 Data 01/19/23 06:28 01/19/23 06:28 A&P Assessment and plan (1) Chronic pain: (2) Hypokalemia: (3) Dehydration: (4) Enterocolitis: (5) Abdominal pain: (6) History of chemotherapy: (7) DVT (deep venous thrombosis): Qualifiers: Affected thrombotic vein of extremity: unspecified vein of extremity Chronicity: acute DVT location: lower extremity Laterality: right Qualified Code(s): I82.401 - Acute embolism and thrombosis of unspecified deep veins of right lower extremity (8) GERD (gastroesophageal reflux disease): (9) HTN (hypertension): Qualifiers: Hypertension type: primary hypertension Qualified Code(s): I10 - Essential (primary) hypertension (10) Metastatic adenocarcinoma: (11) Port-A-Cath in place: (12) Recurrent pleural effusion on left: (13) COVID-19 determined by clinical diagnostic criteria: Plan 67-year-old female admitted for COVID-19, N/V/D, dyspnea, dehydration. Continue inpatient monitoring. Dehydration appears to be improving. She is tolerating oral intake well. GI soft diet. Continue Decadron, remdesivir for COVID, vancomycin, meropenem for enterocolitis. C-diff negative. Metastatic adenocarcinoma. Follows with Dr. Carvalho. Continue pain control. Continue Xarelto for VTE PPx. Hold anti-hypertensives as blood pressures are stable. Code Status: Full IVF: NS20K @ 75hr DVT PPx: Xarelto GI PPx: Protonix ABx: Remdesivir, Vanc, Meropenem Diet: GI soft. Discharge plan: Home when able. Attestations Medical Necessity Statement*: Continue medical management Coding Level of Care Code Acute Code for Chg Fwd Moderate MDM includes number and complexity of problems actively addressed during encounter, amount and/or complexity of data reviewed/ordered and described risk of complication, morbidity or mortality of management as documented Diagnoses Chronic pain G89.29 Hypokalemia E87.6 Dehydration E86.0 Enterocolitis K52.9 Abdominal pain R10.9 History of chemotherapy Z92.21 DVT (deep venous thrombosis) I82.401 Affected thrombotic vein of extremity: unspecified vein of extremity Chronicity: acute DVT location: lower extremity Laterality: right GERD (gastroesophageal reflux disease) K21.9 HTN (hypertension) I10 Hypertension type: primary hypertension Metastatic adenocarcinoma C79.9 Port-A-Cath in place Z95.828 Recurrent pleural effusion on left J90 COVID-19 determined by clinical diagnostic criteria U07.1
[2023-01-19] MEDS: remdesivir 100 MG in sodium chloride 0.9% (100 ml) 80 ML IV (15:26)
[2023-01-19] MEDS: diphenoxylate/atropine Tablet 1 TAB PO (19:45)
[2023-01-19] MEDS: HYDROmorphone 1 mg/mL INJ 1 mL IVP (19:45)
[2023-01-19 20:56] LABS: Vancomycin Trough 19.9 ug/mL (10-15)
[2023-01-20] VITALS (16 sets, daily range): BP systolic 110–154; BP diastolic 61–81; PULSE 81–114; RESP 16–22; TEMP 36.4–36.6; O2SAT 96–99
[2023-01-20] MEDS: meropenem 1,000 MG in sodium chloride 0.9% (plus) 50 ML 100 MG IV ×2 (01:54→12:02)
[2023-01-20 04:48] LABS: Basophils % 0.4 %; Hematocrit 34.1 % (36-47); Lymphocytes # 1.1 10^3/uL (0.8-4.8); Mean Corpuscular HGB Conc 32.3 g/dL (30-55); Mean Corpuscular Hemoglobin 28.8 pg (27-33); Mean Corpuscular Volume 89.3 fl (85-98); Mean Platelet Volume 10.2 fL (7.4-10.4); Monocytes # 0.5 10^3/uL (0.2-0.9); Monocytes % 9.6 %; Neutrophils # 3.83 10^3/uL (1.8-7.7); Neutrophils % 69.5 %; Nucleated Red Blood Cells % 0 %; Platelet Count 288 10^3/cmm (157-399); Red Blood Count 3.82 10^6/uL (3.85-5.65); Red Cell Distribution Width 17.1 % (12.1-15.1); White Blood Count 5.51 10^3/uL (3.29-11.43)
[2023-01-20 05:12] LABS: Alanine Aminotransferase 24 U/L (0-33); Albumin Level 2.1 g/dL (3.5-5.2); Alkaline Phosphatase 45 U/L (35-105); Aspartate Amino Transferase 25 U/L (0-32); Blood Urea Nitrogen 5 mg/dL (8-23); C Reactive Protein 12.3 mg/L (0.0-4.9); Calcium 7.5 mg/dL (8.5-10.5); Carbon Dioxide 21 mmol/L (22-29); Chloride 113 mmol/L (98-107); Globulin 1.7 g/dL (1.3-4.6); Glomerular Filtration Rate 99.1 mL/min (90-130); Glucose 103 mg/dL (65-115); Osmolality Calculated 288 mOsm/kg (285-295); Sodium 140 mmol/L (136-145); Total Bilirubin 0.2 mg/dL (0.15-1.2); Total Protein 3.8 g/dL (6.6-8.7)
[2023-01-20] MEDS: ipratropium-albuterol 3 mL Neb INHALATION ×3 (07:22→19:37)
[2023-01-20] MEDS: rivaroxaban 10 mg Tablet 20 MG PO (08:39)
[2023-01-20] MEDS: levETIRAcetam 500 mg Tablet 1500 MG PO ×2 (08:39→17:46)
[2023-01-20] MEDS: magnesium oxide 400 mg tablet PO ×2 (08:39→17:47)
[2023-01-20] MEDS: vancomycin 1,000 MG in sodium chloride 0.9% 250 ML 250 MG IV (08:41)
[2023-01-20] MEDS: sodium chlor 0.9% + KCl 20 mEq 20 MEQ/1,000 ML BAG 75 MEQ IV (08:44)
[2023-01-20] MEDS: pantoprazole 40 mg SDV IVP ×2 (11:13→21:49)
--- NOTE | 2023-01-20 12:38 | PM.PN ---
Subjective Subjective: Patient had 5 liquid stools today C. difficile ruled out We will give Her Imodium and cholestyramine Changes Decadron to IV methylprednisolone Patient stating that her meafjg-nt-vsn is forcing her to go to assisted living which she does not like, she will like to stay in her home, she is afraid that if something happens she would not be somewhere else other than her home She wants to stay full code Vitals/I&O/Wt Last Vital Signs Temp 97.7 F 01/20/23 12:00 Pulse 92 01/20/23 12:00 Resp 20 H 01/20/23 12:00 BP 130/78 01/20/23 12:00 Pulse Ox 99 01/20/23 12:00 O2 Del Method Room Air 01/20/23 12:00 01/19/23 01/20/23 01/20/23 22:59 06:59 14:59 Intake Total 1510 / 2970 300 / 3270 1401.25 / 1401.25 Balance 1510 / 2970 300 / 3270 1401.25 / 1401.25 Physical Exam Narrative: Awake and alert Signs of dehydration improved Abdomen soft Pleasant and cooperative Currently on room air Nonfocal neuro exam GCS 15 Data 01/20/23 03:20 01/20/23 03:20 Micro: Microbiology 01/15/23 07:52 Blood Culture - Final Blood Staph capitis sub ureolyticus Staphylococcus epidermidis 01/15/23 07:43 Blood Culture - Final Blood NO GROWTH AFTER 5 DAYS A&P Assessment and plan (1) COVID-19 determined by clinical diagnostic criteria: (2) Chronic pain: (3) Hypokalemia: (4) Dehydration: (5) Abdominal pain: (6) Enterocolitis: (7) History of chemotherapy: (8) DVT (deep venous thrombosis): Qualifiers: Affected thrombotic vein of extremity: unspecified vein of extremity Chronicity: acute DVT location: lower extremity Laterality: right Qualified Code(s): I82.401 - Acute embolism and thrombosis of unspecified deep veins of right lower extremity (9) Metastatic adenocarcinoma: (10) Recurrent pleural effusion on left: Plan Enterocolitis She is getting empirical antibiotic coverage C. difficile ruled out We will give her Imodium and cholestyramine 5 loose stools today At risk of dehydration that is why she is not being discharged today She is plan to go home She is in talks with her chqehs-qq-gky who is asked her to go to assisted living but she does not want to go there is stating that she cannot afford Full code We will advance her diet COVID-19: Afebrile, not requiring oxygen Left-sided pleural effusion No need to thoracentesis as of now Plan to discharge once her diarrhea improves to avoid risk of readmission and dehydration considering chemotherapy-induced diarrhea I will put her on IV steroids Discontinue IV fluids, discontinue vancomycin, Attestations Medical Necessity Statement*: Continue medical management Diagnoses COVID-19 determined by clinical diagnostic criteria U07.1 Chronic pain G89.29 Hypokalemia E87.6 Dehydration E86.0 Abdominal pain R10.9 Enterocolitis K52.9 History of chemotherapy Z92.21 DVT (deep venous thrombosis) I82.401 Affected thrombotic vein of extremity: unspecified vein of extremity Chronicity: acute DVT location: lower extremity Laterality: right Metastatic adenocarcinoma C79.9 Recurrent pleural effusion on left J90
--- NOTE | 2023-01-20 12:56 | PC.SOCIAL ---
IMM Update pg 2 of IMM updated and reviewed w/ patient. Copy provided and Copy dated, initialed and placed in chart.
[2023-01-20] MEDS: cholestyramine powder 4 gm Pkt PO ×3 (12:59→20:46)
[2023-01-20] MEDS: methylPREDNISolone sod succ 60 MG in water for injection-sterile 0.96 ML 11.52 MG IVP ×2 (12:59→21:42)
[2023-01-20 15:15] LABS: Methicillin-Resist S.aureu PCR NOT DETECTED (NOT DETECTED)
[2023-01-20] MEDS: remdesivir 100 MG in sodium chloride 0.9% (100 ml) 80 ML IV (15:31)
[2023-01-20] MEDS: metroNIDAZOLE 500 MG Tablet PO ×2 (15:32→20:46)
[2023-01-21] VITALS (7 sets, daily range): BP systolic 99–143; BP diastolic 61–79; PULSE 86–104; RESP 16–22; TEMP 36.4–36.7; O2SAT 95–99
--- NOTE | 2023-01-21 01:12 | PC.NURSE ---
pt care this nurse took over care of pt at this time.
[2023-01-21] MEDS: methylPREDNISolone sod succ 60 MG in water for injection-sterile 0.96 ML 11.52 MG IVP (03:51)
[2023-01-21 05:53] LABS: Blood Urea Nitrogen 5 mg/dL (8-23); Calcium 7.9 mg/dL (8.5-10.5); Carbon Dioxide 22 mmol/L (22-29); Chloride 111 mmol/L (98-107); Glomerular Filtration Rate 158.3 mL/min (90-130); Glucose 133 mg/dL (65-115); Osmolality Calculated 287 mOsm/kg (285-295); Sodium 139 mmol/L (136-145)
[2023-01-21] MEDS: ipratropium-albuterol 3 mL Neb INHALATION (08:54)
[2023-01-21] MEDS: rivaroxaban 10 mg Tablet 20 MG PO (09:37)
[2023-01-21] MEDS: pantoprazole 40 mg SDV IVP (09:37)
[2023-01-21] MEDS: levETIRAcetam 500 mg Tablet 1500 MG PO (09:38)
[2023-01-21] MEDS: metroNIDAZOLE 500 MG Tablet PO (09:38)
[2023-01-21] MEDS: magnesium oxide 400 mg tablet PO (09:38)
[2023-01-21] MEDS: cholestyramine powder 4 gm Pkt PO ×2 (09:42→12:23)
--- NOTE | 2023-01-21 10:25 | P.DS_ITS ---
Discharge Providers Date of Admission: 01/15/23 08:53 Date of Discharge: January 21, 2023 Attending Provider at Admission: Marcus Molina MD Attending Provider at Discharge: Pedro Tavarez MD Primary Care Provider: Jennie Ramos MD Diagnoses at Discharge Discharge Diagnosis (1) COVID-19 determined by clinical diagnostic criteria: Status: Acute (2) Chronic pain: Status: Acute (3) Hypokalemia: Status: Acute (4) Dehydration: Status: Acute (5) Abdominal pain: Status: Acute (6) Enterocolitis: Status: Acute (7) History of chemotherapy: Status: Acute (8) DVT (deep venous thrombosis): Status: Acute Qualifiers: Affected thrombotic vein of extremity: unspecified vein of extremity Chronicity: acute DVT location: lower extremity Laterality: right Qualified Code(s): I82.401 - Acute embolism and thrombosis of unspecified deep veins of right lower extremity (9) Metastatic adenocarcinoma: Status: Acute (10) Recurrent pleural effusion on left: Status: Acute Reason for Visit Reason for Visit: N/V/D Hospital Course Hospital Course 67-year-old female with metastatic adenocarcinoma thought to be pancreatic cancer origin needing to be on hospice which she refuses presented with diarrhea.? Oncology believes this is related to her chemotherapy, which is leucovorin, 5 FU, irinotecan.? She was placed on IV meropenem for enterocolitis.? Vancomycin was added 1 one of her blood cultures turn positive.? Blood culture showed contamination with epidermidis. This has been repeated and negative to date. C. difficile negative, patient was given Imodium and cholestyramine which improved her diarrheal episodes. She remained afebrile no significant leukocytosis..? Has a significant left sided PL effusion secondary to necrotic lung and metastatic effusion which has been tapped and treated in the past.? CAT scans indicate the amount of fluid has been about the same and I am reluctant to tap this again.? She will tell you her left side hurts, but this is left lower abdomen, alleviated with having a stool, and likely related to her current enteritis and not her left effusion.? Please see old records regarding effusion otherwirse you might be attempted to have a thoraentesis performed..? Deven has been talking to her regarding hospice and may not have much else to offer her in the way of treatment for her malignancy. Patient tested positive for COVID-19 during hospitalization she was given remdesivir and Decadron, she did not require oxygen, she did well on room air. Cultures remain negative. She does use albuterol on as-needed basis at home, she is being discharged with stable hemodynamics, diarrheal episodes somewhat better after addition of cholestyramine. Patient is stating that her nzmrsl-uq-efq is forcing her to go to assisted living but she does not want to stay at any place other than her home, she is stating that she is full code and wants to in her home if something happens to her she hates the idea of assisted living apartment. Physical Exam Narrative: Signs of dehydration improving Awake and alert GCS 15 Nonfocal neuro exam Currently on room air Pleasant cooperative S1, S2 Discharge Data Studies Completed and Pending Completed Studies During Hospitalization Category Date Time Status CT abdomen pelvis w con* [id number] Stat Cat Scan 01/15/23 03:23 Completed XR chest 1V portable [id number] Routine Exams 01/15/23 09:36 Completed Radiology Impressions Abdomen/Pelvis CT 01/15/23 03:23 IMPRESSION: 1. There is a distal small bowel loop that demonstrates abnormal wall thickening/mucosal edema. Findings are suspicious for enteritis. 2. Stable empyema and metastatic lesions in the visualized lung bases. 3. Stable metastatic lesions within the liver. 4. 18 mm lesion in the pancreatic tail. 5. Severe sigmoid colon diverticulosis without evidence of diverticulitis Chest X-Ray 01/15/23 09:36 IMPRESSION: Near complete opacification of the left hemithorax with pleural and parenchymal opacities. Diffuse nodular densities throughout the right hemithorax. Laboratory Results WBC 5.51 10^3/uL (3.29-11.43) 01/20/23 03:20 RBC 3.82 10^6/uL (3.85-5.65) L 01/20/23 03:20 Hgb 11.00 g/dL (11.27-16.99) L 01/20/23 03:20 Hct 34.1 % (36-47) L 01/20/23 03:20 MCV 89.3 fl (85-98) 01/20/23 03:20 MCH 28.8 pg (27-33) 01/20/23 03:20 MCHC 32.3 g/dL (30-55) 01/20/23 03:20 RDW 17.1 % (12.1-15.1) H 01/20/23 03:20 Plt Count 288 10^3/cmm (157-399) 01/20/23 03:20 MPV 10.2 fL (7.4-10.4) 01/20/23 03:20 Neut % (Auto) 69.5 % 01/20/23 03:20 Lymph % (Auto) 20.0 % 01/20/23 03:20 [place] % (Auto) 9.6 % 01/20/23 03:20 Eos % (Auto) 0.0 % 01/20/23 03:20 Baso % (Auto) 0.4 % 01/20/23 03:20 Neut # (Auto) 3.83 10^3/uL (1.8-7.7) 01/20/23 03:20 Lymph # (Auto) 1.1 10^3/uL (0.8-4.8) 01/20/23 03:20 [place] # (Auto) 0.5 10^3/uL (0.2-0.9) 01/20/23 03:20 Eos # (Auto) 0.0 10^3/uL (0.0-0.8) 01/20/23 03:20 Baso # (Auto) 0.0 10^3/uL (0.0-0.1) 01/20/23 03:20 Nucleated RBC % (auto) 0 % 01/20/23 03:20 Nucleated RBCs # 0.0 /100WBC 01/20/23 03:20 Sodium 139 mmol/L (136-145) 01/21/23 05:28 Potassium 4.0 mmol/L (3.5-5.1) 01/21/23 05:28 Chloride 111 mmol/L (98-107) H 01/21/23 05:28 Carbon Dioxide 22 mmol/L (22-29) 01/21/23 05:28 Anion Gap 10.0 (5-19) 01/21/23 05:28 BUN 5 mg/dL (8-23) L 01/21/23 05:28 Creatinine 0.4 mg/dL (0.5-0.9) L 01/21/23 05:28 GFR Calculation 158.3 mL/min (90-130) H 01/21/23 05:28 Glucose 133 mg/dL (65-115) H 01/21/23 05:28 Calculated Osmolality 287 mOsm/kg (285-295) 01/21/23 05:28 Calcium 7.9 mg/dL (8.5-10.5) L 01/21/23 05:28 Magnesium 1.9 mg/dL (1.7-2.3) 01/19/23 06:28 Total Bilirubin 0.2 mg/dL (0.15-1.2) 01/20/23 03:20 AST 25 U/L (0-32) 01/20/23 03:20 ALT 24 U/L (0-33) 01/20/23 03:20 Alkaline Phosphatase 45 U/L (35-105) 01/20/23 03:20 C-Reactive Protein 12.3 mg/L (0.0-4.9) H 01/20/23 03:20 Total Protein 3.8 g/dL (6.6-8.7) L 01/20/23 03:20 Albumin 2.1 g/dL (3.5-5.2) L 01/20/23 03:20 Globulin 1.7 g/dL (1.3-4.6) 01/20/23 03:20 Lipase 23 U/L (13-60) 01/15/23 03:54 Urine Color Yellow (Yellow) 01/15/23 03:54 Urine Appearance Sl hazy (CLEAR) A 01/15/23 03:54 Urine pH 5 (5-7) 01/15/23 03:54 Ur Specific [place] 1.025 (1.005-1.030) 01/15/23 03:54 Urine Protein 1+ (Negative) H 01/15/23 03:54 Urine Glucose (UA) Norm (Normal) 01/15/23 03:54 Urine Ketones 1+ (Negative) H 01/15/23 03:54 Urine Blood 3+ (Negative) H 01/15/23 03:54 Urine Nitrate Negative (Negative) 01/15/23 03:54 Urine Bilirubin 1+ (Negative) H 01/15/23 03:54 Urine Urobilinogen Neg mg/dL (Negative) 01/15/23 03:54 Ur Leukocyte Esterase Negative (Negative) 01/15/23 03:54 Urine RBC 5-10 /hpf (0-2) H 01/15/23 03:54 Urine WBC None /hpf (0-5) 01/15/23 03:54 Ur Squamous Epith Cells 0-4 /hpf (0-5) H 01/15/23 03:54 Calcium Oxalate Crystal 10-15 /hpf H 01/15/23 03:54 Amorphous Sediment Not Reportable 01/15/23 03:54 Urine Bacteria Trace /hpf (NONE) 01/15/23 03:54 Urine Mucus 2+ /hpf 01/15/23 03:54 Vancomycin Trough 19.9 ug/mL (10-15) H 01/19/23 20:22 C. difficile Tox (PCR) Not detected (NOT DETECTED) 01/15/23 19:13 Coronavirus 229E (PCR) Not detected (NOT DETECT) 01/17/23 11:14 SARS-CoV-2 (PCR) Detected (NOT DETECT) A 01/17/23 11:14 MRSA (PCR) Not detected (NOT DETECTED) 01/17/23 16:26 Vitals Last Vital Signs Temp 97.7 F 01/21/23 07:27 Pulse 100 01/21/23 09:02 Resp 16 01/21/23 08:54 BP 127/79 01/21/23 07:27 Pulse Ox 99 01/21/23 08:54 O2 Del Method Room Air 01/21/23 08:54 Discharge Plan Discharge Patient Disposition: Home Condition: Stable Prescriptions: New metronidazole 500 mg Tablet 500 mg PO TID Qty: 15 0RF cholestyramine (with sugar) 4 gram Powder In Packet 4 g PO QID Qty: 60 0RF cefpodoxime 200 mg tablet 200 mg PO BID Qty: 6 0RF Rx Instructions: must administer with a meal/food Continued omeprazole 20 mg capsule,delayed release(DR/EC) 20 mg PO DAILY 30 Days Qty: 30 2RF Complete Multivitamin-Mineral 18-400 mg-mcg tablet 1 tab PO DAILY levetiracetam 750 mg tablet 1,500 mg PO BID Qty: 120 3RF alprazolam [Xanax] 0.5 mg tablet 0.5 mg PO BID PRN (Reason: anxiety or insomnia) 30 Days Qty: 60 3RF Xarelto 20 mg tablet 20 mg PO DAILY 30 Days Qty: 30 2RF Rx Instructions: must administer with evening meal sudawjoe-oscnldzni-avwabmeyon 1.75 mg-10,000 unit-0.025mg/mL drops 1 drp ophthalmic (eye) Q6H 5 Days Qty: 10 0RF loperamide [Imodium A-D] 2 mg capsule 2 mg PO Q4H PRN (Reason: Diarrhea) Qty: 10 0RF Rx Instructions: administer after each loose stool until symptoms controlled; do not exceed 8 mg per 24 hrs albuterol sulfate 90 mcg/actuation HFA aerosol inhaler 2 inh inhalation Q8H PRN (Reason: shortness of breath or wheezing) Qty: 6.7 4RF amlodipine 10 mg tablet 10 mg PO DAILY 30 Days Qty: 30 3RF Discharge Orders: Discharge Order (Routine); Ordered 01/21/23 Ordered By: Pedro Tavarez Referrals: Jennie Ramos MD [Primary Care Provider] - 01/22/23 11:00 am Discharge Diet: Regular Discharge Activity: Increase activity as tolerated Patient Instructions: Opioid Safety Discharge Attestations Time Spent in Discharge Care*: greater than 30 min Quality Metrics Clinical Quality Measures [ No reported AMI, CVA or VTE this stay] Coding Level of Care Code Acute Code for Chg Fwd Diagnoses COVID-19 determined by clinical diagnostic criteria U07.1 Chronic pain G89.29 Hypokalemia E87.6 Dehydration E86.0 Abdominal pain R10.9 Enterocolitis K52.9 History of chemotherapy Z92.21 DVT (deep venous thrombosis) I82.401 Affected thrombotic vein of extremity: unspecified vein of extremity Chronicity: acute DVT location: lower extremity Laterality: right Metastatic adenocarcinoma C79.9 Recurrent pleural effusion on left J90
[2023-01-21] MEDS: methylPREDNISolone sod succ 60 MG in water for injection-sterile 0.96 ML IVP (12:24)
== END 2023-01-21 13:20 | disposition home or self-care (01) | DRG 393 ==
LOC: ER 07:25 → MEDSURG 08:53
PROVIDERS: Emergency Medicine; Family Medicine; Admitting Provider Internal Medicine; Emergency Provider Family Medicine; PCP Family Medicine; Visit Provider Internal Medicine
DX: K52.1 Toxic gastroenteritis and colitis (principal); J86.9 Pyothorax without fistula; U07.1 COVID-19; C25.2 Malignant neoplasm of tail of pancreas; C78.00 Secondary malignant neoplasm of unspecified lung; C78.7 Secondary malignant neoplasm of liver and intrahepatic bile duct; J91.0 Malignant pleural effusion; I69.954 Hemiplegia and hemiparesis following unspecified cerebrovascular disease affecting left non-dominant side; T45.1X5A Adverse effect of antineoplastic and immunosuppressive drugs, initial encounter; W18.30XA Fall on same level, unspecified, initial encounter; Z79.01 Long term (current) use of anticoagulants; F41.9 Anxiety disorder, unspecified; F32.A Depression, unspecified; Z86.718 Personal history of other venous thrombosis and embolism; K21.9 Gastro-esophageal reflux disease without esophagitis; Z86.74 Personal history of sudden cardiac arrest; I10 Essential (primary) hypertension; Z95.828 Presence of other vascular implants and grafts; K57.30 Diverticulosis of large intestine without perforation or abscess without bleeding; G89.29 Other chronic pain; E87.6 Hypokalemia; E86.0 Dehydration
CPT/HCPCS: 36415; 36591; 71045; 74177; 80048; 80053; 80202; 81001; 83690; 83735; 85025; 86140; 87040; 87077; 87150; 87186; 87205; 87493; 87635; 87641; 94640; 94760; 96361; 96365; 96367; 96372; 96374; 96375; 96376; 99285; C9113; J0248; J0780; J1100; J1170; J1642; J2185; J2405; J2550; J2930; J3370; J3475; J3480; J7030; J7050; Q9967

== ENCOUNTER → 2023-01-27 10:42 | Outpatient (BNVA) | payer MEDICARE, SELFPAY | PROVIDERS: PCP Family Medicine; Visit Provider Family Medicine | DX: I10 Essential (primary) hypertension (principal); R60.0 Localized edema; C79.9 Secondary malignant neoplasm of unspecified site; C25.9 Malignant neoplasm of pancreas, unspecified | CPT/HCPCS: 85025 ==

== ENCOUNTER 2023-01-28 10:45 | Oncology outpatient (recurring) (ONCR) | payer MEDICARE, SELFPAY ==
[2023-01-06 08:40] VITALS: BP 119/60; PULSE 88; RESP 16; TEMP 36.6; O2SAT 94
[2023-01-06 08:55] LABS: Basophils # 0.1 10^3/uL (0.0-0.1); Basophils % 0.7 %; Eosinophils # 0.8 10^3/uL (0.0-0.8); Eosinophils % 10.4 %; Hematocrit 38.6 % (36-47); Lymphocytes % 26.5 %; Mean Corpuscular HGB Conc 31.9 g/dL (30-55); Mean Corpuscular Hemoglobin 28.7 pg (27-33); Monocytes # 0.6 10^3/uL (0.2-0.9); Neutrophils # 4.12 10^3/uL (1.8-7.7); Neutrophils % 54.1 %; Nucleated Red Blood Cells % 0 %; Platelet Count 314 10^3/cmm (157-399); Red Blood Count 4.29 10^6/uL (3.85-5.65); Red Cell Distribution Width 15.2 % (12.1-15.1); White Blood Count 7.61 10^3/uL (3.29-11.43)
[2023-01-06 09:33] LABS: Alanine Aminotransferase 11 U/L (0-33); Albumin Level 3.5 g/dL (3.5-5.2); Alkaline Phosphatase 83 U/L (35-105); Anion Gap 10.3 (5-19); Aspartate Amino Transferase 15 U/L (0-32); Blood Urea Nitrogen 14 mg/dL (8-23); Calcium 8.6 mg/dL (8.5-10.5); Carbon Dioxide 27 mmol/L (22-29); Chloride 105 mmol/L (98-107); Globulin 2.5 g/dL (1.3-4.6); Glomerular Filtration Rate 99.1 mL/min (90-130); Glucose 99 mg/dL (65-115); Osmolality Calculated 287 mOsm/kg (285-295); Potassium 4.3 mmol/L (3.5-5.1); Sodium 138 mmol/L (136-145); Total Bilirubin 0.3 mg/dL (0.15-1.2)
[2023-01-06] MEDS: atropine 1 mg/mL SDV 1 mL 0.4 MG IV (10:55)
[2023-01-06] MEDS: sodium chloride 0.9% 250 ML 75 ML IV (10:55)
[2023-01-06] MEDS: palonosetron 0.25 mg/5 mL SDV IVP (10:55)
[2023-01-06] MEDS: leucovorin 740 MG in dextrose 5% 250 ML 500 MG IV (12:27)
[2023-01-06 13:05] VITALS: BP 110/71; PULSE 75; RESP 18; TEMP 36.3; O2SAT 98
[2023-01-06] MEDS: fluorouraciL 3,550 MG, elastomeric pump 1 PUMP in sodium chloride 0.9% (100 ml) 21 ML IV (13:07)
[2023-01-08 13:24] VITALS: BP 110/72; PULSE 74; RESP 16; TEMP 36.6; O2SAT 100
[2023-01-13 15:18] LABS: Basophils # 0.1 10^3/uL (0.0-0.1); Basophils % 0.5 %; Eosinophils # 0.1 10^3/uL (0.0-0.8); Eosinophils % 1.3 %; Hematocrit 42.6 % (36-47); Lymphocytes # 1.9 10^3/uL (0.8-4.8); Lymphocytes % 20.3 %; Mean Corpuscular HGB Conc 32.6 g/dL (30-55); Mean Corpuscular Hemoglobin 28.4 pg (27-33); Mean Corpuscular Volume 87.1 fl (85-98); Mean Platelet Volume 10.4 fL (7.4-10.4); Monocytes # 0.6 10^3/uL (0.2-0.9); Monocytes % 6.4 %; Neutrophils % 71.1 %; Nucleated Red Blood Cells % 0 %; Platelet Count 316 10^3/cmm (157-399); Red Blood Count 4.89 10^6/uL (3.85-5.65); Red Cell Distribution Width 15.3 % (12.1-15.1); White Blood Count 9.42 10^3/uL (3.29-11.43)
[2023-01-13 15:34] LABS: Alanine Aminotransferase 17 U/L (0-33); Albumin Level 3.4 g/dL (3.5-5.2); Alkaline Phosphatase 82 U/L (35-105); Anion Gap 13.9 (5-19); Aspartate Amino Transferase 16 U/L (0-32); Blood Urea Nitrogen 24 mg/dL (8-23); Calcium 8.6 mg/dL (8.5-10.5); Carbon Dioxide 24 mmol/L (22-29); Chloride 104 mmol/L (98-107); Globulin 2.5 g/dL (1.3-4.6); Glomerular Filtration Rate 71.1 mL/min (90-130); Glucose 121 mg/dL (65-115); Osmolality Calculated 291 mOsm/kg (285-295); Potassium 3.9 mmol/L (3.5-5.1); Sodium 138 mmol/L (136-145); Total Bilirubin 0.4 mg/dL (0.15-1.2); Total Protein 5.9 g/dL (6.6-8.7)
[2023-01-13] MEDS: sodium chloride 0.9% 1,000 ML 999 ML IV (15:51)
[2023-01-13] MEDS: prochlorperazine 10 mg/2 mL Inj 5 MG IVP (15:57)
[2023-01-13 17:03] VITALS: BP 117/63; PULSE 80; RESP 18; TEMP 36.6; O2SAT 98
[2023-01-13 17:50] VITALS: BP 122/68; PULSE 101; RESP 16; TEMP 36.3; O2SAT 97
[2023-01-28 11:49] LABS: Basophils # 0.1 10^3/uL (0.0-0.1); Basophils % 0.5 %; Eosinophils # 0.2 10^3/uL (0.0-0.8); Hematocrit 37.4 % (36-47); Lymphocytes # 2.3 10^3/uL (0.8-4.8); Mean Corpuscular HGB Conc 32.6 g/dL (30-55); Mean Corpuscular Volume 88.8 fl (85-98); Mean Platelet Volume 10.2 fL (7.4-10.4); Monocytes # 0.8 10^3/uL (0.2-0.9); Neutrophils # 7.49 10^3/uL (1.8-7.7); Neutrophils % 69.1 %; Nucleated Red Blood Cells % 0 %; Platelet Count 324 10^3/cmm (157-399); Red Blood Count 4.21 10^6/uL (3.85-5.65); Red Cell Distribution Width 18.5 % (12.1-15.1); White Blood Count 10.83 10^3/uL (3.29-11.43)
[2023-01-28 12:12] LABS: Alanine Aminotransferase 24 U/L (0-33); Albumin Level 2.8 g/dL (3.5-5.2); Alkaline Phosphatase 68 U/L (35-105); Anion Gap 10.2 (5-19); Aspartate Amino Transferase 23 U/L (0-32); Blood Urea Nitrogen 7 mg/dL (8-23); Calcium 7.8 mg/dL (8.5-10.5); Carbon Dioxide 29 mmol/L (22-29); Chloride 105 mmol/L (98-107); Globulin 2.1 g/dL (1.3-4.6); Glomerular Filtration Rate 122.3 mL/min (90-130); Glucose 120 mg/dL (65-115); Osmolality Calculated 291 mOsm/kg (285-295); Potassium 3.2 mmol/L (3.5-5.1); Sodium 141 mmol/L (136-145); Total Bilirubin 0.3 mg/dL (0.15-1.2); Total Protein 4.9 g/dL (6.6-8.7)
[2023-01-28 12:20] VITALS: BP 103/64; PULSE 96; RESP 19; TEMP 37.2; O2SAT 98
[2023-01-28 12:26] LABS: Carcinoembryonic Antigen 6.2 ng/mL (0.0-4.7)
== END 2023-01-28 23:59 | disposition home or self-care (01) ==
PROVIDERS: PCP Family Medicine; Visit Provider Internal Medicine Medical Oncology
DX: C25.9 Malignant neoplasm of pancreas, unspecified (principal); C79.9 Secondary malignant neoplasm of unspecified site; Z79.899 Other long term (current) drug therapy
CPT/HCPCS: 36591; 80053; 82378; 85025; 96365; 96367; 96375; 96413; 96416; 96417; 96523; 99214; J0461; J0640; J0780; J1100; J1642; J2469; J7030; J7040; J7050; J7060; J9190; J9205

== ENCOUNTER 2023-02-07 09:36 | Outpatient (CLI) | payer MEDICARE, SELFPAY ==
[2023-02-07] MEDS: iohexol 350 mg/mL 500 mL Btl (per mL) PO (09:49)
[2023-02-07] MEDS: iohexol 350 mg/mL 500 mL Btl (per mL) IV (09:49)
--- NOTE | 2023-02-07 10:00 | CTR_ITS ---
PROCEDURE INFORMATION: Exam: CT Chest With Contrast; Diagnostic Exam date and time: 02/07/2023 11:00 AM Age: 67 years old Clinical indication: Condition or disease; Cancer; Pancreas; Other: Compare to previous; Primary cancer: Pancreatic, mets to lungs TECHNIQUE: Imaging protocol: Diagnostic computed tomography of the chest with contrast. Radiation optimization: All CT scans at this facility use at least one of these dose optimization techniques: automated exposure control; mA and/or kV adjustment per patient size (includes targeted exams where dose is matched to clinical indication); or iterative reconstruction. Contrast material: OMNI 350; Contrast volume: 950 ml; Contrast route: INTRAVENOUS (IV); REPORTING DATA: Count of CT and Cardiac NM exams in prior 12 months: This patient has received 4 known CTs and 0 known cardiac nuclear medicine studies in the 12 months prior to the current study. COMPARISON: CT chest abdpel w/*[id number] 11/25/2022 3:00 PM RADIATION DOSE METRICS: Total DLP (mGy-cm): 921.48 FINDINGS: Tubes, catheters and devices: Unchanged right chest port projecting in satisfactory position. Lungs: Multiple pulmonary metastases bilaterally are slightly increased in size and number. Unchanged abnormality in the left lung and pulmonary hilum which is likely a combination of malignancy, pneumonitis, and atelectasis. Pleural spaces: Left empyema is not obviously changed. Otherwise, unremarkable Heart: Unremarkable. No cardiomegaly. No pericardial effusion. Coronary arteries: No calcification in the visualized coronary arteries. Lymph nodes: Unremarkable. No enlarged lymph nodes. Vasculature: Unremarkable. No aortic aneurysm. Bones/joints: Unchanged mild scoliosis with mild and moderate multilevel spondylosis. Unchanged nondisplaced sternal fracture which may be pathologic due to a metastasis. Metastatic disease involving the posterior left 5th rib is slightly progressed. Soft tissues: Unremarkable. PROCEDURE INFORMATION: Exam: CT Abdomen And Pelvis With Contrast Exam date and time: 02/07/2023 11:00 AM Age: 67 years old Clinical indication: Condition or disease; Cancer; Pancreas; Other: Compare to previous; Primary cancer: Pancreatic, mets to lungs TECHNIQUE: Imaging protocol: Computed tomography of the abdomen and pelvis with contrast. Radiation optimization: All CT scans at this facility use at least one of these dose optimization techniques: automated exposure control; mA and/or kV adjustment per patient size (includes targeted exams where dose is matched to clinical indication); or iterative reconstruction. Contrast material: OMNI 350; Contrast volume: 950 ml; Contrast route: INTRAVENOUS (IV); REPORTING DATA: Count of CT and Cardiac NM exams in prior 12 months: This patient has received 4 known CTs and 0 known cardiac nuclear medicine studies in the 12 months prior to the current study. COMPARISON: CT abdomen pelvis w con* [id number] 01/15/2023 4:56 AM RADIATION DOSE METRICS: Total DLP (mGy-cm): 921.48 FINDINGS: Lungs: See above. Liver: Multiple hepatic metastases are not obviously changed. Otherwise, unremarkable. Gallbladder and bile ducts: Unchanged cholecystectomy. Unremarkable post cholecystectomy bile ducts. Pancreas: Unchanged 1.8 cm soft tissue mass in the pancreatic tail. Otherwise, unremarkable. Spleen: Normal. No splenomegaly. Adrenal glands: Normal. No mass. Kidneys and ureters: Normal. No hydronephrosis. Stomach and bowel: Multiple diverticula from the colon are unchanged. No evidence of diverticulitis. Resolved wall thickening of a loop of small bowel in the right lower quadrant. No bowel obstruction. Otherwise, unremarkable. Appendix: No evidence of appendicitis. Intraperitoneal space: Unremarkable. No free air. No significant fluid collection. Vasculature: Unremarkable. No abdominal aortic aneurysm. Lymph nodes: Unremarkable. No enlarged lymph nodes. Urinary bladder: Unremarkable as visualized. Reproductive: Unchanged hysterectomy. Bones/joints: Unremarkable. No acute fracture. Soft tissues: Unremarkable. CT/CT chest abdpel w/*[id number] IMPRESSION: 1. Multiple pulmonary metastases bilaterally are slightly increased in size and number. 2. Unchanged abnormality in the left lung and pulmonary hilum which is likely a combination of malignancy, pneumonitis, and atelectasis. 3. Unchanged left empyema. 4. Unchanged nondisplaced sternal fracture which may be pathologic due to a metastasis. 5. Metastatic disease posterior left 5th rib is slightly progressed. 6. Additional details as above. IMPRESSION: 1. Unchanged liver metastases. 2. Unchanged 1.8 cm soft tissue mass in the pancreatic tail. 3. Resolved wall thickening of a loop of small bowel in the right lower quadrant. 4. Additional details as above. Unchanged.
== END 2023-02-07 09:37 | disposition home or self-care (01) ==
LOC: RAD 09:36
PROVIDERS: PCP Family Medicine; Visit Provider Internal Medicine Medical Oncology
DX: C25.2 Malignant neoplasm of tail of pancreas (principal); C78.02 Secondary malignant neoplasm of left lung; C78.01 Secondary malignant neoplasm of right lung; C78.7 Secondary malignant neoplasm of liver and intrahepatic bile duct; C79.51 Secondary malignant neoplasm of bone
CPT/HCPCS: 71260; 74177; Q9967

== ENCOUNTER 2023-02-18 09:41 | Oncology outpatient (recurring) (ONCR) | payer MEDICARE, SELFPAY ==
[2023-02-18 09:58] VITALS: BP 132/82; PULSE 81; RESP 16; TEMP 36.6; O2SAT 96
[2023-02-18 10:25] LABS: Basophils # 0.1 10^3/uL (0.0-0.1); Basophils % 0.9 %; Eosinophils # 0.2 10^3/uL (0.0-0.8); Eosinophils % 2.1 %; Hematocrit 38.5 % (36-47); Lymphocytes # 1.7 10^3/uL (0.8-4.8); Lymphocytes % 21.4 %; Mean Corpuscular HGB Conc 31.7 g/dL (30-55); Mean Corpuscular Hemoglobin 29.4 pg (27-33); Mean Corpuscular Volume 92.8 fl (85-98); Mean Platelet Volume 10.7 fL (7.4-10.4); Monocytes # 0.5 10^3/uL (0.2-0.9); Monocytes % 6.5 %; Neutrophils # 5.29 10^3/uL (1.8-7.7); Neutrophils % 68.6 %; Nucleated Red Blood Cells % 0 %; Platelet Count 325 10^3/cmm (157-399); Red Blood Count 4.15 10^6/uL (3.85-5.65); Red Cell Distribution Width 18.5 % (12.1-15.1); White Blood Count 7.71 10^3/uL (3.29-11.43)
[2023-02-18 10:58] LABS: Carcinoembryonic Antigen 6.7 ng/mL (0.0-4.7)
[2023-02-18 11:10] LABS: Alanine Aminotransferase 16 U/L (0-33); Albumin Level 3.4 g/dL (3.5-5.2); Alkaline Phosphatase 99 U/L (35-105); Anion Gap 14.1 (5-19); Aspartate Amino Transferase 18 U/L (0-32); Blood Urea Nitrogen 13 mg/dL (8-23); Calcium 9.2 mg/dL (8.5-10.5); Carbon Dioxide 25 mmol/L (22-29); Chloride 110 mmol/L (98-107); Globulin 3.1 g/dL (1.3-4.6); Glomerular Filtration Rate 99.1 mL/min (90-130); Glucose 117 mg/dL (65-115); Osmolality Calculated 301 mOsm/kg (285-295); Potassium 4.1 mmol/L (3.5-5.1); Sodium 145 mmol/L (136-145); Total Bilirubin 0.2 mg/dL (0.15-1.2); Total Protein 6.5 g/dL (6.6-8.7)
== END 2023-02-27 23:59 | disposition home or self-care (01) ==
PROVIDERS: PCP Family Medicine; Visit Provider Internal Medicine Medical Oncology
DX: C79.9 Secondary malignant neoplasm of unspecified site; Z45.1 Encounter for adjustment and management of infusion pump; Z51.11 Encounter for antineoplastic chemotherapy; C25.9 Malignant neoplasm of pancreas, unspecified; Z79.899 Other long term (current) drug therapy
CPT/HCPCS: 36591; 80053; 82378; 85025; 99214; J1642

== ENCOUNTER → 2023-03-05 11:10 | Outpatient (BNVA) | payer MEDICARE, SELFPAY | PROVIDERS: PCP Family Medicine; Visit Provider Family Medicine | DX: I10 Essential (primary) hypertension (principal); C79.9 Secondary malignant neoplasm of unspecified site; I82.409 Acute embolism and thrombosis of unspecified deep veins of unspecified lower extremity; M79.622 Pain in left upper arm | CPT/HCPCS: 73060 ==

== ENCOUNTER 2023-04-23 08:45 | Oncology outpatient (recurring) (ONCR) | payer MEDICARE, SELFPAY ==
[2023-04-23 09:21] VITALS: BP 129/79; PULSE 101; RESP 16; TEMP 37; O2SAT 97; BMI 29.9
[2023-04-23 09:42] LABS: Basophils % 0.3 %; Eosinophils # 0.1 10^3/uL (0.0-0.8); Eosinophils % 1.2 %; Hematocrit 36.2 % (36-47); Lymphocytes # 1.6 10^3/uL (0.8-4.8); Lymphocytes % 21.2 %; Mean Corpuscular HGB Conc 32.3 g/dL (30-55); Mean Corpuscular Hemoglobin 28.3 pg (27-33); Mean Corpuscular Volume 87.4 fl (85-98); Mean Platelet Volume 10.1 fL (7.4-10.4); Monocytes # 0.6 10^3/uL (0.2-0.9); Monocytes % 7.3 %; Neutrophils # 5.32 10^3/uL (1.8-7.7); Neutrophils % 69.7 %; Nucleated Red Blood Cells % 0 %; Platelet Count 289 10^3/cmm (157-399); Red Blood Count 4.14 10^6/uL (3.85-5.65); Red Cell Distribution Width 14.2 % (12.1-15.1); White Blood Count 7.63 10^3/uL (3.29-11.43)
[2023-04-23 10:05] LABS: Carcinoembryonic Antigen 7.7 ng/mL (0.0-4.7)
[2023-04-23 10:16] LABS: Alanine Aminotransferase 11 U/L (0-33); Albumin Level 3.5 g/dL (3.5-5.2); Alkaline Phosphatase 107 U/L (35-105); Anion Gap 13.3 (5-19); Aspartate Amino Transferase 15 U/L (0-32); Blood Urea Nitrogen 12 mg/dL (8-23); Calcium 9.5 mg/dL (8.5-10.5); Carbon Dioxide 26 mmol/L (22-29); Chloride 104 mmol/L (98-107); Globulin 3.7 g/dL (1.3-4.6); Glomerular Filtration Rate 99.1 mL/min (90-130); Glucose 114 mg/dL (65-115); Osmolality Calculated 289 mOsm/kg (285-295); Potassium 4.3 mmol/L (3.5-5.1); Sodium 139 mmol/L (136-145); Total Bilirubin 0.3 mg/dL (0.15-1.2); Total Protein 7.2 g/dL (6.6-8.7)
== END 2023-04-30 23:59 | disposition home or self-care (01) ==
PROVIDERS: Internal Medicine; Nurse Practitioner Family; PCP Family Medicine; Visit Provider Internal Medicine Medical Oncology
DX: M75.02 Adhesive capsulitis of left shoulder; M19.012 Primary osteoarthritis, left shoulder; M62.838 Other muscle spasm; C78.02 Secondary malignant neoplasm of left lung; C78.01 Secondary malignant neoplasm of right lung; C79.51 Secondary malignant neoplasm of bone; C25.9 Malignant neoplasm of pancreas, unspecified; Z92.21 Personal history of antineoplastic chemotherapy
CPT/HCPCS: 36591; 73030; 80053; 82378; 85025; 99204; 99214; J1642

== ENCOUNTER → 2023-05-07 09:30 | Outpatient (BNVA) | payer MEDICARE, SELFPAY | PROVIDERS: PCP Family Medicine; Referring Provider Family Medicine; Visit Provider Family Medicine | DX: R19.7 Diarrhea, unspecified (principal); R34 Anuria and oliguria | CPT/HCPCS: 81003; 83630; 87493 ==

== ENCOUNTER 2023-05-08 08:28 | Outpatient (CLI) | payer MEDICARE, SELFPAY ==
--- NOTE | 2023-05-08 10:00 | CTR_ITS ---
PROCEDURE INFORMATION: Exam: CT Chest With Contrast; Diagnostic Exam date and time: 05/08/2023 10:13 AM Age: 67 years old Clinical indication: Condition or disease; Other: Metastatic adenocarcinoma; Prior surgery; Surgery date: 6+ months; Surgery type: Port, gb, appy, bladder, hyst TECHNIQUE: Imaging protocol: Diagnostic computed tomography of the chest with contrast. Radiation optimization: All CT scans at this facility use at least one of these dose optimization techniques: automated exposure control; mA and/or kV adjustment per patient size (includes targeted exams where dose is matched to clinical indication); or iterative reconstruction. Contrast material: OMNI 350; Contrast volume: 95 ml; Contrast route: INTRAVENOUS (IV); COMPARISON: CT chest abdpel w/*[id number] 02/07/2023 11:00 AM RADIATION DOSE METRICS: Total DLP (mGy-cm): 969.79 FINDINGS: Tubes, catheters and devices: There is a right-sided chest port with tip terminates at the cavoatrial junction. Lungs: There are numerous small pulmonary nodules right lung and to lesser extent the left lung many of which are cavitated increased in number from previous exam and presumed metastatic in nature. There is also a small irregular shaped consolidative density right upper lobe mildly increased probably infectious in nature. There is a large encapsulated pleural fluid collection left lung base measuring 12 cm with a mildly thickened enhancing wall likely representing empyema relatively unchanged. There is a 2nd smaller encapsulated fluid collection more anteriorly left mid lung zone also unchanged and likely infectious in nature. There is diffuse scattered consolidation and bronchiectasis involving the aerated portion of the left lung likely in part due to combination of atelectasis and pneumonia mildly progressed from prior study. Pleural spaces: See Lungs finding. Heart: Heart is mildly enlarged. No significant coronary artery calcifications or pericardial effusion. Mediastinal space: Chronic granulomatous calcifications in the mediastinum, unchanged. Lymph nodes: Unremarkable. No enlarged lymph nodes. Vasculature: Unremarkable. No aortic aneurysm. Bones/joints: Diffuse mottled bone changes left 5th rib and to lesser extent lateral aspect left 2nd rib likely metastatic in nature, unchanged. Soft tissues: Unremarkable. PROCEDURE INFORMATION: Exam: CT Abdomen And Pelvis With Contrast Exam date and time: 05/08/2023 10:13 AM Age: 67 years old Clinical indication: Condition or disease; Other: Metastatic adenocarcinoma; Prior surgery; Surgery date: 6+ months; Surgery type: Port, gb, appy, bladder, hyst TECHNIQUE: Imaging protocol: Computed tomography of the abdomen and pelvis with contrast. Radiation optimization: All CT scans at this facility use at least one of these dose optimization techniques: automated exposure control; mA and/or kV adjustment per patient size (includes targeted exams where dose is matched to clinical indication); or iterative reconstruction. Contrast material: OMNI 350; Contrast volume: 95 ml; Contrast route: INTRAVENOUS (IV); COMPARISON: CT chest abdpel w/*[id number] 02/07/2023 11:00 AM RADIATION DOSE METRICS: Total DLP (mGy-cm): 969.79 FINDINGS: Lungs: Lung bases are clear. Liver: Multiple circumscribed hypodensities throughout the liver measuring up to 3 cm unchanged with density readings consistent with liver cysts. Gallbladder and bile ducts: Gallbladder has been removed. There is mild associated dilatation of the common bile duct. Pancreas: 1.7 cm oval-shaped isodense lesion within the tail the pancreas unchanged inconclusive for pancreatic tumor. Spleen: Spleen is mildly enlarged with scattered chronic granulomatous changes, stable. Adrenal glands: Normal. No mass. Kidneys and ureters: Normal. No hydronephrosis. Stomach and bowel: Multiple diverticuli sigmoid colon with mild chronic colonic wall thickening unchanged likely secondary to chronic diverticular disease. No compelling evidence of acute diverticulitis. Remainder of the GI tract is unremarkable. Appendix: No evidence of appendicitis. Intraperitoneal space: Indistinct mesenteric fat stranding (maddy mesentery) mid abdomen unchanged most consistent with idiopathic mesenteric panniculitis. Vasculature: Unremarkable. No abdominal aortic aneurysm. Lymph nodes: Unremarkable. No enlarged lymph nodes. Urinary bladder: Unremarkable as visualized. Reproductive: Unremarkable as visualized. Bones/joints: Unremarkable. No acute fracture. Soft tissues: Unremarkable. CT/CT chest abdpel w/*[id number] IMPRESSION: 1. Innumerable pulmonary nodules many of which are cavitated increased in number from previous exam and believe metastatic in nature. 2. Stable bone changes left 2nd and 5th rib believe metastatic in nature. 3. Large empyema left lung base and smaller empyema left upper hemithorax stable from previous exam. 4. Diffuse scattered consolidation within the aerated portion of the left lung and right upper lobe mildly progressed likely in part due to combination of atelectasis and pneumonia. IMPRESSION: 1. 1.7 cm circumscribed oval-shaped isodense nodule along the tail the pancreas unchanged inconclusive for pancreatic tumor. 2. Multiple circumscribed hypodense liver lesions unchanged with density readings most consistent with benign liver cysts. 3. Chronic diverticular disease sigmoid colon. No evidence of acute diverticulitis.
[2023-05-08] MEDS: iohexol 350 mg/mL 500 mL Btl (per mL) IV (10:22)
[2023-05-08] MEDS: iohexol 350 mg/mL 500 mL Btl (per mL) PO (10:22)
== END 2023-05-08 08:29 | disposition home or self-care (01) ==
LOC: RAD 08:29
PROVIDERS: PCP Family Medicine; Visit Provider Internal Medicine
DX: C79.89 Secondary malignant neoplasm of other specified sites (principal)
CPT/HCPCS: 71260; 74177; Q9967

== ENCOUNTER 2023-05-14 06:00 | Outpatient (RCR) | payer MEDICARE, SELFPAY | END 2023-05-29 23:59 | disposition home or self-care (01) | LOC: MPT 06:00 | PROVIDERS: PCP Family Medicine; Visit Provider Nurse Practitioner | DX: M75.02 Adhesive capsulitis of left shoulder (principal); M25.512 Pain in left shoulder | CPT/HCPCS: 97110; 97140; 97162 ==

== ENCOUNTER 2023-05-28 08:30 | Oncology outpatient (recurring) (ONCR) | payer MEDICARE, SELFPAY ==
[2023-05-21 09:34] LABS: Basophils # 0.1 10^3/uL (0.0-0.1); Basophils % 0.5 %; Eosinophils # 0.2 10^3/uL (0.0-0.8); Eosinophils % 1.8 %; Hematocrit 38.2 % (36-47); Lymphocytes % 19.1 %; Mean Corpuscular HGB Conc 31.4 g/dL (30-55); Mean Corpuscular Hemoglobin 26.7 pg (27-33); Mean Corpuscular Volume 85.1 fl (85-98); Mean Platelet Volume 9.6 fL (7.4-10.4); Monocytes # 0.6 10^3/uL (0.2-0.9); Monocytes % 5.6 %; Neutrophils # 7.44 10^3/uL (1.8-7.7); Neutrophils % 72.6 %; Nucleated Red Blood Cells % 0 %; Platelet Count 332 10^3/cmm (157-399); Red Blood Count 4.49 10^6/uL (3.85-5.65); Red Cell Distribution Width 15.4 % (12.1-15.1); White Blood Count 10.24 10^3/uL (3.29-11.43)
[2023-05-21 09:59] LABS: Carcinoembryonic Antigen 10.2 ng/mL (0.0-4.7)
[2023-05-21 10:10] LABS: Alanine Aminotransferase 13 U/L (0-33); Albumin Level 3.5 g/dL (3.5-5.2); Alkaline Phosphatase 126 U/L (35-105); Anion Gap 13.1 (5-19); Aspartate Amino Transferase 13 U/L (0-32); Blood Urea Nitrogen 13 mg/dL (8-23); Carbon Dioxide 26 mmol/L (22-29); Chloride 101 mmol/L (98-107); Globulin 3.6 g/dL (1.3-4.6); Glomerular Filtration Rate 98.8 mL/min (90-130); Glucose 105 mg/dL (65-115); Osmolality Calculated 282 mOsm/kg (285-295); Potassium 4.1 mmol/L (3.5-5.1); Sodium 136 mmol/L (136-145); Total Bilirubin 0.4 mg/dL (0.15-1.2); Total Protein 7.1 g/dL (6.6-8.7)
[2023-05-21 11:02] LABS: Cancer Antigen 19 9 1.82 U/mL (0-35)
[2023-05-28 08:43] LABS: Basophils % 0.5 %; Eosinophils # 0.2 10^3/uL (0.0-0.8); Hematocrit 35.5 % (36-47); Lymphocytes # 1.7 10^3/uL (0.8-4.8); Lymphocytes % 19.7 %; Mean Corpuscular HGB Conc 31.5 g/dL (30-55); Mean Corpuscular Hemoglobin 26.4 pg (27-33); Mean Corpuscular Volume 83.5 fl (85-98); Monocytes # 0.5 10^3/uL (0.2-0.9); Monocytes % 5.6 %; Neutrophils # 6.21 10^3/uL (1.8-7.7); Neutrophils % 71.9 %; Nucleated Red Blood Cells % 0 %; Platelet Count 349 10^3/cmm (157-399); Red Blood Count 4.25 10^6/uL (3.85-5.65); Red Cell Distribution Width 15.7 % (12.1-15.1); White Blood Count 8.63 10^3/uL (3.29-11.43)
[2023-05-28 09:06] LABS: Carcinoembryonic Antigen 9.4 ng/mL (0.0-4.7)
[2023-05-28 09:17] LABS: Alanine Aminotransferase 18 U/L (0-33); Albumin Level 3.4 g/dL (3.5-5.2); Alkaline Phosphatase 124 U/L (35-105); Anion Gap 15.7 (5-19); Aspartate Amino Transferase 17 U/L (0-32); Blood Urea Nitrogen 15 mg/dL (8-23); Carbon Dioxide 25 mmol/L (22-29); Chloride 105 mmol/L (98-107); Globulin 3.6 g/dL (1.3-4.6); Glomerular Filtration Rate 82.7 mL/min (90-130); Glucose 120 mg/dL (65-115); Osmolality Calculated 294 mOsm/kg (285-295); Potassium 4.7 mmol/L (3.5-5.1); Sodium 141 mmol/L (136-145); Total Bilirubin 0.4 mg/dL (0.15-1.2)
[2023-05-28] MEDS: dextrose 5% 250 ML 75 ML IV (10:56)
[2023-05-28] MEDS: palonosetron 0.25 mg/5 mL SDV IVP (10:57)
[2023-05-28] MEDS: DEXTROSE 5% IV ×3 (11:36→14:16)
[2023-05-28] MEDS: OXALIPLATIN IV (11:36)
[2023-05-28] MEDS: atropine 1 mg/mL SDV 1 mL 0.400000000000000022 MG IV (13:52)
[2023-05-28] MEDS: LEUCOVORIN IV (14:16)
[2023-05-28] MEDS: IRINOTECAN IV (14:16)
[2023-05-28] MEDS: fluorouraciL 4,400 MG, elastomeric pump 1 PUMP in sodium chloride 0.9% (100 ml) 4 ML IV (16:35)
[2023-05-28 16:50] VITALS: BP 108/73; PULSE 97; RESP 16; TEMP 36.6; O2SAT 96
== END 2023-05-29 23:59 | disposition home or self-care (01) ==
PROVIDERS: Internal Medicine; PCP Family Medicine; Visit Provider Internal Medicine Medical Oncology
DX: Z51.11 Encounter for antineoplastic chemotherapy; C25.9 Malignant neoplasm of pancreas, unspecified; C79.51 Secondary malignant neoplasm of bone; C78.02 Secondary malignant neoplasm of left lung; R91.8 Other nonspecific abnormal finding of lung field; Z79.899 Other long term (current) drug therapy; Z45.1 Encounter for adjustment and management of infusion pump; Z53.9 Procedure and treatment not carried out, unspecified reason
CPT/HCPCS: 36591; 80053; 82378; 85025; 86301; 96367; 96368; 96375; 96413; 96415; 96416; 96417; 99214; 99215; J0461; J0640; J1100; J1642; J2469; J7060; J9190; J9206; J9263

== ENCOUNTER 2023-05-30 06:00 | Outpatient (RCR) | payer MEDICARE, SELFPAY | END 2023-06-29 23:59 | disposition home or self-care (01) | LOC: MPT 06:00 | PROVIDERS: PCP Family Medicine; Visit Provider Nurse Practitioner | DX: M25.512 Pain in left shoulder (principal); M75.02 Adhesive capsulitis of left shoulder | CPT/HCPCS: 97110; 97140 ==

== ENCOUNTER 2023-05-30 13:15 | Emergency (ER) | payer MEDICARE, SELFPAY ==
[2023-05-30 13:17] VITALS: BMI 30.1
[2023-05-30 13:20] VITALS: BP 113/66; PULSE 99; RESP 18; O2SAT 97
--- NOTE | 2023-05-30 13:44 | XR_ITS ---
WS: [email or web address] Exam: XR shoulder LT min 2V* [id number] Date/Time of Exam: 05/30/2023 1:44 PM Reason For Exam: pain Comparison 04/23/2023. No fracture or dislocation. Mild degenerative changes. Unremarkable soft tissues. Opacities identifie d in the visualized upper RIGHT and LEFT lung zones. RIGHT subclavian central line partially visualiz ed. IMPRESSION: 1. No fracture or dislocation noted.
--- NOTE | 2023-05-30 13:44 | XR_ITS ---
WS: [email or web address] Exam: XR cervical spine 3V* [id number] Date/Time of Exam: 05/30/2023 1:44 PM Reason For Exam: pain No fracture or dislocation involving the upper 6 cervical vertebra. C7 not definitely seen in the lat eral view.. Marked spondylosis from C4-C6. Mild facet DJD at all levels. The odontoid is intact. Para spinal soft tissues are unremarkable. IMPRESSION: 1. No acute fracture or malalignment. 2. Degenerative changes. 3. Incomplete visualization of C7.
[2023-05-30 14:00] VITALS: PULSE 98; RESP 18; O2SAT 97
[2023-05-30] MEDS: sodium chloride 0.9% 1,000 ML 999 ML IV (14:11)
[2023-05-30 14:23] LABS: Basophils % 0.3 %; Eosinophils % 0.3 %; Hematocrit 33.2 % (36-47); Lymphocytes # 1.6 10^3/uL (0.8-4.8); Lymphocytes % 16.5 %; Mean Corpuscular HGB Conc 32.2 g/dL (30-55); Mean Corpuscular Hemoglobin 26.8 pg (27-33); Mean Corpuscular Volume 83.2 fl (85-98); Monocytes # 0.1 10^3/uL (0.2-0.9); Monocytes % 1.3 %; Neutrophils # 7.84 10^3/uL (1.8-7.7); Neutrophils % 81.2 %; Nucleated Red Blood Cells % 0 %; Platelet Count 355 10^3/cmm (157-399); Red Blood Count 3.99 10^6/uL (3.85-5.65); Red Cell Distribution Width 15.7 % (12.1-15.1); White Blood Count 9.66 10^3/uL (3.29-11.43)
[2023-05-30 14:40] LABS: Alanine Aminotransferase 17 U/L (0-33); Albumin Level 3.3 g/dL (3.5-5.2); Alkaline Phosphatase 113 U/L (35-105); Anion Gap 14.1 (5-19); Aspartate Amino Transferase 16 U/L (0-32); Blood Urea Nitrogen 23 mg/dL (8-23); Calcium 8.6 mg/dL (8.5-10.5); Carbon Dioxide 25 mmol/L (22-29); Chloride 102 mmol/L (98-107); Creatinine Clr Calc Pharmacy 64.3389; Globulin 3.5 g/dL (1.3-4.6); Glomerular Filtration Rate 70.9 mL/min (90-130); Glucose 101 mg/dL (65-115); Lipase 131 U/L (13-60); Osmolality Calculated 288 mOsm/kg (285-295); Potassium 4.1 mmol/L (3.5-5.1); Sodium 137 mmol/L (136-145); Total Bilirubin 0.4 mg/dL (0.15-1.2); Total Protein 6.8 g/dL (6.6-8.7)
--- NOTE | 2023-05-30 14:50 | ED_ITS ---
HPI - Syncope 2 General: Chief Complaint: Syncope Stated Complaint: left shoulder and neck pain Time Seen by Provider: 05/30/23 13:30 Source: patient Mode of arrival: EMS History of Present Illness: 68-year-old female with a history of harrison creatic cancer diagnosed little over a year ago presents emergency room via EMS after she had a syncopal episode while doing physical therapy at an [facility]. She did have chemotherapy yesterday to continuous infusion when she returned a day later and they removed. She denies any chest discomfort or shortness of breath associated with that. She was lifting her left arm up above the level of her head and physical therapy got lightheaded and dizzy and then passed out. At the time I came to see the patient she did receive some IV fluids states she is feeling better. MD complaint: collapsed Onset (ago): hour(s) Witnessed: Yes - by Bystander Context: other (During physical therapy) Associated symptoms: Deny abdominal pain, chest pain, fever(s), headache(s), lightheadedness, nausea, short of breath, vertigo or weakness Treatments prior to arrival: none Review of Systems 2 Const: Denies: fever(s) Card: Denies: chest pain or lightheadedness Resp: Denies: dyspnea GI: Denies: abdominal pain or nausea : Denies: dysuria, urinary frequency or urinary urgency Musc: Denies: neck pain or back pain Skin/Breast: Denies: rash Neuro: Denies: headache(s) or vertigo PFSH ED 2 PFSH: Medical History Syncope and collapse Symptoms of cerebrovascular accident (CVA) Primary osteoarthritis, left shoulder Left shoulder tendonitis Trapezius muscle spasm History of DVT (deep vein thrombosis) COVID-19 determined by clinical diagnostic criteria Chronic pain Hypokalemia History of diverticulitis History of chemotherapy Encephalopathy 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) History of cardiac arrest Left hemiparesis 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 History of seizures Anxiety and depression Empyema of left pleural space Recurrent pleural effusion on left GERD (gastroesophageal reflux disease) Metastatic adenocarcinoma HTN (hypertension) Pleural effusion Surgical History Port-A-Cath in place History of foot surgery Hx of bladder repair surgery bladder Sling Hx of colonoscopy History of esophagogastroduodenoscopy (EGD) History of appendectomy History of cholecystectomy History of hysterectomy Family History Father Bleeding disorder Cancer Diabetes Hypertension Mother Cancer Diabetes Hypertension Thyroid disease Denies family history of Chronic kidney disease (CKD) Stroke Social History Smoking and tobacco/nicotine status: never used tobacco/nicotine Alcohol intake: never Physical Exam 2 Const: COMMON NORMALS: no acute distress GENERAL APPEARANCE: cooperative and comfortable ORIENTATION/CONSCIOUSNESS: Yes awake, Yes oriented to person, Yes oriented to place and Yes oriented to time HENMT: COMMON NORMALS: normocephalic, atraumatic and hearing grossly normal bilaterally HEAD & SCALP: normocephalic and atraumatic Resp: COMMON NORMALS: normal respiratory effort, No retractions, No use of accessory muscles and clear to auscultation bilaterally AUSCULTATION: clear to auscultation bilaterally Cardio: COMMON NORMALS: regular rate, regular rhythm and No murmurs present (Cardio) RATE: regular rate RHYTHM: regular rhythm GI: COMMON NORMALS: Soft to palpation and No hepatosplenomegaly present A USCULTATION: Yes normoactive bowel sounds PALPATION: Yes Soft to palpation, No Tenderness to palpation present (GI), No Guarding due to palpation present (GI) and Yes No hepatosplenomegaly present Extremity: COMMON NORMALS: normal to inspection, capillary refill normal, no clubbing, cyanosis or edema, no calf tenderness and no pedal edema Neuro: SENSORIUM/ORIENTATION: Yes oriented to person, Yes oriented to place and Yes oriented to time OTHER: Stroke exam negative no focal neurologic deficits are noted. NIH score would be 0 at this point. Skin: COMMON NORMALS: no rashes or lesions noted GENERAL SKIN EXAM: no rashes or lesions noted Course 2 Vital Signs: Vital signs: Vital Signs Pulse Rate 67 05/30/23 17:56 Respiratory Rate 16 05/30/23 17:56 Blood Pressure 123/67 05/30/23 17:56 Pulse Oximetry 98 05/30/23 15:00 Oxygen Delivery Me thod Room Air 05/30/23 13:20 MDM - Syncope Medical Decision Making Believe patient had a vasovagal episode secondary to pain during her physical therapy session. There is nothing in her history or her presentation at this point that is suggestive of an acute stroke. Is likely exacerbated by the fact that she recently had chemotherapy. Repeat exam does not show any evidence of focal symptoms. She still has discomfort with attempts to raise and externally rotate at the shoulder. Reviewing history with her do not believe she had a seizure either. Medical Records I reviewed the patient's medical records. Lab Data I reviewed the patient's lab results. 05/30/23 01:46 05/30/23 01:46 Laboratory Results WBC 9.66 10^3/uL (3.29-11.43) 05/30/23 01:46 RBC 3.99 10^6/uL (3.85-5.65) 05/30/23 01:46 Hgb 10.70 g/dL (11.27-16.99) L 05/30/23 01:46 Hct 33.2 % (36-47) L 05/30/23 01:46 MCV 83.2 fl (85-98) L 05/30/23 01:46 MCH 26.8 pg (27-33) L 05/30/23 01:46 MCHC 32.2 g/dL (30-55) 05/30/23 01:46 RDW 15.7 % (12.1-15.1) H 05/30/23 01:46 Plt Count 355 10^3/cmm (157-399) 05/30/23 01:46 MPV 10.0 fL (7.4-10.4) 05/30/23 01:46 Neut % (Auto) 81.2 % 05/30/23 01:46 Lymph % (Auto) 16.5 % 05/30/23 01:46 [place] % (Auto) 1.3 % 05/30/23 01:46 Eos % (Auto) 0.3 % 05/30/23 01:46 Baso % (Auto) 0.3 % 05/30/23 01:46 Neut # (Auto) 7.84 10^3/uL (1.8-7.7) H 05/30/23 01:46 Lymph # (Auto) 1.6 10^3/uL (0.8-4.8) 05/30/23 01:46 [place] # (Auto) 0.1 10^3/uL (0.2-0.9) L 05/30/23 01:46 Eos # (Auto) 0.0 10^3/uL (0.0-0.8) 05/30/23 01:46 Baso # (Auto) 0.0 10^3/uL (0.0-0.1) 05/30/23 01:46 Nucleated RBC % (auto) 0 % 05/30/23 01:46 Nucleated RBCs # 0.0 /100WBC 05/30/23 01:46 Sodium 137 mmol/L (136-145) 05/30/23 01:46 Potassium 4.1 mmol/L (3.5-5.1) 05/30/23 01:46 Chloride 102 mmol/L (98-107) 05/30/23 01:46 Carbon Dioxide 25 mmol/L (22-29) 05/30/23 01:46 Anion Gap 14.1 (5-19) 05/30/23 01:46 BUN 23 mg/dL (8-23) 05/30/23 01:46 Creatinine 0.8 mg/dL (0.5-0.9) 05/30/23 01:46 GFR Calculation 70.9 mL/min (90-130) L 05/30/23 01:46 Glucose 101 mg/dL (65-115) 05/30/23 01:46 Calculated Osmolality 288 mOsm/kg (285-295) 05/30/23 01:46 Calcium 8.6 mg/dL (8.5-10.5) 05/30/23 01:46 Total Bilirubin 0.4 mg/dL (0.15-1.2) 05/30/23 01:46 AST 16 U/L (0-32) 05/30/23 01:46 ALT 17 U/L (0-33) 05/30/23 01:46 Alkaline Phosphatase 113 U/L (35-105) H 05/30/23 01:46 Total Protein 6.8 g/dL (6.6-8.7) 05/30/23 01:46 Albumin 3.3 g/dL (3.5-5.2) L 05/30/23 01:46 Globulin 3.5 g/dL (1.3-4.6) 05/30/23 01:46 Lipase 131 U/L (13-60) H 05/30/23 01:46 All radiology interpretation(s) finalized by discharge Discharge Plan Discharge Patient Disposition: Home Clinical Impression: Syncope, Metastatic adenocarcinoma, Frozen shoulder Condition: Stable Prescriptions: No Action Xarelto 20 mg tablet 20 mg PO DAILY 30 Days Qty: 30 2RF Rx Instructions: with evening meal 340B Complete Multivitamin-Mineral 18-400 mg-mcg tablet 1 tab PO DAILY omeprazole 20 mg capsule,delayed release(DR/EC) 20 mg PO DAILY 90 Days Qty: 90 1RF levetiracetam 750 mg tablet 1,500 mg PO BID Qty: 120 3RF lorazepam 1 mg tablet 0.5 - 1 mg PO Q6H PRN (Reason: Severe Nausea) Qty: 30 3RF diphenoxylate-atropine [Lomotil] 2.5-0.025 mg tablet 2 tab PO QID PRN (Reason: Diarrhea) Qty: 60 3RF Rx Instructions: 2 tablets orally 4 times daily until control of diarrhea has been achieved. Imodium A-D 2 mg capsule 2 mg PO Q4H PRN (Reason: Diarrhea) Qty: 10 0RF Hold Instructions: Home Medication placed on hold at Doctor's office Rx Instructions: administer after each loose stool until symptoms controlled; do not exceed 8 mg per 24 hrs albuterol sulfate 90 mcg/actuation HFA aerosol inhaler 2 inh inhalation Q8H PRN (Reason: shortness of breath or wheezing) Qty: 6.7 4RF prochlorperazine maleate [Compazine] 10 mg tablet 10 mg PO Q4H PRN (Reason: Mild Nausea) Qty: 30 3RF amlodipine 10 mg tablet 10 mg PO DAILY Hold Instructions: low BP furosemide 20 mg tablet 40 mg PO QAM PRN (Reason: swelling) cholestyramine (with sugar) 4 gram powder in packet 4 g PO QID PRN (Reason: CHOLESTEROL) diclofenac sodium 1 % gel 4 g topical QID PRN (Reason: Pain) Discharge Orders: Discharge ED (Routine); Ordered 05/30/23 Ordered By: Matteo Esteban Referrals: Jennie Ramos MD [Primary Care Provider] - Discharge Diet: Usual diet Discharge Activity: Increase activity as tolerated Patient Instructions: Opioid Safety, Pain Management Activity Restrictions/Additional Instructions: Thank you for choosing [facility] for your healthcare needs today. Please realize this is an emergency room and that we are providing you with a medical screening exam and this may not be complete and all inclusive of all the testing and or work up that you may need to determine your ailment or severity of your illness. It is very important that you follow up as instructed or that you return to the Emergency Department should you have concerns or if your condition changes or worsens in any way. You are seen today after syncopal episode while in physical therapy. Your EKG was normal other laboratory test did not show significant abnormality suspect that your episode was due to the pain and physical therapy in combination with the recent chemotherapy. Rest and follow-up as needed for any worsening or change symptoms return. Coding Level of Care Code ED Director Of Accounts Payable for Adolfo Olson
[2023-05-30 15:00] VITALS: PULSE 92; RESP 16; O2SAT 98
--- NOTE | 2023-05-30 17:24 | ECG_ITS ---
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 Measurements Intervals [place] Rate: 97 P: 53 MO: 157 QRS: -13 QRSD: 88 T: 43 QT: 333 QTc: 425 Interpretive Statements SINUS RHYTHM POSSIBLE LEFT ATRIAL ENLARGEMENT [-0.1mV P-WAVE IN V1/V2] POSSIBLE ANTERIOR MYOCARDIAL INFARCTION , PROBABLY OLD [30 ms Q WAVE IN V3/V4, OR R < 0.2 mV IN V4] Compared to ECG 01/26/2022 07:41:07 Myocardial infarct finding now present Electronically Signed On 05-30-2023 18:00:47 PATROLLER by Quang Oquendo M.D. [id number]
[2023-05-30 17:56] VITALS: BP 123/67; PULSE 67; RESP 16
== END 2023-05-30 17:59 | disposition home or self-care (01) ==
PROVIDERS: Emergency Provider Family Medicine; PCP Family Medicine
DX: R55 Syncope and collapse (principal); C80.1 Malignant (primary) neoplasm, unspecified; M75.02 Adhesive capsulitis of left shoulder; Z85.07 Personal history of malignant neoplasm of pancreas; Z79.60 Long term (current) use of unspecified immunomodulators and immunosuppressants; I10 Essential (primary) hypertension
CPT/HCPCS: 72040; 73030; 80053; 83690; 85025; 93005; 99285; J7030

== ENCOUNTER 2023-06-25 08:45 | Oncology outpatient (recurring) (ONCR) | payer MEDICARE, SELFPAY ==
[2023-05-30 08:58] VITALS: BP 127/73; PULSE 100; O2SAT 95
[2023-06-04 10:02] LABS: Basophils % 0.6 %; Eosinophils # 0.3 10^3/uL (0.0-0.8); Hematocrit 32.4 % (36-47); Lymphocytes # 1.6 10^3/uL (0.8-4.8); Lymphocytes % 24.8 %; Mean Corpuscular HGB Conc 31.5 g/dL (30-55); Mean Corpuscular Hemoglobin 25.9 pg (27-33); Mean Corpuscular Volume 82.2 fl (85-98); Mean Platelet Volume 9.9 fL (7.4-10.4); Monocytes # 0.3 10^3/uL (0.2-0.9); Monocytes % 4.8 %; Neutrophils # 4.07 10^3/uL (1.8-7.7); Neutrophils % 64.8 %; Nucleated Red Blood Cells % 0 %; Platelet Count 293 10^3/cmm (157-399); Red Blood Count 3.94 10^6/uL (3.85-5.65); Red Cell Distribution Width 15.4 % (12.1-15.1); White Blood Count 6.28 10^3/uL (3.29-11.43)
[2023-06-04 10:44] LABS: Alanine Aminotransferase 14 U/L (0-33); Albumin Level 3.5 g/dL (3.5-5.2); Alkaline Phosphatase 105 U/L (35-105); Anion Gap 13.5 (5-19); Blood Urea Nitrogen 14 mg/dL (8-23); Calcium 8.5 mg/dL (8.5-10.5); Carbon Dioxide 26 mmol/L (22-29); Chloride 107 mmol/L (98-107); Globulin 3.2 g/dL (1.3-4.6); Glomerular Filtration Rate 98.8 mL/min (90-130); Glucose 126 mg/dL (65-115); Osmolality Calculated 296 mOsm/kg (285-295); Potassium 4.5 mmol/L (3.5-5.1); Sodium 142 mmol/L (136-145); Total Bilirubin 0.3 mg/dL (0.15-1.2); Total Protein 6.7 g/dL (6.6-8.7)
[2023-06-04 11:15] LABS: Aspartate Amino Transferase 5 U/L (0-32)
[2023-06-04 12:01] LABS: Lipase 36 U/L (13-60)
[2023-06-11 08:05] LABS: Basophils % 0.5 %; Eosinophils # 0.1 10^3/uL (0.0-0.8); Eosinophils % 1.2 %; Hematocrit 37.8 % (36-47); Lymphocytes # 2.2 10^3/uL (0.8-4.8); Lymphocytes % 29.4 %; Mean Corpuscular HGB Conc 31.7 g/dL (30-55); Mean Corpuscular Hemoglobin 26.1 pg (27-33); Mean Corpuscular Volume 82.4 fl (85-98); Mean Platelet Volume 9.2 fL (7.4-10.4); Monocytes # 0.9 10^3/uL (0.2-0.9); Monocytes % 12.1 %; Neutrophils # 4.19 10^3/uL (1.8-7.7); Neutrophils % 56.5 %; Nucleated Red Blood Cells % 0 %; Platelet Count 359 10^3/cmm (157-399); Red Blood Count 4.59 10^6/uL (3.85-5.65); Red Cell Distribution Width 16.4 % (12.1-15.1); White Blood Count 7.42 10^3/uL (3.29-11.43)
[2023-06-11 08:42] LABS: Alanine Aminotransferase 17 U/L (0-33); Albumin Level 3.7 g/dL (3.5-5.2); Alkaline Phosphatase 147 U/L (35-105); Anion Gap 12.2 (5-19); Aspartate Amino Transferase 14 U/L (0-32); Blood Urea Nitrogen 14 mg/dL (8-23); Calcium 9.4 mg/dL (8.5-10.5); Carbon Dioxide 27 mmol/L (22-29); Chloride 103 mmol/L (98-107); Creatinine Clr Calc Pharmacy 64.3389; Globulin 3.4 g/dL (1.3-4.6); Glomerular Filtration Rate 98.8 mL/min (90-130); Glucose 96 mg/dL (65-115); Osmolality Calculated 286 mOsm/kg (285-295); Potassium 4.2 mmol/L (3.5-5.1); Sodium 138 mmol/L (136-145); Total Bilirubin 0.4 mg/dL (0.15-1.2); Total Protein 7.1 g/dL (6.6-8.7)
[2023-06-11] MEDS: palonosetron 0.25 mg/5 mL SDV IVP (10:44)
[2023-06-11] MEDS: dextrose 5% 250 ML 75 ML IV (10:44)
[2023-06-11] MEDS: atropine 1 mg/mL SDV 1 mL 0.400000000000000022 MG IV (13:32)
[2023-06-11] MEDS: IRINOTECAN IV (13:52)
[2023-06-11] MEDS: DEXTROSE 5% IV ×2 (13:52→13:53)
[2023-06-11] MEDS: LEUCOVORIN IV (13:53)
[2023-06-11] MEDS: fluorouraciL 4,300 MG, elastomeric pump 1 PUMP in sodium chloride 0.9% (100 ml) 6 ML IV (15:26)
[2023-06-11 15:28] VITALS: BP 119/77; PULSE 97; RESP 16; TEMP 36.3; O2SAT 97
[2023-06-13 10:45] VITALS: BP 132/90; PULSE 93; RESP 16; TEMP 36.9; O2SAT 95
[2023-06-25 08:51] LABS: Basophils % 0.4 %; Eosinophils # 0.2 10^3/uL (0.0-0.8); Eosinophils % 4.2 %; Hematocrit 35.8 % (36-47); Lymphocytes # 1.6 10^3/uL (0.8-4.8); Lymphocytes % 32.8 %; Mean Corpuscular Hemoglobin 26.2 pg (27-33); Mean Corpuscular Volume 84.6 fl (85-98); Mean Platelet Volume 9.9 fL (7.4-10.4); Monocytes # 0.5 10^3/uL (0.2-0.9); Monocytes % 9.6 %; Neutrophils # 2.52 10^3/uL (1.8-7.7); Neutrophils % 52.8 %; Nucleated Red Blood Cells % 0 %; Platelet Count 169 10^3/cmm (157-399); Red Blood Count 4.23 10^6/uL (3.85-5.65); Red Cell Distribution Width 18.1 % (12.1-15.1); White Blood Count 4.78 10^3/uL (3.29-11.43)
[2023-06-25 09:17] LABS: Carcinoembryonic Antigen 9.6 ng/mL (0.0-4.7)
[2023-06-25 09:28] LABS: Alanine Aminotransferase 14 U/L (0-33); Albumin Level 3.5 g/dL (3.5-5.2); Alkaline Phosphatase 120 U/L (35-105); Anion Gap 12.8 (5-19); Aspartate Amino Transferase 17 U/L (0-32); Blood Urea Nitrogen 11 mg/dL (8-23); Calcium 9.1 mg/dL (8.5-10.5); Carbon Dioxide 25 mmol/L (22-29); Chloride 108 mmol/L (98-107); Globulin 3.2 g/dL (1.3-4.6); Glomerular Filtration Rate 98.8 mL/min (90-130); Glucose 98 mg/dL (65-115); Osmolality Calculated 293 mOsm/kg (285-295); Potassium 3.8 mmol/L (3.5-5.1); Sodium 142 mmol/L (136-145); Total Bilirubin 0.2 mg/dL (0.15-1.2); Total Protein 6.7 g/dL (6.6-8.7)
[2023-06-25] MEDS: dextrose 5% 250 ML 75 ML IV (10:55)
[2023-06-25] MEDS: palonosetron 0.25 mg/5 mL SDV IVP (11:01)
[2023-06-25] MEDS: OXALIPLATIN IV (11:54)
[2023-06-25] MEDS: DEXTROSE 5% IV (11:54)
[2023-06-25] MEDS: atropine 1 mg/mL SDV 1 mL 0.400000000000000022 MG IV (14:08)
[2023-06-25] MEDS: dexamethasone 4 mg/mL INJ 5 mL 12 MG IV (14:35)
[2023-06-25 14:36] LABS: Add Urine Microscopic? YES; Bilirubin Urine Neg (Negative); Blood Urine 2+ (Negative); Glucose Urine UA Norm (Normal); Ketones Urine Negative (Negative); Leukocyte Esterase Urine Negative (Negative); Nitrate Urine Positive (Negative); Protein Urine Neg (Negative); Specific Gravity, Urine 1.025 (1.005-1.030); Urine Appearance SL Hazy (CLEAR); Urine Color Yellow (Yellow); Urobilinogen Urine Norm (Negative); pH Urine 5 (5-7)
[2023-06-25] MEDS: EPINEPHrine 1 mg/mL INJ 0.5 MG IM (14:38)
[2023-06-25 14:46] LABS: Add Urine Culture? Yes; Bacteria Urine 2+ /hpf; Mucus Urine TRACE /hpf; RBC Urine 0-4 /hpf (0-2); Squamous Epithelial Cell Urine 0-4 /hpf (0-5); WBC Urine 0-4 /hpf (0-5)
[2023-06-25] MEDS: famotidine 20 mg/2 mL INJ IVP (15:32)
[2023-06-25] MEDS: LORazepam 2 mg/mL INJ 1 mL 0.5 MG IVP (15:36)
[2023-06-25] MEDS: ipratropium-albuterol 3 mL Neb INHALATION (15:42)
--- NOTE | 2023-06-25 16:23 | PC.NURSE ---
Pt completed oxaliplatin at 1406 and atropine was given at 1408. Pt states she felt like she needed to have a BM. While in restroom, pt states she began to have difficulty breathing. Staff got pt sat in chair. Pt appears to be gasping for air. Pt was given duoneb at [address] Carvalho notified. Vitals at 1435- O2 97 on 2L, HR 138., 1439- O2 95% on 2L, 139 HR, 165/73. Orders from Dr. Carvalho for Dexamethasone 12mg and Epi 0.5mg IM. Both medications given. Pt appears to be breathing better after. Vitals rechecked at 1456- BP 165/81, HR 141. Staff continued to monitor pt. Pt began feeling nauseas. Lorazepam given per verbal order from Dr. Carvalho. 1630- pt feeling better, vitals stable, no difficulty breathing. Pt left via wheelchair with spouse. Pt and spouse both educated to take pt to ER if symptoms returned or if pt has difficulty breathing.
[2023-06-25 16:38] VITALS: BP 126/71; PULSE 121; RESP 17; TEMP 37; O2SAT 97
== END 2023-06-29 23:59 | disposition home or self-care (01) ==
PROVIDERS: Nurse Practitioner Family; PCP Family Medicine; Visit Provider Internal Medicine Medical Oncology
DX: Z53.9 Procedure and treatment not carried out, unspecified reason (principal); Z51.11 Encounter for antineoplastic chemotherapy; R39.11 Hesitancy of micturition; C79.51 Secondary malignant neoplasm of bone; C78.01 Secondary malignant neoplasm of right lung; C78.02 Secondary malignant neoplasm of left lung; C80.1 Malignant (primary) neoplasm, unspecified; Z79.899 Other long term (current) drug therapy; Z79.52 Long term (current) use of systemic steroids
CPT/HCPCS: 20610; 36591; 80053; 81001; 82378; 83690; 85025; 86301; 87077; 87086; 87186; 96367; 96372; 96375; 96413; 96415; 96416; 96417; 96523; 99213; 99214; J0171; J0461; J0640; J1100; J1642; J2060; J2469; J2795; J3301; J3490; J7060; J9190; J9206; J9263

== ENCOUNTER 2023-06-30 06:00 | Outpatient (RCR) | payer MEDICARE, SELFPAY | END 2023-07-29 23:59 | disposition home or self-care (01) | LOC: MPT 06:00 | PROVIDERS: PCP Family Medicine; Visit Provider Nurse Practitioner | DX: M25.512 Pain in left shoulder (principal); M75.02 Adhesive capsulitis of left shoulder | CPT/HCPCS: 97110; 97140 ==

== ENCOUNTER 2023-07-22 13:48 | Outpatient (CLI) | payer MEDICARE, SELFPAY ==
[2023-07-22] MEDS: iohexol 350 mg/mL 500 mL Btl (per mL) PO (14:14)
--- NOTE | 2023-07-22 15:30 | CT_ITS ---
WS: [id number] CT CHEST, ABDOMEN AND PELVIS WITH CONTRAST HISTORY: pancreatic cancer TECHNIQUE: Contiguous 5 mm axial imaging performed through the chest, abdomen and pelvis with IV cont rast, oral contrast has been provided. Coronal and sagittal reformats chest. Coronal and sagittal ref ormats through the abdomen and pelvis. All CT scans at [facility] use at least one of these d ose optimization techniques: automated exposure control; mA and/or kV adjustment per patient size (in cludes targeted exams where dose is matched to clinical indication); or iterative reconstruction. CONTRAST: Omnipaque 350; 100 mL IV. DLP: 949.04 mGy.cm COMPARISON: 05/08/2023, 02/07/[address]: Innumerable pulmonary nodules throughout both lungs. Many of these nodules are cavitated. V olume loss in the LEFT thorax with marked pleural thickening and complex fluid collections. The large st pleural fluid collection at the LEFT lower lung field measuring 10.7 x 6.6 cm. There is mild enhan cement of the adjacent pleura. There is an additional more superior fluid collection extending over t he lung apex. This collection is multiloculated. There is pleural thickening. Areas of increased atel ectasis and consolidation throughout the remaining aerated lung which is limited. Normal size aorta. Heart is normal size. No mediastinal adenopathy. No axillary lymph nodes. RIGHT alexander bclavian Port-A-Cath. Abdomen CT: Normal size liver. There are multiple low-attenuation masses within the liver. These have been previously described and consistent with cysts. There are a few hypointense lesions which are r eally too small to characterize and could represent early metastatic sites. Gallbladder has been sunita ricky. No bile duct dilatation. No interval change in configuration of the pancreas. There is a slightl y lobulated appearance to the pancreatic tail which has been previously described. As per history the patient has pancreatic cancer. No adrenal mass. Atherosclerosis aorta. No renal obstruction. Stomach is well distended with contrast. No small bowel obstruction. Moderate distal sigmoid divertic ular disease without acute diverticulitis. Small nodule in the LEFT upper abdomen is stable and consi stent with a splenule. Mild mesenteric hazy attenuation. No adenopathy or ascites within the abdomen. Pelvic CT: No free fluid. Well distended urinary bladder. No adenopathy. No metastatic disease to the bones. Healed rib fracture inferior LEFT thorax. IMPRESSION: 1. Innumerable cavitary pulmonary nodules throughout both lungs. Majority of these are cavitated. Alexander spicious for metastatic nodules. 2. Multiloculated pleural collections throughout the LEFT thorax with pleural thickening and volume loss of the LEFT lung. These may be empyemas but are essentially unchanged since 05/08/2023. 3. No mediastinal or hilar adenopathy. 4. Hepatic cysts. There are a few too small to characterize hypodensities within the liver but these are unchanged. 5. No interval change in appearance of the pancreas. There is a slightly lobulated appearance of the pancreatic tail. By history patient has a pancreatic cancer. 6. Moderate sigmoid diverticulosis without acute diverticulitis.
[2023-07-22] MEDS: iohexol 350 mg/mL 500 mL Btl (per mL) IV (15:31)
== END 2023-07-22 13:49 | disposition home or self-care (01) ==
LOC: RAD 13:48
PROVIDERS: PCP Family Medicine; Visit Provider Internal Medicine Medical Oncology
DX: C79.9 Secondary malignant neoplasm of unspecified site (principal); C25.9 Malignant neoplasm of pancreas, unspecified; R91.8 Other nonspecific abnormal finding of lung field; K76.89 Other specified diseases of liver; K57.30 Diverticulosis of large intestine without perforation or abscess without bleeding
CPT/HCPCS: 71260; 74177; Q9967

== ENCOUNTER 2023-07-25 11:00 | Oncology outpatient (recurring) (ONCR) | payer MEDICARE, SELFPAY ==
[2023-07-09 09:36] LABS: Basophils # 0.1 10^3/uL (0.0-0.1); Basophils % 0.8 %; Eosinophils # 0.1 10^3/uL (0.0-0.8); Hematocrit 37.4 % (36-47); Lymphocytes # 1.9 10^3/uL (0.8-4.8); Lymphocytes % 26.2 %; Mean Corpuscular HGB Conc 31.6 g/dL (30-55); Mean Corpuscular Hemoglobin 26.8 pg (27-33); Mean Platelet Volume 10.2 fL (7.4-10.4); Monocytes # 0.6 10^3/uL (0.2-0.9); Monocytes % 8.5 %; Neutrophils # 4.62 10^3/uL (1.8-7.7); Neutrophils % 63.1 %; Nucleated Red Blood Cells % 0 %; Platelet Count 182 10^3/cmm (157-399); White Blood Count 7.32 10^3/uL (3.29-11.43)
[2023-07-09 09:56] LABS: Alanine Aminotransferase 13 U/L (0-33); Albumin Level 3.5 g/dL (3.5-5.2); Alkaline Phosphatase 107 U/L (35-105); Anion Gap 12.1 (5-19); Aspartate Amino Transferase 26 U/L (0-32); Blood Urea Nitrogen 13 mg/dL (8-23); Calcium 9.4 mg/dL (8.5-10.5); Carbon Dioxide 26 mmol/L (22-29); Chloride 110 mmol/L (98-107); Globulin 3.2 g/dL (1.3-4.6); Glomerular Filtration Rate 98.8 mL/min (90-130); Glucose 115 mg/dL (65-115); Osmolality Calculated 299 mOsm/kg (285-295); Potassium 4.1 mmol/L (3.5-5.1); Sodium 144 mmol/L (136-145); Total Bilirubin 0.2 mg/dL (0.15-1.2); Total Protein 6.7 g/dL (6.6-8.7)
[2023-07-09] MEDS: dextrose 5% 250 ML 75 ML IV (11:54)
[2023-07-09] MEDS: palonosetron 0.25 mg/5 mL SDV IVP (11:57)
[2023-07-09] MEDS: atropine 1 mg/mL SDV 1 mL 0.400000000000000022 MG IV (12:36)
[2023-07-09] MEDS: DEXTROSE 5% IV ×2 (12:53)
[2023-07-09] MEDS: IRINOTECAN IV (12:53)
[2023-07-09] MEDS: LEUCOVORIN IV (12:53)
[2023-07-09] MEDS: fluorouraciL 4,400 MG, elastomeric pump 1 PUMP in sodium chloride 0.9% (100 ml) 4 ML IV (14:51)
[2023-07-09 15:00] VITALS: BP 121/78; PULSE 78; RESP 18; TEMP 36.6; O2SAT 97
[2023-07-11 11:05] VITALS: BP 119/78; PULSE 100; RESP 16; TEMP 36.9; O2SAT 93
[2023-07-22 15:48] LABS: Basophils % 0.5 %; Eosinophils # 0.1 10^3/uL (0.0-0.8); Eosinophils % 1.2 %; Hematocrit 34.9 % (36-47); Lymphocytes # 1.8 10^3/uL (0.8-4.8); Mean Corpuscular HGB Conc 32.1 g/dL (30-55); Mean Corpuscular Hemoglobin 27.3 pg (27-33); Mean Corpuscular Volume 84.9 fl (85-98); Mean Platelet Volume 9.8 fL (7.4-10.4); Monocytes # 0.4 10^3/uL (0.2-0.9); Monocytes % 6.7 %; Neutrophils # 3.38 10^3/uL (1.8-7.7); Neutrophils % 59.4 %; Nucleated Red Blood Cells % 0 %; Platelet Count 174 10^3/cmm (157-399); Red Blood Count 4.11 10^6/uL (3.85-5.65); Red Cell Distribution Width 19.6 % (12.1-15.1); White Blood Count 5.69 10^3/uL (3.29-11.43)
[2023-07-22 16:17] LABS: Carcinoembryonic Antigen 10.3 ng/mL (0.0-4.7)
[2023-07-22 16:28] LABS: Alanine Aminotransferase 13 U/L (0-33); Albumin Level 3.4 g/dL (3.5-5.2); Alkaline Phosphatase 105 U/L (35-105); Anion Gap 11.9 (5-19); Aspartate Amino Transferase 21 U/L (0-32); Blood Urea Nitrogen 8 mg/dL (8-23); Calcium 9.1 mg/dL (8.5-10.5); Carbon Dioxide 26 mmol/L (22-29); Chloride 105 mmol/L (98-107); Creatinine Clr Calc Pharmacy 64.3856; Globulin 3.2 g/dL (1.3-4.6); Glomerular Filtration Rate 98.8 mL/min (90-130); Glucose 92 mg/dL (65-115); Osmolality Calculated 286 mOsm/kg (285-295); Potassium 3.9 mmol/L (3.5-5.1); Sodium 139 mmol/L (136-145); Total Bilirubin 0.3 mg/dL (0.15-1.2); Total Protein 6.6 g/dL (6.6-8.7)
[2023-07-22 16:41] LABS: Iron 49 ug/dL (37-145); Total Iron Binding Capacity 222 mcg/dl; Unsaturated Iron Binding 173 ug/dL (112-347)
[2023-07-23] MEDS: dextrose 5% 250 ML 75 ML IV (13:32)
[2023-07-23] MEDS: palonosetron 0.25 mg/5 mL SDV IVP (13:36)
[2023-07-23] MEDS: atropine 1 mg/mL SDV 1 mL 0.400000000000000022 MG IV (14:33)
[2023-07-23] MEDS: leucovorin 720 MG in dextrose 5% 250 ML 125 MG IV (14:37)
[2023-07-23] MEDS: irinotecan 200 MG, irinotecan 70 MG in dextrose 5% 250 ML 175.669999999999987 MG IV (14:38)
[2023-07-23] MEDS: fluorouraciL 4,300 MG, elastomeric pump 1 PUMP in sodium chloride 0.9% (100 ml) 6 ML IV (16:17)
[2023-07-23 16:18] VITALS: BP 118/73; PULSE 76; RESP 16; TEMP 36.9; O2SAT 97
== END 2023-07-29 23:59 | disposition home or self-care (01) ==
PROVIDERS: Nurse Practitioner Family; PCP Family Medicine; Visit Provider Internal Medicine Medical Oncology
DX: Z45.1 Encounter for adjustment and management of infusion pump (principal); Z53.9 Procedure and treatment not carried out, unspecified reason
CPT/HCPCS: 36591; 71260; 74177; 80053; 82378; 83540; 83550; 85025; 96367; 96368; 96375; 96413; 96415; 96416; 96417; 96523; 99214; J0461; J0640; J1100; J2469; J7060; J9190; J9206; Q9967

== ENCOUNTER 2023-07-30 06:00 | Outpatient (RCR) | payer MEDICARE, SELFPAY | END 2023-08-26 23:59 | disposition home or self-care (01) | LOC: MPT 06:00 | PROVIDERS: PCP Family Medicine; Visit Provider Nurse Practitioner | DX: M75.02 Adhesive capsulitis of left shoulder (principal); M25.512 Pain in left shoulder | CPT/HCPCS: 97110; 97140; 97530 ==

== ENCOUNTER 2023-08-22 11:00 | Oncology outpatient (recurring) (ONCR) | payer MEDICARE, SELFPAY ==
[2023-08-06 08:48] LABS: Basophils # 0.1 10^3/uL (0.0-0.1); Basophils % 0.7 %; Eosinophils # 0.2 10^3/uL (0.0-0.8); Eosinophils % 2.4 %; Hematocrit 36.5 % (36-47); Lymphocytes % 30.1 %; Mean Corpuscular HGB Conc 31.8 g/dL (30-55); Mean Corpuscular Hemoglobin 27.8 pg (27-33); Mean Corpuscular Volume 87.3 fl (85-98); Mean Platelet Volume 9.9 fL (7.4-10.4); Monocytes # 0.5 10^3/uL (0.2-0.9); Monocytes % 7.5 %; Nucleated Red Blood Cells % 0 %; Platelet Count 223 10^3/cmm (157-399); Red Blood Count 4.18 10^6/uL (3.85-5.65); Red Cell Distribution Width 20.5 % (12.1-15.1); White Blood Count 6.78 10^3/uL (3.29-11.43)
[2023-08-06 09:14] LABS: Carcinoembryonic Antigen 10.4 ng/mL (0.0-4.7)
[2023-08-06 09:25] LABS: Alanine Aminotransferase 12 U/L (0-33); Albumin Level 3.5 g/dL (3.5-5.2); Alkaline Phosphatase 106 U/L (35-105); Anion Gap 14.3 (5-19); Aspartate Amino Transferase 16 U/L (0-32); Blood Urea Nitrogen 15 mg/dL (8-23); Calcium 9.1 mg/dL (8.5-10.5); Carbon Dioxide 24 mmol/L (22-29); Chloride 108 mmol/L (98-107); Globulin 3.2 g/dL (1.3-4.6); Glomerular Filtration Rate 98.8 mL/min (90-130); Glucose 105 mg/dL (65-115); Osmolality Calculated 295 mOsm/kg (285-295); Potassium 4.3 mmol/L (3.5-5.1); Sodium 142 mmol/L (136-145); Total Bilirubin 0.2 mg/dL (0.15-1.2); Total Protein 6.7 g/dL (6.6-8.7)
[2023-08-06] MEDS: dextrose 5% 250 ML 75 ML IV (11:40)
[2023-08-06] MEDS: palonosetron 0.25 mg/5 mL SDV IVP (11:43)
[2023-08-06] MEDS: atropine 1 mg/mL SDV 1 mL 0.400000000000000022 MG IV (12:17)
[2023-08-06] MEDS: irinotecan 200 MG, irinotecan 70 MG in dextrose 5% 250 ML 175.669999999999987 MG IV (12:23)
[2023-08-06] MEDS: leucovorin 720 MG in dextrose 5% 250 ML 125 MG IV (12:23)
[2023-08-06] MEDS: fluorouraciL 4,300 MG, elastomeric pump 1 PUMP in sodium chloride 0.9% (100 ml) 6 ML IV (14:12)
[2023-08-06 14:20] VITALS: BP 129/80; PULSE 82; RESP 18; TEMP 35.8; O2SAT 98
[2023-08-08 11:07] VITALS: BP 124/80; PULSE 84; RESP 16; TEMP 36.8; O2SAT 97
--- NOTE | 2023-08-08 11:25 | XR_ITS ---
WS: [id number] PA and lateral chest, 08/08/2023 Clinical Data: cough Comparison: Portable chest, 01/15/2023 Findings: The right lung shows almost total opacification with only minimal aeration in the left uppe r lung. There are interstitial opacities throughout the right lung. No large masses are seen. No righ t lung pneumonia is seen. There is an infusion catheter entering from the right and ending in the sup erior vena cava. The heart size is obscured by the left lung opacification and shift of the mediastin um from right to left. There is a dextroscoliosis with osteoarthritis. XR/XR chest 2V* [id number] Impression: 1. Almost total opacification of left lung unchanged. 2. Interstitial change throughout the right lung which remains the same.
[2023-08-20 07:41] LABS: Basophils # 0.1 10^3/uL (0.0-0.1); Basophils % 0.8 %; Eosinophils # 0.1 10^3/uL (0.0-0.8); Eosinophils % 1.8 %; Hematocrit 35.6 % (36-47); Lymphocytes % 25.7 %; Mean Corpuscular HGB Conc 31.5 g/dL (30-55); Mean Corpuscular Hemoglobin 27.9 pg (27-33); Mean Corpuscular Volume 88.8 fl (85-98); Mean Platelet Volume 10.2 fL (7.4-10.4); Monocytes # 0.6 10^3/uL (0.2-0.9); Monocytes % 7.3 %; Neutrophils # 5.03 10^3/uL (1.8-7.7); Neutrophils % 64.1 %; Nucleated Red Blood Cells % 0 %; Platelet Count 234 10^3/cmm (157-399); Red Blood Count 4.01 10^6/uL (3.85-5.65); Red Cell Distribution Width 19.9 % (12.1-15.1); White Blood Count 7.83 10^3/uL (3.29-11.43)
[2023-08-20 07:58] LABS: Alanine Aminotransferase 11 U/L (0-33); Albumin Level 3.6 g/dL (3.5-5.2); Alkaline Phosphatase 106 U/L (35-105); Anion Gap 11.9 (5-19); Aspartate Amino Transferase 17 U/L (0-32); Blood Urea Nitrogen 13 mg/dL (8-23); Calcium 8.6 mg/dL (8.5-10.5); Carbon Dioxide 25 mmol/L (22-29); Chloride 108 mmol/L (98-107); Creatinine Clr Calc Pharmacy 64.5261; Globulin 2.9 g/dL (1.3-4.6); Glomerular Filtration Rate 98.8 mL/min (90-130); Glucose 105 mg/dL (65-115); Osmolality Calculated 292 mOsm/kg (285-295); Potassium 3.9 mmol/L (3.5-5.1); Sodium 141 mmol/L (136-145); Total Bilirubin 0.2 mg/dL (0.15-1.2); Total Protein 6.5 g/dL (6.6-8.7)
[2023-08-20] MEDS: dextrose 5% 250 ML 75 ML IV (09:50)
[2023-08-20] MEDS: palonosetron 0.25 mg/5 mL SDV IVP (09:52)
[2023-08-20] MEDS: atropine 1 mg/mL SDV 1 mL 0.400000000000000022 MG IV (10:28)
[2023-08-20] MEDS: leucovorin 720 MG in dextrose 5% 250 ML 125 MG IV (10:45)
[2023-08-20] MEDS: irinotecan 200 MG, irinotecan 70 MG in dextrose 5% 250 ML 175.669999999999987 MG IV (10:46)
[2023-08-20] MEDS: fluorouraciL 4,300 MG, elastomeric pump 1 PUMP in sodium chloride 0.9% (100 ml) 6 ML IV (12:54)
[2023-08-20 13:26] VITALS: BP 102/78; PULSE 84; RESP 18; TEMP 36.3; O2SAT 98
[2023-08-22 10:40] VITALS: BP 116/75; PULSE 73; RESP 16; TEMP 36.7; O2SAT 99
== END 2023-08-29 23:59 | disposition home or self-care (01) ==
PROVIDERS: Internal Medicine Hematology & Oncology; Nurse Practitioner Family; PCP Family Medicine; Visit Provider Internal Medicine Medical Oncology
DX: Z45.1 Encounter for adjustment and management of infusion pump (principal); Z53.9 Procedure and treatment not carried out, unspecified reason
CPT/HCPCS: 71046; 80053; 82378; 85025; 96365; 96366; 96367; 96368; 96375; 96413; 96415; 96416; 96523; 99214; J0461; J0640; J1100; J2469; J7060; J9190; J9206

== ENCOUNTER → 2023-09-08 10:33 | Outpatient (BNVA) | payer MEDICARE, SELFPAY | PROVIDERS: PCP Family Medicine; Visit Provider Specialist | DX: M19.012 Primary osteoarthritis, left shoulder | CPT/HCPCS: 20610; J1100; J2795; J3301 ==

== ENCOUNTER 2023-09-19 10:30 | Oncology outpatient (recurring) (ONCR) | payer MEDICARE, SELFPAY ==
[2023-09-03 09:19] LABS: Basophils % 0.5 %; Eosinophils # 0.2 10^3/uL (0.0-0.8); Eosinophils % 2.6 %; Hematocrit 35.9 % (36-47); Lymphocytes % 27.4 %; Mean Corpuscular HGB Conc 31.8 g/dL (30-55); Mean Corpuscular Hemoglobin 28.4 pg (27-33); Mean Corpuscular Volume 89.5 fl (85-98); Mean Platelet Volume 9.9 fL (7.4-10.4); Monocytes # 0.6 10^3/uL (0.2-0.9); Monocytes % 7.7 %; Neutrophils # 4.56 10^3/uL (1.8-7.7); Neutrophils % 61.7 %; Nucleated Red Blood Cells % 0 %; Platelet Count 253 10^3/cmm (157-399); Red Blood Count 4.01 10^6/uL (3.85-5.65)
[2023-09-03 09:33] LABS: Alanine Aminotransferase 11 U/L (0-33); Albumin Level 3.4 g/dL (3.5-5.2); Alkaline Phosphatase 103 U/L (35-105); Aspartate Amino Transferase 14 U/L (0-32); Blood Urea Nitrogen 12 mg/dL (8-23); Calcium 9.1 mg/dL (8.5-10.5); Carbon Dioxide 25 mmol/L (22-29); Chloride 107 mmol/L (98-107); Globulin 3.1 g/dL (1.3-4.6); Glomerular Filtration Rate 82.7 mL/min (90-130); Glucose 96 mg/dL (65-115); Osmolality Calculated 294 mOsm/kg (285-295); Sodium 142 mmol/L (136-145); Total Bilirubin 0.3 mg/dL (0.15-1.2); Total Protein 6.5 g/dL (6.6-8.7)
[2023-09-03] MEDS: dextrose 5% 250 ML 75 ML IV (11:43)
[2023-09-03] MEDS: palonosetron 0.25 mg/5 mL SDV IVP (11:48)
[2023-09-03] MEDS: atropine 1 mg/mL SDV 1 mL 0.400000000000000022 MG IV (12:18)
[2023-09-03] MEDS: leucovorin 720 MG in dextrose 5% 250 ML 125 MG IV (12:23)
[2023-09-03] MEDS: irinotecan 200 MG, irinotecan 70 MG in dextrose 5% 250 ML 175.669999999999987 MG IV (12:24)
[2023-09-03] MEDS: fluorouraciL 4,300 MG, elastomeric pump 1 PUMP in sodium chloride 0.9% (100 ml) 6 ML IV (13:56)
[2023-09-03 14:00] VITALS: BP 124/78; PULSE 84; RESP 18; TEMP 36.6; O2SAT 98
[2023-09-17 08:47] LABS: Basophils # 0.1 10^3/uL (0.0-0.1); Basophils % 0.5 %; Eosinophils # 0.2 10^3/uL (0.0-0.8); Eosinophils % 1.5 %; Hematocrit 37.9 % (36-47); Lymphocytes # 2.2 10^3/uL (0.8-4.8); Lymphocytes % 22.4 %; Mean Corpuscular HGB Conc 31.4 g/dL (30-55); Mean Corpuscular Hemoglobin 28.5 pg (27-33); Mean Corpuscular Volume 90.9 fl (85-98); Mean Platelet Volume 9.9 fL (7.4-10.4); Monocytes # 0.8 10^3/uL (0.2-0.9); Monocytes % 8.2 %; Neutrophils # 6.69 10^3/uL (1.8-7.7); Neutrophils % 67.1 %; Nucleated Red Blood Cells % 0 %; Platelet Count 242 10^3/cmm (157-399); Red Blood Count 4.17 10^6/uL (3.85-5.65); White Blood Count 9.97 10^3/uL (3.29-11.43)
[2023-09-17 09:07] LABS: Alanine Aminotransferase 12 U/L (0-33); Albumin Level 3.8 g/dL (3.5-5.2); Alkaline Phosphatase 122 U/L (35-105); Anion Gap 14.8 (5-19); Aspartate Amino Transferase 16 U/L (0-32); Blood Urea Nitrogen 23 mg/dL (8-23); Calcium 9.2 mg/dL (8.5-10.5); Carbon Dioxide 25 mmol/L (22-29); Chloride 107 mmol/L (98-107); Creatinine Clr Calc Pharmacy 65.0885; Globulin 2.9 g/dL (1.3-4.6); Glomerular Filtration Rate 82.7 mL/min (90-130); Glucose 97 mg/dL (65-115); Osmolality Calculated 298 mOsm/kg (285-295); Potassium 4.8 mmol/L (3.5-5.1); Sodium 142 mmol/L (136-145); Total Bilirubin 0.3 mg/dL (0.15-1.2); Total Protein 6.7 g/dL (6.6-8.7)
[2023-09-17] MEDS: dextrose 5% 250 ML 75 ML IV (10:45)
[2023-09-17] MEDS: dexamethasone 4 mg/mL INJ 5 mL 12 MG IVP (10:49)
[2023-09-17] MEDS: palonosetron 0.25 mg/5 mL SDV IVP (10:58)
[2023-09-17] MEDS: atropine 1 mg/mL SDV 1 mL 0.400000000000000022 MG IV (11:13)
[2023-09-17] MEDS: leucovorin 720 MG in dextrose 5% 250 ML 125 MG IV (11:21)
[2023-09-17] MEDS: irinotecan 200 MG, irinotecan 70 MG in dextrose 5% 250 ML 175.669999999999987 MG IV (11:22)
[2023-09-17 13:13] VITALS: BP 121/48; PULSE 74; RESP 18; TEMP 36.6; O2SAT 94
[2023-09-17] MEDS: fluorouraciL 4,300 MG, elastomeric pump 1 PUMP in sodium chloride 0.9% (100 ml) 6 ML IV (13:15)
[2023-09-17 15:22] LABS: Cancer Antigen 19 9 1.25 U/mL (0-35)
[2023-09-19 10:02] VITALS: BP 111/72; PULSE 76; RESP 16; TEMP 37.1; O2SAT 99
== END 2023-09-28 23:59 | disposition home or self-care (01) ==
PROVIDERS: Nurse Practitioner Family; PCP Family Medicine; Visit Provider Internal Medicine Medical Oncology
DX: Z45.1 Encounter for adjustment and management of infusion pump (principal); Z53.9 Procedure and treatment not carried out, unspecified reason
CPT/HCPCS: 80053; 85025; 86301; 96367; 96368; 96375; 96413; 96415; 96416; 96523; 99214; J0461; J0640; J1100; J2469; J7060; J9190; J9206

== ENCOUNTER 2023-10-07 15:03 | Emergency (ER) | payer MEDICARE, SELFPAY ==
[2023-10-07 15:09] VITALS: BP 137/78; PULSE 111; RESP 16; TEMP 36.4; O2SAT 97
--- NOTE | 2023-10-07 15:53 | W.ED.GIBLEED ---
HPI - GI Bleed General: Chief complaint: GI Bleed Stated complaint: bleeding while making bowel movement, cancer pt Time Seen by Provider: 10/07/23 15:51 Source: patient Mode of arrival: ambulatory History of Present Illness: 68-year-old female presents emergency room complaining of rectal bleeding. She has a history of disseminated pancreatic cancer. At the time of presentation she had mets to the lung and liver. Reading through her oncology notes she has had progressive spread with near complete whiteout of the left lung field on chest x-ray was progressive lung lesions. Today she said she felt floaty just uneasy she was at [facility] had a bowel movement and had a couple episodes of passing blood it is resolved now. She still feels a little lightheaded and woozy. She is still getting palliative chemotherapy treatment her initial diagnosis was in December 2021. She has not previously had GI bleeding. MD complaint: gross hematochezia Relieving factors: none Exacerbating factors: none Context: other (Disseminated pancreatic cancer) Associated symptoms: Reports malaise and nausea; Denies abdominal pain, chills, easy bruising, epistaxis, fever(s), headache(s), other bleeding, poor appetite, rash, syncope, vomiting or weakness Review of Systems Const: Reports: malaise; Denies: fever(s) or chills ENMT: Denies: epistaxis Card: Denies: chest pain or syncope Resp: Denies: dyspnea GI: Reports: nausea and hematochezia; Denies: abdominal pain or vomiting : Denies: dysuria, urinary frequency or urinary urgency Musc: Denies: neck pain or back pain Skin/Breast: Denies: rash Neuro: Denies: headache(s) Edmundo/Lymph: Denies: easy bruising PFS ED PFSH: Medical History Recurrent pleural effusion on left Syncope and collapse Symptoms of cerebrovascular accident (CVA) Primary osteoarthritis, left shoulder Left shoulder tendonitis Trapezius muscle spasm History of DVT (deep vein thrombosis) COVID-19 determined by clinical diagnostic criteria Chronic pain Hypokalemia History of diverticulitis History of chemotherapy Encephalopathy 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) History of cardiac arrest Left hemiparesis 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 History of seizures Anxiety and depression Empyema of left pleural space GERD (gastroesophageal reflux disease) Metastatic adenocarcinoma HTN (hypertension) Amlodipine discontinued due to hypotension Pleural effusion Surgical History Port-A-Cath in place History of foot surgery Hx of bladder repair surgery bladder Sling Hx of colonoscopy History of esophagogastroduodenoscopy (EGD) History of appendectomy History of cholecystectomy History of hysterectomy Family History Father Bleeding disorder Cancer Diabetes Hypertension Mother Cancer Diabetes Hypertension Thyroid disease Denies family history of Chronic kidney disease (CKD) Stroke Social History Smoking and tobacco/nicotine status: unknown if used tobacco/nicotine Second hand smoke exposure: Yes Alcohol intake: never Physical Exam Const: GENERAL APPEARANCE: cooperative and comfortable ORIENTATION/CONSCIOUSNESS: Yes awake, Yes oriented to person, Yes oriented to place and Yes oriented to time HENMT: COMMON NORMALS: normocephalic, atraumatic and hearing grossly normal bilaterally HEAD & SCALP: normocephalic and atraumatic Resp: COMMON NORMALS: normal respiratory effort, No retractions, No use of accessory muscles and clear to auscultation bilaterally AUSCULTATION: clear to auscultation bilaterally Cardio: COMMON NORMALS: regular rate, regular rhythm and No murmurs present (Cardio) RATE: regular rate RHYTHM: regular rhythm GI: COMMON NORMALS: No hepatosplenomegaly present AUSCULTATION: Yes normoactive bowel sounds PALPATION: Yes Tenderness to palpation present (GI) Details: LLQ, No Guarding due to palpation present (GI) and Yes No hepatosplenomegaly present : COMMON NORMALS: Yes no CVA tenderness BLADDER/KIDNEY EXAM: Yes no CVA tenderness OTHER: Rectal exam there are some hemorrhoidal tags. Moderate discomfort with excessive though bright red blood no anal fissures no thrombosed or actively bleeding hemorrhoidal tags. Back/Pelvis: COMMON NORMALS: no CVA tenderness Extremity: COMMON NORMALS: normal to inspection, capillary refill normal, no clubbing, cyanosis or edema, no calf tenderness and no pedal edema Neuro: SENSORIUM/ORIENTATION: Yes oriented to person, Yes oriented to place and Yes oriented to time Skin: COMMON NORMALS: no rashes or lesions noted GENERAL SKIN EXAM: no rashes or lesions noted Course Vital Signs: Vital signs: Vital Signs Temperature 97.5 F L 10/07/23 18:09 Pulse Rate 104 H 10/07/23 18:09 Respiratory Rate 16 10/07/23 18:09 Blood Pressure 148/88 10/07/23 18:09 Pulse Oximetry 98 10/07/23 18:09 Oxygen Delivery Me thod Room Air 10/07/23 17:53 MDM - GI Bleed Medical Decision Making No active bleeding at this time she reports couple episodes of passing bright red blood per stool. Hemoglobin is stable no leukocytosis. Chest x-ray shows opacification of the left lung field which has been seen in the past. On the CT she also had a loculated effusion at the left base. Changes previously seen for pancreatic cancer once again seen nothing that appears acute. She is not actively bleeding and is stable. She has been on the Eliquis for over a year for DVT at this point we will have her hold her Eliquis and follow-up with oncology in the next day or 2 to recheck a hemoglobin. If she has further bleeding return to the emergency room. Will prophylactically cover her for colitis early diverticulitis with antibiotics and she is focusing more the discomfort in the left lower quadrant. If she develops a fever return to the emergency room. Medical Records I reviewed the patient's medical records. Lab Data I reviewed the patient's lab results. 10/07/23 16:10 10/07/23 16:10 Radiology Impressions Abdomen/Pelvis CT 10/07/23 16:12 IMPRESSION: 1. No acute abdominopelvic pathology. 2. Extensive cavitary nodules throughout the visualized right lung again noted. Complex left pleural fluid collections, incompletely imaged and subjacent left basilar consolidation also incompletely imaged. 3. Multiple minor abdominopelvic findings are not changed as detailed above including possible mass of the pancreatic tail; if not previously performed MRI could be utilized for further assessment of the pancreas. Laboratory Results WBC 5.13 10^3/uL (3.29-11.43) 10/07/23 16:10 RBC 3.89 10^6/uL (3.85-5.65) 10/07/23 16:10 Hgb 11.80 g/dL (11.27-16.99) 10/07/23 16:10 Hct 36.0 % (36-47) 10/07/23 16:10 MCV 92.5 fl (85-98) 10/07/23 16:10 MCH 30.3 pg (27-33) 10/07/23 16:10 MCHC 32.8 g/dL (30-55) 10/07/23 16:10 RDW 17.0 % (12.1-15.1) H 10/07/23 16:10 Plt Count 231 10^3/cmm (157-399) 10/07/23 16:10 MPV 10.0 fL (7.4-10.4) 10/07/23 16:10 Neut % (Auto) 53.4 % 10/07/23 16:10 Lymph % (Auto) 38.4 % 10/07/23 16:10 Harding % (Auto) 4.7 % 10/07/23 16:10 Eos % (Auto) 1.9 % 10/07/23 16:10 Baso % (Auto) 0.8 % 10/07/23 16:10 Neut # (Auto) 2.74 10^3/uL (1.8-7.7) 10/07/23 16:10 Lymph # (Auto) 2.0 10^3/uL (0.8-4.8) 10/07/23 16:10 Harding # (Auto) 0.2 10^3/uL (0.2-0.9) 10/07/23 16:10 Eos # (Auto) 0.1 10^3/uL (0.0-0.8) 10/07/23 16:10 Baso # (Auto) 0.0 10^3/uL (0.0-0.1) 10/07/23 16:10 Nucleated RBC % (auto) 0 % 10/07/23 16:10 Nucleated RBCs # 0.0 /100WBC 10/07/23 16:10 PT 14.30 SECONDS (12.1-14.9) 10/07/23 16:10 INR 1.07 (0.8-1.2) 10/07/23 16:10 Sodium 140 mmol/L (136-145) 10/07/23 16:10 Potassium 3.9 mmol/L (3.5-5.1) 10/07/23 16:10 Chloride 106 mmol/L (98-107) 10/07/23 16:10 Carbon Dioxide 24 mmol/L (22-29) 10/07/23 16:10 Anion Gap 13.9 (5-19) 10/07/23 16:10 BUN 10 mg/dL (8-23) 10/07/23 16:10 Creatinine 0.6 mg/dL (0.5-0.9) 10/07/23 16:10 GFR Calculation 98.8 mL/min (90-130) 10/07/23 16:10 Glucose 98 mg/dL (65-115) 10/07/23 16:10 Calculated Osmolality 289 mOsm/kg (285-295) 10/07/23 16:10 Calcium 9.3 mg/dL (8.5-10.5) 10/07/23 16:10 Total Bilirubin 0.3 mg/dL (0.15-1.2) 10/07/23 16:10 AST 14 U/L (0-32) 10/07/23 16:10 ALT 13 U/L (0-33) 10/07/23 16:10 Alkaline Phosphatase 106 U/L (35-105) H 10/07/23 16:10 Total Protein 6.5 g/dL (6.6-8.7) L 10/07/23 16:10 Albumin 3.6 g/dL (3.5-5.2) 10/07/23 16:10 Globulin 2.9 g/dL (1.3-4.6) 10/07/23 16:10 Lipase 9 U/L (13-60) L 10/07/23 16:10 XR interpretation done by ED provider, pending radiology final review Discharge Plan Discharge Patient Disposition: Home Clinical Impression: Bright red rectal bleeding, Metastatic adenocarcinoma, Hemorrhoids Condition: Stable Prescriptions: New cefdinir 300 mg capsule 300 mg PO BID 7 Days Qty: 14 0RF metronidazole 500 mg tablet 500 mg PO BID 7 Days Qty: 14 0RF No Action Xarelto 20 mg tablet 20 mg PO DAILY 30 Days Qty: 30 5RF Rx Instructions: with evening meal 340B omeprazole 20 mg capsule,delayed release(DR/EC) 20 mg PO DAILY 90 Days Qty: 90 1RF prochlorperazine maleate [Compazine] 10 mg tablet 10 mg PO Q4H PRN (Reason: Mild Nausea) Qty: 30 3RF lorazepam 1 mg tablet 0.5 - 1 mg PO Q6H PRN (Reason: Severe Nausea) Qty: 30 3RF nystatin 100,000 unit/gram cream 1 applic topical BID Qty: 15 1RF Complete Multivitamin-Mineral 18-400 mg-mcg tablet 1 tab PO DAILY levetiracetam 750 mg tablet 1,500 mg PO BID Qty: 120 3RF diphenoxylate-atropine [Lomotil] 2.5-0.025 mg tablet 2 tab PO QID PRN (Reason: Diarrhea) Qty: 60 3RF Rx Instructions: 2 tablets orally 4 times daily until control of diarrhea has been achieved. Imodium A-D 2 mg capsule 2 mg PO Q4H PRN (Reason: Diarrhea) Qty: 10 0RF Hold Instructions: Home Medication placed on hold at Doctor's office Rx Instructions: administer after each loose stool until symptoms controlled; do not exceed 8 mg per 24 hrs albuterol sulfate 90 mcg/actuation HFA aerosol inhaler 2 inh inhalation Q8H PRN (Reason: shortness of breath or wheezing) Qty: 6.7 4RF amlodipine 10 mg tablet 10 mg PO DAILY Hold Instructions: low BP furosemide 20 mg tablet 40 mg PO QAM PRN (Reason: swelling) cholestyramine (with sugar) 4 gram powder in packet 4 g PO QID PRN (Reason: CHOLESTEROL) diclofenac sodium 1 % gel 4 g topical QID PRN (Reason: Pain) Discharge Orders: Discharge ED (Routine); Ordered 10/07/23 Ordered By: Matteo Esteban Referrals: Jennie Ramos MD [Primary Care Provider] - Discharge Diet: Usual diet Discharge Activity: Resume usual activity Patient Instructions: Opioid Safety, Pain Management Activity Restrictions/Additional Instructions: Thank you for choosing [facility] for your healthcare needs today. It is very important that you follow up as instructed or that you return to the Emergency Department should you have concerns or if your condition changes or worsens in any way. You were seen today with an episode of rectal bleeding a rectal exam did not show any active bleeding this time hemoglobin is stable. CT did not show any acute abnormalities. We are giving you cefdinir and metronidazole to cover for colitis or diverticuli inflammation. You should follow-up with your oncology team tomorrow morning for repeat hemoglobin within the next few days. If you have recurrent or worsening bleeding return to the emergency room to be reevaluated. Coding Level of Care Code ED [employer] for [employer] Olson
--- NOTE | 2023-10-07 16:12 | CTR_ITS ---
PROCEDURE INFORMATION: Exam: CT Abdomen And Pelvis With Contrast Exam date and time: 10/07/2023 4:50 PM Age: 68 years old Clinical indication: Abdominal pain; Localized; Left upper quadrant (luq); Prior surgery; Surgery date: 6+ months; Surgery type: Port, gb, appy, bladder, hyst; Patient HX: Pancreatic cancer; Additional info: Abd pain TECHNIQUE: Imaging protocol: Computed tomography of the abdomen and pelvis with contrast. Radiation optimization: All CT scans at this facility use at least one of these dose optimization techniques: automated exposure control; mA and/or kV adjustment per patient size (includes targeted exams where dose is matched to clinical indication); or iterative reconstruction. Contrast material: OMNI 350; Contrast volume: 100 ml; Contrast route: INTRAVENOUS (IV); COMPARISON: CT chest abdpel w/*[id number] 07/22/2023 3:16 PM RADIATION DOSE METRICS: Total DLP (mGy-cm): 785.61 FINDINGS: Lungs: Innumerable nodules throughout the right lung majority of which cavitary are again noted without definite interval change given incomplete coverage and respiratory degradation. Pleural spaces: Complex fluid collection in the left pleural space with ovoid shape measuring up to 10.5 cm associated pleural thickening again noted. There are subjacent left basilar pulmonary consolidation. A smaller fluid collection along the lateral pleural surface in the left chest on series 3, image 1 is incompletely imaged precluding measurement. Liver: Hepatic cysts and indeterminate subcentimeter hepatic hypodensities are present. Gallbladder and biliary ducts: Prior cholecystectomy. Dilated common bile duct again noted. No obstructing lesion is seen. Pancreas: There are some loss of fat interstices at the pancreatic tail on series 3, image 40 2.2 cm unchanged compared with the prior exam with the area described as a mass on earlier studies. Spleen: No significant splenic pathology. Adrenal glands: No significant adrenal pathology. Kidneys and ureters: Subcentimeter renal cortical hypodensities, indeterminate by criteria but statistically most likely representing cysts. Stomach and bowel: Colonic diverticulosis without evidence of focal inflammatory change. Appendix: No appendiceal pathology evident. Intraperitoneal space: No ascites. Vasculature: No abdominal aortic aneurysm. Lymph nodes: Circumscribed infiltrative central mesenteric fat associated with small lymph nodes in a pattern most consistent with mesenteric panniculitis. No evidence of lymphadenopathy. Urinary bladder: Mild bladder wall thickening. Reproductive: Prior hysterectomy. Bones/joints: Mild levocurvature of the spine with degenerative change. No skeletal metastasis seen. Soft tissues: Unremarkable. CT/CT abdomen pelvis w con* [id number] IMPRESSION: 1. No acute abdominopelvic pathology. 2. Extensive cavitary nodules throughout the visualized right lung again noted. Complex left pleural fluid collections, incompletely imaged and subjacent left basilar consolidation also incompletely imaged. 3. Multiple minor abdominopelvic findings are not changed as detailed above including possible mass of the pancreatic tail; if not previously performed MRI could be utilized for further assessment of the pancreas.
--- NOTE | 2023-10-07 16:12 | XRR_ITS ---
PROCEDURE INFORMATION: Exam: XR Chest Exam date and time: 10/07/2023 4:18 PM Age: 68 years old Clinical indication: Cough and dyspnea; Additional info: Dyspnea/cough. No history of recent trauma or surgery is provided. TECHNIQUE: Imaging protocol: Radiologic exam of the chest. 1image(s) are provided. Views: 1 view. COMPARISON: 1. CR XR chest 2V* [id number] 08/08/2023 12:07 PM 2. CR XR chest 2V* [id number] 08/08/2023 12:07 PM FINDINGS: Tubes, catheters and devices: The right port catheter remains. Lungs: There are granulomatous, calcific related changes similar overall. There are innumerable nodular foci including some with central lucency throughout the right. There is some consolidative volume loss along with lucency and some bronchiolectasis, air bronchograms on the left. There does appear to be some increased coalescence, density about the right apex. Pleural spaces: No pneumothorax is appreciated. There is near complete opacification of the left hemithorax with suspected underlying lobulated pleural fluid and thickening. Heart/Mediastinum: The cardiomediastinal silhouette is upper normal in size. This can be seen with central averaging as well as barrett enlargement. No cardiac decompensation is appreciated. Diaphragm: The left hemidiaphragm is obscured. Bones/joints: Osseous alignment is maintained. No interval displaced fracture or dislocation is appreciated. There are some degenerative changes of the spine and shoulders present. There is some osseous heterogeneity overall. Soft tissues: No radiopaque foreign body or subcutaneous emphysema is appreciated. Other findings: The patient is slightly rotated. No other significant interval changes are appreciated. XR/XR chest 1V portable [id number] IMPRESSION: There are multiple nodular foci present along with extensive pleuroparenchymal disease of the left hemithorax similar overall.
[2023-10-07 16:16] LABS: Basophils % 0.8 %; Eosinophils # 0.1 10^3/uL (0.0-0.8); Eosinophils % 1.9 %; Lymphocytes % 38.4 %; Mean Corpuscular HGB Conc 32.8 g/dL (30-55); Mean Corpuscular Hemoglobin 30.3 pg (27-33); Mean Corpuscular Volume 92.5 fl (85-98); Monocytes # 0.2 10^3/uL (0.2-0.9); Monocytes % 4.7 %; Neutrophils # 2.74 10^3/uL (1.8-7.7); Neutrophils % 53.4 %; Nucleated Red Blood Cells % 0 %; Platelet Count 231 10^3/cmm (157-399); Red Blood Count 3.89 10^6/uL (3.85-5.65); White Blood Count 5.13 10^3/uL (3.29-11.43)
[2023-10-07 16:19] VITALS: BP 130/108; PULSE 102; O2SAT 100
[2023-10-07 16:30] LABS: INR 1.07 (0.8-1.2)
[2023-10-07 16:35] LABS: Alanine Aminotransferase 13 U/L (0-33); Albumin Level 3.6 g/dL (3.5-5.2); Alkaline Phosphatase 106 U/L (35-105); Anion Gap 13.9 (5-19); Aspartate Amino Transferase 14 U/L (0-32); Blood Urea Nitrogen 10 mg/dL (8-23); Calcium 9.3 mg/dL (8.5-10.5); Carbon Dioxide 24 mmol/L (22-29); Chloride 106 mmol/L (98-107); Creatinine Clr Calc Pharmacy 63.9642; Globulin 2.9 g/dL (1.3-4.6); Glomerular Filtration Rate 98.8 mL/min (90-130); Glucose 98 mg/dL (65-115); Lipase 9 U/L (13-60); Osmolality Calculated 289 mOsm/kg (285-295); Potassium 3.9 mmol/L (3.5-5.1); Sodium 140 mmol/L (136-145); Total Bilirubin 0.3 mg/dL (0.15-1.2); Total Protein 6.5 g/dL (6.6-8.7)
[2023-10-07] MEDS: iohexol 350 mg/mL 500 mL Btl (per mL) IV (16:54)
[2023-10-07 17:53] VITALS: BP 148/88; PULSE 104; O2SAT 98
[2023-10-07 18:09] VITALS: BP 148/88; PULSE 104; RESP 16; TEMP 36.4; O2SAT 98
== END 2023-10-07 18:11 | disposition home or self-care (01) ==
PROVIDERS: Emergency Medicine; Emergency Provider Family Medicine; PCP Family Medicine
DX: K62.5 Hemorrhage of anus and rectum (principal); K64.9 Unspecified hemorrhoids; C25.9 Malignant neoplasm of pancreas, unspecified; C78.00 Secondary malignant neoplasm of unspecified lung; C78.7 Secondary malignant neoplasm of liver and intrahepatic bile duct; Z92.21 Personal history of antineoplastic chemotherapy; I10 Essential (primary) hypertension; Z77.22 Contact with and (suspected) exposure to environmental tobacco smoke (acute) (chronic)
CPT/HCPCS: 71045; 74177; 80053; 83690; 85025; 85610; 99285; Q9967

== ENCOUNTER 2023-10-29 09:00 | Oncology outpatient (recurring) (ONCR) | payer MEDICARE, SELFPAY ==
[2023-10-01 08:41] LABS: Basophils % 0.6 %; Eosinophils # 0.2 10^3/uL (0.0-0.8); Eosinophils % 2.2 %; Hematocrit 36.7 % (36-47); Lymphocytes # 1.7 10^3/uL (0.8-4.8); Lymphocytes % 24.2 %; Mean Corpuscular HGB Conc 31.9 g/dL (30-55); Mean Corpuscular Hemoglobin 29.3 pg (27-33); Mean Platelet Volume 10.1 fL (7.4-10.4); Monocytes # 0.5 10^3/uL (0.2-0.9); Monocytes % 7.5 %; Neutrophils # 4.69 10^3/uL (1.8-7.7); Neutrophils % 65.4 %; Nucleated Red Blood Cells % 0 %; Platelet Count 222 10^3/cmm (157-399); Red Blood Count 3.99 10^6/uL (3.85-5.65); Red Cell Distribution Width 17.8 % (12.1-15.1); White Blood Count 7.18 10^3/uL (3.29-11.43)
[2023-10-01 09:19] LABS: Alanine Aminotransferase 11 U/L (0-33); Albumin Level 3.5 g/dL (3.5-5.2); Alkaline Phosphatase 113 U/L (35-105); Anion Gap 14.1 (5-19); Aspartate Amino Transferase 14 U/L (0-32); Blood Urea Nitrogen 13 mg/dL (8-23); Carbon Dioxide 25 mmol/L (22-29); Chloride 107 mmol/L (98-107); Glomerular Filtration Rate 70.9 mL/min (90-130); Glucose 106 mg/dL (65-115); Osmolality Calculated 295 mOsm/kg (285-295); Potassium 4.1 mmol/L (3.5-5.1); Sodium 142 mmol/L (136-145); Total Bilirubin 0.4 mg/dL (0.15-1.2); Total Protein 6.5 g/dL (6.6-8.7)
[2023-10-01] MEDS: dextrose 5% 250 ML 75 ML IV (11:00)
[2023-10-01] MEDS: palonosetron 0.25 mg/5 mL SDV IVP (11:03)
[2023-10-01] MEDS: dexamethasone 4 mg/mL INJ 5 mL 12 MG IV (11:07)
[2023-10-01] MEDS: atropine 1 mg/mL SDV 1 mL 0.4 MG IV (11:35)
[2023-10-01] MEDS: leucovorin 720 MG in dextrose 5% 250 ML 125 MG IV (11:48)
[2023-10-01] MEDS: irinotecan 200 MG, irinotecan 70 MG in dextrose 5% 250 ML 175.67 MG IV (11:48)
[2023-10-01] MEDS: fluorouraciL 4,300 MG, elastomeric pump 1 PUMP in sodium chloride 0.9% (100 ml) 6 ML IV (13:45)
[2023-10-01 13:55] VITALS: BP 108/70; PULSE 79; RESP 17; TEMP 36.6; O2SAT 97
[2023-10-03 10:53] VITALS: BP 112/74; PULSE 72; RESP 17; TEMP 36.9; O2SAT 95
[2023-10-15 08:48] LABS: Basophils % 0.5 %; Eosinophils # 0.1 10^3/uL (0.0-0.8); Eosinophils % 2.2 %; Hematocrit 35.6 % (36-47); Lymphocytes # 1.6 10^3/uL (0.8-4.8); Lymphocytes % 25.8 %; Mean Corpuscular HGB Conc 32.3 g/dL (30-55); Mean Corpuscular Hemoglobin 29.9 pg (27-33); Mean Corpuscular Volume 92.7 fl (85-98); Mean Platelet Volume 9.6 fL (7.4-10.4); Monocytes # 0.6 10^3/uL (0.2-0.9); Monocytes % 8.9 %; Neutrophils # 3.92 10^3/uL (1.8-7.7); Neutrophils % 62.4 %; Nucleated Red Blood Cells % 0 %; Platelet Count 234 10^3/cmm (157-399); Red Blood Count 3.84 10^6/uL (3.85-5.65); White Blood Count 6.28 10^3/uL (3.29-11.43)
[2023-10-15 09:08] LABS: Alanine Aminotransferase 9 U/L (0-33); Albumin Level 3.3 g/dL (3.5-5.2); Alkaline Phosphatase 104 U/L (35-105); Anion Gap 16.1 (5-19); Aspartate Amino Transferase 15 U/L (0-32); Blood Urea Nitrogen 10 mg/dL (8-23); Calcium 8.6 mg/dL (8.5-10.5); Carbon Dioxide 22 mmol/L (22-29); Chloride 109 mmol/L (98-107); Creatinine Clr Calc Pharmacy 64.3389; Globulin 2.7 g/dL (1.3-4.6); Glomerular Filtration Rate 82.7 mL/min (90-130); Glucose 107 mg/dL (65-115); Osmolality Calculated 296 mOsm/kg (285-295); Potassium 4.1 mmol/L (3.5-5.1); Sodium 143 mmol/L (136-145); Total Bilirubin 0.3 mg/dL (0.15-1.2)
[2023-10-15] MEDS: dextrose 5% 250 ML 75 ML IV (10:41)
[2023-10-15] MEDS: palonosetron 0.25 mg/5 mL SDV IVP (10:44)
[2023-10-15] MEDS: dexamethasone 4 mg/mL INJ 5 mL 12 MG IV (10:45)
[2023-10-15] MEDS: atropine 1 mg/mL SDV 1 mL 0.4 MG IV (10:59)
[2023-10-15] MEDS: IRINOTECAN IV (11:42)
[2023-10-15] MEDS: DEXTROSE 5% IV ×2 (11:42)
[2023-10-15] MEDS: LEUCOVORIN IV (11:42)
[2023-10-15] MEDS: fluorouraciL 4,400 MG, elastomeric pump 1 PUMP in sodium chloride 0.9% (100 ml) 4 ML IV (13:29)
[2023-10-15 13:45] VITALS: BP 127/81; PULSE 74; RESP 18; TEMP 37.1; O2SAT 98
--- NOTE | 2023-10-15 14:30 | CT_ITS ---
WS: [id number] CT scan of the chest with IV contrast, additional two-dimensional coronal and sagittal reconstruction was performed. 10/15/2023 Clinical Data: surveillance Comparison: CT chest abdomen pelvis, 07/22/2023 DLP: 450.[address] scans at [facility] use at least one of these dose optimization techniques: automated e xposure control; mA and/or kV adjustment per patient size (includes targeted exams where dose is matc hed to clinical indication); or iterative reconstruction. Findings: There are numerous nodules throughout the right lung which have central lucency. There is no increase or decrease in the number of nodules. The volume loss of the left lung with complex pleural thickeni ng and fluid collections remains the same. The largest inferior fluid collection measures 5.9 x 9.6 c m. The superior left thorax shows smaller fluid collections unchanged. There is aeration in the midpo rtion of the left lung with atelectasis and scarring unchanged. The heart size is normal with no pericardial effusion. The pulmonary arterial system and thoracic aor ta demonstrate no abnormalities or dilatations. There is no axillary or significant mediastinal adeno devendra. The right Port-A-Cath remains in position. The upper abdomen demonstrates no change. There are multiple low-density areas throughout the liver w hich are probable unchanged cysts. The portal venous system is normal. The stomach, spleen and superi or poles of the kidneys are unremarkable. The gallbladder is absent. The pancreas is partly seen but is unchanged. The T4 and T5 vertebral bodies show hemangiomas. The posterior superior aspect of T5 ve rtebral body shows sclerosis unchanged, and this finding may represent metastatic disease. CT/CT chest w con* [id number] Impression: 1. Numerous cavitary pulmonary nodules seen best in the right lung unchanged. 2. Multiloculated pleural fluid collections in left thorax with volume loss, pl eural thickening and atelectatic the cysts unchanged. 3. No mediastinal or hilar adenopathy. 4. Multiple hepatic cysts unchanged. 5. No change in appearance of pancreas 6. Probable metastatic disease to posterior superior aspect of T5 vertebral bod y.
[2023-10-15] MEDS: iohexol 350 mg/mL 500 mL Btl (per mL) IV (14:47)
[2023-10-17 10:10] VITALS: BP 133/83; PULSE 85; RESP 17; TEMP 36.3; O2SAT 98
[2023-10-29 09:09] LABS: Basophils % 0.5 %; Eosinophils # 0.2 10^3/uL (0.0-0.8); Eosinophils % 2.7 %; Hematocrit 35.9 % (36-47); Lymphocytes # 1.9 10^3/uL (0.8-4.8); Lymphocytes % 25.1 %; Mean Corpuscular Hemoglobin 29.6 pg (27-33); Mean Corpuscular Volume 92.5 fl (85-98); Mean Platelet Volume 10.5 fL (7.4-10.4); Monocytes # 0.6 10^3/uL (0.2-0.9); Monocytes % 7.6 %; Neutrophils # 4.78 10^3/uL (1.8-7.7); Neutrophils % 63.7 %; Nucleated Red Blood Cells % 0 %; Platelet Count 211 10^3/cmm (157-399); Red Blood Count 3.88 10^6/uL (3.85-5.65); Red Cell Distribution Width 17.5 % (12.1-15.1)
[2023-10-29 09:29] LABS: Alanine Aminotransferase 16 U/L (0-33); Albumin Level 3.4 g/dL (3.5-5.2); Alkaline Phosphatase 110 U/L (35-105); Anion Gap 12.9 (5-19); Aspartate Amino Transferase 14 U/L (0-32); Blood Urea Nitrogen 11 mg/dL (8-23); Calcium 8.9 mg/dL (8.5-10.5); Carbon Dioxide 25 mmol/L (22-29); Chloride 111 mmol/L (98-107); Creatinine Clr Calc Pharmacy 65.4632; Globulin 2.9 g/dL (1.3-4.6); Glomerular Filtration Rate 98.8 mL/min (90-130); Glucose 97 mg/dL (65-115); Osmolality Calculated 299 mOsm/kg (285-295); Potassium 3.9 mmol/L (3.5-5.1); Sodium 145 mmol/L (136-145); Total Bilirubin 0.4 mg/dL (0.15-1.2); Total Protein 6.3 g/dL (6.6-8.7)
[2023-10-29] MEDS: dextrose 5% 250 ML 75 ML IV (11:13)
[2023-10-29] MEDS: dexamethasone 4 mg/mL INJ 5 mL 12 MG IVP (11:14)
[2023-10-29] MEDS: palonosetron 0.25 mg/5 mL SDV IVP (11:22)
[2023-10-29] MEDS: atropine 1 mg/mL SDV 1 mL 0.4 MG IV (11:25)
[2023-10-29] MEDS: irinotecan 200 MG, irinotecan 70 MG in dextrose 5% 250 ML 175.67 MG IV (11:35)
[2023-10-29] MEDS: leucovorin 720 MG in dextrose 5% 250 ML 125 MG IV (11:36)
[2023-10-29 11:56] VITALS: PULSE 74; RESP 18; TEMP 36.6; O2SAT 97
[2023-10-29 13:19] VITALS: BP 143/84; PULSE 71; RESP 16; O2SAT 97
[2023-10-29] MEDS: fluorouraciL 4,300 MG, elastomeric pump 1 PUMP in sodium chloride 0.9% (100 ml) 6 ML IV (13:20)
== END 2023-10-29 23:59 | disposition home or self-care (01) ==
PROVIDERS: PCP Family Medicine; Visit Provider Nurse Practitioner Family
DX: Z51.11 Encounter for antineoplastic chemotherapy (principal); Z53.9 Procedure and treatment not carried out, unspecified reason; C79.51 Secondary malignant neoplasm of bone; C78.02 Secondary malignant neoplasm of left lung; C80.1 Malignant (primary) neoplasm, unspecified; Z79.52 Long term (current) use of systemic steroids; Z79.899 Other long term (current) drug therapy
CPT/HCPCS: 71260; 80053; 85025; 96365; 96366; 96375; 96413; 96415; 96416; 96417; 96523; 99214; J0461; J0640; J1100; J2469; J7060; J9190; J9206; Q9967

== ENCOUNTER 2023-11-26 08:52 | Oncology outpatient (recurring) (ONCR) | payer MEDICARE, SELFPAY ==
[2023-10-31 11:04] VITALS: BP 133/80; PULSE 92; RESP 16; TEMP 36.5; O2SAT 97
[2023-11-12 11:44] LABS: Basophils % 0.5 %; Eosinophils # 0.1 10^3/uL (0.0-0.8); Eosinophils % 2.2 %; Hematocrit 36.3 % (36-47); Lymphocytes # 1.7 10^3/uL (0.8-4.8); Lymphocytes % 26.8 %; Mean Corpuscular HGB Conc 32.2 g/dL (30-55); Mean Corpuscular Volume 93.1 fl (85-98); Mean Platelet Volume 9.6 fL (7.4-10.4); Monocytes # 0.6 10^3/uL (0.2-0.9); Monocytes % 8.9 %; Neutrophils # 3.99 10^3/uL (1.8-7.7); Neutrophils % 61.4 %; Nucleated Red Blood Cells % 0 %; Platelet Count 254 10^3/cmm (157-399); White Blood Count 6.49 10^3/uL (3.29-11.43)
[2023-11-12 12:03] LABS: Alanine Aminotransferase 13 U/L (0-33); Albumin Level 3.5 g/dL (3.5-5.2); Alkaline Phosphatase 124 U/L (35-105); Aspartate Amino Transferase 18 U/L (0-32); Blood Urea Nitrogen 11 mg/dL (8-23); Calcium 8.9 mg/dL (8.5-10.5); Carbon Dioxide 25 mmol/L (22-29); Chloride 104 mmol/L (98-107); Glomerular Filtration Rate 98.8 mL/min (90-130); Glucose 100 mg/dL (65-115); Osmolality Calculated 285 mOsm/kg (285-295); Sodium 138 mmol/L (136-145); Total Bilirubin 0.4 mg/dL (0.15-1.2); Total Protein 6.5 g/dL (6.6-8.7)
[2023-11-12 12:04] LABS: Anion Gap 13.1 (5-19); Potassium 4.1 mmol/L (3.5-5.1)
[2023-11-12] MEDS: dexamethasone 4 mg/mL INJ 5 mL 12 MG IVP (14:15)
[2023-11-12] MEDS: dextrose 5% 250 ML 75 ML IV (14:15)
[2023-11-12] MEDS: palonosetron 0.25 mg/5 mL SDV IVP (14:27)
[2023-11-12] MEDS: atropine 1 mg/mL SDV 1 mL 0.4 MG IV (14:31)
[2023-11-12] MEDS: irinotecan 200 MG, irinotecan 70 MG in dextrose 5% 250 ML 175.67 MG IV (14:42)
[2023-11-12] MEDS: leucovorin 720 MG in dextrose 5% 250 ML 125 MG IV (14:43)
[2023-11-12] MEDS: fluorouraciL 4,300 MG, elastomeric pump 1 PUMP in sodium chloride 0.9% (100 ml) 6 ML IV (16:27)
[2023-11-12 16:30] VITALS: BP 130/83; PULSE 84; RESP 16; TEMP 36.3; O2SAT 99
[2023-11-14 11:02] VITALS: BP 142/82; PULSE 85; RESP 17; TEMP 37.2; O2SAT 97
--- NOTE | 2023-11-25 09:00 | CT_ITS ---
WS: [id number] CT CHEST, ABDOMEN, AND PELVIS TECHNIQUE: Contrast-enhanced CT of the chest, abdomen, and pelvis with coronal and sagittal reformatt ed images. CLINICAL INFORMATION: N90.89 - Other specified noninflammatory disorders of vul... COMPARISON: 10/07/2023 and 10/15/2023 DLP: 898.[address] scans at [facility] use at least one of these dose optimization techniques: automated e xposure control; mA and/or kV adjustment per patient size (includes targeted exams where dose is matc hed to clinical indication); or iterative reconstruction. CT CHEST: Normal caliber thoracic aorta. Filling defect in the mid LEFT main pulmonary artery with poor opacifi cation of the left-sided pulmonary arteries compatible with embolus or tumor thrombus. Progressed com pared to the prior examination. Again seen is diffuse volume loss LEFT lung with complex fluid collec tion/empyema similar to the prior studies. Cavitary lesions throughout both lungs with areas of cysti c bronchiectasis are similar in appearance. No right-sided pleural fluid. Erosive changes involving the LEFT posterior ribs similar to the prior studies. No axillary lymphaden opathy. Hemangiomas in the upper thoracic spine. Similar-appearing suspected sclerotic metastasis pos terior T5 vertebral body with extension into the pedicle. Destructive changes involving LEFT anterior ribs with chest wall invasion in the LEFT upper lobe appe ar slightly progressed compared to the prior study. This mainly involves the LEFT third anterior rib. Additional similar-appearing areas of chest wall invasion involving the LEFT lower lobe extending in to the LEFT chest wall similar to previous. Small RIGHT thyroid nodule CT ABDOMEN AND PELVIS: Numerous stable hepatic cysts. Tiny esophageal hiatal hernia. Normal spleen. Possible solid mass in t he pancreatic tail unchanged since the prior studies measuring 2.1 cm. Normal caliber abdominal aorta . Celiac and SMA are patent. Adrenal glands are normal. No hydronephrosis in either kidney. LEFT jacob pelvic renal cysts. Induration in the central mesentery with a few prominent lymph nodes unchanged. Sigmoid diverticulosis. No evidence of acute diverticulitis. Prior postoperative changes cholecystectomy and appendectomy. Prior hysterectomy. Prior bladder sling procedure. CT/CT chest abdpel w/*[id number] IMPRESSION: 1. Filling defect in the LEFT main mid pulmonary artery compatible with thromb us and may represent tumor thrombus. Poor filling of the LEFT segmental and sub segmental pulmonary arteries. Evidence of postoperative changes about the LEFT hilum. 2. Increased destructive changes involving LEFT upper anterior ribs with chest wall invasion most prominent at the third rib anteriorly. 3. Similar appearing volume loss LEFT lung with complex peripheral enhancing f luid collection/empyemas with chronic erosive changes in the posterior ribs. 4. Additional chest wall invasion in the LEFT lower lobe similar to previous 5. Similar-appearing metastatic lesion T5 vertebral body extending into the pe dicle. 6. Similar-appearing cavitary lesions throughout both lungs. 7. No new findings in the abdomen or pelvis. 8. Stable possible 2.1 cm mass in the pancreatic tail. Message LEFT for Bella Chong DO at 11/25/2023 10:[address] Carvalho at 11/25/2023 11:01 AM.
[2023-11-25 09:49] LABS: Basophils % 0.4 %; Eosinophils # 0.2 10^3/uL (0.0-0.8); Eosinophils % 3.1 %; Lymphocytes # 1.8 10^3/uL (0.8-4.8); Lymphocytes % 24.5 %; Mean Corpuscular HGB Conc 31.7 g/dL (30-55); Mean Corpuscular Hemoglobin 29.3 pg (27-33); Mean Corpuscular Volume 92.3 fl (85-98); Monocytes # 0.5 10^3/uL (0.2-0.9); Monocytes % 7.3 %; Neutrophils # 4.74 10^3/uL (1.8-7.7); Neutrophils % 64.6 %; Nucleated Red Blood Cells % 0 %; Platelet Count 280 10^3/cmm (157-399); Red Blood Count 3.79 10^6/uL (3.85-5.65); Red Cell Distribution Width 16.6 % (12.1-15.1); White Blood Count 7.35 10^3/uL (3.29-11.43)
[2023-11-25 10:05] LABS: Alanine Aminotransferase 14 U/L (0-33); Albumin Level 3.8 g/dL (3.5-5.2); Alkaline Phosphatase 121 U/L (35-105); Aspartate Amino Transferase 16 U/L (0-32); Blood Urea Nitrogen 12 mg/dL (8-23); Calcium 8.7 mg/dL (8.5-10.5); Carbon Dioxide 25 mmol/L (22-29); Chloride 106 mmol/L (98-107); Creatinine Clr Calc Pharmacy 64.8075; Globulin 2.7 g/dL (1.3-4.6); Glomerular Filtration Rate 82.7 mL/min (90-130); Glucose 100 mg/dL (65-115); Osmolality Calculated 294 mOsm/kg (285-295); Sodium 142 mmol/L (136-145); Total Bilirubin 0.2 mg/dL (0.15-1.2); Total Protein 6.5 g/dL (6.6-8.7)
[2023-11-25] MEDS: iohexol 350 mg/mL 500 mL Btl (per mL) IV (10:17)
== END 2023-11-29 23:59 | disposition home or self-care (01) ==
PROVIDERS: Nurse Practitioner Family; PCP Family Medicine; Visit Provider Internal Medicine Medical Oncology
DX: Z45.2 Encounter for adjustment and management of vascular access device
CPT/HCPCS: 36591; 71260; 74177; 80053; 85025; 96375; 96413; 96415; 96416; 96417; 96523; 99214; J0461; J0640; J1100; J2469; J7060; J9190; J9206; Q9967

== ENCOUNTER → 2023-12-05 09:52 | Outpatient (BNVA) | payer MEDICARE, SELFPAY | PROVIDERS: PCP Family Medicine; Visit Provider Nurse Practitioner | DX: M19.012 Primary osteoarthritis, left shoulder (principal) | CPT/HCPCS: 20610; J1100; J2795; J3301 ==

== ENCOUNTER 2023-12-19 08:54 | Oncology outpatient (recurring) (ONCR) | payer MEDICARE, SELFPAY ==
[2023-12-03 08:38] LABS: Basophils % 0.5 %; Eosinophils # 0.2 10^3/uL (0.0-0.8); Eosinophils % 2.3 %; Hematocrit 37.3 % (36-47); Lymphocytes # 2.1 10^3/uL (0.8-4.8); Lymphocytes % 28.2 %; Mean Corpuscular HGB Conc 31.6 g/dL (30-55); Mean Corpuscular Hemoglobin 29.8 pg (27-33); Mean Corpuscular Volume 94.2 fl (85-98); Mean Platelet Volume 10.1 fL (7.4-10.4); Monocytes # 0.6 10^3/uL (0.2-0.9); Monocytes % 7.3 %; Neutrophils % 61.3 %; Nucleated Red Blood Cells % 0 %; Platelet Count 302 10^3/cmm (157-399); Red Blood Count 3.96 10^6/uL (3.85-5.65); Red Cell Distribution Width 17.4 % (12.1-15.1); White Blood Count 7.51 10^3/uL (3.29-11.43)
[2023-12-03 08:55] LABS: Alanine Aminotransferase 16 U/L (0-33); Albumin Level 3.6 g/dL (3.5-5.2); Alkaline Phosphatase 112 U/L (35-105); Anion Gap 15.2 (5-19); Aspartate Amino Transferase 18 U/L (0-32); Blood Urea Nitrogen 16 mg/dL (8-23); Calcium 8.9 mg/dL (8.5-10.5); Carbon Dioxide 24 mmol/L (22-29); Chloride 107 mmol/L (98-107); Globulin 3.1 g/dL (1.3-4.6); Glomerular Filtration Rate 82.7 mL/min (90-130); Glucose 112 mg/dL (65-115); Osmolality Calculated 296 mOsm/kg (285-295); Potassium 4.2 mmol/L (3.5-5.1); Sodium 142 mmol/L (136-145); Total Bilirubin 0.2 mg/dL (0.15-1.2); Total Protein 6.7 g/dL (6.6-8.7)
--- NOTE | 2023-12-03 12:32 | PC.NURSE ---
No treatment today with the plans to return next week.mm
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
--- NOTE | 2023-12-16 10:04 | ONCRAD TMN_ITS ---
Radiation Oncology Weekly Treatment Management Patient: Marissa Howell MR#: [id number] : 1955> Attending Physician: Dr. Nette Vera Date of Service: 12/16/2023 Fractions: 2 out of 10 with a plan for a split break Referring Physician(s) : Mt Carvalho M.D. Diagnosis: C25.2 - Malignant neoplasm of tail of pancreas, Diagnosed 12/10/2023 (Active) C79.51 - Secondary malignant neoplasm of bone, Diagnosed 12/10/2023 (Active) Radiotherapy to date: Course: L 3rd rib, Treatment Site: Lt Rib 30Gy, Ref. ID: [id number], Energy: 15X, Dose/Fx (cGy): 300, #Fx: 2 / 10, Dose Correction (cGy): 0, Total Dose Delivered (cGy): 600, Start Date: 12/15/2023, Elapsed Days: 1 Reason for visit: The patient is being seen today as part of their regularly scheduled weekly on treatment visits to assess for acute toxicities from radiotherapy. Review of Systems: Patient is continue to have pain in the area. She did say it was worse today. It hurts when she raises her arm or tries to move her arm and hurts when she coughs. Vital Signs: Performed on 12/16/2023 9:31 AM BMI - 30.504 kg/m2 (high), Height - 63 in, Weight - 172.2 lbs, Temperature - 97.4 f, Pulse - 96 /min, Respiration - 18 /min, O2 Sat - 96 %, Pain - 4, Fatigue - 0 and BP - 134/ 81 mm(hg). Physical Exam: No changes on exam. Imaging: Radiation therapy imaging related to accurate target localization (i.e. KV, MV and CBCT) was reviewed. Appropriate changes, if any, were made to ensure treatment accuracy. Plan: We talked about how the radiation will take several days to kick in. I reminded her that may actually start feeling better once we finished the first 5 treatments. We had planned to have her come back in 2 weeks to complete the second 5. She is continue to deal with social issues that are heartbreaking. Will continue with her treatments as planned Signed by: Dr. Nette Vera 12/16/2023 10:03:10 AM
== END 2023-12-29 23:59 | disposition home or self-care (01) ==
PROVIDERS: Nurse Practitioner Family; PCP Family Medicine; Visit Provider Radiology Radiation Oncology
DX: C79.51 Secondary malignant neoplasm of bone (principal); Z51.0 Encounter for antineoplastic radiation therapy; C25.2 Malignant neoplasm of tail of pancreas
CPT/HCPCS: 77290; 77295; 77300; 77334; 77336; 77387; 77412; 80053; 85025; 99024; 99205; 99214; 99215

== ENCOUNTER 2024-01-28 08:00 | Oncology outpatient (recurring) (ONCR) | payer MEDICARE, SELFPAY ==
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
--- NOTE | 2024-01-12 08:53 | N.ONRD TS_ITS ---
Radiation Oncology Treatment Summary Patient: Marissa>Lynda MR#: [id number] : 1955> Age: 68> Sex: Female Dictated by: Dr. Nette Vera Date of Service: 01/09/2024 Referring Physician(s) : Mt Carvalho M.D. Diagnosis: C25.2 - Malignant neoplasm of tail of pancreas, Diagnosed 12/10/2023 (Active) C79.51 - Secondary malignant neoplasm of bone, Diagnosed 12/10/2023 (Active) Radiotherapy to Date: Course: L 3rd rib, Treatment Site: Lt Rib 30Gy, Ref. ID: [id number], Energy: 15X, Dose/Fx (cGy): 300, #Fx: , Dose Correction (cGy): 0, Total Dose Delivered (cGy): 3,000, Start Date: 12/15/2023, End Date: 01/09/2024, Elapsed Days: 25 Clinical Summary: The patient tolerated RT well. She experienced minimal side effects from the radiation. Plan: End of treatment today. Continue on the above medication until the skin reaction resolves. Follow up in one month. Signed by: Dr. Nette Vera>01/12/2024 8:51:50 AM <<Signature on File>>
[2024-01-12 09:41] LABS: Basophils # 0.1 10^3/uL (0.0-0.1); Basophils % 0.6 %; Eosinophils # 0.2 10^3/uL (0.0-0.8); Eosinophils % 1.8 %; Hematocrit 38.2 % (36-47); Lymphocytes # 1.3 10^3/uL (0.8-4.8); Lymphocytes % 14.8 %; Mean Corpuscular HGB Conc 32.2 g/dL (30-55); Mean Corpuscular Hemoglobin 29.3 pg (27-33); Mean Platelet Volume 9.8 fL (7.4-10.4); Monocytes # 0.6 10^3/uL (0.2-0.9); Neutrophils # 6.85 10^3/uL (1.8-7.7); Neutrophils % 75.6 %; Nucleated Red Blood Cells % 0 %; Platelet Count 320 10^3/cmm (157-399); Red Cell Distribution Width 15.3 % (12.1-15.1); White Blood Count 9.05 10^3/uL (3.29-11.43)
[2024-01-12 10:09] LABS: Alanine Aminotransferase 8 U/L (0-33); Albumin Level 3.5 g/dL (3.5-5.2); Alkaline Phosphatase 108 U/L (35-105); Anion Gap 12.2 (5-19); Aspartate Amino Transferase 12 U/L (0-32); Blood Urea Nitrogen 12 mg/dL (8-23); Calcium 8.8 mg/dL (8.5-10.5); Carbon Dioxide 27 mmol/L (22-29); Chloride 105 mmol/L (98-107); Globulin 3.3 g/dL (1.3-4.6); Glomerular Filtration Rate 98.8 mL/min (90-130); Glucose 105 mg/dL (65-115); Osmolality Calculated 290 mOsm/kg (285-295); Potassium 4.2 mmol/L (3.5-5.1); Sodium 140 mmol/L (136-145); Total Bilirubin 0.4 mg/dL (0.15-1.2); Total Protein 6.8 g/dL (6.6-8.7)
--- NOTE | 2024-01-16 09:00 | PETR_ITS ---
PROCEDURE INFORMATION: Exam: PET/CT Skull Base to Mid-thigh Exam date and time: 01/16/2024 9:59 AM Age: 68 years old Clinical indication: Condition or disease; Primary cancer: Malignant neoplasm of pancreas; Follow-up oncological assessment; Prior surgery; Surgery date: 6+ months; Surgery type: Port, gb, appy, hyst, bladder sling; Additional info: RO progression of disease, now with vaginal bleeding LABS AND CLINICAL REPORTS: Glucose: 116 mg/dl Treatment strategy for malignancy (PET staging): Restaging (PS) TECHNIQUE: Imaging protocol: Following at least four-hour fasting and following the injection of radiopharmaceutical, low dose CT images were obtained. Then, PET images were obtained. Attenuation corrected images were constructed using the CT scan. Fused images of PET and CT were reviewed. The standardized uptake values (SUV) reported below are maximum values within a region of interest, expressed in gm/ml. Exam includes orbital meatal line to mid-thigh. Radiopharmaceutical: 11.76 mCi F-18 FDG (Fluorodeoxyglucose), IV. Time of imaging post radiopharmaceutical administration: 1 hour Injection site: LEFT FOREARM COMPARISON: PT PET Scan 02/02/2022, CT chest abdomen pelvis 11/25/2023, CT chest 10/15/2023 FINDINGS: Tubes, catheters and devices: Port catheter placed via the right subclavian vein terminates in the right atrium. Brain: 1 cm focus of increased uptake in the right cerebellopontine angle on series 301, image 19 is new since prior exam. Pharynx: No abnormal uptake. Larynx: No abnormal uptake. Lungs, pleura and trachea: Loculated malignant left pleural effusion with a large pocket in the base of the left hemithorax with increased pleural uptake up to 7 SUV similar to prior activity of 7.3 SUV. Multiple bilateral partially cavitary lung metastases measure up to 7.7 SUV mildly increased in comparison with 11/25/2023. Heart: Normal physiologic uptake. Mild cardiomegaly. There is no pericardial effusion. mediastinal space: See below in lymph nodes . Liver: No abnormal uptake. Stable bilobar simple cysts measuring up to 3.3 cm Gallbladder and biliary ducts: No abnormal uptake. Status post cholecystectomy. There is stable common bile duct dilatation with no dilatation of intrahepatic bile ducts suggestive of nonobstructive finding post cholecystectomy. Pancreas: No abnormal uptake. No obvious mass. Spleen: No abnormal uptake. Stable small calcified granulomas Adrenal glands: No abnormal uptake. No nodules. Kidneys and ureters: Normal physiologic uptake. No hydronephrosis. Stomach and bowel: Long segment of increased uptake in the sigmoid colon involved with diverticulosis and in the adjacent descending colon with no corresponding CT abnormality is likely benign. Intraperitoneal and retroperitoneal spaces: No abnormal uptake. No ascites. Stable nonspecific haziness of the mesenteric fat likely representing benign finding. Urinary bladder: Normal physiologic uptake. Reproductive: No abnormal uptake. The uterus is absent post surgically. Vasculature: No abnormal uptake. Specifically, there is no abnormal uptake within the left pulmonary artery where the large thrombus was present on 11/25/2023 suggestive bland thrombus/pulmonary embolism rather than tumor thrombus on the prior exam. Lymph nodes: Lower posterior mediastinal paraesophageal small lymph node measures 7.4 SUV (series 301, image 104). Right upper mediastinal paratracheal lymph node on series 301, image 84 measures 5 SUV. Left hilar uptake of 8.3 SUV questionably represents hilar lymph nodes adjacent to the perihilar metastatic disease in the left lower lobe. No FDG avid lymphadenopathy in the head, neck, abdomen, pelvis, and extremities. Stable sequela of exposure to granulomatous disease with densely calcified subcarinal and right hilar lymph nodes. Skeleton: Expansile lytic metastasis in the anterior segment of the left 3rd rib measures 9 SUV associated with central necrotic soft tissue mass increased from 2.7 x 1.9 cm on 11/25/2023 to 5.5 x 3.6 cm. Diffuse sclerotic and heterogenous periosteal changes in the posterior segment of the left 5th rib compatible with diffuse metastatic involvement measures 7.8 SUV increased from 7.3 SUV in 2021 morphologically similar to the appearance on 11/25/2023. There is contiguous abnormal uptake in the left pedicle, left side of vertebral body, posterior arch and bilateral transverse processes of T5 with the highest uptake of 9.2 SUV. Abnormal uptake in multiple left ribs represent diffuse metastatic involvement measuring 8.8 SUV in the 2nd rib, 7.3 SUV in the 3rd rib, 6.1 SUV in the 4th rib, 8.2 SUV in the 9th rib, 9.5 SUV in the 10th rib Soft tissues: Soft tissue mass in the left lower chest wall adjacent to the ribs 7 and 8 on series 301, image 123 with the highest uptake of 9.2 SUV is not significantly changed in size since 11/25/2023 measuring about 3.5 x 1.5 cm. PET/PET skull to thigh SUBS [id number] IMPRESSION: There are extensive malignant findings in the chest with diffuse partially cavitary bilateral lung metastases, left malignant pleural effusion, metastatic involvement of multiple left ribs and T5 body and posterior elements, soft tissue mass in the left chest wall, abnormal uptake in small mediastinal and left hilar lymph nodes suggestive of metastatic lymphadenopathy. The findings are significantly progressive in comparison with 02/02/2022 and slightly progressive in the lungs since the most recent CT chest on 11/25/2023. 1 cm focus of increased uptake in the right cerebellopontine angle is new since 02/02/2022. Further evaluation with contrast enhanced MRI brain is recommended to exclude metastasis.
--- NOTE | 2024-01-19 15:07 | USCV_ITS ---
Magy Ann Age: 68 Gender: F : 1955 Exam Date: 01/19/2024 15:20 Ordering Phys: Marcial Us MD Technologist: [place] [facility] [place]: cp pre cancer treatment BP: 120 / 70 HR: 516 Rhythm: Sinus Technical Quality: Adequate MEASUREMENTS (Male / Female) Normal Values 2D ECHO LV Diastolic Diameter PLAX 3.6 cm 4.2 - 5.9 / 3.9 - 5.3 cm IVS Diastolic Thickness 1.0 cm 0.6 - 1.0 / 0.6 - 0.9 cm IVS Systolic Thickness 1.3 cm LVPW Diastolic Thickness 1.2 cm 0.6 - 1.0 / 0.6 - 0.9 cm LVPW Systolic Thickness 1.5 cm LVOT Diameter 2.0 cm LV Ejection Fraction 2D Teich 68.2 % LV Ejection Fraction MOD 4C 74.3 % LV Ejection Fraction MOD 2C 70.0 % LV Ejection Fraction 2C AL 69.7 % LA Diameter 3.4 cm RA Systolic Volume 4C AL 29.9 ml RA Systolic Volume 4C MOD 28.6 ml Aorta at Sinotubular Diameter 3.1 cm IVC Diameter 1.5 cm M-MODE LA Ao Ratio MM 0.9 AV Cusp Separation MM 2.1 cm DOPPLER AV Peak Velocity 59.0 cm/s LVOT Peak Velocity 84.0 cm/s AV Area Cont Eq vti 5.6 cm squared AV Area Cont Eq pk 4.6 cm squared MV Peak Velocity 123.0 cm/s MV Area PHT 6.0 cm squared Mitral E to A Ratio 1.9 TR Peak Velocity 131.0 cm/s TR Peak Gradient 6.9 mmHg TV Peak E Velocity 81.0 cm/s Right Atrial Pressure 3.0 mmHg Pulmonary Artery Systolic Pressu 9.9 mmHg PV Peak Velocity 88.0 cm/s FINDINGS Left Ventricle Normal left ventricular size, systolic function and wall thickness, with no regional wall motion abnormalities. Left ventricular ejection fraction is estimated at 60 %. Grade III/IV diastolic dysfunction (restrictive filling pattern), severely elevated filling pressures. Right Ventricle The right ventricle is normal in size and function. Right Atrium The right atrium is normal in size. Left Atrium The left atrium is normal in size. Mitral Valve Thickened mitral valve. No mitral valve stenosis. Trace mitral valve regurgitation. Aortic Valve Mild aortic valve calcification. No aortic valve stenosis. Trace aortic valve regurgitation. Tricuspid Valve Structurally normal tricuspid valve without significant stenosis or regurgitation. Pulmonary artery systolic pressure is normal. Pulmonic Valve Structurally normal pulmonic valve without significant stenosis. There is no pulmonic regurgitation. Pericardium Normal pericardium without effusion. Aorta Normal ascending aorta dimension. IVC The inferior vena cava appears normal. CONCLUSIONS Normal left ventricular size, systolic function and wall thickness, with no regional wall motion abnormalities. Left ventricular ejection fraction is estimated at 60 %. Grade III/IV diastolic dysfunction (restrictive filling pattern), severely elevated filling pressures. There is no pericardial effusion. No significant valve abnormalities. Pulmonary artery systolic pressure is within normal limits. Right atrial pressure is around 5 mm of mercury. Pedro Montero MD (Electronically Signed) Final Date: 19 January 2024 20:17 S
[2024-01-28 08:36] LABS: Basophils % 0.5 %; Eosinophils # 0.2 10^3/uL (0.0-0.8); Hematocrit 37.8 % (36-47); Lymphocytes # 1.4 10^3/uL (0.8-4.8); Lymphocytes % 18.1 %; Mean Corpuscular HGB Conc 31.5 g/dL (30-55); Mean Corpuscular Volume 88.9 fl (85-98); Mean Platelet Volume 9.5 fL (7.4-10.4); Monocytes # 0.6 10^3/uL (0.2-0.9); Neutrophils # 5.69 10^3/uL (1.8-7.7); Neutrophils % 72.1 %; Nucleated Red Blood Cells % 0 %; Platelet Count 299 10^3/cmm (157-399); Red Blood Count 4.25 10^6/uL (3.85-5.65); Red Cell Distribution Width 15.6 % (12.1-15.1); White Blood Count 7.89 10^3/uL (3.29-11.43)
[2024-01-28 09:32] LABS: Alanine Aminotransferase 10 U/L (0-33); Albumin Level 3.5 g/dL (3.5-5.2); Alkaline Phosphatase 115 U/L (35-105); Anion Gap 12.1 (5-19); Aspartate Amino Transferase 15 U/L (0-32); Blood Urea Nitrogen 11 mg/dL (8-23); Carbon Dioxide 28 mmol/L (22-29); Chloride 103 mmol/L (98-107); Creatinine Clr Calc Pharmacy 64.4323; Globulin 3.3 g/dL (1.3-4.6); Glomerular Filtration Rate 82.7 mL/min (90-130); Glucose 106 mg/dL (65-115); Lactate Dehydrogenase 204 U/L (135-214); Magnesium 1.9 mg/dL (1.7-2.3); Osmolality Calculated 288 mOsm/kg (285-295); Potassium 4.1 mmol/L (3.5-5.1); Sodium 139 mmol/L (136-145); Thyroid Stimulating Hormone 1.68 uIU/mL (0.27-4.20); Total Bilirubin 0.4 mg/dL (0.15-1.2); Total Protein 6.8 g/dL (6.6-8.7)
[2024-01-28] MEDS: dextrose 5% 250 ML 75 ML IV (10:36)
[2024-01-28] MEDS: aprepitant 130 mg/18 ml SDV IVP (10:39)
[2024-01-28] MEDS: dexamethasone 4 mg/mL INJ 5 mL 12 MG IVP (10:45)
[2024-01-28] MEDS: palonosetron 0.25 mg/5 mL SDV IVP (10:51)
[2024-01-28] MEDS: [UNRECOGNIZED DRUG - OTHER] IV (11:39)
[2024-01-28] MEDS: DEXTROSE 5% IV (11:39)
[2024-01-28] MEDS: denosumab 120 mg SDV SUBCUT (13:22)
[2024-01-28 13:35] VITALS: BP 103/67; PULSE 94; RESP 17; TEMP 36.6; O2SAT 96
== END 2024-01-28 23:59 | disposition home or self-care (01) ==
PROVIDERS: Internal Medicine Hematology & Oncology; PCP Family Medicine; Visit Provider Radiology Radiation Oncology
DX: C25.9 Malignant neoplasm of pancreas, unspecified (principal); C78.7 Secondary malignant neoplasm of liver and intrahepatic bile duct; Z79.899 Other long term (current) drug therapy; Z53.9 Procedure and treatment not carried out, unspecified reason; Z51.12 Encounter for antineoplastic immunotherapy; Z79.52 Long term (current) use of systemic steroids
CPT/HCPCS: 36591; 77336; 77387; 77412; 78815; 80053; 83615; 83735; 84443; 85025; 86301; 93306; 96372; 96375; 96413; 99024; 99214; A9552; J0185; J0897; J1100; J2469; J7060; J9358

== ENCOUNTER 2024-02-18 13:00 | Oncology outpatient (recurring) (ONCR) | payer MEDICARE, SELFPAY ==
[2024-02-04 09:38] VITALS: BP 107/71; PULSE 106; RESP 16; TEMP 36.4; O2SAT 98
[2024-02-04] MEDS: sodium chloride 0.9% 1,000 ML 999 ML IV (09:43)
[2024-02-04 09:57] LABS: Basophils % 0.5 %; Eosinophils # 0.2 10^3/uL (0.0-0.8); Eosinophils % 2.3 %; Hematocrit 36.6 % (36-47); Lymphocytes % 11.9 %; Mean Corpuscular HGB Conc 31.1 g/dL (30-55); Mean Corpuscular Hemoglobin 26.9 pg (27-33); Mean Corpuscular Volume 86.3 fl (85-98); Mean Platelet Volume 10.4 fL (7.4-10.4); Monocytes # 0.1 10^3/uL (0.2-0.9); Monocytes % 1.5 %; Neutrophils # 6.75 10^3/uL (1.8-7.7); Nucleated Red Blood Cells % 0 %; Platelet Count 157 10^3/cmm (157-399); Red Blood Count 4.24 10^6/uL (3.85-5.65); Red Cell Distribution Width 15.3 % (12.1-15.1); White Blood Count 8.23 10^3/uL (3.29-11.43)
[2024-02-04 10:05] LABS: Alanine Aminotransferase 13 U/L (0-33); Albumin Level 3.6 g/dL (3.5-5.2); Alkaline Phosphatase 112 U/L (35-105); Anion Gap 12.2 (5-19); Aspartate Amino Transferase 14 U/L (0-32); Blood Urea Nitrogen 12 mg/dL (8-23); Calcium 8.2 mg/dL (8.5-10.5); Carbon Dioxide 23 mmol/L (22-29); Chloride 104 mmol/L (98-107); Globulin 2.7 g/dL (1.3-4.6); Glomerular Filtration Rate 82.7 mL/min (90-130); Glucose 113 mg/dL (65-115); Osmolality Calculated 281 mOsm/kg (285-295); Potassium 4.2 mmol/L (3.5-5.1); Sodium 135 mmol/L (136-145); Total Bilirubin 0.5 mg/dL (0.15-1.2); Total Protein 6.3 g/dL (6.6-8.7)
[2024-02-04 11:35] VITALS: BP 120/75; PULSE 103; RESP 17; TEMP 36.6; O2SAT 99
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
[2024-02-18 07:32] LABS: Basophils # 0.1 10^3/uL (0.0-0.1); Basophils % 0.8 %; Eosinophils # 0.2 10^3/uL (0.0-0.8); Eosinophils % 1.7 %; Hematocrit 32.5 % (36-47); Lymphocytes # 1.7 10^3/uL (0.8-4.8); Lymphocytes % 16.2 %; Mean Corpuscular Hemoglobin 27.5 pg (27-33); Mean Platelet Volume 9.2 fL (7.4-10.4); Monocytes # 1.1 10^3/uL (0.2-0.9); Monocytes % 10.6 %; Neutrophils # 7.56 10^3/uL (1.8-7.7); Neutrophils % 70.1 %; Nucleated Red Blood Cells % 0 %; Platelet Count 592 10^3/cmm (157-399); Red Blood Count 3.78 10^6/uL (3.85-5.65); Red Cell Distribution Width 16.2 % (12.1-15.1); White Blood Count 10.77 10^3/uL (3.29-11.43)
[2024-02-18 07:44] LABS: Alanine Aminotransferase 13 U/L (0-33); Albumin Level 3.1 g/dL (3.5-5.2); Alkaline Phosphatase 109 U/L (35-105); Anion Gap 13.9 (5-19); Aspartate Amino Transferase 12 U/L (0-32); Blood Urea Nitrogen 10 mg/dL (8-23); Calcium 7.7 mg/dL (8.5-10.5); Carbon Dioxide 23 mmol/L (22-29); Chloride 108 mmol/L (98-107); Globulin 3.2 g/dL (1.3-4.6); Glomerular Filtration Rate 98.8 mL/min (90-130); Glucose 112 mg/dL (65-115); Osmolality Calculated 292 mOsm/kg (285-295); Potassium 3.9 mmol/L (3.5-5.1); Sodium 141 mmol/L (136-145); Total Bilirubin 0.2 mg/dL (0.15-1.2); Total Protein 6.3 g/dL (6.6-8.7)
[2024-02-18 09:20] LABS: Reticulocyte % 1.6 % (0.5-2.0)
[2024-02-18] MEDS: dextrose 5% 250 ML 75 ML IV (09:37)
[2024-02-18] MEDS: palonosetron 0.25 mg/5 mL SDV IVP (09:38)
[2024-02-18] MEDS: dexamethasone 4 mg/mL INJ 5 mL 12 MG IVP (09:40)
[2024-02-18] MEDS: aprepitant 130 mg/18 ml SDV IVP (09:43)
[2024-02-18] MEDS: DEXTROSE 5% IV (10:19)
[2024-02-18] MEDS: [UNRECOGNIZED DRUG - OTHER] IV (10:19)
[2024-02-18 10:55] LABS: Ferritin 166 ng/mL (15-150); Iron 14 ug/dL (37-145); Lactate Dehydrogenase 164 U/L (135-214); Percent Saturation 9.7 % (20-50); Total Iron Binding Capacity 144 mcg/dl; Unsaturated Iron Binding 130 ug/dL (112-347); Vitamin B12 816 pg/mL (232-1245)
[2024-02-18 11:27] VITALS: BP 101/69; PULSE 99; RESP 18; TEMP 36.2; O2SAT 96
[2024-02-18 11:37] LABS: Folate Level 18.1 ng/mL (4.8-37.3)
[2024-02-18] MEDS: gadobenate dimeglumine 20 mL vial 16 ML IV (13:07)
== END 2024-02-18 23:59 | disposition home or self-care (01) ==
LOC: RAD 02-19 00:01
PROVIDERS: Internal Medicine; PCP Family Medicine; Visit Provider Nurse Practitioner Family
DX: Z79.899 Other long term (current) drug therapy; Z53.9 Procedure and treatment not carried out, unspecified reason; Z51.12 Encounter for antineoplastic immunotherapy; C79.51 Secondary malignant neoplasm of bone; C78.02 Secondary malignant neoplasm of left lung; C78.01 Secondary malignant neoplasm of right lung; Z92.3 Personal history of irradiation; D64.9 Anemia, unspecified; C80.1 Malignant (primary) neoplasm, unspecified
CPT/HCPCS: 36591; 70553; 80053; 82607; 82728; 82746; 83010; 83540; 83550; 83615; 85025; 85045; 86301; 96360; 96375; 96413; 99024; 99213; A9577; J0185; J1100; J2469; J7030; J7060; J9358

== ENCOUNTER → 2024-03-05 08:40 | Outpatient (BNVA) | payer MEDICARE, SELFPAY | PROVIDERS: PCP Family Medicine; Visit Provider Nurse Practitioner | DX: M19.012 Primary osteoarthritis, left shoulder (principal) | CPT/HCPCS: 20610; J1100; J2795; J3301 ==

== ENCOUNTER 2024-03-10 08:21 | Oncology outpatient (recurring) (ONCR) | payer MEDICARE, SELFPAY ==
[2024-03-10 08:48] LABS: Basophils # 0.1 10^3/uL (0.0-0.1); Basophils % 0.5 %; Eosinophils # 0.2 10^3/uL (0.0-0.8); Eosinophils % 1.8 %; Hematocrit 33.4 % (36-47); Lymphocytes % 15.6 %; Mean Corpuscular HGB Conc 30.8 g/dL (30-55); Mean Corpuscular Hemoglobin 26.3 pg (27-33); Mean Corpuscular Volume 85.2 fl (85-98); Mean Platelet Volume 9.4 fL (7.4-10.4); Monocytes # 1.3 10^3/uL (0.2-0.9); Monocytes % 10.5 %; Neutrophils # 9.03 10^3/uL (1.8-7.7); Neutrophils % 70.9 %; Nucleated Red Blood Cells % 0 %; Platelet Count 670 10^3/cmm (157-399); Red Blood Count 3.92 10^6/uL (3.85-5.65); Red Cell Distribution Width 18.1 % (12.1-15.1); White Blood Count 12.73 10^3/uL (3.29-11.43)
[2024-03-10 09:01] LABS: Alanine Aminotransferase 19 U/L (0-33); Albumin Level 3.2 g/dL (3.5-5.2); Alkaline Phosphatase 106 U/L (35-105); Anion Gap 14.1 (5-19); Aspartate Amino Transferase 15 U/L (0-32); Blood Urea Nitrogen 10 mg/dL (8-23); Calcium 8.3 mg/dL (8.5-10.5); Carbon Dioxide 23 mmol/L (22-29); Chloride 108 mmol/L (98-107); Creatinine Clr Calc Pharmacy 63.6361; Globulin 3.4 g/dL (1.3-4.6); Glucose 117 mg/dL (65-115); Osmolality Calculated 292 mOsm/kg (285-295); Potassium 4.1 mmol/L (3.5-5.1); Sodium 141 mmol/L (136-145); Total Bilirubin 0.2 mg/dL (0.15-1.2); Total Protein 6.6 g/dL (6.6-8.7)
[2024-03-10] MEDS: palonosetron 0.25 mg/5 mL SDV IVP (10:30)
[2024-03-10] MEDS: aprepitant 130 mg/18 ml SDV IVP (10:35)
[2024-03-10] MEDS: dexamethasone 4 mg/mL INJ 5 mL 12 MG IVP (10:43)
[2024-03-10] MEDS: dextrose 5% 250 ML 75 ML IV (10:47)
[2024-03-10] MEDS: denosumab 120 mg SDV SUBCUT (10:48)
[2024-03-10] MEDS: DEXTROSE 5% IV (11:46)
[2024-03-10] MEDS: [UNRECOGNIZED DRUG - OTHER] IV (11:46)
[2024-03-10 12:19] VITALS: BP 122/77; PULSE 93; TEMP 36.4; O2SAT 98
== END 2024-03-10 23:59 | disposition home or self-care (01) ==
PROVIDERS: Internal Medicine; PCP Family Medicine; Visit Provider Nurse Practitioner Family
DX: C78.7 Secondary malignant neoplasm of liver and intrahepatic bile duct (principal); Z79.899 Other long term (current) drug therapy; C25.2 Malignant neoplasm of tail of pancreas; Z92.3 Personal history of irradiation; R11.2 Nausea with vomiting, unspecified; C79.9 Secondary malignant neoplasm of unspecified site
CPT/HCPCS: 80053; 85025; 96372; 96375; 96413; 99214; J0185; J0897; J1100; J2469; J7060; J9358

== ENCOUNTER 2024-04-01 08:15 | Oncology outpatient (recurring) (ONCR) | payer MEDICARE, SELFPAY ==
[2024-04-01 08:46] VITALS: BP 135/76; PULSE 64; RESP 18; TEMP 36.6; O2SAT 98
[2024-04-01] MEDS: alteplase 1 mg/mL SDV 2 mL 2 MG INTRACATH (09:44)
[2024-04-01 10:08] LABS: Basophils # 0.1 10^3/uL (0.0-0.1); Basophils % 0.5 %; Eosinophils # 0.2 10^3/uL (0.0-0.8); Eosinophils % 1.9 %; Hematocrit 34.9 % (36-47); Lymphocytes # 1.4 10^3/uL (0.8-4.8); Lymphocytes % 13.8 %; Mean Corpuscular HGB Conc 30.4 g/dL (30-55); Mean Corpuscular Hemoglobin 26.4 pg (27-33); Mean Platelet Volume 9.5 fL (7.4-10.4); Monocytes # 0.8 10^3/uL (0.2-0.9); Monocytes % 7.7 %; Neutrophils # 7.87 10^3/uL (1.8-7.7); Neutrophils % 75.6 %; Nucleated Red Blood Cells % 0 %; Platelet Count 510 10^3/cmm (157-399); Red Blood Count 4.01 10^6/uL (3.85-5.65); Red Cell Distribution Width 21.2 % (12.1-15.1)
[2024-04-01 10:28] LABS: Alanine Aminotransferase 11 U/L (0-33); Albumin Level 3.2 g/dL (3.5-5.2); Alkaline Phosphatase 102 U/L (35-105); Anion Gap 13.5 (5-19); Aspartate Amino Transferase 16 U/L (0-32); Blood Urea Nitrogen 9 mg/dL (8-23); Calcium 8.3 mg/dL (8.5-10.5); Carbon Dioxide 25 mmol/L (22-29); Chloride 106 mmol/L (98-107); Creatinine Clr Calc Pharmacy 63.6476; Globulin 2.9 g/dL (1.3-4.6); Glucose 107 mg/dL (65-115); Osmolality Calculated 291 mOsm/kg (285-295); Potassium 3.5 mmol/L (3.5-5.1); Sodium 141 mmol/L (136-145); Total Bilirubin 0.3 mg/dL (0.15-1.2); Total Protein 6.1 g/dL (6.6-8.7)
[2024-04-01] MEDS: aprepitant 130 mg/18 ml SDV IVP (11:38)
[2024-04-01] MEDS: dextrose 5% 250 ML 50 ML IV (11:38)
[2024-04-01] MEDS: dexamethasone 4 mg/mL INJ 5 mL 12 MG IVP (11:44)
[2024-04-01] MEDS: palonosetron 0.25 mg/5 mL SDV IVP (11:45)
[2024-04-01] MEDS: [UNRECOGNIZED DRUG - OTHER] IV (12:03)
[2024-04-01] MEDS: DEXTROSE 5% IV (12:03)
[2024-04-01 12:43] VITALS: RESP 18; TEMP 36.6
== END 2024-04-01 23:59 | disposition home or self-care (01) ==
PROVIDERS: Internal Medicine; PCP Family Medicine; Visit Provider Nurse Practitioner Family
DX: C78.7 Secondary malignant neoplasm of liver and intrahepatic bile duct (principal); Z79.899 Other long term (current) drug therapy; C25.2 Malignant neoplasm of tail of pancreas; Z92.3 Personal history of irradiation; Z51.12 Encounter for antineoplastic immunotherapy; C79.51 Secondary malignant neoplasm of bone; Z79.01 Long term (current) use of anticoagulants; D50.9 Iron deficiency anemia, unspecified; D64.81 Anemia due to antineoplastic chemotherapy; T45.1X5A Adverse effect of antineoplastic and immunosuppressive drugs, initial encounter; G62.9 Polyneuropathy, unspecified
CPT/HCPCS: 80053; 85025; 96375; 96413; 99213; J0185; J1100; J2469; J2997; J7060; J9358

== ENCOUNTER → 2024-04-13 14:40 | Outpatient (BNVA) | payer MEDICARE, SELFPAY | PROVIDERS: PCP Family Medicine; Visit Provider Nurse Practitioner | DX: L08.9 Local infection of the skin and subcutaneous tissue, unspecified (principal) | CPT/HCPCS: 87070 ==

== ENCOUNTER 2024-04-21 08:00 | Oncology outpatient (recurring) (ONCR) | payer MEDICARE, SELFPAY ==
[2024-04-07 10:18] LABS: Basophils # 0.1 10^3/uL (0.0-0.1); Basophils % 0.6 %; Eosinophils # 0.2 10^3/uL (0.0-0.8); Eosinophils % 1.1 %; Lymphocytes # 1.6 10^3/uL (0.8-4.8); Mean Corpuscular HGB Conc 30.3 g/dL (30-55); Mean Corpuscular Hemoglobin 26.1 pg (27-33); Mean Corpuscular Volume 86.3 fl (85-98); Mean Platelet Volume 9.3 fL (7.4-10.4); Monocytes # 0.4 10^3/uL (0.2-0.9); Monocytes % 2.5 %; Neutrophils # 12.19 10^3/uL (1.8-7.7); Neutrophils % 83.9 %; Nucleated Red Blood Cells % 0 %; Platelet Count 358 10^3/cmm (157-399); Red Blood Count 4.17 10^6/uL (3.85-5.65); Red Cell Distribution Width 21.1 % (12.1-15.1); White Blood Count 14.52 10^3/uL (3.29-11.43)
[2024-04-07 10:31] LABS: Alanine Aminotransferase 15 U/L (0-33); Albumin Level 3.2 g/dL (3.5-5.2); Alkaline Phosphatase 105 U/L (35-105); Anion Gap 15.1 (5-19); Aspartate Amino Transferase 20 U/L (0-32); Blood Urea Nitrogen 12 mg/dL (8-23); Calcium 8.4 mg/dL (8.5-10.5); Carbon Dioxide 22 mmol/L (22-29); Chloride 106 mmol/L (98-107); Creatinine Clr Calc Pharmacy 62.6518; Globulin 3.2 g/dL (1.3-4.6); Glomerular Filtration Rate 98.8 mL/min (90-130); Glucose 116 mg/dL (65-115); Lactate Dehydrogenase 176 U/L (135-214); Osmolality Calculated 289 mOsm/kg (285-295); Potassium 4.1 mmol/L (3.5-5.1); Sodium 139 mmol/L (136-145); Total Bilirubin 0.4 mg/dL (0.15-1.2); Total Protein 6.4 g/dL (6.6-8.7)
[2024-04-07] MEDS: albuterol 2.5 mg/3 mL Neb INHALATION (11:24)
[2024-04-07] MEDS: ferric carboxy (PYXIS) 750 MG in sodium chloride 0.9% (100 ml) 100 ML 345 MG IV (11:48)
[2024-04-07] MEDS: sodium chloride 0.9% 250 ML 75 ML IV (11:48)
[2024-04-21 08:07] LABS: Basophils # 0.1 10^3/uL (0.0-0.1); Basophils % 0.9 %; Eosinophils # 0.3 10^3/uL (0.0-0.8); Eosinophils % 4.1 %; Hematocrit 37.2 % (36-47); Lymphocytes # 1.7 10^3/uL (0.8-4.8); Lymphocytes % 21.4 %; Mean Corpuscular HGB Conc 30.9 g/dL (30-55); Mean Corpuscular Hemoglobin 28.3 pg (27-33); Mean Corpuscular Volume 91.4 fl (85-98); Mean Platelet Volume 9.2 fL (7.4-10.4); Monocytes # 0.8 10^3/uL (0.2-0.9); Monocytes % 10.1 %; Neutrophils # 4.88 10^3/uL (1.8-7.7); Nucleated Red Blood Cells % 0 %; Platelet Count 424 10^3/cmm (157-399); Red Blood Count 4.07 10^6/uL (3.85-5.65); White Blood Count 7.75 10^3/uL (3.29-11.43)
[2024-04-21 08:30] LABS: Alanine Aminotransferase 12 U/L (0-33); Albumin Level 3.2 g/dL (3.5-5.2); Alkaline Phosphatase 107 U/L (35-105); Anion Gap 10.9 (5-19); Aspartate Amino Transferase 21 U/L (0-32); Blood Urea Nitrogen 10 mg/dL (8-23); Calcium 8.6 mg/dL (8.5-10.5); Carbon Dioxide 26 mmol/L (22-29); Chloride 111 mmol/L (98-107); Creatinine Clr Calc Pharmacy 63.2142; Globulin 3.3 g/dL (1.3-4.6); Glucose 112 mg/dL (65-115); Osmolality Calculated 298 mOsm/kg (285-295); Potassium 3.9 mmol/L (3.5-5.1); Sodium 144 mmol/L (136-145); Total Bilirubin 0.3 mg/dL (0.15-1.2); Total Protein 6.5 g/dL (6.6-8.7)
[2024-04-21] MEDS: dextrose 5% 250 ML 75 ML IV (09:55)
[2024-04-21] MEDS: dexamethasone 4 mg/mL INJ 5 mL 12 MG IVP (09:58)
[2024-04-21] MEDS: palonosetron 0.25 mg/5 mL SDV IVP (10:04)
[2024-04-21] MEDS: aprepitant 130 mg/18 ml SDV IVP (10:08)
[2024-04-21] MEDS: denosumab 120 mg SDV SUBCUT (10:31)
[2024-04-21] MEDS: [UNRECOGNIZED DRUG - OTHER] IV (10:45)
[2024-04-21] MEDS: DEXTROSE 5% IV (10:45)
[2024-04-21 12:00] VITALS: BP 130/78; PULSE 84; RESP 17; TEMP 36.6; O2SAT 98
== END 2024-04-21 23:59 | disposition home or self-care (01) ==
PROVIDERS: Internal Medicine; PCP Family Medicine; Visit Provider Nurse Practitioner Family
DX: Z53.9 Procedure and treatment not carried out, unspecified reason; Z51.11 Encounter for antineoplastic chemotherapy; C25.9 Malignant neoplasm of pancreas, unspecified; C78.7 Secondary malignant neoplasm of liver and intrahepatic bile duct; R19.7 Diarrhea, unspecified; C78.02 Secondary malignant neoplasm of left lung; D64.9 Anemia, unspecified; G62.9 Polyneuropathy, unspecified; L02.412 Cutaneous abscess of left axilla; J40 Bronchitis, not specified as acute or chronic; D50.9 Iron deficiency anemia, unspecified; Z79.01 Long term (current) use of anticoagulants; Z92.3 Personal history of irradiation; Z79.899 Other long term (current) drug therapy
CPT/HCPCS: 80053; 83615; 85025; 96365; 96372; 96375; 96413; 99213; 99214; J0185; J0897; J1100; J1439; J2469; J7050; J7060; J7613; J9358

== ENCOUNTER 2024-04-26 05:41 | Observation (INO) | payer MEDICARE, SELFPAY ==
[2024-04-26] VITALS (12 sets, daily range): BP systolic 91–122; BP diastolic 51–74; PULSE 98–111; RESP 16–24; TEMP 36.8–37; O2SAT 90–100; BMI 28.5
--- NOTE | 2024-04-26 06:01 | ECG_ITS ---
[facility] Test Date: 2024-04-26 Pat Name: Magy Ann Department: Room: Gender: Female Design Center Consultant: : 1955 Requested By: Matteo Wells Order Number: [id number] Deysi MD: Mckay Ulrich M.D. Measurements Intervals [place] Rate: 116 P: 83 ND: 176 QRS: 3 QRSD: 89 T: 94 QT: 338 QTc: 471 Interpretive Statements SINUS TACHYCARDIA WITH FREQUENT VENTRICULAR PREMATURE COMPLEXES LEFT ATRIAL ENLARGEMENT [-0.15mV P-WAVE IN V1/V2] POSSIBLE ANTERIOR MYOCARDIAL INFARCTION , OF INDETERMINATE AGE [30 ms Q WAVE IN V3/V4, OR R < 0.2 mV IN V4] POSSIBLE INFERIOR MYOCARDIAL INFARCTION , PROBABLY OLD [30 ms Q WAVE IN II/aVF] Compared to ECG 05/30/2023 17:24:27 Ventricular premature complex(es) now present Sinus rhythm no longer present Myocardial infarct finding still present Electronically Signed On 04-29-2024 12:55:33 LEGAL SECRETARY RECEPTIONIST by Mckay Ulrich M.D. [email or web address]
--- NOTE | 2024-04-26 06:02 | ED_ITS ---
HPI - General Adult 2 General: Chief complaint: ER Hold Stated complaint: Couch\Vomiting Blood Time Seen by Provider: 04/26/24 05:44 History of Present Illness: 68-year-old female with a known history of metastatic adeno CA originating from the pancreas. Patient was originally diagnosed in January 2022. She presents to the emergency room with complaints of shortness of breath hemoptysis. She had a productive cough of this as well as been going on for 2 weeks last couple of days she has had notable hemoptysis. She is still continuing to take her oral anticoagulant. She is also still [place] receiving chemotherapy. Associated symptoms: Deny chest pain, dyspnea or rash Related Data Home Medications Medication Instructions Recorded Confirmed levetiracetam 500 mg tablet 1,000 mg PO DAILY 02/18/24 04/26/24 Previous Rx's Medication Instructions Recorded omeprazole 20 mg capsule,delayed 20 mg PO DAILY 90 days #90 caps 12/11/23 release Arm sling #1 ea 12/18/23 rivaroxaban 20 mg tablet (Xarelto) 20 mg PO DAILY 30 days #30 tabs 12/23/23 lorazepam 1 mg tablet 0.5 - 1 mg (0.5 - 1 x 1 mg) PO Q6H 01/13/24 PRN Severe Nausea #30 tabs cefuroxime axetil 500 mg tablet 500 mg PO BID #20 tabs 04/07/24 Allergies Allergy/AdvReac Type Severity Reaction Status Date / Time buspirone [From BuSpar] Allergy ALGY-Anaphy Verified 04/21/24 08:16 laxis clarithromycin [From Biaxin] Allergy ALGY-Anaphy Verified 04/21/24 08:16 laxis codeine Allergy ADR-Vomitin Verified 04/21/24 08:16 g Macrolide Antibiotics Allergy ADR-Vomitin Verified 04/21/24 08:16 g Nitrate Analogues Allergy Unknown Verified 04/21/24 08:16 Penicillins Allergy ALGY-Anaphy Verified 04/21/24 08:16 laxis Quinolones Allergy Unknown Verified 04/21/24 08:16 Sulfa (Sulfonamide Allergy ALGY-Anaphy Verified 04/21/24 08:16 Antibiotics) laxis venlafaxine [From Effexor] Allergy ALGY-Anaphy Verified 04/21/24 08:16 laxis Altaplase Allergy Severe Anaphylaxis Uncoded 04/21/24 08:16 Dornase Allergy Severe Anaphylaxis Uncoded 04/21/24 08:16 zofran Allergy ALGY-Rash Uncoded 04/21/24 08:16 Review of Systems 2 Const: Denies: fever(s) or chills Card: Denies: chest pain Resp: Reports: hemoptysis; Denies: dyspnea GI: Denies: abdominal pain : Denies: dysuria, urinary frequency or urinary urgency Musc: Denies: neck pain or back pain Skin/Breast: Denies: rash PFSH ED 2 PFSH: Medical History Recurrent pleural effusion on left Syncope and collapse Symptoms of cerebrovascular accident (CVA) Primary osteoarthritis, left shoulder Left shoulder tendonitis Trapezius muscle spasm History of DVT (deep vein thrombosis) COVID-19 determined by clinical diagnostic criteria Chronic pain Hypokalemia History of diverticulitis History of chemotherapy Encephalopathy 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) History of cardiac arrest Left hemiparesis 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 History of seizures Anxiety and depression Empyema of left pleural space GERD (gastroesophageal reflux disease) Metastatic adenocarcinoma HTN (hypertension) Amlodipine discontinued due to hypotension Pleural effusion Surgical History Port-A-Cath in place History of foot surgery Hx of bladder repair surgery bladder Sling Hx of colonoscopy History of esophagogastroduodenoscopy (EGD) History of appendectomy History of cholecystectomy History of hysterectomy Family History Father Bleeding disorder Cancer Diabetes Hypertension Mother Cancer Diabetes Hypertension Thyroid disease Denies family history of Chronic kidney disease (CKD) Stroke Social History Smoking and tobacco/nicotine status: never used tobacco/nicotine Second hand smoke exposure: Yes Alcohol intake: never Physical Exam 2 Const: COMMON NORMALS: no acute distress GENERAL APPEARANCE: cooperative and comfortable ORIENTATION/CONSCIOUSNESS: Yes awake, Yes oriented to person, Yes oriented to place and Yes oriented to time HENMT: COMMON NORMALS: normocephalic, atraumatic and hearing grossly normal bilaterally HEAD & SCALP: normocephalic and atraumatic Resp: EFFORT & INSPECTION: Yes tachypneic and Yes labored AUSCULTATION: r honchi and diminished lung sounds Cardio: COMMON NORMALS: regular rhythm and No murmurs present (Cardio) R ATE: tachycardic RHYTHM: regular rhythm GI: COMMON NORMALS: Soft to palpation and No hepatosplenomegaly present A USCULTATION: Yes normoactive bowel sounds PALPATION: Yes Soft to palpation, No Tenderness to palpation present (GI), No Guarding due to palpation present (GI) and Yes No hepatosplenomegaly present Extremity: COMMON NORMALS: normal to inspection, capillary refill normal, no clubbing, cyanosis or edema, no calf tenderness and no pedal edema Neuro: SENSORIUM/ORIENTATION: Yes oriented to person, Yes oriented to place and Yes oriented to time Skin: COMMON NORMALS: no rashes or lesions noted GENERAL SKIN EXAM: no rashes or lesions noted Course 2 Vital Signs: Vital signs: Vital Signs Pulse Rate 105 H 04/26/24 10:30 Respiratory Rate 18 04/26/24 10:23 Blood Pressure 91/73 04/26/24 10:30 Pulse Oximetry 98 04/26/24 10:30 Oxygen Delivery Me thod Nasal Cannula 04/26/24 10:30 Oxygen Flow Rate 2 04/26/24 10:30 [facility] - General Adult Medical Decision Making Patient has very advanced disease. The left pulmonary artery was occluded by tumor mass the lung itself is entrapped by pleural fluid effusion. Discussed with Dr. Vargas. He feels patient is probably at the point hospice would be a good option but so far has not wanted to pursue that. I had a long discussion with the patient about her prognosis where she has had an usual course of pancreatic adeno CA at this point she did not really indicate that she would be open to comfort cares. She still wants to pursue potential treatments. Discussed with her that the prognosis at this point is poor that many of these things it is very difficult to treat. Dr. Vargas recommended thoracentesis to try to improve symptoms. When we did do that she was hypotensive. I discussed Dr. Inman as well she had agreed to do the thoracentesis and did perform it for as she was concerned because her there may be some in loculation. Additionally even if we were able to completely evacuate the pleural effusion with the mechanical compression of the pulmonary artery she still would not have the benefit of ventilation and that left lung. Patient is understanding of this as well. Will place the patient on observation for hypotension postthoracentesis. Discussed with Dr. Gal bardales orders written Medical Records I reviewed the patient's medical records. Lab Data I reviewed the patient's lab results. 04/26/24 06:40 04/26/24 06:40 Radiology Impressions Chest CTA 04/26/24 07:32 IMPRESSION: 1. Abrupt contrast cut off involving the left main pulmonary artery likely obstruction of the left pulmonary artery secondary to tumor. A large pulmonary embolism while felt to be less likely could have a somewhat similar appearance. 2. Numerous cavitary metastatic lesions involving the right lung . 3. Loculated pleural effusion involving the left mid and lower lung field with a smaller loculated effusion involving the left upper lung. 4. Near complete opacification involving the aerated portion of the left lung possibly related to necrotizing pneumonia. 5. Bony metastatic disease to the ribs. ADDENDUM: 04/26/24 0839 Addendum: Please note that the RV/LV ratio is COMMENT: THIS REPORT CONTAINS FINDINGS THAT MAY BE CRITICAL TO PATIENT CARE. The exam findings were verbally communicated by me to MATTEO ESTEBAN via telephone conference at 8:36 AM MOTOR VEHICLE ESCORT DRIVER on 04/26/2024. The findings were acknowledged and understood. Thoracentesis Ultrasound 04/26/24 10:16 IMPRESSION: 1. LEFT thoracentesis yielding 300 cc of fluid. 2. Chest radiograph to follow to evaluate for pneumothorax. Chest X-Ray 04/26/24 10:59 IMPRESSION: 1. Status post LEFT thoracentesis. No pneumothorax identified. 2. Continued dense consolidation throughout the LEFT thorax with volume loss. No obvious change in aeration of the LEFT lung. 3. 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 4. Extensive reticular nodular metastasis throughout the RIGHT lung. Laboratory Results WBC 15.49 10^3/uL (3.29-11.43) H 04/26/24 06:40 RBC 3.71 10^6/uL (3.85-5.65) L 04/26/24 06:40 Hgb 10.60 g/dL (11.27-16.99) L 04/26/24 06:40 Hct 34.3 % (36-47) L 04/26/24 06:40 MCV 92.5 fl (85-98) 04/26/24 06:40 MCH 28.6 pg (27-33) 04/26/24 06:40 MCHC 30.9 g/dL (30-55) 04/26/24 06:40 RDW 23.8 % (12.1-15.1) H 04/26/24 06:40 Plt Count 276 10^3/cmm (157-399) 04/26/24 06:40 MPV 9.8 fL (7.4-10.4) 04/26/24 06:40 Neut % (Auto) 89.0 % 04/26/24 06:40 Lymph % (Auto) 7.1 % 04/26/24 06:40 Hand % (Auto) 1.9 % 04/26/24 06:40 Eos % (Auto) 0.9 % 04/26/24 06:40 Baso % (Auto) 0.5 % 04/26/24 06:40 Neut # (Auto) 13.79 10^3/uL (1.8-7.7) H 04/26/24 06:40 Lymph # (Auto) 1.1 10^3/uL (0.8-4.8) 04/26/24 06:40 Hand # (Auto) 0.3 10^3/uL (0.2-0.9) 04/26/24 06:40 Eos # (Auto) 0.1 10^3/uL (0.0-0.8) 04/26/24 06:40 Baso # (Auto) 0.1 10^3/uL (0.0-0.1) 04/26/24 06:40 Nucleated RBC % (auto) 0 % 04/26/24 06:40 Nucleated RBCs # 0.0 /100WBC 04/26/24 06:40 PT 12.90 SECONDS (12.1-14.9) 04/26/24 06:40 INR 0.90 (0.8-1.2) 04/26/24 06:40 APTT 27.5 SECONDS (23.9-36.7) 04/26/24 06:40 Sodium 135 mmol/L (136-145) L 04/26/24 06:40 Potassium 3.8 mmol/L (3.5-5.1) 04/26/24 06:40 Chloride 102 mmol/L (98-107) 04/26/24 06:40 Carbon Dioxide 22 mmol/L (22-29) 04/26/24 06:40 Anion Gap 14.8 (5-19) 04/26/24 06:40 BUN 11 mg/dL (8-23) 04/26/24 06:40 Creatinine 0.6 mg/dL (0.5-0.9) 04/26/24 06:40 GFR Calculation 98.8 mL/min (90-130) 04/26/24 06:40 Glucose 126 mg/dL (65-115) H 04/26/24 06:40 Calculated Osmolality 281 mOsm/kg (285-295) L 04/26/24 06:40 Calcium 8.3 mg/dL (8.5-10.5) L 04/26/24 06:40 Total Bilirubin 0.6 mg/dL (0.15-1.2) 04/26/24 06:40 AST 22 U/L (0-32) 04/26/24 06:40 ALT 12 U/L (0-33) 04/26/24 06:40 Alkaline Phosphatase 93 U/L (35-105) 04/26/24 06:40 Total Protein 5.8 g/dL (6.6-8.7) L 04/26/24 06:40 Albumin 3.0 g/dL (3.5-5.2) L 04/26/24 06:40 Globulin 2.8 g/dL (1.3-4.6) 04/26/24 06:40 Coronavirus (PCR) Negative (Negative) 04/26/24 07:11 Influenza A (PCR) Negative (Negative) 04/26/24 07:11 Influenza Type B (PCR) Negative (Negative) 04/26/24 07:11 RSV (PCR) Negative (Negative) 04/26/24 07:11 Blood Type A Positive 04/26/24 06:40 Rho(D) Type Rh positive 04/26/24 06:40 Antibody Screen Negative 04/26/24 06:40 All radiology interpretation(s) finalized by discharge Discharge Plan Discharge Patient Disposition: Placed in Observation Admit Provider: Héctor Wolf Clinical Impression: Metastatic adenocarcinoma, Recurrent pleural effusion on left, Pancreatic cancer metastasized to liver, 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
--- NOTE | 2024-04-26 06:08 | XRR_ITS ---
PROCEDURE INFORMATION: Exam: XR Chest Exam date and time: 04/26/2024 6:35 AM Age: 68 years old Clinical indication: Cough and dyspnea; Prior surgery; Surgery date: 6+ months; Surgery type: Port; Patient HX: HX of stage 4 pancreatic cancer. --pt coughing up blood, cough, pancreatic stage 4, lung mets; Additional info: Dyspnea/cough, lung mets, cavitary metastatic lesions TECHNIQUE: Imaging protocol: Radiologic exam of the chest. Views: 1 view. COMPARISON: CT chest abdpel w/*[id number] 11/25/2023 9:33 AM FINDINGS: Tubes, catheters and devices: Medication port is seen on the right with its tip overlying the SVC. Lungs: There is near complete opacification of the left hemithorax. Nodular opacities are also noted involving the right hemithorax. Pleural spaces: Suspect pleural effusions bilaterally worse on the left. No pneumothorax is identified. Heart/Mediastinum: Heart size is obscured. Bones/joints: There is a scoliotic curvature convex right. XR/XR chest 1V portable [id number] IMPRESSION: 1. Bilateral opacities worse on the left. Overall there has been interval worsening when compared to prior exam.
[2024-04-26 06:59] LABS: Basophils # 0.1 10^3/uL (0.0-0.1); Basophils % 0.5 %; Eosinophils # 0.1 10^3/uL (0.0-0.8); Eosinophils % 0.9 %; Hematocrit 34.3 % (36-47); Lymphocytes # 1.1 10^3/uL (0.8-4.8); Lymphocytes % 7.1 %; Mean Corpuscular HGB Conc 30.9 g/dL (30-55); Mean Corpuscular Hemoglobin 28.6 pg (27-33); Mean Corpuscular Volume 92.5 fl (85-98); Mean Platelet Volume 9.8 fL (7.4-10.4); Monocytes # 0.3 10^3/uL (0.2-0.9); Monocytes % 1.9 %; Neutrophils # 13.79 10^3/uL (1.8-7.7); Nucleated Red Blood Cells % 0 %; Platelet Count 276 10^3/cmm (157-399); Red Blood Count 3.71 10^6/uL (3.85-5.65); Red Cell Distribution Width 23.8 % (12.1-15.1); White Blood Count 15.49 10^3/uL (3.29-11.43)
[2024-04-26 07:05] LABS: Partial Thromboplastin Time 27.5 SECONDS (23.9-36.7)
[2024-04-26 07:10] LABS: Alanine Aminotransferase 12 U/L (0-33); Alkaline Phosphatase 93 U/L (35-105); Anion Gap 14.8 (5-19); Aspartate Amino Transferase 22 U/L (0-32); Blood Urea Nitrogen 11 mg/dL (8-23); Calcium 8.3 mg/dL (8.5-10.5); Carbon Dioxide 22 mmol/L (22-29); Chloride 102 mmol/L (98-107); Creatinine Clr Calc Pharmacy 62.6518; Globulin 2.8 g/dL (1.3-4.6); Glomerular Filtration Rate 98.8 mL/min (90-130); Glucose 126 mg/dL (65-115); Osmolality Calculated 281 mOsm/kg (285-295); Potassium 3.8 mmol/L (3.5-5.1); Sodium 135 mmol/L (136-145); Total Bilirubin 0.6 mg/dL (0.15-1.2); Total Protein 5.8 g/dL (6.6-8.7)
--- NOTE | 2024-04-26 07:32 | CTR_ITS ---
PROCEDURE INFORMATION: Exam: CTA Chest With Contrast Exam date and time: 04/26/2024 7:57 AM Age: 68 years old Clinical indication: Shortness of breath; Prior surgery; Surgery date: 6+ months; Surgery type: Port; Patient HX: HX of pancreatic and lung cancer; Additional info: Pancreatic CA mets to lung, history pe, hemoptysis. Weakness, dizziness, SOB x 1 week. PT states today she has had a sharp pain in upper chest and coughing up bright red blood. TECHNIQUE: Imaging protocol: Computed tomographic angiography of the chest with contrast. Exam focused on the arteries. 3D rendering (Not supervised by radiologist): MIP and/or 3D reconstructed images were created by the technologist. Radiation optimization: All CT scans at this facility use at least one of these dose optimization techniques: automated exposure control; mA and/or kV adjustment per patient size (includes targeted exams where dose is matched to clinical indication); or iterative reconstruction. Contrast material: OMNI 350; Contrast volume: 51 ml; Contrast route: INTRAVENOUS (IV); COMPARISON: CT angio chest PE protcl [id number] 01/23/2022 12:56 PM RADIATION DOSE METRICS: Total DLP (mGy-cm): 342.37 FINDINGS: Pulmonary arteries: There is an abrupt cut off of contrast involving the left main pulmonary artery. This is likely related to obstruction secondary to tumor. A large pulmonary embolism filling the left PA and its branch vessels is possible but felt to be somewhat less likely. No filling defects are seen within the pulmonary arteries on the right. Aorta: The thoracic aorta is normal in caliber without aneurysm or dissection. There is calcified plaque involving the aorta and coronary vessels. Lungs: Near complete opacification is noted involving the aerated portion of the left lung with small air-fluid levels within the lung parenchyma in a larger air-fluid level involving the more anterior left mid lung measuring 3.9 cm in size possibly related to a necrotizing pneumonia. Numerous cavitary nodules are noted involving the right lung compatible with metastatic disease. Pleural spaces: There is a loculated pleural effusion involving the left mid and lower lung field. With additional areas of loculation which are smaller involving the left mid and upper lung. Heart: Unremarkable. No cardiomegaly. No pericardial effusion. Lymph nodes: There are a few small mediastinal lymph nodes. No enlarged nodes are appreciated. Liver: There are multiple low-density lesions within the liver compatible with cysts. Bones/joints: There is bony metastatic disease involving multiple ribs with a soft tissue mass involving the left 3rd rib anteriorly measuring 5 cm in size. Soft tissues: Soft tissue mass along the left lateral chest wall at the lateral aspect of the left 7th and 8th rib level likely represent soft tissue tumor. CT/CT angio chest PE protcl [id number] IMPRESSION: 1. Abrupt contrast cut off involving the left main pulmonary artery likely obstruction of the left pulmonary artery secondary to tumor. A large pulmonary embolism while felt to be less likely could have a somewhat similar appearance. 2. Numerous cavitary metastatic lesions involving the right lung . 3. Loculated pleural effusion involving the left mid and lower lung field with a smaller loculated effusion involving the left upper lung. 4. Near complete opacification involving the aerated portion of the left lung possibly related to necrotizing pneumonia. 5. Bony metastatic disease to the ribs.
[2024-04-26 08:03] LABS: Influenza A NEGATIVE (Negative); Influenza B NEGATIVE (Negative); Respiratory Syncytial Virus Ce NEGATIVE (Negative); SARS-CoV-2 PCR NEGATIVE (Negative)
[2024-04-26] MEDS: iohexol 350 mg/mL 500 mL Btl (per mL) IV (08:09)
--- NOTE | 2024-04-26 10:16 | US_ITS ---
WS: [id number] ULTRASOUND-GUIDED THORACENTESIS, LEFT HISTORY: pleurel effusion, loculated LEFT Procedure, risks, and complications were explained to the patient. With the patient in an upright pos ition, the skin over the LEFT posterior thorax was cleansed with ChloraPrep and anesthetized with 1% buffered lidocaine. A 5 Vietnamese Yueh needle is inserted into the pleural fluid without complication. A pproximately 300 cc of dark brown pleural fluid is removed without difficulty. / thoracentesis [id number] IMPRESSION: 1. LEFT thoracentesis yielding 300 cc of fluid. 2. Chest radiograph to follow to evaluate for pneumothorax.
[2024-04-26] MEDS: sodium chloride 0.9% 1,000 ML 999 ML IV (10:18)
[2024-04-26] MEDS: morphine 4 mg/mL SDV 1 mL 2 MG IVP (10:23)
--- NOTE | 2024-04-26 10:59 | XR_ITS ---
WS: [id number] PORTABLE CHEST HISTORY: Post LEFT thoracentesis. COMPARISON: 04/26/2024 and 10/07/2023 RIGHT Mediport with tip terminating near the cavoatrial junction. Status post LEFT thoracentesis. No significant improvement in the consolidation throughout the LEFT t horax. Dense opacification throughout the LEFT lung with a few scattered air foci. Corresponds to the finding seen on the recent CT. No pneumothorax identified post thoracentesis. Abrupt termination of the distal LEFT bronchus. Marked volume loss in the LEFT thorax with deviation of the midline structu res to the LEFT. Extensive reticular nodular opacifications throughout the RIGHT lung consistent with metastatic disease. Cardiac size: Obscured by the dense consolidation in the lung. Mediastinum/Aorta: Normal mediastinum. Destructive sclerotic changes in several of the ribs in the LEFT upper thorax. XR/XR chest 1V portable [id number] IMPRESSION: 1. Status post LEFT thoracentesis. No pneumothorax identified. 2. Continued dense consolidation throughout the LEFT thorax with volume loss. No obvious change in aeration of the LEFT lung. 3. 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 4. Extensive reticular nodular metastasis throughout the RIGHT lung.
--- NOTE | 2024-04-26 13:39 | P.HP_ITS ---
Providers/Chief Complaint 2 Admitting Physician: Héctor Wolf Primary Care Provider: Jennie Ramos MD Chief Complaint: Couch\Vomiting Blood History of Present Illness 68-year-old lady with metastatic pancreatic cancer change ER precaution due to shortness of breath with cough with small amounts of hemoptysis, with finding of left lower lobe pleural effusion. Hemoptysis was assessed as minor. She had discontinued her Xarelto 2 days ago. Her case was discussed with Dr. Vargas by ER provider, with recommendation of thoracentesis which was performed with 300 mL of burgundy colored fluid removed. With soft blood pressure after procedure blood pressure down to 91/73, observation was requested overnight. Review of Systems 2 Const: Denies: fever(s), chills, body aches or malaise ENMT: Denies: throat pain Card: Denies: chest pain or pre-syncope Resp: Reports: non-productive cough and hemoptysis; Denies: dyspnea, productive cough or change in phlegm color GI: Denies: abdominal pain, nausea or vomiting Medications/Allergies Home Medications Medication Instructions Recorded Confirmed Last Taken Type omeprazole 20 mg capsule,delayed 20 mg PO DAILY 90 days #90 caps 12/11/23 04/26/24 Unknown Rx release Arm sling #1 ea 12/18/23 04/26/24 Unknown Rx rivaroxaban 20 mg tablet (Xarelto) 20 mg PO DAILY 30 days #30 tabs 12/23/23 04/26/24 Unknown Rx lorazepam 1 mg tablet 0.5 - 1 mg (0.5 - 1 x 1 mg) PO Q6H 01/13/24 04/26/24 Unknown Rx PRN Severe Nausea #30 tabs levetiracetam 500 mg tablet 1,000 mg PO DAILY 02/18/24 04/26/24 Unknown History cefuroxime axetil 500 mg tablet 500 mg PO BID #20 tabs 04/07/24 04/26/24 Unknown Rx Allergies Allergy/AdvReac Type Severity Reaction Status Date / Time buspirone [From BuSpar] Allergy ALGY-Anaphy Verified 04/21/24 08:16 laxis clarithromycin [From Biaxin] Allergy ALGY-Anaphy Verified 04/21/24 08:16 laxis codeine Allergy ADR-Vomitin Verified 04/21/24 08:16 g Macrolide Antibiotics Allergy ADR-Vomitin Verified 04/21/24 08:16 g Nitrate Analogues Allergy Unknown Verified 04/21/24 08:16 Penicillins Allergy ALGY-Anaphy Verified 04/21/24 08:16 laxis Quinolones Allergy Unknown Verified 04/21/24 08:16 Sulfa (Sulfonamide Allergy ALGY-Anaphy Verified 04/21/24 08:16 Antibiotics) laxis venlafaxine [From Effexor] Allergy ALGY-Anaphy Verified 04/21/24 08:16 laxis Altaplase Allergy Severe Anaphylaxis Uncoded 04/21/24 08:16 Dornase Allergy Severe Anaphylaxis Uncoded 04/21/24 08:16 zofran Allergy ALGY-Rash Uncoded 04/21/24 08:16 PFSH Acute 2 PFSH: Medical History Recurrent pleural effusion on left Syncope and collapse Symptoms of cerebrovascular accident (CVA) Primary osteoarthritis, left shoulder Left shoulder tendonitis Trapezius muscle spasm History of DVT (deep vein thrombosis) COVID-19 determined by clinical diagnostic criteria Chronic pain Hypokalemia History of diverticulitis History of chemotherapy Encephalopathy 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) History of cardiac arrest Left hemiparesis 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 History of seizures Anxiety and depression Empyema of left pleural space GERD (gastroesophageal reflux disease) Metastatic adenocarcinoma HTN (hypertension) Amlodipine discontinued due to hypotension Pleural effusion Surgical History Port-A-Cath in place History of foot surgery Hx of bladder repair surgery bladder Sling Hx of colonoscopy History of esophagogastroduodenoscopy (EGD) History of appendectomy History of cholecystectomy History of hysterectomy Family History Father Bleeding disorder Cancer Diabetes Hypertension Mother Cancer Diabetes Hypertension Thyroid disease Denies family history of Chronic kidney disease (CKD) Stroke Social History Smoking and tobacco/nicotine status: never used tobacco/nicotine Second hand smoke exposure: Yes Alcohol intake: never Vitals/I&O/Wt Last Vital Signs Pulse 98 01/27/25 13:28 Resp 18 04/26/24 10:23 BP 104/63 04/26/24 13:28 Pulse Ox 97 04/26/24 13:28 O2 Del Method Nasal Cannula 04/26/24 10:30 O2 Flow Rate 2 04/26/24 10:30 Weight last 48 hrs Weight 73.028 kg Physical Exam 2 Narrative: On second visit accompanied by male family member. Const: COMMON NORMALS: patient oriented x3 and alert GENERAL APPEARANCE: c ooperative ORIENTATION/CONSCIOUSNESS: Yes awake HENMT: COMMON NORMALS: oropharynx normal Neck/C-Spine: COMMON NORMALS: no JVD Resp: COMMON NORMALS: normal respiratory effort and clear to auscultation bilaterally AUSCULTATION: clear to auscultation bilaterally Cardio: COMMON NORMALS: no JVD, regular rhythm, S1 normal heart sound present, S2 normal heart sound present and No murmurs present (Cardio) RHYTHM: regular rhythm HEART SOUNDS: S1 normal heart sound present and S2 normal heart sound present GI: COMMON NORMALS: Normal to inspection, nondistended, normoactive bowel sounds present, Soft to palpation and non-tender PALPATION: Yes Soft to palpation Extremity: COMMON NORMALS: no joint enlargement and no pedal edema Neuro: COMMON NORMALS: patient oriented x3 and moves all extremities S ENSORIUM/ORIENTATION: Yes alert Skin: COMMON NORMALS: no rashes or lesions noted GENERAL SKIN EXAM: no rashes or lesions noted Data 04/26/24 06:40 04/26/24 06:40 A&P Assessment and plan (1) Hypotension: Hypotensive after thoracentesis. Received 1 L fluid bolus. Monitor blood pressure. Plan Hemoptysis: Small-volume hemoptysis as per discussion with ER physician, with history of metastatic pancreatic cancer to the lungs, with metastatic compression of left main pulmonary artery, large pulmonary embolism less likely, as well as with numerous cavitary metastatic lesions in the right lung. Near complete opacification involving aerated portion of the left lung. Cannot exclude necrotizing ammonia. Bony metastatic disease to the ribs. Monitor hemoptysis. Hold Xarelto. Transfer to tertiary care facility was discussed also with patient by ER physician but she declined. At current time reported small-volume hemoptysis. Monitor for risk of further hypotension, risk of fluid overload. Reviewed vitals, CBC, INR, PTT, CMP, coronavirus, flu Mary Lou, RSV PCR, EKG, CTA chest, chest x-ray, ER physician note, discussed with her provider. Left pleural effusion: 300 mL drained out with thoracentesis. Does not appear like empyema. Does have leukocytosis 15.5. Mild tachycardia 98. On 2 L nasal cannula oxygen. Normally not on oxygen. Discussed with her empirically started antibiotics for now as on CT cannot exclude pneumonia. Discussed with her she has multiple antibiotic allergies. She has had intolerance to quinolones before. Penicillin is anaphylaxis, but she states did tolerate cephalosporins prescribed to her recently. Discussed with her we will treat with cefepime, linezolid for now empirically. Monitor for risk of allergic reaction. Reassess. Gram stain and culture from pleural fluid is requested. Metastatic pancreatic cancer: Follow-up with oncology. Advanced metastatic cancer. Poor prognosis. Very high risk of mortality. It seems has not yet been ready to progress to hospice care. Attestations 2 Medical Necessity Statement*: Please in observation for additional assessment management of hypotension after thoracentesis and drainage of left pleural effusion lady with metastatic pancreatic cancer, hemoptysis. and High MDM includes amount and/or complexity of data reviewed/ordered [ previous or external records, resulted lab(s)/test(s), ordered lab(s)/test(s) and other healthcare professional discussion] and described risk of complication, morbidity or mortality of management as documented Diagnoses Hypotension I95.9
[2024-04-26] MEDS: linezolid 600 mg Tablet PO (14:51)
[2024-04-26] MEDS: cefepime 1,000 mg SDV 1000 MG IVP (14:52)
[2024-04-26] MEDS: pantoprazole DR 40 mg Tablet PO (20:46)
[2024-04-26] MEDS: metoclopramide 5 mg/mL SDV 2 mL IVP (20:46)
[2024-04-26] MEDS: levETIRAcetam 500 mg Tablet PO (20:46)
[2024-04-27] VITALS (7 sets, daily range): BP systolic 90–121; BP diastolic 53–83; PULSE 98–111; RESP 15–18; TEMP 36.6–37.1; O2SAT 81–95
[2024-04-27] MEDS: linezolid 600 mg Tablet PO ×2 (06:19→17:59)
[2024-04-27] MEDS: cefepime 1,000 mg SDV 1000 MG IVP ×2 (06:19→17:58)
[2024-04-27 07:44] LABS: Basophils # 0.1 10^3/uL (0.0-0.1); Basophils % 0.6 %; Eosinophils # 0.3 10^3/uL (0.0-0.8); Eosinophils % 2.7 %; Lymphocytes # 1.3 10^3/uL (0.8-4.8); Lymphocytes % 11.7 %; Mean Corpuscular HGB Conc 30.3 g/dL (30-55); Mean Corpuscular Hemoglobin 28.7 pg (27-33); Mean Corpuscular Volume 94.7 fl (85-98); Mean Platelet Volume 10.4 fL (7.4-10.4); Monocytes # 0.3 10^3/uL (0.2-0.9); Neutrophils # 9.05 10^3/uL (1.8-7.7); Neutrophils % 81.2 %; Nucleated Red Blood Cells % 0 %; Platelet Count 205 10^3/cmm (157-399); Red Blood Count 3.38 10^6/uL (3.85-5.65); Red Cell Distribution Width 23.3 % (12.1-15.1); White Blood Count 11.14 10^3/uL (3.29-11.43)
[2024-04-27 08:00] LABS: Anion Gap 13.9 (5-19); Blood Urea Nitrogen 10 mg/dL (8-23); Calcium 7.4 mg/dL (8.5-10.5); Carbon Dioxide 21 mmol/L (22-29); Chloride 105 mmol/L (98-107); Creatinine Clr Calc Pharmacy 62.6518; Glomerular Filtration Rate 82.7 mL/min (90-130); Glucose 112 mg/dL (65-115); Osmolality Calculated 282 mOsm/kg (285-295); Potassium 3.9 mmol/L (3.5-5.1); Sodium 136 mmol/L (136-145)
[2024-04-27] MEDS: pantoprazole DR 40 mg Tablet PO (09:47)
[2024-04-27] MEDS: levETIRAcetam 500 mg Tablet PO ×2 (09:47→17:59)
[2024-04-27] MEDS: ondansetron 2 mg/ML SDV 2 mL 4 MG IVP (12:21)
[2024-04-27] MEDS: metoclopramide 5 mg/mL SDV 2 mL IVP (13:08)
--- NOTE | 2024-04-27 14:06 | P.PN_ITS ---
Vitals/I&O/Wt Last Vital Signs Temp 97.8 F 04/27/24 11:32 Pulse 100 04/27/24 11:32 Resp 17 04/27/24 11:32 BP 90/63 04/27/24 11:32 Pulse Ox 81 L 04/27/24 12:19 O2 Del Method Nasal Cannula 04/27/24 11:32 O2 Flow Rate 4 04/27/24 12:19 04/26/24 04/27/24 04/27/24 22:59 06:59 14:59 Intake Total 480 / 1480 240 / 1720 598 / 598 Balance 480 / 1480 240 / 1720 598 / 598 Weight last 48 hrs Weight 73.028 kg Weight 73.028 kg Weight 73.028 kg Physical Exam 2 Narrative: On second visit accompanied by male family member. Const: COMMON NORMALS: patient oriented x3 and alert GENERAL APPEARANCE: c ooperative ORIENTATION/CONSCIOUSNESS: Yes awake HENMT: COMMON NORMALS: oropharynx normal Neck/C-Spine: COMMON NORMALS: no JVD Resp: COMMON NORMALS: normal respiratory effort and clear to auscultation bilaterally AUSCULTATION: clear to auscultation bilaterally Cardio: COMMON NORMALS: no JVD, regular rhythm, S1 normal heart sound present, S2 normal heart sound present and No murmurs present (Cardio) RHYTHM: regular rhythm HEART SOUNDS: S1 normal heart sound present and S2 normal heart sound present GI: COMMON NORMALS: Normal to inspection, nondistended, normoactive bowel sounds present, Soft to palpation and non-tender PALPATION: Yes Soft to palpation Extremity: COMMON NORMALS: no joint enlargement and no pedal edema Neuro: COMMON NORMALS: patient oriented x3 and moves all extremities S ENSORIUM/ORIENTATION: Yes alert Skin: COMMON NORMALS: no rashes or lesions noted GENERAL SKIN EXAM: no rashes or lesions noted Data 04/27/24 07:10 04/27/24 07:10 Micro: Microbiology 04/26/24 14:45 Blood Culture - Preliminary Blood SPECIMEN COLLECTED 04/26/24 14:40 Blood Culture - Preliminary Blood SPECIMEN COLLECTED A&P Assessment and plan (1) Hypotension: Hypotensive after thoracentesis. Received 1 L fluid bolus. Monitor blood pressure. Plan Left pleural effusion: Blood pressure stabilized, and has been maintaining blood pressures today. Leukocytosis resolved. Continues empirically on some IV antibiotic as discussed with her for the possibility of pneumonia. Fluid did not appear like empyema. Reviewed CT angiogram chest, with suspected fraction of left main pulm artery, although cannot exclude clot. On review of additional CT from October, did have appearance of clot in that location associated possibly with the tumor. Reached out to her oncologist, could not speak with Dr. Vargas, but was able to speak with his partner Dr. Holm. Given she is at elevated risk of PE, cannot exclude current PE, hemoptysis also could be related to PE, resume anticoagulation. Discussed with her risks and options of proceeding forward including consideration of resumption of anticoagulation, risk of continued bleeding, worse bleeding, life-threatening bleeding. Consideration of discontinuation of anticoagulation, risk of recurrent VTE. He has had PE and VTE in the past. Considering different options she chooses to resume Xarelto at current time, with monitoring in the hospital. With cough with hemoptysis, monitor for any worsening of bleeding. Cough suppressant added. 300 mL drained out with thoracentesis. Leukocytosis resolved. On 2 L nasal cannula oxygen. Will benefit from oxygen at discharge. Reviewed vitals, CBC, BMP, blood culture. Discussed with nursing, case resolution specialist. Hemoptysis: Continues with blood tinged sputum with secretions. Monitor for any additional worsening with resumption of Xarelto as above. Metastatic pancreatic cancer: She understands that overall her prognosis is poor and that she is at very high risk of additional complications secondary to the metastatic malignancy likely in the near future. She is considering and will be thinking about additional options to help set up care for her elderly disabled . Discussed with case resolution specialist, nursing. Follow-up with oncology to further discuss goals of care and options, she has an appointment tomorrow morning. Attestations 2 Medical Necessity Statement*: Continue hospitalization for resumption of Xarelto with elevated risk of recurrence of VTE in a lady with metastatic pancreatic cancer, hemoptysis. and High MDM includes amount and/or complexity of data reviewed/ordered [ resulted lab(s)/test(s), ordered lab(s)/test(s) and other healthcare professional discussion] and described risk of complication, morbidity or mortality of management as documented Diagnoses Hypotension I95.9
[2024-04-27] MEDS: rivaroxaban 10 mg Tablet PO (14:34)
[2024-04-27] MEDS: benzonatate 100 mg Capsule PO ×2 (16:27→20:52)
[2024-04-27] MEDS: guaiFENesin-dextromethorphan UDC 10 mL PO ×2 (16:27→20:52)
[2024-04-28 04:00] VITALS: BP 110/72; PULSE 103; RESP 16; TEMP 36.7; O2SAT 93
[2024-04-28] MEDS: cefepime 1,000 mg SDV 1000 MG IVP (05:31)
[2024-04-28] MEDS: linezolid 600 mg Tablet PO (05:32)
[2024-04-28 06:43] LABS: Basophils % 0.4 %; Eosinophils # 0.3 10^3/uL (0.0-0.8); Eosinophils % 2.5 %; Hematocrit 30.9 % (36-47); Lymphocytes # 0.9 10^3/uL (0.8-4.8); Lymphocytes % 8.7 %; Mean Corpuscular HGB Conc 30.7 g/dL (30-55); Mean Corpuscular Hemoglobin 28.5 pg (27-33); Mean Corpuscular Volume 92.8 fl (85-98); Mean Platelet Volume 10.5 fL (7.4-10.4); Monocytes # 0.3 10^3/uL (0.2-0.9); Monocytes % 2.9 %; Neutrophils % 84.7 %; Nucleated Red Blood Cells % 0 %; Platelet Count 177 10^3/cmm (157-399); Red Blood Count 3.33 10^6/uL (3.85-5.65); Red Cell Distribution Width 22.5 % (12.1-15.1); White Blood Count 10.63 10^3/uL (3.29-11.43)
[2024-04-28 07:08] LABS: Anion Gap 13.7 (5-19); Blood Urea Nitrogen 8 mg/dL (8-23); Calcium 7.5 mg/dL (8.5-10.5); Carbon Dioxide 22 mmol/L (22-29); Chloride 105 mmol/L (98-107); Creatinine Clr Calc Pharmacy 62.6518; Glomerular Filtration Rate 98.8 mL/min (90-130); Glucose 114 mg/dL (65-115); Osmolality Calculated 283 mOsm/kg (285-295); Potassium 3.7 mmol/L (3.5-5.1); Sodium 137 mmol/L (136-145)
[2024-04-28 07:40] VITALS: BP 100/65; PULSE 98; RESP 17; TEMP 36.6; O2SAT 90
[2024-04-28] MEDS: pantoprazole DR 40 mg Tablet PO (09:17)
[2024-04-28] MEDS: benzonatate 100 mg Capsule PO (09:18)
[2024-04-28] MEDS: levETIRAcetam 500 mg Tablet PO (09:18)
--- NOTE | 2024-04-28 11:29 | PM.DCS ---
Discharge Providers Date of Admission: 04/26/24 12:00 Date of Discharge: April 28, 2024 Attending Provider at Admission: Héctor Wolf Attending Provider at Discharge: Héctor Wolf Primary Care Provider: Jennie Ramos MD Diagnoses at Discharge Discharge Diagnosis (1) Hypotension: Status: Acute Reason for Visit Reason for Visit: Couch\Vomiting Blood Brief History: 68-year-old lady with metastatic pancreatic cancer change ER precaution due to shortness of breath with cough with small amounts of hemoptysis, with finding of left lower lobe pleural effusion. Hemoptysis was assessed as minor. She had discontinued her Xarelto 2 days ago. Her case was discussed with Dr. Vargas by ER provider, with recommendation of thoracentesis which was performed with 300 mL of burgundy colored fluid removed. With soft blood pressure after procedure blood pressure down to 91/73, observation was requested overnight. Hospital Course Hospital Course Her blood pressure was monitored, and noted with some fluctuation, although did not require additional boluses. Continued on supplemental oxygen at 2 L and this remained steady. She remained afebrile, with resolved leukocytosis. Continued empirically on antibiotic, although pneumonia is considered less likely, with changes likely related to advanced metastatic disease. Initial hemoptysis she had held anticoagulation, and hematemesis and blood counts were reassessed. CT angiogram chest showed abrupt contrast cutoff in the left main pulm artery likely obstruction secondary to tumor, although felt less likely PE could have similar appearance. However, on review of prior CT in October in the same occasion she also was seen to have a thrombus there at that time. With elevated risk of VTE as per discussion with her risk of bleeding, thrombosis, for now mutual decision was made also per discussion with her oncology team, to continue anticoagulation. For now continuing at 10 mg of Xarelto daily, but she will be following up with oncology further in office this morning and will discuss safe alternative dose is recommended. She is still having mild hemoptysis with blood-tinged sputum. With extensive metastatic disease overall prognosis unfortunately is not good which she understands. She has had a difficult time with accepting her condition due to also care for her disabled and has not felt ready for hospice. Further discussions of goals of care will take place with oncology in office as well. With resumption of Xarelto she was further monitored an additional day in hospital. She has not had any worsening of hemoptysis, overall feeling close to her baseline with oxygen support. Continue oxygen support has arranged for her at discharge as well. Physical Exam Const: COMMON NORMALS: patient oriented x3 and alert GENERAL APPEARANCE: cooperative ORIENTATION/CONSCIOUSNESS: Yes awake HENMT: COMMON NORMALS: oropharynx normal Neck/C-Spine: COMMON NORMALS: no JVD Resp: COMMON NORMALS: normal respiratory effort and clear to auscultation bilaterally AUSCULTATION: clear to auscultation bilaterally and diminished lung sounds (Mildly diminished LLL) Cardio: COMMON NORMALS: no JVD, regular rhythm, S1 normal heart sound present, S2 normal heart sound present and No murmurs present (Cardio) RHYTHM: regular rhythm HEART SOUNDS: S1 normal heart sound present and S2 normal heart sound present GI: COMMON NORMALS: Normal to inspection, nondistended, normoactive bowel sounds present, Soft to palpation and non-tender PALPATION: Yes Soft to palpation Extremity: COMMON NORMALS: no joint enlargement and no pedal edema Neuro: COMMON NORMALS: patient oriented x3 and moves all extremities SENSORIUM/ORIENTATION: Yes alert Skin: COMMON NORMALS: no rashes or lesions noted GENERAL SKIN EXAM: no rashes or lesions noted Discharge Data Studies Completed and Pending Completed Studies During Hospitalization Category Date Time Status CT angio chest PE protcl [id number] Stat Cat Scan 04/26/24 07:32 Completed XR chest 1V portable [id number] Stat Exams 04/26/24 06:08 Completed XR chest 1V portable [id number] Stat Exams 04/26/24 10:59 Completed US thoracentesis [id number] Stat Ultrasound 04/26/24 10:16 Completed Pending at discharge Category Date Time Status Basic Metabolic Panel AM LABS Lab 04/29/24 04:00 Ordered Blood Culture Stat Lab 04/26/24 14:45 Results Body Fluid Culture & GS Stat Lab 04/26/24 14:09 Ordered C.Diff PCR (Lab) Routine Lab 04/27/24 08:58 Uncollected Complete Blood Count w/Auto AM LABS Lab 04/29/24 04:00 Ordered Urinalysis Stat Lab 04/26/24 05:44 Uncollected Radiology Impressions Chest CTA 04/26/24 07:32 IMPRESSION: 1. Abrupt contrast cut off involving the left main pulmonary artery likely obstruction of the left pulmonary artery secondary to tumor. A large pulmonary embolism while felt to be less likely could have a somewhat similar appearance. 2. Numerous cavitary metastatic lesions involving the right lung . 3. Loculated pleural effusion involving the left mid and lower lung field with a smaller loculated effusion involving the left upper lung. 4. Near complete opacification involving the aerated portion of the left lung possibly related to necrotizing pneumonia. 5. Bony metastatic disease to the ribs. ADDENDUM: 04/26/24 0839 Addendum: Please note that the RV/LV ratio is COMMENT: THIS REPORT CONTAINS FINDINGS THAT MAY BE CRITICAL TO PATIENT CARE. The exam findings were verbally communicated by me to PHAM ROSE via telephone conference at 8:36 AM HELMINTHOLOGIST on 04/26/2024. The findings were acknowledged and understood. Thoracentesis Ultrasound 04/26/24 10:16 IMPRESSION: 1. LEFT thoracentesis yielding 300 cc of fluid. 2. Chest radiograph to follow to evaluate for pneumothorax. Chest X-Ray 04/26/24 10:59 IMPRESSION: 1. Status post LEFT thoracentesis. No pneumothorax identified. 2. Continued dense consolidation throughout the LEFT thorax with volume loss. No obvious change in aeration of the LEFT lung. 3. 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 4. Extensive reticular nodular metastasis throughout the RIGHT lung. Laboratory Results WBC 10.63 10^3/uL (3.29-11.43) 04/28/24 05:42 RBC 3.33 10^6/uL (3.85-5.65) L 04/28/24 05:42 Hgb 9.50 g/dL (11.27-16.99) L 04/28/24 05:42 Hct 30.9 % (36-47) L 04/28/24 05:42 MCV 92.8 fl (85-98) 04/28/24 05:42 MCH 28.5 pg (27-33) 04/28/24 05:42 MCHC 30.7 g/dL (30-55) 04/28/24 05:42 RDW 22.5 % (12.1-15.1) H 04/28/24 05:42 Plt Count 177 10^3/cmm (157-399) 04/28/24 05:42 MPV 10.5 fL (7.4-10.4) H 04/28/24 05:42 Neut % (Auto) 84.7 % 04/28/24 05:42 Lymph % (Auto) 8.7 % 04/28/24 05:42 Mclean % (Auto) 2.9 % 04/28/24 05:42 Eos % (Auto) 2.5 % 04/28/24 05:42 Baso % (Auto) 0.4 % 04/28/24 05:42 Neut # (Auto) 9.00 10^3/uL (1.8-7.7) H 04/28/24 05:42 Lymph # (Auto) 0.9 10^3/uL (0.8-4.8) 04/28/24 05:42 Mclean # (Auto) 0.3 10^3/uL (0.2-0.9) 04/28/24 05:42 Eos # (Auto) 0.3 10^3/uL (0.0-0.8) 04/28/24 05:42 Baso # (Auto) 0.0 10^3/uL (0.0-0.1) 04/28/24 05:42 Nucleated RBC % (auto) 0 % 04/28/24 05:42 Nucleated RBCs # 0.0 /100WBC 04/28/24 05:42 PT 12.90 SECONDS (12.1-14.9) 04/26/24 06:40 INR 0.90 (0.8-1.2) 04/26/24 06:40 APTT 27.5 SECONDS (23.9-36.7) 04/26/24 06:40 Sodium 137 mmol/L (136-145) 04/28/24 05:42 Potassium 3.7 mmol/L (3.5-5.1) 04/28/24 05:42 Chloride 105 mmol/L (98-107) 04/28/24 05:42 Carbon Dioxide 22 mmol/L (22-29) 04/28/24 05:42 Anion Gap 13.7 (5-19) 04/28/24 05:42 BUN 8 mg/dL (8-23) 04/28/24 05:42 Creatinine 0.6 mg/dL (0.5-0.9) 04/28/24 05:42 GFR Calculation 98.8 mL/min (90-130) 04/28/24 05:42 Glucose 114 mg/dL (65-115) 04/28/24 05:42 Calculated Osmolality 283 mOsm/kg (285-295) L 04/28/24 05:42 Calcium 7.5 mg/dL (8.5-10.5) L 04/28/24 05:42 Total Bilirubin 0.6 mg/dL (0.15-1.2) 04/26/24 06:40 AST 22 U/L (0-32) 04/26/24 06:40 ALT 12 U/L (0-33) 04/26/24 06:40 Alkaline Phosphatase 93 U/L (35-105) 04/26/24 06:40 Total Protein 5.8 g/dL (6.6-8.7) L 04/26/24 06:40 Albumin 3.0 g/dL (3.5-5.2) L 04/26/24 06:40 Globulin 2.8 g/dL (1.3-4.6) 04/26/24 06:40 Coronavirus (PCR) Negative (Negative) 04/26/24 07:11 Influenza A (PCR) Negative (Negative) 04/26/24 07:11 Influenza Type B (PCR) Negative (Negative) 04/26/24 07:11 RSV (PCR) Negative (Negative) 04/26/24 07:11 Blood Type A Positive 04/26/24 06:40 Rho(D) Type Rh positive 04/26/24 06:40 Antibody Screen Negative 04/26/24 06:40 Vitals Last Vital Signs Temp 97.9 F 04/28/24 07:40 Pulse 98 04/28/24 07:40 Resp 17 04/28/24 07:40 BP 100/65 04/28/24 07:40 Pulse Ox 90 04/28/24 07:40 O2 Del Method Nasal Cannula 04/28/24 07:40 O2 Flow Rate 2 04/28/24 07:40 Discharge Plan Discharge Patient Disposition: Home Health Service Condition: Fair Prescriptions: New cefdinir 300 mg capsule 300 mg PO BID 10 Days Qty: 20 0RF linezolid 600 mg tablet 600 mg PO BID 10 Days Qty: 20 0RF Xarelto 10 mg Tablet 10 mg PO DAILY Qty: 90 0RF Continued omeprazole 20 mg capsule,delayed release(DR/EC) 20 mg PO DAILY 90 Days Qty: 90 1RF levetiracetam 500 mg tablet 1,000 mg PO DAILY (DME) Arm sling See Rx Instructions .Route .MEDSUPPLY Qty: 1 0RF Rx Instructions: As directed lorazepam 1 mg tablet 0.5 - 1 mg PO Q6H PRN (Reason: Severe Nausea) Qty: 30 3RF Discontinued cefuroxime axetil 500 mg tablet 500 mg PO BID Qty: 20 0RF Xarelto 20 mg tablet 20 mg PO DAILY 30 Days Qty: 30 5RF Rx Instructions: with evening meal 340B Discharge Orders: Discharge Order (Routine); Ordered 04/28/24 Ordered By: Héctor Wolf Other Ambulatory Orders: DME: Oxygen (Order) Location: None Selected Ordered By: Héctor Wolf Referrals: [facility] [Outside] [facility] [place] Humberto Vargas MD [Hospitalist] - 1-3 days (We have notified your physician's clinic of the need for a follow-up appointment to be scheduled. If you have not heard from them within the next 2 business days, please call them directly. ) Jennie Ramos MD [Primary Care Provider] - 4-7 days (We have notified your physician's clinic of the need for a follow-up appointment to be scheduled. If you have not heard from them within the next 2 business days, please call them directly. ) Patient Instructions: Cefdinir (By mouth), Linezolid (By mouth), Rivaroxaban (By mouth), Opioid Safety Activity Restrictions/Additional Instructions: Please follow-up with your oncologist, to further discuss regarding prognosis, goals of care and any additional plans as per our discussion. Hold Xarelto at current time, discussed with your oncologist and primary provider. Do not resume Xarelto unless cleared to do so by the doctors. In case of coughing up higher amounts of darker blood, seek medical attention. Have your primary doctor reassess your lungs and pleural effusion. Complete antibiotic course, follow-up with your primary doctor and oncology provider for reassessment. In case of return of persistent diarrhea, seek medical attention to be checked for C. difficile. Continue goals of care discussion with your primary provider. Consider care plans for your . Consider hospice support. Discharge Attestations Time Spent in Discharge Care*: greater than 30 min Quality Metrics Clinical Quality Measures [ No reported AMI, CVA or VTE this stay] Coding Level of Care Code 61627 Total time (in minutes) for Discharge: 40 Diagnoses Hypotension I95.9
[2024-04-28 11:36] VITALS: BP 100/65; PULSE 98; RESP 17; TEMP 36.6; O2SAT 90
== END 2024-04-28 10:45 | disposition home health service (06) ==
LOC: ER 06:05 → ER IP 12:01 → MEDSURG 17:20
PROVIDERS: Admitting Provider Internal Medicine; Emergency Provider Family Medicine; PCP Family Medicine; Visit Provider Internal Medicine
DX: J90 Pleural effusion, not elsewhere classified (principal); C25.9 Malignant neoplasm of pancreas, unspecified; C78.7 Secondary malignant neoplasm of liver and intrahepatic bile duct; R04.2 Hemoptysis; I10 Essential (primary) hypertension; Z79.899 Other long term (current) drug therapy; Z88.8 Allergy status to other drugs, medicaments and biological substances; Z86.16 Personal history of COVID-19; Z86.718 Personal history of other venous thrombosis and embolism; Z90.710 Acquired absence of both cervix and uterus; Z90.49 Acquired absence of other specified parts of digestive tract; Z79.01 Long term (current) use of anticoagulants; Z88.5 Allergy status to narcotic agent; Z88.2 Allergy status to sulfonamides; Z88.0 Allergy status to penicillin; Z86.74 Personal history of sudden cardiac arrest; I95.81 Postprocedural hypotension; Z11.52 Encounter for screening for COVID-19
CPT/HCPCS: 32555; 36415; 71045; 71275; 80048; 80053; 85025; 85610; 85730; 86850; 86900; 87040; 87637; 93005; 94760; 96374; 96375; 99285; G0378; J0692; J2270; J2405; J2765; J7030

== ENCOUNTER 2024-04-28 10:00 | Oncology outpatient (recurring) (ONCR) | payer MEDICARE, SELFPAY | END 2024-04-30 23:59 | disposition home or self-care (01) | PROVIDERS: PCP Family Medicine; Visit Provider Nurse Practitioner Family | DX: C79.9 Secondary malignant neoplasm of unspecified site (principal); D50.9 Iron deficiency anemia, unspecified; G62.9 Polyneuropathy, unspecified; Z92.3 Personal history of irradiation; Z79.899 Other long term (current) drug therapy | CPT/HCPCS: 99213 ==